=== PATIENT | female | born 1985 | race Caucasian/White ===

== ENCOUNTER 2016-07-31 12:50 | Emergency (ER) | payer OTHER ==
[2016-07-31 14:40] VITALS: BP 109/61
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
--- NOTE | 2016-07-31 16:05 | RAD ---
Indication: Right lower leg pain after a fall the previous night Comparison: None. Technique: AP and lateral views right lower leg. Report: The visualized bones are adequately corticated and well aligned. There is no acute fracture, dislocation or other focal abnormality. The soft tissues appear grossly normal. IMPRESSION: Normal right lower leg radiograph. If the patient's symptoms persist, follow-up imaging is recommended.
== END 2016-07-31 15:53 | disposition home or self-care (01) ==
LOC: UCCORT 12:50
DX: S86.911A Strain of unspecified muscle(s) and tendon(s) at lower leg level, right leg, initial encounter (principal); S80.01XA Contusion of right knee, initial encounter; Y04.8XXA Assault by other bodily force, initial encounter; Y93.9 Activity, unspecified; Y92.29 Other specified public building as the place of occurrence of the external cause; F17.210 Nicotine dependence, cigarettes, uncomplicated
CPT/HCPCS: 99212; G0463

== ENCOUNTER 2016-08-04 17:36 | Emergency (ER) | payer OTHER ==
[2016-08-04 19:10] VITALS: BP 119/63
--- NOTE | 2016-08-04 19:31 | UC ---
Respiratory Complaint HPI - HPI Summary HPI Summary: Patient states she has a 3 day history of congestion, cough, FARMER and SOB. Cough is productive of sputum. Denies chest discomfort or pain. Cough is CC. patient had PNA early last year and was a course of abx. - History of Current Complaint Chief Complaint: UCRespiratory Stated Complaint: COUGH,HEADACHE Hx Obtained From: Patient Hx Last Menstrual Period: 07/29 ?: No Onset/Duration: Sudden Onset Timing: Constant Severity Initially: Moderate Severity Currently: Moderate Pain Intensity: 2 Pain Scale Used: 0-10 Numeric Character: Cough: Productive Aggravating Factors: Deep Breaths Alleviating Factors: Bronchodilator Associated Signs And Symptoms: Positive: Dyspnea, URI, Nasal Congestion, Sinus Discomfort - Risk Factors Pulmonary Embolism Risk Factors: Negative Cardiac Risk Factors: Negative Pseudomonas Risk Factors: Negative Tuberculosis Risk Factors: Negative - Allergies/Home Medications Allergies/Adverse Reactions: Allergies Allergy/AdvReac Type Severity Reaction Status Date / Time Codeine Allergy Intermediate Rash Verified 08/04/16 19:10 Home Medications: Home Medications Phenylephrine-Chlorpheniramine [Anna-Em[place] Plus Cold &] 2 cap PO DAILY [History Confirmed 08/04/16] PMH/Surg Hx/FS Hx/Imm Hx Previously Healthy: Yes Endocrine History Of: Denies: Diabetes Cardiovascular History Of: Denies: Cardiac Disorders, Hypertension, Pacemaker/ICD, Myocardial Infarction , Congestive Heart Failure, Atrial Fibrillation, Deep Vein Thrombosis, Bleeding Disorders Respiratory History Of: Reports: Asthma Denies: COPD GI/ History Of: Denies: Gastroesophageal Reflux, Ulcer, Gastrointestinal Bleed, Gall Bladder Disease, Kidney Stones, Diverticulitis, Renal Disease, Urosepsis Neurological History Of: Denies: Seizures Psychological History Of: Denies: Anxiety, Depression, Bipolar Disorder, Schizophrenia, Post Traumatic Stress Disorder Cancer History Of: Denies: Lung Cancer, Colorectal Cancer, Breast Cancer, Prostate Cancer, Cervical Cancer - Surgical History Surgical History: Yes Surgery Procedure, Year, and Place: C Sections,2005 2006 2012. COlPOSCOPY- CERVICAL Other Surgical History: C-sections. - Family History Known Family History: Positive: Unknown, Cardiac Disease - MATERNAL GRANDFATHER Negative: Hypertension, Diabetes - Social History Occupation: Employed Full-time Lives: With Family Alcohol Use: Occasionally Substance Use Type: None Smoking Status (MU): Light Every Day Tobacco Smoker Type: Cigarettes Amount Used/How Often: 5 CIGS PER DAY Have You Smoked in the Last Year: Yes When Did the Patient Quit Smoking/Using Tobacco: 2 YRS AGO Household Exposure Type: Cigarettes - Immunization History Most Recent Influenza Vaccination: no Review of Systems Constitutional: Negative Skin: Negative Eyes: Negative ENT: Sore Throat, Nasal Discharge Respiratory: Shortness Of Breath, Cough Cardiovascular: Negative Motor: Negative Neurovascular: Negative Neurological: Negative Psychological: Negative All Other Systems Reviewed And Are Negative: Yes Physical Exam Triage Information Reviewed: Yes Appearance: Well-Appearing, No Pain Distress, Well-Nourished Vital Signs: Initial Vital Signs Temp 97.8 F 08/04/16 19:04 Pulse 74 08/04/16 19:04 Resp 18 08/04/16 19:04 BP 119/63 08/04/16 19:04 Pulse Ox 99 08/04/16 19:04 Vital Signs Reviewed: Yes Eye Exam: Normal Eyes: Positive: Conjunctiva Clear ENT Exam: Normal ENT: Positive: Normal ENT inspection, Pharynx normal, Nasal congestion, Nasal drainage Dental Exam: Normal Neck exam: Normal Neck: Positive: Supple, Nontender, No Lymphadenopathy Respiratory Exam: Normal Respiratory: Positive: Chest non-tender, Lungs clear Cardiovascular Exam: Normal Musculoskeletal Exam: Normal Musculoskeletal: Positive: Strength Intact, ROM Intact Neurological Exam: Normal Neurological: Positive: Alert Psychological Exam: Normal Psychological: Positive: Age Appropriate Behavior Skin Exam: Normal Diagnostic Evaluation - Laboratory O2 Sat by Pulse Oximetry: 99 Respiratory Course/Dx - Course Course Of Treatment: D/t patient asthma history, prescription for albuterol inhaler and short course of steroids sent. Wheezing heard on exam un upper lung base. Will also prescribe sudafed for congestion symptoms. patient to follow up with PCP or come back to if symptoms worsen or SOB becomes worse. patient advised to quit smoking - Differential Dx/Diagnosis Differential Diagnosis/HQI/PQRI: Asthma, Bronchitis, Sinusitis Provider Diagnoses: URI/asthma Discharge - Discharge Plan Condition: Stable Disposition: HOME Prescriptions: Albuterol HFA INHALER* [Ventolin HFA Inhaler*] 1 puff INH Q4H PRN #1 mdi PRN Reason: Cough Pseudoephedrine HCL ER TAB* [Sudafed 12 Hour*] 120 mg PO BID #20 tab.er MDD 2 predniSONE TAB* [Deltasone TAB*] 10 mg PO DAILY #17 tab Patient Education Materials: Upper Respiratory Infection (ED) Forms: *Work Release Referrals: Calderon Michel MD [Primary Care Provider] - Additional Instructions: Drink plenty of fluids. Stay out of work until monday. Rest. Take medications as prescribed. If symptoms worsen by next week, come back to UC. If you develop worsening SOB, come back to UC or go to the ER immediately.
== END 2016-08-04 19:47 | disposition home or self-care (01) ==
LOC: UCCORT 17:36
DX: J06.9 Acute upper respiratory infection, unspecified (principal); J45.909 Unspecified asthma, uncomplicated; Z88.6 Allergy status to analgesic agent; F17.210 Nicotine dependence, cigarettes, uncomplicated
CPT/HCPCS: 99212; G0463

== ENCOUNTER 2016-09-11 13:34 | Emergency (ER) | payer OTHER ==
[2016-09-11] MEDS ORDERED: Ibuprofen TAB* 600 MG PO ONE (16:30)
[2016-09-11] MEDS ORDERED: Albuterol 2.5 MG/3 ML NEB.SOL* (0.083%) INH ONE (16:30)
--- NOTE | 2016-09-11 16:34 | UC ---
Respiratory Complaint HPI - HPI Summary HPI Summary: pneumonia 1 month ago, cough, SOB, sore throat. hard to talk without coughing, low grade fever, hx of asthma has been using her ventolin. - History of Current Complaint Stated Complaint: COUGH, CHEST CONGESTION Time Seen by Provider: 09/11/16 16:20 Hx Obtained From: Patient Hx Last Menstrual Period: 07/29 ?: No Onset/Duration: Sudden Onset, Lasting Hours Timing: Constant Severity Initially: Severe Severity Currently: Severe Pain Intensity: 6 Pain Scale Used: 0-10 Numeric Character: Cough: Nonproductive Aggravating Factors: Exertion, Deep Breaths, Recumbent Position Alleviating Factors: Nothing Associated Signs And Symptoms: Positive: Dyspnea, Wheezing, URI, Nasal Congestion - Risk Factors Pulmonary Embolism Risk Factors: Negative Cardiac Risk Factors: Negative Pseudomonas Risk Factors: Negative Tuberculosis Risk Factors: Negative - Allergies/Home Medications Allergies/Adverse Reactions: Allergies Allergy/AdvReac Type Severity Reaction Status Date / Time Codeine Allergy Intermediate Rash Verified 09/11/16 16:55 PMH/Surg Hx/FS Hx/Imm Hx Previously Healthy: Yes Endocrine History Of: Denies: Diabetes Cardiovascular History Of: Denies: Cardiac Disorders, Hypertension, Pacemaker/ICD, Myocardial Infarction , Congestive Heart Failure, Atrial Fibrillation, Deep Vein Thrombosis, Bleeding Disorders Respiratory History Of: Reports: Asthma Denies: COPD GI/ History Of: Denies: Gastroesophageal Reflux, Ulcer, Gastrointestinal Bleed, Gall Bladder Disease, Kidney Stones, Diverticulitis, Renal Disease, Urosepsis Neurological History Of: Denies: Seizures Psychological History Of: Denies: Anxiety, Depression, Bipolar Disorder, Schizophrenia, Post Traumatic Stress Disorder Cancer History Of: Denies: Lung Cancer, Colorectal Cancer, Breast Cancer, Prostate Cancer, Cervical Cancer - Surgical History Surgical History: Yes Surgery Procedure, Year, and Place: C Sections,2005 2006 2013. COlPOSCOPY- CERVICAL Other Surgical History: C-sections. - Family History Known Family History: Positive: Unknown, Cardiac Disease - MATERNAL GRANDFATHER Negative: Hypertension, Diabetes - Social History Alcohol Use: Occasionally Substance Use Type: None Smoking Status (MU): Light Every Day Tobacco Smoker Type: Cigarettes Amount Used/How Often: 5 CIGS PER DAY Have You Smoked in the Last Year: Yes When Did the Patient Quit Smoking/Using Tobacco: 2 YRS AGO Household Exposure Type: Cigarettes - Immunization History Most Recent Influenza Vaccination: no Review of Systems Constitutional: Fever, Fatigue Skin: Negative Eyes: Negative ENT: Sore Throat, Nasal Discharge Respiratory: Shortness Of Breath, Cough Cardiovascular: Negative Genitourinary: Negative Motor: Negative Neurovascular: Negative Musculoskeletal: Negative Neurological: Negative Psychological: Negative All Other Systems Reviewed And Are Negative: Yes Physical Exam Triage Information Reviewed: Yes Appearance: Ill-Appearing, Pain Distress, Obese Vital Signs Reviewed: Yes Eye Exam: Normal Eyes: Positive: Conjunctiva Clear ENT: Positive: Hearing grossly normal, Pharyngeal erythema, Nasal congestion, TM dull - and macerated, external canal red bilaterallly, Tonsillar swelling, Tonsillar exudate Dental Exam: Normal Neck exam: Normal Neck: Positive: Supple, Nontender, No Lymphadenopathy Respiratory Exam: Normal Respiratory: Positive: Respiratory distress - mild, Decreased breath sounds, Rhonchi, Wheezing, Inspiration Cardiovascular Exam: Normal Cardiovascular: Positive: RRR, No Murmur, Pulses Normal Abdominal Exam: Normal Abdomen Description: Positive: Nontender, No Organomegaly, Soft Bowel Sounds: Positive: Present Musculoskeletal Exam: Normal Musculoskeletal: Positive: Strength Intact, ROM Intact, No Edema Neurological Exam: Normal Neurological: Positive: Alert, Muscle Tone Normal Psychological Exam: Normal Skin Exam: Normal Respiratory Course/Dx - Course Course Of Treatment: hx obtained, exam perfromed, meds reviewed, chest xray, ibuprofen, neb treatment with good results, meds dispensed and prescribed for sinusitis and asthma exacerbation - Differential Dx/Diagnosis Differential Diagnosis/HQI/PQRI: Aspiration, Asthma, Bronchitis, Influenza, Laryngitis, SARS, Sinusitis Provider Diagnoses: sinusitis. asthma exacerbation Discharge - Discharge Plan Condition: Stable Disposition: HOME Prescriptions: Amoxicillin/Clavulanate TAB* [Augmentin TAB 875*] 875 mg PO BID #19 tab predniSONE TAB* [Deltasone TAB*] 40 mg PO DAILY #10 tab Patient Education Materials: Sinusitis (ED) Referrals: Calderon Michel MD [Primary Care Provider] - Additional Instructions: take the medications as prescribed, increase your fluid intake and get plenty of rest.
--- NOTE | 2016-09-11 16:48 | RAD ---
INDICATION: Cough COMPARISON: Most recent comparison chest x-ray dated April 06, 2010 TECHNIQUE: PA and lateral views of the chest were obtained. FINDINGS: The heart and mediastinum are normal in size and contour. The lungs are grossly clear. There is no evidence of large pleural effusion. Visualized bones are normal for the patient's age. There is no radiographic evidence of free air beneath the diaphragm IMPRESSION: No radiographic evidence of acute cardiopulmonary disease.
[2016-09-11 16:56] VITALS: BP 100/51
[2016-09-11] MEDS ORDERED: Amoxicillin/Clavulanate TAB* 875 MG PO ONE ×2 (17:17→17:19)
== END 2016-09-11 17:30 | disposition home or self-care (01) ==
LOC: UCCORT 13:34
DX: J45.901 Unspecified asthma with (acute) exacerbation (principal); J32.9 Chronic sinusitis, unspecified; R09.81 Nasal congestion; R05 Cough; R50.9 Fever, unspecified; F17.210 Nicotine dependence, cigarettes, uncomplicated; Z88.5 Allergy status to narcotic agent
CPT/HCPCS: 71020; 87651; 99213; A9270-GY; G0463

== ENCOUNTER 2016-10-04 18:12 | Emergency (ER) | payer OTHER ==
[2016-10-04 19:07] VITALS: BP 115/63
--- NOTE | 2016-10-04 19:32 | UC ---
UC General HPI - HPI Summary HPI Summary: patient recently finished augmentin and flagyl. she has developed diarrhea for the past week. no odor, loose sometimes yellow in color. denies abdominal pain, fever or back pain, no dysuria. patient staes she is taking flagyl gel every other week due to BV. - History of Current Complaint Chief Complaint: UCGI Stated Complaint: DIARRHEA Time Seen by Provider: 10/04/16 19:14 Hx Obtained From: Patient Onset/Duration: Gradual Onset, Lasting Weeks Timing: Constant Onset Severity: Moderate Current Severity: Moderate Associated Signs & Symptoms: Positive: Diarrhea - Allergy/Home Medications Allergies/Adverse Reactions: Allergies Allergy/AdvReac Type Severity Reaction Status Date / Time Codeine Allergy Intermediate Rash Verified 10/04/16 19:02 Home Medications: Home Medications Loperamide CAP* [Imodium CAP*] 2 - 4 mg PO SEE INSTRUCTIONS PRN 10/04/16 [ History Confirmed 10/04/16] PMH/Surg Hx/FS Hx/Imm Hx Previously Healthy: Yes Endocrine History Of: Denies: Diabetes Cardiovascular History Of: Denies: Cardiac Disorders, Hypertension, Pacemaker/ICD, Myocardial Infarction , Congestive Heart Failure, Atrial Fibrillation, Deep Vein Thrombosis, Bleeding Disorders Respiratory History Of: Reports: Asthma Denies: COPD GI/ History Of: Denies: Gastroesophageal Reflux, Ulcer, Gastrointestinal Bleed, Gall Bladder Disease, Kidney Stones, Diverticulitis, Renal Disease, Urosepsis Neurological History Of: Denies: Seizures Psychological History Of: Denies: Anxiety, Depression, Bipolar Disorder, Schizophrenia, Post Traumatic Stress Disorder Cancer History Of: Denies: Lung Cancer, Colorectal Cancer, Breast Cancer, Prostate Cancer, Cervical Cancer - Surgical History Surgical History: Yes Surgery Procedure, Year, and Place: C Sections,2005 2007 2012. COlPOSCOPY- CERVICAL Other Surgical History: C-sections. - Family History Known Family History: Positive: Unknown, Cardiac Disease - MATERNAL GRANDFATHER Negative: Hypertension, Diabetes - Social History Alcohol Use: Occasionally Substance Use Type: None Smoking Status (MU): Light Every Day Tobacco Smoker Type: Cigarettes Amount Used/How Often: 1/3 PPD Have You Smoked in the Last Year: Yes When Did the Patient Quit Smoking/Using Tobacco: 2 YRS AGO Household Exposure Type: Cigarettes - Immunization History Most Recent Influenza Vaccination: Not the 2015/2016 Season Review of Systems Constitutional: Negative Skin: Negative Eyes: Negative ENT: Negative Respiratory: Negative Cardiovascular: Negative Gastrointestinal: Diarrhea Genitourinary: Negative Motor: Negative Neurovascular: Negative Musculoskeletal: Negative Neurological: Negative Psychological: Negative All Other Systems Reviewed And Are Negative: Yes Physical Exam Triage Information Reviewed: Yes Appearance: No Pain Distress, Well-Nourished, Ill-Appearing Vital Signs: Initial Vital Signs Temp 97.9 F 10/04/16 18:59 Pulse 78 10/04/16 18:59 Resp 16 10/04/16 18:59 BP 115/63 10/04/16 18:59 Pulse Ox 98 10/04/16 18:59 Vital Signs Reviewed: Yes Eye Exam: Normal Eyes: Positive: Conjunctiva Clear ENT Exam: Normal ENT: Positive: Hearing grossly normal, Pharynx normal, TMs normal Dental Exam: Normal Neck exam: Normal Neck: Positive: Supple, Nontender, No Lymphadenopathy Respiratory Exam: Normal Respiratory: Positive: Chest non-tender, Lungs clear, Normal breath sounds Cardiovascular Exam: Normal Cardiovascular: Positive: RRR, No Murmur Abdominal Exam: Other Abdomen Description: Positive: No Organomegaly, Soft - neg CVA tenderness, mild tenderness in LLQ, no guarding or distension Bowel Sounds: Positive: Present Musculoskeletal Exam: Normal Musculoskeletal: Positive: Strength Intact, ROM Intact, No Edema Neurological Exam: Normal Neurological: Positive: Alert, Muscle Tone Normal Psychological Exam: Normal Skin Exam: Normal Course/Dx - Course Course Of Treatment: hx obtained, exam performed, meds reviewed, educated on side effects of antibiotics and laternative treatement for BV and re- establishing good dai in the gut. stool give and order given. - Differential Dx - Multi-Symptom Provider Diagnoses: diarrhea Discharge - Discharge Plan Condition: Stable Disposition: HOME Patient Education Materials: Acute Diarrhea (ED) Additional Instructions: Return with the stool kit at your convenience. Start taking a good probiotic. Increase fluid intake. follow up with any increase in symtpoms
== END 2016-10-04 20:00 | disposition home or self-care (01) ==
LOC: UCCORT 18:12
DX: R19.7 Diarrhea, unspecified (principal); Z88.5 Allergy status to narcotic agent; F17.210 Nicotine dependence, cigarettes, uncomplicated
CPT/HCPCS: 81003; 99211; G0463

== ENCOUNTER 2016-11-29 15:46 | Emergency (ER) | payer OTHER ==
[2016-11-29 16:53] VITALS: BP 128/67
[2016-11-29] MEDS ORDERED: Ketorolac INJ* 60 MG/2 ML VIAL IM ONE (16:59)
--- NOTE | 2016-11-29 17:55 | UC ---
Back Pain HPI - HPI Summary HPI Summary: Patient got out of the shower this morning bent over and got a sharp up the center of his lower spine. - History of Current Complaint Chief Complaint: UCBackPain Stated Complaint: LOWER BACK PAIN Time Seen by Provider: 11/29/16 16:57 Hx Obtained From: Patient Hx Last Menstrual Period: 11/03/16 ?: No Onset/Duration: Sudden Onset, Lasting Hours Timing: Constant Severity Initially: Moderate Severity Currently: Severe Back Pain: Is Discrete @ - l4 - l6 Character: Sharp, Throbbing, Burning Aggravating: Movement Alleviating: Nothing - Allergies/Home Medications Allergies/Adverse Reactions: Allergies Allergy/AdvReac Type Severity Reaction Status Date / Time Codeine Allergy Intermediate Rash Verified 11/29/16 16:53 Home Medications: Home Medications Acetaminophen SUPP* [Tylenol Supp*] 2 tab VA ONCE 11/29/16 [History Confirmed ] Ibuprofen TAB* [Motrin TAB* 600 MG] 600 mg PO ONCE 11/29/16 [History Confirmed 11/29/16] metroNIDAZOLE TAB* [Flagyl 250 mg TAB*] 250 mg PO BID 11/29/16 [History Confirmed 11/29/16] PMH/Surg Hx/FS Hx/Imm Hx Previously Healthy: Yes Endocrine History Of: Denies: Diabetes Cardiovascular History Of: Denies: Cardiac Disorders, Hypertension, Pacemaker/ICD, Myocardial Infarction , Congestive Heart Failure, Atrial Fibrillation, Deep Vein Thrombosis, Bleeding Disorders Respiratory History Of: Reports: Asthma Denies: COPD GI/ History Of: Denies: Gastroesophageal Reflux, Ulcer, Gastrointestinal Bleed, Gall Bladder Disease, Kidney Stones, Diverticulitis, Renal Disease, Urosepsis Neurological History Of: Denies: Seizures Psychological History Of: Denies: Anxiety, Depression, Bipolar Disorder, Schizophrenia, Post Traumatic Stress Disorder Cancer History Of: Denies: Lung Cancer, Colorectal Cancer, Breast Cancer, Prostate Cancer, Cervical Cancer - Surgical History Surgical History: Yes Surgery Procedure, Year, and Place: C Sections,2005 2006 2012. COlPOSCOPY- CERVICAL Other Surgical History: C-sections. - Family History Known Family History: Positive: Unknown, Cardiac Disease - MATERNAL GRANDFATHER Negative: Hypertension, Diabetes - Social History Alcohol Use: Occasionally Substance Use Type: None Smoking Status (MU): Light Every Day Tobacco Smoker Type: Cigarettes Amount Used/How Often: 1/2 ppd Have You Smoked in the Last Year: Yes When Did the Patient Quit Smoking/Using Tobacco: 2 YRS AGO Household Exposure Type: Cigarettes - Immunization History Most Recent Influenza Vaccination: none Review of Systems Skin: Negative Eyes: Negative ENT: Negative Respiratory: Negative Cardiovascular: Negative Gastrointestinal: Negative Genitourinary: Negative Motor: Negative Musculoskeletal: Arthralgia, Decreased ROM, Myalgia Neurological: Negative Psychological: Negative All Other Systems Reviewed And Are Negative: Yes Physical Exam Triage Information Reviewed: Yes Appearance: Well-Nourished, Ill-Appearing, Pain Distress Vital Signs: Initial Vital Signs Temp 98.8 F 11/29/16 16:48 Pulse 88 11/29/16 16:48 Resp 15 11/29/16 16:48 BP 128/67 11/29/16 16:48 Pulse Ox 99 11/29/16 16:48 Vital Signs Reviewed: Yes Eye Exam: Normal ENT Exam: Normal Dental Exam: Normal Neck exam: Normal Respiratory Exam: Normal Respiratory: Positive: Chest non-tender, Lungs clear, Normal breath sounds Cardiovascular Exam: Normal Cardiovascular: Positive: RRR, No Murmur, Pulses Normal Abdominal Exam: Normal Abdomen Description: Positive: Nontender, No Organomegaly, Soft Bowel Sounds: Positive: Present Musculoskeletal Exam: Normal Musculoskeletal: Positive: No Edema, Strength Limited @ - hard to stand up straingt, pain more so in right leg and hip then left, ROM Limited @ Neurological Exam: Normal Neurological: Positive: Alert, Muscle Tone Normal Psychological Exam: Normal Skin Exam: Normal Back Pain Course/Dx - Course Course Of Treatment: hx obtaine ,exam performed, meds reviewed, toradol given, xray obtained. - Differential Dx/Diagnosis Differential Diagnosis/HQI/PQRI: Strain, Sprain Provider Diagnoses: Back pain. Lumbar strain Discharge - Discharge Plan Condition: Stable Disposition: HOME Patient Education Materials: Back Pain (ED), Core Strengthening Exercises (GEN) , Lower Back Exercises (ED) Forms: *Work Release Additional Instructions: 1. Do not take any Advil or Aleve until 2 am 2. Use the pain medication as needed. 3. lay flat and heat the legs and low back for relief of the muscle spasm. 4. start the stretched tomorrow heat before. 5. keep movement pain free.
--- NOTE | 2016-11-29 18:08 | RAD ---
HISTORY: Sharp pain along lumbar spine COMPARISONS: None VIEWS: 2 , frontal and lateral views of the lumbar spine FINDINGS: ALIGNMENT: There is straightening of the lumbar lordosis VERTEBRAL BODIES: The vertebral body heights are normal. The interpedicular distances are normal. JOINTS: The facet joints are normal. INTERVERTEBRAL DISCS: The intervertebral disc heights are normal. SOFT TISSUE: Unremarkable. OTHER: An IUD is noted. The lung bases are clear. IMPRESSION: STRAIGHTENING OF THE LUMBAR LORDOSIS
== END 2016-11-29 18:32 | disposition home or self-care (01) ==
LOC: UCCORT 15:46
DX: S39.012A Strain of muscle, fascia and tendon of lower back, initial encounter (principal); X50.1XXA Overexertion from prolonged static or awkward postures, initial encounter; Y93.89 Activity, other specified; Y92.002 Bathroom of unspecified non-institutional (private) residence as the place of occurrence of the external cause; J45.909 Unspecified asthma, uncomplicated; Z88.5 Allergy status to narcotic agent; F17.210 Nicotine dependence, cigarettes, uncomplicated
CPT/HCPCS: 72100; 96372; 99212; G0463; J1885

== ENCOUNTER 2017-02-15 13:00 | Emergency (ER) | payer OTHER ==
[2017-02-15 13:52] VITALS: BP 114/57
--- NOTE | 2017-02-15 13:58 | UC ---
Upper Extremity HPI - HPI Summary HPI Summary: pt presents for c/o sudden onset of left wrist pain. Pt denies injury or trauma. - History of Current Complaint Chief Complaint: UCUpperExtremity Stated Complaint: LEFT WRIST PAIN Time Seen by Provider: 02/15/17 13:19 Hx Obtained From: Patient Hx Last Menstrual Period: 01/22/17 ?: No Onset/Duration: Sudden Onset, Still Present Severity Initially: Mild Severity Currently: Moderate Location Of Pain: Is Discrete @ - left wrist, radial aspect Aggravating Factor(s): Movement Alleviating Factor(s): Nothing Associated Signs And Symptoms: Positive: Negative Related History: Dominant Hand Right - Risk Factors Non-Orthopedic Risk Factor: Negative Septic Arthritis Risk Factor: Negative - Allergies/Home Medications Allergies/Adverse Reactions: Allergies Allergy/AdvReac Type Severity Reaction Status Date / Time Codeine Allergy Intermediate Rash Verified 02/15/17 13:25 Home Medications: Home Medications Escitalopram Oxalate [Lexapro 10 mg] 10 mg PO DAILY 02/15/17 [History Confirmed 02/15/17] Varenicline (NF) [Chantix 1 MG TAB (NF)] 1 mg PO BID 02/15/17 [History Confirmed 02/15/17] PMH/Surg Hx/FS Hx/Imm Hx Previously Healthy: Yes - Surgical History Surgical History: Yes Surgery Procedure, Year, and Place: C Sections,2005 2007 2012. COlPOSCOPY- CERVICAL Other Surgical History: C-sections. - Family History Known Family History: Positive: Unknown, Cardiac Disease - MATERNAL GRANDFATHER Negative: Hypertension, Diabetes - Social History Alcohol Use: None Substance Use Type: None Smoking Status (MU): Light Every Day Tobacco Smoker Type: Cigarettes Amount Used/How Often: 5 cigs per day Have You Smoked in the Last Year: Yes When Did the Patient Quit Smoking/Using Tobacco: 2 YRS AGO Household Exposure Type: Cigarettes - Immunization History Most Recent Influenza Vaccination: none Review of Systems Constitutional: Negative Skin: Negative Eyes: Negative ENT: Negative Respiratory: Negative Cardiovascular: Negative Gastrointestinal: Negative Genitourinary: Negative Motor: Decreased ROM - secondary to pain Neurovascular: Negative Musculoskeletal: Arthralgia, Decreased ROM - secondary to pain, Myalgia Neurological: Negative Psychological: Negative All Other Systems Reviewed And Are Negative: Yes Physical Exam Triage Information Reviewed: Yes Appearance: Well-Appearing Vital Signs: Initial Vital Signs Temp 98.1 F 02/15/17 13:20 Pulse 71 02/15/17 13:20 Resp 18 02/15/17 13:20 BP 114/57 02/15/17 13:20 Pulse Ox 98 02/15/17 13:20 Vital Signs Reviewed: Yes Eye Exam: Normal Neck exam: Normal Respiratory Exam: Normal Cardiovascular Exam: Normal Musculoskeletal Exam: Other Musculoskeletal: Positive: ROM Limited @ - secondary to pain Neurological Exam: Normal Psychological Exam: Normal Skin Exam: Normal Upper Extremity Course/Dx - Differential Dx/Diagnosis Differential Diagnosis/HQI/PQRI: Bursitis, Strain Provider Diagnoses: tendonitis Discharge - Discharge Plan Condition: Stable Disposition: HOME Prescriptions: predniSONE TAB* [Deltasone TAB*] 20 mg PO DAILY #4 tab Patient Education Materials: Wrist Injury (ED), Tendinitis (ED) Referrals: Calderon Michel MD [Primary Care Provider] - If Needed Mohinder Greenwood MD [Medical Doctor] -
== END 2017-02-15 14:14 | disposition home or self-care (01) ==
LOC: UCCORT 13:00
DX: M65.831 Other synovitis and tenosynovitis, right forearm (principal); Z88.5 Allergy status to narcotic agent; F17.210 Nicotine dependence, cigarettes, uncomplicated
CPT/HCPCS: 99213; G0463

== ENCOUNTER 2017-03-11 15:32 | Emergency (ER) | payer OTHER ==
--- NOTE | 2017-03-11 17:05 | UC ---
Skin Complaint HPI - HPI Summary HPI Summary: 31 y/o female presents to the urgent care c/o redness and pain in the a tattoo she did on her RT leg 1 week ago. PT states redness is only in the purple starts , the other color stars do not have any redness. She states last time she did a heart heart tattoo in the LF arm the purple color did a similar reaction. However, this time the reaction is bigger w/ a lot itchiness. Pain is 5/10 at touch. Pt denies fever, SOB, chest pain, N/V/D. Pt has not other complains. - History of Current Complaint Chief Complaint: UCSkin Time Seen by Provider: 03/11/17 16:56 Stated Complaint: SKIN ISSUE Hx Obtained From: Patient Hx Last Menstrual Period: 02/18/17 ?: No Onset/Duration: Gradual Onset, Lasting Days, Still Present Skin Exposure Onset/Duration: Days Ago Timing: Constant Onset Severity: Moderate Current Severity: Moderate Pain Intensity: 5 Pain Scale Used: 0-10 Numeric Location: Discrete - lateral side of her RT leg Character: Pruritus, Pain, Redness Aggravating: Touch Alleviating: Cold Associated Signs & Symptoms: Positive: Negative. Negative: Nausea, Vomiting, Difficulty Breathing, Fever, Throat Tightening Related History: Other: - reaction to purple ink used for the tattoo - Allergy/Home Medications Allergies/Adverse Reactions: Allergies Allergy/AdvReac Type Severity Reaction Status Date / Time Codeine Allergy Intermediate Rash Verified 03/11/17 16:49 Home Medications: Home Medications Naproxen [Naprosyn 500 mg] 500 mg PO BID 03/11/17 [History Confirmed 03/11/17] Review of Systems Constitutional: Negative Skin: Rash - Redness and pain with itchiness s/p tattoo Eyes: Negative ENT: Negative Respiratory: Negative Cardiovascular: Negative Gastrointestinal: Negative Genitourinary: Negative Motor: Negative Neurovascular: Negative Musculoskeletal: Negative Neurological: Negative Psychological: Negative All Other Systems Reviewed And Are Negative: Yes PMH/Surg Hx/FS Hx/Imm Hx Previously Healthy: Yes Respiratory History: Asthma - Surgical History Surgical History: Yes Surgery Procedure, Year, and Place: C Sections,2006 2007 2012. COlPOSCOPY- CERVICAL Other Surgical History: C-sections. - Family History Known Family History: Positive: Cardiac Disease - MATERNAL GRANDFATHER, Hypertension, Diabetes Family History: Asthma - Social History Occupation: Employed Full-time Lives: With Family Alcohol Use: Occasionally Substance Use Type: None Smoking Status (MU): Light Every Day Tobacco Smoker Type: Cigarettes Amount Used/How Often: 2-3 cigarettes daily Have You Smoked in the Last Year: Yes When Did the Patient Quit Smoking/Using Tobacco: 2 YRS AGO Household Exposure Type: Cigarettes - Immunization History Most Recent Influenza Vaccination: none Physical Exam Triage Information Reviewed: Yes Appearance: Well-Appearing, No Pain Distress, Well-Nourished, Obese Vital Signs: Initial Vital Signs Temp 98.5 F 03/11/17 16:51 Pulse 82 03/11/17 16:51 Resp 16 03/11/17 16:51 BP 112/75 03/11/17 16:51 Pulse Ox 98 03/11/17 16:51 Vital Signs Reviewed: Yes Eye Exam: Normal Eyes: Positive: Conjunctiva Clear - PERRLA, EOMI, ENT Exam: Normal ENT: Positive: Normal ENT inspection, Hearing grossly normal, Pharynx normal, Pharyngeal erythema, TMs normal Dental Exam: Normal Neck exam: Normal Neck: Positive: Supple, Nontender, No Lymphadenopathy Respiratory Exam: Normal Respiratory: Positive: Chest non-tender, Lungs clear, Normal breath sounds Cardiovascular Exam: Normal Cardiovascular: Positive: RRR, No Murmur, Pulses Normal, Brisk Capillary Refill Abdominal Exam: Normal Abdomen Description: Positive: Nontender, No Organomegaly, Soft. Negative: CVA Tenderness (R), CVA Tenderness (L) Bowel Sounds: Positive: Present Musculoskeletal Exam: Normal Musculoskeletal: Positive: Strength Intact, ROM Intact, No Edema Neurological Exam: Normal Psychological Exam: Normal Skin: Positive: rashes - RT lateral side from hip to foot with multiple star tattoos in different colors. the purple starts with maculopapaular erythematous eruption inside the stars, mild tender to palpation, signs of scoriation observed.Some with discrete yellowihs drainage.FROM of left leg, pulses and sensation WNL, capillary refill brisk Course/Dx - Course Course Of Treatment: 31 y/o female presents to the urgent care c/o redness and pain in the a tattoo she did on her RT leg 1 week ago. PT states redness is only in the purple starts, the other color stars do not have any redness. She states last time she did a heart heart tattoo in the LF arm the purple color did a similar reaction. However, this time the reaction is bigger w/ a lot itchiness. Pain is 5/10 at touch. Pt denies fever, SOB, chest pain, N/V/D.HX obtained. Local skin restion to purple dye. Pt Rx Prednisosne PO and benadryl PO to alleviate symptoms.Topical bacitracin topical cream for the ones that are with co infection s/p scoariation. If not improvement of symptoms advised to f/ u with her PCP or return to the clinic. - Differential Diagnoses - Skin Complaint Differential Diagnoses: Allergic Reaction, Cellulitis, Contact Dermatitis, Local Allergic Reaction, Medication; Adverse Reaction, Tick Born Illness - Diagnoses Provider Diagnoses: 1- Localized skin reaction Discharge - Discharge Plan Condition: Stable Disposition: HOME Prescriptions: Bacitracin OINTMENT* 1 applic TOPICAL TID #1 tube diPHENhydraMINE PO* [Benadryl PO 25 MG TAB*] 25 mg PO TID PRN #15 tab PRN Reason: Pruritis predniSONE TAB* [Deltasone TAB*] 20 mg PO DAILY #11 tab Patient Education Materials: Acute Rash (ED) Referrals: Calderon Michel MD [Primary Care Provider] - 1 Week Additional Instructions: Please take medication as directed. apply topical antibiotic as indicated. If symptoms do not improve or redness increases in size with fever,please return to the urgent care or f/u with your PCP for further treatment
[2017-03-11 17:08] VITALS: BP 112/75
== END 2017-03-11 17:21 | disposition home or self-care (01) ==
LOC: UCCORT 15:32
DX: R21 Rash and other nonspecific skin eruption (principal); L81.8 Other specified disorders of pigmentation; J45.909 Unspecified asthma, uncomplicated; E66.9 Obesity, unspecified; Z88.5 Allergy status to narcotic agent; Z87.891 Personal history of nicotine dependence
CPT/HCPCS: 99212; G0463

== ENCOUNTER 2017-04-16 19:53 | Emergency (ER) | payer OTHER ==
[2017-04-16 20:38] VITALS: BP 116/67
--- NOTE | 2017-04-16 21:11 | UC ---
Lower Extremity/Ankle HPI - HPI Summary HPI Summary: Missed a step going down stairs and hurt right foot and knee. - History of Current Complaint Chief Complaint: UCLowerExtremity Stated Complaint: RIGHT FOOT AND KNEE PAIN Time Seen by Provider: 04/16/17 21:01 Hx Obtained From: Patient Hx Last Menstrual Period: 04/13/17 ?: No Onset/Duration: Sudden Onset - 04/04/17, Still Present Severity Initially: Moderate Severity Currently: Mild Aggravating Factor(s): Standing, Ambulation Alleviating Factor(s): Rest, Elevation - Risk Factors Gout Risk Factors: Negative - Allergies/Home Medications Allergies/Adverse Reactions: Allergies Allergy/AdvReac Type Severity Reaction Status Date / Time Codeine Allergy Intermediate Rash Verified 04/16/17 20:38 TATOO COLOR Allergy Blisters Uncoded 04/16/17 20:39 Home Medications: Home Medications Cyclobenzaprine HCl [Flexeril 5 mg (NF)] 10 mg PO DAILY 04/16/17 [History Confirmed 04/16/17] diPHENhydraMINE PO* [Benadryl PO 25 MG TAB*] 25 mg PO DAILY 04/16/17 [History Confirmed 04/16/17] PMH/Surg Hx/FS Hx/Imm Hx Respiratory History: Asthma - Surgical History Surgical History: Yes Surgery Procedure, Year, and Place: C Sections,2005 2006 2012. COlPOSCOPY- CERVICAL Other Surgical History: C-sections. - Family History Known Family History: Positive: Unknown, Cardiac Disease - MATERNAL GRANDFATHER , Hypertension, Diabetes Family History: Asthma - Social History Alcohol Use: Occasionally Substance Use Type: None Smoking Status (MU): Current Every Day Smoker Type: Cigarettes Amount Used/How Often: 4 CIGS/DAY Length of Time of Smoking/Using Tobacco: ON AND OFF FOR 10 YRS. Have You Smoked in the Last Year: Yes When Did the Patient Quit Smoking/Using Tobacco: 2 YRS AGO Household Exposure Type: Cigarettes - Immunization History Most Recent Influenza Vaccination: none Review of Systems Musculoskeletal: Arthralgia - right knee and right foot Is Patient Immunocompromised?: No All Other Systems Reviewed And Are Negative: Yes Physical Exam Triage Information Reviewed: Yes Appearance: Well-Appearing, No Pain Distress, Well-Nourished Vital Signs: Initial Vital Signs Temp 98.2 F 04/16/17 20:26 Pulse 84 04/16/17 20:26 Resp 20 04/16/17 20:26 BP 116/67 04/16/17 20:26 Pulse Ox 98 04/16/17 20:26 Vital Signs Reviewed: Yes Eyes: Positive: Conjunctiva Clear ENT: Positive: Pharynx normal, Nasal congestion, TM bulging - right TM, TM dull - bilaterally with left TM retracted and right TM bulging Neck exam: Normal Respiratory Exam: Normal Cardiovascular Exam: Normal Musculoskeletal: Positive: ROM Limited @ - right foot., Other: - tender medial foot. Knee with swelling pre-patellar bursa. Neurological Exam: Normal Psychological Exam: Normal Skin Exam: Normal Lower Extremity Course/Dx - Differential Dx/Diagnosis Differential Diagnosis/HQI/PQRI: Contusion, Fracture (Closed), Sprain, Strain Provider Diagnoses: Sprain right foot. traumatic prepatellar bursitis right knee Discharge - Discharge Plan Condition: Stable Disposition: HOME Patient Education Materials: Foot Sprain (ED), Knee Bursitis (ED) Referrals: Calderon Michel MD [Primary Care Provider] - David Prasad MD [Medical Doctor] - If Needed (If the pain is not gradually improving.)
--- NOTE | 2017-04-16 21:47 | RAD ---
Indication: Medial RIGHT foot pain post fall one week ago. Comparison: December 20, 2014 Technique: AP, lateral, and oblique views RIGHT foot. Report: Negative for fracture or radiographic stigmata of stress reaction. Normal articular alignment. No significant arthropathic change evident. Normal variant os peroneum accessory ossicle. Unremarkable soft tissue contours. IMPRESSION: Negative exam.
== END 2017-04-16 21:41 | disposition home or self-care (01) ==
LOC: UCCORT 19:53
DX: S93.601A Unspecified sprain of right foot, initial encounter (principal); X58.XXXA Exposure to other specified factors, initial encounter; Y93.9 Activity, unspecified; Y92.9 Unspecified place or not applicable; M70.41 Prepatellar bursitis, right knee; J45.909 Unspecified asthma, uncomplicated; Z88.5 Allergy status to narcotic agent; F17.210 Nicotine dependence, cigarettes, uncomplicated
CPT/HCPCS: 99212; G0463

== ENCOUNTER 2017-04-25 16:34 | Emergency (ER) | payer OTHER ==
[2017-04-25 18:22] VITALS: BP 130/80
--- NOTE | 2017-04-25 18:45 | UC ---
Complaint Female HPI - HPI Summary HPI Summary: VAGINAL DISCHARGE X 3 DAY NO DYSURIA, NO VAGINAL PAIN OR ITCH NO NEW PARTNERS , + HX OF STD INCLUDING GC AND CHL HX OF FREQUENT BV - History Of Current Complaint Chief Complaint: UCGU Stated Complaint: PERSONAL Time Seen by Provider: 04/25/17 18:34 Hx Obtained From: Patient Hx Last Menstrual Period: 04/13/17 ?: No Onset/Duration: Gradual Onset, Lasting Days - 3, Still Present Timing: Constant Severity Initially: Moderate Severity Currently: Moderate Character: Not Applicable Aggravating Factor(s): Nothing Associated Signs And Symptoms: Positive: Vaginal Discharge. Negative: Fever, Back Pain, Vaginal Bleeding/Discharge, Nausea, Vomiting(# Of Episodes =), Genital Swelling, Genital Blisters, Retained Foregin Body (Specify) - Allergies/Home Medications Allergies/Adverse Reactions: Allergies Allergy/AdvReac Type Severity Reaction Status Date / Time Codeine Allergy Intermediate Rash Verified 04/16/17 20:38 TATOO COLOR Allergy Blisters Uncoded 04/16/17 20:39 PMH/Surg Hx/FS Hx/Imm Hx Previously Healthy: Yes - Surgical History Surgical History: Yes Surgery Procedure, Year, and Place: C Sections,2005 2006 2012. COlPOSCOPY- CERVICAL Other Surgical History: C-sections. - Family History Known Family History: Positive: Unknown, Cardiac Disease - MATERNAL GRANDFATHER , Hypertension, Diabetes Family History: Asthma - Social History Alcohol Use: Occasionally Substance Use Type: None Smoking Status (MU): Light Every Day Tobacco Smoker Type: Cigarettes Amount Used/How Often: 4 CIGS/DAY Length of Time of Smoking/Using Tobacco: ON AND OFF FOR 10 YRS. Have You Smoked in the Last Year: Yes When Did the Patient Quit Smoking/Using Tobacco: 2 YRS AGO Household Exposure Type: Cigarettes - Immunization History Most Recent Influenza Vaccination: none Review of Systems Constitutional: Negative Skin: Negative Eyes: Negative ENT: Negative Respiratory: Negative Genitourinary: Vaginal/Penile Discharge Motor: Negative Neurovascular: Negative Is Patient Immunocompromised?: No All Other Systems Reviewed And Are Negative: Yes Physical Exam Triage Information Reviewed: Yes Appearance: Well-Appearing, No Pain Distress, Well-Nourished Vital Signs: Initial Vital Signs Temp 98.2 F 04/25/17 18:17 Pulse 97 04/25/17 18:17 Resp 18 04/25/17 18:17 BP 130/80 04/25/17 18:17 Vital Signs Reviewed: Yes Eye Exam: Normal Eyes: Positive: Conjunctiva Clear ENT: Positive: Normal ENT inspection, Hearing grossly normal, Pharynx normal Neck exam: Normal Neck: Positive: Supple, Nontender, No Lymphadenopathy Respiratory: Positive: Chest non-tender, Lungs clear, Normal breath sounds Cardiovascular: Positive: RRR, No Murmur, Pulses Normal Skin Exam: Normal UC Physical Exam Vital Signs On Initial Exam: Initial Vitals Temp Pulse Resp BP 98.2 F 97 18 130/80 04/25/17 18:17 04/25/17 18:17 04/25/17 18:17 04/25/17 18:17 - Genitalia Exam Female Genitourinary: Genitalia without Lesions/Masses, Cervix Discharge - WHITE Complaint Female Dx - Differential Dx/Diagnosis Provider Diagnoses: VAGINITIS Discharge - Discharge Plan Condition: Stable Disposition: HOME Prescriptions: Metronidazole [Flagyl 500 MG TAB] 500 mg PO BID #14 tab Patient Education Materials: Bacterial Vaginosis (ED) Referrals: Calderon Michel MD [Primary Care Provider] - 7 Days
== END 2017-04-25 18:50 | disposition home or self-care (01) ==
LOC: UCCORT 16:34
DX: N76.0 Acute vaginitis (principal); F17.210 Nicotine dependence, cigarettes, uncomplicated; Z88.5 Allergy status to narcotic agent
CPT/HCPCS: 87480; 87491; 87510; 87591; 87661; 99212; G0463

== ENCOUNTER 2017-08-03 14:49 | Emergency (ER) | payer OTHER ==
--- NOTE | 2017-08-03 16:13 | UC ---
Hip/Pelvis Pain - HPI Summary HPI Summary: 31 year old female presents with complains of left hip, back and rib pain after falling down 4 steps. - History Of Current Complaint Stated Complaint: LEFT HIP/BACK PAIN Time Seen by Provider: 08/03/17 16:12 Hx Obtained From: Patient Hx Last Menstrual Period: 2 WKS AGO Onset/Duration: Sudden Onset Severity Initially: Moderate Severity Currently: Moderate Pain Scale Used: 0-10 Numeric - 7 Character Of Pain: Sharp, Throbbing Aggravating Factor(s): Movement Alleviating Factor(s): Nothing Associated Signs And Symptoms: Positive: Swelling, Bruising, Weakness - Allergies/Home Medications Allergies/Adverse Reactions: Allergies Allergy/AdvReac Type Severity Reaction Status Date / Time Codeine Allergy Intermediate Rash Verified 06/02/17 10:49 TATOO COLOR Allergy Blisters Uncoded 06/02/17 10:49 Home Medications: Home Medications Metronidazole [Flagyl 500 MG TAB] 500 mg PO BID 08/03/17 [History Confirmed 11/15] Varenicline (NF) [Chantix 1 MG TAB (NF)] 1 mg PO BID 08/03/17 [History Confirmed 08/03/17] PMH/Surg Hx/FS Hx/Imm Hx Previously Healthy: Yes - Surgical History Surgical History: Yes Surgery Procedure, Year, and Place: C Sections,2005 2007 2012. COlPOSCOPY- CERVICAL Other Surgical History: C-sections. - Family History Known Family History: Positive: Unknown, Cardiac Disease - MATERNAL GRANDFATHER , Hypertension, Diabetes, Renal Disease - MOTHER KIDNEY STONES Family History: Asthma - Social History Alcohol Use: Occasionally Substance Use Type: None Smoking Status (MU): Light Every Day Tobacco Smoker Type: Cigarettes Amount Used/How Often: 4 CIGS/DAY Length of Time of Smoking/Using Tobacco: ON AND OFF FOR 10 YRS. Have You Smoked in the Last Year: Yes When Did the Patient Quit Smoking/Using Tobacco: 2 YRS AGO Household Exposure Type: Cigarettes - Immunization History Most Recent Influenza Vaccination: none Review of Systems Constitutional: Negative Skin: Negative Eyes: Negative ENT: Negative Respiratory: Negative Cardiovascular: Negative Gastrointestinal: Negative Genitourinary: Negative Motor: Negative Neurovascular: Negative Musculoskeletal: Other: - left hip pain left rib pain lower back pain Neurological: Negative Psychological: Negative All Other Systems Reviewed And Are Negative: Yes Physical Exam Triage Information Reviewed: Yes Vital Signs Reviewed: Yes Eye Exam: Normal ENT Exam: Normal Dental Exam: Normal Neck exam: Normal Neck: Positive: 1 Respiratory Exam: Normal Cardiovascular Exam: Normal Abdominal Exam: Normal Musculoskeletal: Positive: Other: - left hip pain left rib pain lower back pain Neurological Exam: Normal Psychological Exam: Normal Skin Exam: Normal Hip Injury Course/Dx - Differential Dx/Diagnosis Provider Diagnoses: left hip sprain. lower back sprain. left rib pain Discharge - Discharge Plan Condition: Stable Disposition: HOME Patient Education Materials: Back Pain (ED), Hip Pain (ED) Referrals: Calderon Michel MD [Primary Care Provider] - Gerardo Stevenson [Physical Therapist] -
[2017-08-03 16:14] VITALS: BP 124/67
--- NOTE | 2017-08-03 18:09 | RAD ---
Indication: Low back pain and buttock pain post fall 4 days ago. Comparison: November 29, 2016 Technique: AP, lateral, and oblique views lumbar sacral spine. Report: Slight LEFT convex curve new compared with the prior exam may be positional. Normal lumbar lordosis without spondylolisthesis at any level. No cortical disruption or trabecular impaction to indicate a vertebral body fracture. Oblique views without evidence for spondylolysis. Preserved disc spaces. Unremarkable soft tissue contours. IUD noted. IMPRESSION: 1. Low suspicion slight LEFT convex curve new compared with the prior exam which may be positional. 2. Negative for fracture or spondylolisthesis at any level.
--- NOTE | 2017-08-03 18:18 | RAD ---
Indication: Lateral LEFT hip pain and buttock pain post fall. Comparison: February 18, 2010 CT. Technique: Supine AP pelvis and AP and frog-leg lateral views LEFT hip. Report: The LEFT hip is normally located and demonstrates preserved joint space. Negative for LEFT proximal femur or pelvic fracture or pelvic joint diastases. Unremarkable soft tissue contours. IUD noted. IMPRESSION: No radiographic evidence for traumatic LEFT hip or pelvic injury.
--- NOTE | 2017-08-03 18:22 | RAD ---
Indication: Lateral LEFT rib pain post fall down stairs 4 days ago. Comparison: September 11, 2016 chest radiograph. Technique: Dual energy PA chest and three-view LEFT unilateral rib series. Report: Lateral skin marker at level of the LEFT seventh rib indicating the level of clinical concern. No rib fracture, pleural effusion, or pneumothorax evident. Suggestion of potential irregularly margined 1.2 cm nodule at the RIGHT mid to upper lung zone at the mid clavicular line new compared with the prior exam. This may be artifact due to superimposed normal bronchovascular structures and ribs. The lungs are otherwise clear. The heart, pulmonary vasculature, and mediastinal contours are unremarkable. IMPRESSION: 1. No evidence for LEFT rib fracture or traumatic thoracic injury. 2. Potential incidental 1.2 cm nodule at the RIGHT mid to upper lung zone. Consider oblique and apical lordotic views for further assessment.
== END 2017-08-03 18:24 | disposition home or self-care (01) ==
LOC: UCCORT 14:49
DX: S73.102A Unspecified sprain of left hip, initial encounter (principal); S33.5XXA Sprain of ligaments of lumbar spine, initial encounter; R07.81 Pleurodynia; F17.210 Nicotine dependence, cigarettes, uncomplicated; Z88.5 Allergy status to narcotic agent; Z91.048 Other nonmedicinal substance allergy status; W10.9XXA Fall (on) (from) unspecified stairs and steps, initial encounter; Y92.9 Unspecified place or not applicable
CPT/HCPCS: 72110; 99212; G0463

== ENCOUNTER 2017-11-20 12:38 | Emergency (ER) | payer OTHER ==
--- OUTSIDE RECORDS SUMMARY | 2017-11-20 13:31 | XMS REPORT ---
:1985 Demographics Address [address] [place] [address] Phone Unavailable Preferred Language Unknown Marital Status Unknown Judaism Affiliation Unknown Race Unknown Ethnic Group Unknown Author Organization [facility] Address [address] [place] [address] Care Team Providers Name Role Phone Victorina Pool Unavailable Unavailable PROBLEMS Type Condition ICD9-CM Code [id number] Onset Condition SNOMED Code Code Dates Status Problem Personal history of Z86.73 Active 982373546 transient ischemic attack (TIA), and cerebral infarction without residual deficits Problem Subacute and N76.1 Active 287254889 chronic vaginitis Problem Family history of Z80.0 Active 274703276 malignant neoplasm of digestive organs Problem 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 48399133 vulvovaginitis Problem Tobacco use Z72.0 Active 649429907 Problem Viral wart, B07.9 Active 89694032 unspecified Problem 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 (venereal) warts Problem Nicotine F17.200 Active 594890408 dependence, unspecified, uncomplicated Problem Pelvic and perineal R10.2 Active 884466203 pain Problem Deep dyspareunia N94.12 Active 705689009 ALLERGIES No Information ENCOUNTERS Encounter Location Date Diagnosis [facility] [address] November, [place] [id number] [facility] November, [place] [id number] [facility] [address] Oct, [place] [id number] [facility] Oct, [place] [id number] [facility] Sep, [place] [id number] [facility] Sep, [place] [id number] [facility] 26 Sep, 2017 [facility]venereal ) [facility] A[facility] ; Subacute and [place] [id number] chronic vaginitis N76.1 ; Tobacco use Z72.0 ; Encounter for routine checking of intrauterine contraceptive device Z30.431 ; Other ovarian cyst, left side N83.292 and Encounter for screening for infections with a predominantly sexual mode of transmission Z11.3 [facility] 16 Sep, 2017 [place]BG[place] [id number] [facility] 15 Sep, 2017 [place] [id number] [facility] 15 Sep, 2017 Viral wart, unspecified [facility] B07.9 [place] [id number] [facility] 15 Sep, 2017 Pelvic and perineal pain [facility] R10.2 ; Deep dyspareunia [place] [id number] N94.12 and Encounter for routine checking of intrauterine contraceptive device Z30.431 [facility] 14 Sep, 2017 [place] [id number] [facility] 14 Sep, 2017 Subacute and chronic [facility] vaginitis N76.1 ; Pelvic [place] [id number] and perineal pain R10.2 and Deep dyspareunia N94.12 [facility] Sep, [place] [id number] [facility] Sep, [place] [id number] [facility] Jan, [place] [id number] [facility] Jan, [place] [id number] [facility] Jan, Pelvic and perineal pain [facility] R10.2 ; Other specified [place] [id number] noninflammatory disorders of vagina N89.8 and Anogenital (venereal) warts A63.0 [facility] 07 Dec, 2016 [facility] (general[facility] [place], [place] [id number] (routine) without abnormal findings Z01.419 ; Encounter for screening for malignant neoplasm of cervix Z12.4 ; Encounter for screening for infections with a predominantly sexual mode of transmission Z11.3 ; Nicotine dependence, unspecified, uncomplicated F17.200 and Subacute and chronic vaginitis N76.1 [facility] Oct, [place] [id number] [facility] Oct, Female pelvic inflammatory [facility] disease, unspecified N73.9 [place] [id number] ; Postcoital and contact bleeding N93.0 ; Pelvic and perineal pain R10.2 and Other specified noninflammatory disorders of vagina N89.8 [facility] Oct, [place], [place] [id number] [facility] Oct, Female pelvic inflammatory [facility] disease, unspecified N73.9 [place] [id number] ; Postcoital and contact bleeding N93.0 and Pelvic and perineal pain R10.2 [facility] Oct, [place] [id number] [facility] Oct, Female pelvic inflammatory [facility] disease, unspecified N73.9 [place] [id number] ; Postcoital and contact bleeding N93.0 and Pelvic and perineal pain R10.2 [facility] Oct, Unspecified dyspareunia [facility] N94.10 [place] [id number] [facility] Oct, Unspecified dyspareunia [facility] N94.10 ; Female pelvic [place], [place] [id number] inflammatory disease, unspecified N73.9 ; 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 and Postcoital and contact bleeding N93.0 [facility] Sep, [place] [id number] [facility] Aug, Other specified [facility] noninflammatory disorders [place] [id number] of vagina N89.8 [facility] Aug, Other specified [facility] noninflammatory disorders [place] [id number] of vagina N89.8 [facility] May, Acute vaginitis N76.0 [place] [id number] [facility] Apr, Other specified [facility] noninflammatory disorders [place] [id number] of vagina N89.8 and Encounter for screening for infections with a predominantly sexual mode of transmission Z11.3 [facility] Mar, [place] [id number] [facility] Mar, Other chlamydial infection [facility] of lower genitourinary [place] [id number] tract A56.09 ; Inflammatory disease of uterus, unspecified N71.9 ; Irregular menstruation, unspecified N92.6 and Other specified noninflammatory disorders of vagina N89.8 [facility] Feb, [place] [id number] [facility] Feb, [facility] [address] [place], of lower genitourinary [place] [id number] tract A56.09 and Inflammatory disease of uterus, unspecified N71.9 [facility] Feb, [place] [id number] [facility] Feb, [place], [place] [id number] [facility] Feb, Chlamydial infection of [facility] lower genitourinary tract, [place] [id number] unspecified A56.00 [facility] Feb, Other specified [facility] noninflammatory disorders [place], [place] [id number] of vagina N89.8 and Acute vaginitis N76.0 [facility] Dec, Encounter for gynecological [facility] examination (general) [place], [place] [id number] (routine) without abnormal findings Z01.419 ; Excessive and frequent menstruation with irregular cycle N92.1 ; Personal history of transient ischemic attack (TIA), and cerebral infarction without residual deficits Z86.73 ; 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 and Family history of malignant neoplasm of digestive organs Z80.0 [facility] November, [place], [place] [id number] [facility] November, Other specified [facility] noninflammatory disorders [place] [id number] of vagina N89.8 and Encounter for screening for infections with a predominantly sexual mode of transmission Z11.3 [facility] Jul, Excessive and frequent [facility] menstruation with irregular [place], [place] [id number] cycle N92.1 ; Personal history of transient ischemic attack (TIA), and cerebral infarction without residual deficits Z86.73 and 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 [facility] Jul, [place], [place] [id number] [facility] Jul, Excessive and frequent OBGYN [facility] menstruation with irregular [place], [place] [id number] cycle N92.1 and Personal history of transient ischemic attack (TIA), and cerebral infarction without residual deficits Z86.73 [facility] Apr, [place] [id number] [facility] Apr, Excessive and frequent OBGYN [facility] menstruation with irregular [place] [id number] cycle N92.1 and Personal history of transient ischemic attack (TIA), and cerebral infarction without residual deficits Z86.73 [facility] Mar, Menometrorrhagia 626.2 OBG[place] [id number] [facility] [address] [place], [place], Medical [facility] [id number] [facility] Mar, Menometrorrhagia 626.2 [place] [id number] [facility] Jan, VULVAR LESION 624.9 [facility] 078.10 [place] [id number] [facility] Jan, [place] [id number] [facility] Dec, [place] [id number] [facility] Dec, [place] [id number] [facility] Dec, [place] [id number] [facility] Dec, VULVAR LESION 624.9 ; [facility] 078.10 and [place] [id number] CONTRACEPTIVE MANGMT NOS V25.9 [facility] Dec, Vaginitis 616.10 [place] [id number] [facility] Dec, [place] [id number] [facility] November, Menometrorrhagia 626.2 ; OBGYN [facility] Herpes simplex [place], [place] [id number] vulvovaginitis 054.11 and VULVAR LESION 624.9 [facility] November, Vaginitis 616.10 [place] [id number] [facility] November, STD Screen V74.5 and OBGYN [facility] VAGINAL DISCHARGE 623.5 [place] [id number] [facility] Oct, Menometrorrhagia 626.2 ; OBGYN [facility] Body Mass Index 40.0-44.9, [place] [id number] adult V85.41 and Ovarian cyst NOS 620.2 [facility] Oct, Ovarian cyst NOS 620.2 [place] [id number] [facility] Oct, [place] [id number] [facility] Sep, Herpes infection NOS 054.9 [place] [id number] [facility] Sep, [place] [id number] [facility] Sep, [place] [id number] [facility] Sep, [place] [id number] [facility] Sep, Menometrorrhagia 626.2 and OBGYN [facility] Body Mass Index 40.0-44.9, [place] [id number] adult V85.41 [facility] Aug, Metrorrhagia 626.6 and OBGYN [facility] VULVAR LESION 624.9 [place] [id number] [facility] Aug, [place] [id number] [facility] Aug, Metrorrhagia 626.6 and OBGYN [facility] Vaginitis 616.10 [place] [id number] [facility] Aug, Metrorrhagia 626.6 and OBGYN [facility] Ovarian cyst NOS 620.2 [place] [id number] [facility] Aug, [place] [id number] [facility] Aug, [place] [id number] [facility] Jul, [place] [id number] [facility] Jul, Metrorrhagia 626.6 [place] [id number] [facility] Jul, Metrorrhagia 626.6 [place] [id number] [facility] Jun, Acute vulvovaginitis 616.10 [place] [id number] [facility] Jun, [place] [id number] [facility] May, STD Screen V74.5 ; FAMILY OBGYN [facility] PLANNING V25.09 ; [place] [id number] Metrorrhagia 626.6 and Ovarian cyst NOS 620.2 IMMUNIZATIONS No Known Immunizations SOCIAL HISTORY Never Assessed REASON FOR REFERRAL FUNCTIONAL STATUS PLAN OF CARE VITAL SIGNS MEDICATIONS Unknown Medications PROCEDURES No Known procedures RESULTS No Results REASON FOR VISIT New Refill Request MEDICAL (GENERAL) HISTORY Type Description Date Medical History Possible stroke on BC Medical History vulvar colpo- verracoid keratosis Medical History Condyloma Medical History Female pelvic inflammatory disease, unspecified Surgical History 01/19/06 Surgical History 02/21/07 Surgical History 11/05/12 Surgical History etop 11/12/14 Surgical History hysteroscopy, D&C 04/14/15 Hospitalization History Childbirth Hospitalization History Childbirth Hospitalization History see above
--- OUTSIDE RECORDS SUMMARY | 2017-11-20 13:31 | XMS REPORT ---
:1985 Demographics Address [address] [place] [address] Phone Unavailable Preferred Language Unknown Marital Status Unknown Adventist Affiliation Unknown Race Unknown Ethnic Group Unknown Author Organization [facility] Address [address] [place] [address] Care Team Providers Name Role Phone Victorina Pool Unavailable Unavailable PROBLEMS Type Condition ICD9-CM Code [id number] Onset Condition SNOMED Code Code Dates Status Problem Personal history of Z86.73 Active 177557406 transient ischemic attack (TIA), and cerebral infarction without residual deficits Problem Subacute and N76.1 Active 671396640 chronic vaginitis Problem Family history of Z80.0 Active 932087154 malignant neoplasm of digestive organs Problem 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 Problem Tobacco use Z72.0 Active 711512537 Problem Viral wart, B07.9 Active 43345235 unspecified Problem 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 Problem Nicotine F17.200 Active 810487590 dependence, unspecified, uncomplicated Problem Pelvic and perineal R10.2 Active 218589428 pain Problem Deep dyspareunia N94.12 Active 116856470 ALLERGIES No Information ENCOUNTERS Encounter Location Date Diagnosis [facility] [address] November, O[place] [id number] [facility] November, [place]BG[place] [id number] [facility] Oct, [place] [id number] [facility] 103 Oct, [place]BG[place] [id number] [facility] 103 Sep, [place]BG[place] [id number] [facility] 103 Sep, [place] [id number] [facility] 26 Sep, 2017 [facility]venereal ) [facility] A63.[facility] ; Subacute and [place] [id number] chronic vaginitis N76.1 ; Tobacco use Z72.0 ; Encounter for routine checking of intrauterine contraceptive device Z30.431 ; Other ovarian cyst, left side N83.292 and Encounter for screening for infections with a predominantly sexual mode of transmission Z11.3 [facility] 16 Sep, 2017 OBGYN [place] [id number] [facility] 15 Sep, 2017 OBGYN [place] [id number] [facility] 15 Sep, 2017 Viral wart, unspecified [facility] B07.9 [place] [id number] [facility] 15 Sep, 2017 Pelvic and perineal pain [facility] R10.2 ; Deep dyspareunia [place] [id number] N94.12 and Encounter for routine checking of intrauterine contraceptive device Z30.431 [facility] 14 Sep, [place] [id number] [facility] 14 Sep, 2017 Subacute and chronic [facility] vaginitis N76.1 ; Pelvic [place] [id number] and perineal pain R10.2 and Deep dyspareunia N94.12 [facility] Sep, [place]BG[place] [id number] [facility] Sep, [place] [id number] [facility] Jan, [place] [id number] [facility] Jan, [place] [id number] [facility] Jan, Pelvic and perineal pain [facility] R10.2 ; Other specified [place], [place] [id number] noninflammatory disorders of vagina N89.8 and Anogenital (venereal) warts A63.0 [facility] 07 Dec, 2016 Encounter for [facility]necological [facility] examination (general) [place], [place] [id number] (routine) without abnormal findings Z01.419 ; Encounter for screening for malignant neoplasm of cervix Z12.4 ; Encounter for screening for infections with a predominantly sexual mode of transmission Z11.3 ; Nicotine dependence, unspecified, uncomplicated F17.200 and Subacute and chronic vaginitis N76.1 [facility] Oct, [place] [id number] [facility] Oct, Female pelvic inflammatory [facility] disease, unspecified N73.9 [place] [id number] ; Postcoital and contact bleeding N93.0 ; Pelvic and perineal pain R10.2 and Other specified noninflammatory disorders of vagina N89.8 [facility] Oct, [place] [id number] [facility] Oct, Female pelvic inflammatory [facility] disease, unspecified N73.9 [place] [id number] ; Postcoital and contact bleeding N93.0 and Pelvic and perineal pain R10.2 [facility] Oct, [place] [id number] [facility] Oct, Female pelvic inflammatory [facility] disease, unspecified N73.9 [place] [id number] ; Postcoital and contact bleeding N93.0 and Pelvic and perineal pain R10.2 [facility] Oct, Unspecified dyspareunia [facility] N94.10 [place], [place] [id number] [facility] 103 Oct, Unspecified dyspareunia [facility] N94.10 ; Female pelvic [place], [place] [id number] inflammatory disease, unspecified N73.9 ; 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 and Postcoital and contact bleeding N93.0 [facility] 103 Sep, [place] [id number] [facility] Aug, Other specified [facility] noninflammatory disorders [place], [place] [id number] of vagina N89.8 [facility] Aug, Other specified [facility] noninflammatory disorders [place] [id number] of vagina N89.8 [facility] May, Acute vaginitis N76.0 [place] [id number] [facility] Apr, Other specified [facility] noninflammatory disorders [place], [place] [id number] of vagina N89.8 and Encounter for screening for infections with a predominantly sexual mode of transmission Z11.3 [facility] 103 Mar, [place] [id number] [facility] Mar, Other chlamydial infection [facility] of lower genitourinary [place] [id number] tract A56.09 ; Inflammatory disease of uterus, unspecified N71.9 ; Irregular menstruation, unspecified N92.6 and Other specified noninflammatory disorders of vagina N89.8 [facility] Feb, [place] [id number] [facility] Feb, Other [facility] [address] [place], of [place] [id number] tract A56.09 and Inflammatory disease of uterus, unspecified N71.9 [facility] Feb, [place] [id number] [facility] Feb, [place] [id number] [facility] Feb, Chlamydial infection of [facility] lower genitourinary tract, [place] [id number] unspecified A56.00 [facility] 103 Feb, Other specified [facility] noninflammatory disorders [place], [place] [id number] of vagina N89.8 and Acute vaginitis N76.0 [facility] Dec, Encounter for gynecological [facility] examination (general) [place], [place] [id number] (routine) without abnormal findings Z01.419 ; Excessive and frequent menstruation with irregular cycle N92.1 ; Personal history of transient ischemic attack (TIA), and cerebral infarction without residual deficits Z86.73 ; 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 and Family history of malignant neoplasm of digestive organs Z80.0 [facility] November, [place] [id number] [facility] November, Other specified [facility] noninflammatory disorders [place], [place] [id number] of vagina N89.8 and Encounter for screening for infections with a predominantly sexual mode of transmission Z11.3 [facility] Jul, Excessive and frequent [facility] menstruation with irregular [place], [place] [id number] cycle N92.1 ; Personal history of transient ischemic attack (TIA), and cerebral infarction without residual deficits Z86.73 and 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 [facility] Jul, [place] [id number] [facility] Jul, Excessive and frequent OBGYN [facility] menstruation with irregular [place], [place] [id number] cycle N92.1 and Personal history of transient ischemic attack (TIA), and cerebral infarction without residual deficits Z86.73 [facility] Apr, [place] [id number] [facility] Apr, Excessive and frequent OBGYN [facility] menstruation with irregular [place], [place] [id number] cycle N92.1 and Personal history of transient ischemic attack (TIA), and cerebral infarction without residual deficits Z86.73 [facility] Mar, Menometrorrhagia 626.2 OBGYN [place], [place] [id number] [facility] [address] [place], [place], [facility] [id number] [facility] Mar, Menometrorrhagia 626.2 OBGYN [place], [place] [id number] [facility] Jan, VULVAR LESION 624.9 [facility] 078.10 [place] [id number] [facility] Jan, [place] [id number] [facility] Dec, OBG[place], [place] [id number] [facility] 103 Dec, [place] [id number] [facility] Dec, [place] [id number] [facility] 103 Dec, VULVAR LESION 624.9 ; [facility] Condyloma 078.10 and [place], [place] [id number] CONTRACEPTIVE MANGMT NOS V25.9 [facility] 103 Dec, Vaginitis 616.10 OBGYN [place], [place] [id number] [facility] Dec, OBG[place], [place] [id number] [facility] 103 November, Menometrorrhagia 626.2 ; OBGYN [facility] Herpes simplex [place], [place] [id number] vulvovaginitis 054.11 and VULVAR LESION 624.9 [facility] 103 November, Vaginitis 616.10 OBGYN [place] [id number] [facility] November, STD Screen V74.5 and OBGYN [facility] VAGINAL DISCHARGE 623.5 [place], [place] [id number] [facility] 103 Oct, Menometrorrhagia 626.2 ; OBGYN [facility] Body Mass Index 40.0-44.9, [place], [place] [id number] adult V85.41 and Ovarian cyst NOS 620.2 [facility] 103 Oct, Ovarian cyst NOS 620.2 OBGYN [place], [place] [id number] [facility] Oct, [place], [place] [id number] [facility] 103 Sep, Herpes infection NOS 054.9 [place], [place] [id number] [facility] Sep, [place], [place] [id number] [facility] 103 Sep, [place], [place] [id number] [facility] Sep, [place], [place] [id number] [facility] 103 Sep, Menometrorrhagia 626.2 and OBGYN [facility] Body Mass Index 40.0-44.9, [place], [place] [id number] adult V85.41 [facility] 103 Aug, Metrorrhagia 626.6 and OBGYN [facility] VULVAR LESION 624.9 [place], [place] [id number] [facility] Aug, OBG[place], [place] [id number] [facility] 103 Aug, Metrorrhagia 626.6 and OBGYN [facility] Vaginitis 616.10 [place], [place] [id number] [facility] 103 Aug, Metrorrhagia 626.6 and OBGYN [facility] Ovarian cyst NOS 620.2 [place], [place] [id number] [facility] Aug, [place] [id number] [facility] Aug, [place] [id number] [facility] Jul, [place] [id number] [facility] 103 Jul, Metrorrhagia 626.6 [place] [id number] [facility] 103 Jul, Metrorrhagia 626.6 [place] [id number] [facility] 103 Jun, Acute vulvovaginitis 616.10 [place] [id number] [facility] Jun, [place] [id number] [facility] 103 May, STD Screen V74.5 ; FAMILY OBGYN [facility] PLANNING V25.09 ; [place], [place] [id number] Metrorrhagia 626.6 and Ovarian cyst NOS 620.2 [...]
--- OUTSIDE RECORDS SUMMARY | 2017-11-20 13:32 | XMS REPORT ---
:1985 Demographics Address [address] [place] [address] Phone Unavailable Preferred Language Unknown Marital Status Unknown Confucianist Affiliation Unknown Race Unknown Ethnic Group Unknown Author Organization [facility] Address [address] [place] [address] Care Team Providers Name Role Phone Victorina Pool Unavailable Unavailable PROBLEMS Type Condition ICD9-CM Code [id number] Onset Condition SNOMED Code Code Dates Status Problem Personal history of Z86.73 Active 232245105 transient ischemic attack (TIA), and cerebral infarction without residual deficits Problem Subacute and N76.1 Active 093710999 chronic vaginitis Problem Family history of Z80.0 Active 396692385 malignant neoplasm of digestive organs Problem 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 94083049 vulvovaginitis Problem Tobacco use Z72.0 Active 005998890 Problem Viral wart, B07.9 Active 33561217 unspecified Problem 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 043785305 (venereal) warts Problem Nicotine F17.200 Active 761418372 dependence, unspecified, uncomplicated Problem Pelvic and perineal R10.2 Active 418904309 pain Problem Deep dyspareunia N94.12 Active 277854426 ALLERGIES No Information ENCOUNTERS Encounter Location Date Diagnosis [facility] 103 November, OBGYN [place], [place] [id number] [facility] November, [place] [id number] [facility] 103 Sep, OBG[place] [id number] [facility] 103 Sep, OBGYN [place], [place] [id number] [facility] 103 Sep, Anogenital (venereal ) warts OBGYN [facility] A63.0 ; Subacute and [place] [id number] chronic vaginitis N76.1 ; Tobacco use Z72.0 ; Encounter for routine checking of intrauterine contraceptive device Z30.431 ; Other ovarian cyst, left side N83.292 and Encounter for screening for infections with a predominantly sexual mode of transmission Z11.3 [facility] 103 16 Sep, 2017 OBGYN [place] [id number] [facility] 103 15 Sep, 2017 OBGYN [place] [id number] [facility] 103 15 Sep, 2017 Viral wart, [facility] B07.9 [place] [id number] [facility] 103 15 Sep, 2017 [facility]vic [facility]ineal [facility] R10.2 ; Deep dyspareunia [place], [place] [id number] N94.12 and Encounter for routine checking of intrauterine contraceptive device Z30.431 [facility] 103 14 Sep, 2017 OBGYN [place] [id number] [facility] 103 14 Sep, 2017 [facility] and chronic [facility] vaginitis N76.1 ; Pelvic [place], [place] [id number] and perineal pain R10.2 and Deep dyspareunia N94.12 [facility] 103 12 Sep, 2017 OBGYN [place] [id number] [facility] 103 Sep, OBGYN [place] [id number] [facility] 103 Jan, OBGYN [place], [place] [id number] [facility] 103 Jan, OBGYN [place], [place] [id number] [facility] 103 Jan, Pelvic and [facility]ineal pain [facility] R10.2 ; Other specified [place], [place] [id number] noninflammatory disorders of vagina N89.8 and Anogenital (venereal) warts A63.0 [facility] 103 07 Dec, 2016 Encounter for gynecological OBGYN [facility] examination (general) [place], [place] [id number] (routine) without abnormal findings Z01.419 ; Encounter for screening for malignant neoplasm of cervix Z12.4 ; Encounter for screening for infections with a predominantly sexual mode of transmission Z11.3 ; Nicotine dependence, unspecified, uncomplicated F17.200 and Subacute and chronic vaginitis N76.1 [facility] 103 28 Oct, 2016 OBGYN [place] [id number] [facility] [place]Note 2[facility] Oct, Female pelvic inflammatory O[facility] disease, unspecified N73.9 [place], [place] [id number] ; Postcoital and contact bleeding N93.0 ; Pelvic and perineal pain R10.2 and Other specified noninflammatory disorders of vagina N89.8 [facility] 103 Oct, OBGYN [place] [id number] [facility] [place]Note 2[facility] 103 Oct, Female pelvic inflammatory O[facility] disease, unspecified N73.9 [place], [place] [id number] ; Postcoital and contact bleeding N93.0 and Pelvic and perineal pain R10.2 [facility] 103 Oct, OBGYN [place] [id number] [facility] [place]Note 2[facility] Oct, Female pelvic inflammatory OBGYN [facility] disease, unspecified N73.9 [place], [place] [id number] ; Postcoital and contact bleeding N93.0 and Pelvic and perineal pain R10.2 [facility] 103 Oct, Unspecified dyspareunia [facility] N94.10 [place] [id number] [facility] Oct, Unspecified dyspareunia [facility] N94.10 ; Female pelvic [place], [place] [id number] inflammatory disease, unspecified N73.9 ; 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 and Postcoital and contact bleeding N93.0 [facility] 103 Sep, [place] [id number] [facility] Aug, Other specified [facility] noninflammatory disorders [place], [place] [id number] of vagina N89.8 [facility] 103 Aug, Other specified [facility] noninflammatory disorders [place] [id number] of vagina N89.8 [facility] 103 May, Acute vaginitis N76.0 [place] [id number] [facility] 103 Apr, Other specified O[facility] noninflammatory disorders [place], [place] [id number] of vagina N89.8 and Encounter for screening for infections with a predominantly sexual mode of transmission Z11.3 [facility] 103 Mar, OBGYN [place], [place] [id number] [facility] 103 Mar, Other chlamydial infection [facility] of lower genitourinary [place], [place] [id number] tract A56.09 ; Inflammatory disease of uterus, unspecified N71.9 ; Irregular menstruation, unspecified N92.6 and Other specified noninflammatory disorders of vagina N89.8 [facility] Feb, [place]BG[place] [id number] [address] Feb, Other chlamydial infection [address] [place], of [place] [id number] tract A56.09 and Inflammatory disease of uterus, unspecified N71.9 [facility] 103 Feb, [place]BGYN [place] [id number] [facility] 12 Aug, 2016 [place], [place] [id number] [facility] 103 Feb, Chlamydial infection of [facility] lower genitourinary tract, [place], [place] [id number] unspecified A56.00 [facility] 103 Feb, Other specified [facility] noninflammatory disorders [place], [place] [id number] of vagina N89.8 and Acute vaginitis N76.0 [facility] 103 Dec, Encounter for gynecological [facility] examination (general) [place], [place] [id number] (routine) without abnormal findings Z01.419 ; Excessive and frequent menstruation with irregular cycle N92.1 ; Personal history of transient ischemic attack (TIA), and cerebral infarction without residual deficits Z86.73 ; 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 and Family history of malignant neoplasm of digestive organs Z80.0 [facility] November, [place], [place] [id number] [facility] 103 November, Other specified [facility] nonindeammatory disorders [place], [place] [id number] of vagina N89.8 and Encounter for screening for infections with a predominantly sexual mode of transmission Z11.3 [facility] 103 Jul, Excessive and frequent [facility] menstruation with irregular [place], [place] [id number] cycle N92.1 ; Personal history of transient ischemic attack (TIA), and cerebral infarction without residual deficits Z86.73 and 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 [facility] 103 Jul, [place], [place] [id number] [facility] 103 Jul, Excessive and frequent [facility] menstruation with irregular [place], [place] [id number] cycle N92.1 and Personal history of transient ischemic attack (TIA), and cerebral infarction without residual deficits Z86.73 [facility] 103 Apr, [place] [id number] [facility] 103 Apr, Excessive and frequent [facility] menstruation with irregular [place], [place] [id number] cycle N92.1 and Personal history of transient ischemic attack (TIA), and cerebral infarction without residual deficits Z86.73 [facility] 103 Mar, Menometrorrhagia 626.2 OBGYN [place], [place] [id number] [facility] [address] [place], [place], Medical [facility] [id number] [facility] [place]Note 2[facility] 103 Mar, Menometrorrhagia 626.2 OBGYN [place], [place] [id number] [facility] 103 Jan, [facility]VAR LESION 624.9 [facility] 078.10 [place], [place] [id number] [facility] 103 Jan, [place] [id number] [facility] 103 Dec, [place] [id number] [facility] [place]Note 2[facility] 103 Dec, [place] [id number] [facility] 103 Dec, [place] [id number] [facility] 103 Dec, VULVAR LESION 624.9 ; [facility] Condyloma 078.10 and [place], [place] [id number] CONTRACEPTIVE MANGMT NOS V25.9 [facility] 103 Dec, Vaginitis 616.10 [place] [id number] [facility] 103 Dec, [place] [id number] [facility] 103 November, Menometrorrhagia 626.2 ; [facility] Herpes simplex [place], [place] [id number] vulvovaginitis 054.11 and VULVAR LESION 624.9 [facility] 103 November, Vaginitis 616.10 [place] [id number] [facility] 103 November, STD Screen V74.5 and OBGYN [facility] VAGINAL DISCHARGE 623.5 [place], [place] [id number] [facility] 103 Oct, Menometrorrhagia 626.2 ; [facility] Body Mass Index 40.0-44.9, [place], [place] [id number] adult V85.41 and Ovarian cyst NOS 620.2 [facility] 103 Oct, Ovarian cyst NOS 620.2 [place] [id number] [facility] 103 Oct, [place] [id number] [facility] 103 Sep, Herpes infection NOS 054.9 [place] [id number] [facility] 103 Sep, [place] [id number] [facility] 103 Sep, [place] [id number] [facility] 103 Sep, [place] [id number] [facility] 103 Sep, Menometrorrhagia 626.2 [facility] Body Mass Index 40.0-44.9, [place], [place] [id number] adult V85.41 [facility] 103 Aug, Metrorrhagia 626.6 [facility] VULVAR LESION 624.9 [place], [place] [id number] [facility] 103 Aug, [place] [id number] [facility] 103 Aug, Metrorrhagia 626.6 [facility] Vaginitis 616.10 [place], [place] [id number] [facility] 103 Aug, Metrorrhagia 626.6 and [facility] Ovarian cyst NOS 620.2 [place], [place] [id number] [facility] 103 Aug, [place] [id number] [facility] 103 Aug, [place] [id number] [facility] 103 Jul, [place] [id number] [facility] 103 Jul, Metrorrhagia 626.6 [place] [id number] [facility] 103 Jul, Metrorrhagia 626.6 [place] [id number] [facility] 103 Jun, Acute vulvovaginitis 616.10 [place] [id number] [facility] 103 Jun, [place] [id number] [facility] 103 May, STD Screen V74.5 ; [facility]ILY [facility] PLANNING V25.09 ; [place], [place] [id number] Metrorrhagia 626.6 and Ovarian cyst NOS 620.2 IMMUNIZATIONS No Known Immunizations SOCIAL HISTORY Never Assessed REASON FOR REFERRAL FUNCTIONAL STATUS PLAN OF CARE VITAL SIGNS MEDICATIONS Medication Instructions Dosage Frequency Start Date End Date Duration Status Flagyl 500 mg orally twice a 1 tab(s) 12h 29 Sep, 7 day(s) Active 2017 PROCEDURES No Known procedures RESULTS No Results REASON FOR VISIT gardnerella positive MEDICAL (GENERAL) HISTORY Type Description Date Medical History Possible stroke on BC Medical History vulvar colpo- verracoid keratosis Medical History Condyloma Medical History Female pelvic inflammatory disease, unspecified Surgical History 01/19/06 Surgical History 02/21/07 Surgical History 11/05/12 Surgical History etop 11/12/14 Surgical History hysteroscopy, D&C 04/14/15 Hospitalization History Childbirth Hospitalization History Childbirth Hospitalization History see above
--- OUTSIDE RECORDS SUMMARY | 2017-11-20 13:32 | XMS REPORT ---
:1985 Demographics Address [address] [place] [address] Phone Unavailable Preferred Language Unknown Marital Status Unknown Church Affiliation Unknown Race Unknown Ethnic Group Unknown [facility] Address [address] [place] [address] Care Team Providers Name Role Phone Victorina Pool Unavailable Unavailable PROBLEMS Type Condition ICD9-CM Code [id number] Onset Condition SNOMED Code Code Dates Status Problem Personal history of Z86.73 Active 995270951 transient ischemic attack (TIA), and cerebral infarction without residual deficits Problem Subacute and N76.1 Active 498912462 chronic vaginitis Problem Family history of Z80.0 Active 501292218 malignant neoplasm of digestive organs Problem 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 30773488 vulvovaginitis Problem Tobacco use Z72.0 Active 904515124 Problem Viral wart, B07.9 Active 77333674 unspecified Problem 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 576678671 (venereal) warts Problem Nicotine F17.200 Active 014826741 dependence, unspecified, uncomplicated Problem Pelvic and perineal R10.2 Active 959088001 pain Problem Deep dyspareunia N94.12 Active 001331381 ALLERGIES No Information ENCOUNTERS Encounter Location Date Diagnosis [facility] November, OBGYN [employer] [id number] [facility] 103 November, OBGYN [employer] [id number] [facility] 103 Sep, OBN [employer] [id number] [facility] 103 Sep, Anogenital (venereal ) warts OBN [facility] A63.0 ; Subacute and [place], [place] [id number] chronic vaginitis N76.1 ; Tobacco use Z72.0 ; Encounter for routine checking of intrauterine contraceptive device Z30.431 ; Other ovarian cyst, left side N83.292 and Encounter for screening for infections with a predominantly sexual mode of transmission Z11.3 [facility] 16 Sep, 2017 OBGYN [employer] [id number] [facility] 15 Sep, 2017 OBGYN [employer] [id number] [facility] 15 Sep, 2017 [facility]al wart, [facility] B[facility] [place] [id number] [facility] 15 Sep, 2017 Pelvic and perineal pain OBN [facility] R10.2 ; Deep dyspareunia [place], [place] [id number] N94.12 and Encounter for routine checking of intrauterine contraceptive device Z30.431 [facility] 14 Sep, 2017 OBGYN [employer] [id number] [facility] 14 Sep, 2017 [facility] and [facility] vaginitis N76.1 ; Pelvic [place], [place] [id number] and perineal pain R10.2 and Deep dyspareunia N94.12 [facility] 103 Sep, OBGYN [employer] [id number] [facility] 103 Sep, OBGYN [employer] [id number] [facility] Jan, OBGYN [employer] [id number] [facility] Jan, OBGYN [employer] [id number] [facility] 103 Jan, Pelvic and [facility]ineal [facility] R10.2 ; Other specified [place], [place] [id number] noninflammatory disorders of vagina N89.8 and Anogenital (venereal) warts A63.0 [facility] 07 Dec, 2016 Encounter for gynecological OBGYN [facility] examination (general) [place], [place] [id number] (routine) without abnormal findings Z01.419 ; Encounter for screening for malignant neoplasm of cervix Z12.4 ; Encounter for screening for infections with a predominantly sexual mode of transmission Z11.3 ; Nicotine dependence, unspecified, uncomplicated F17.200 and Subacute and chronic vaginitis N76.1 [facility] 28 Oct, 2016 [place] [id number] [facility] 25 Oct, 2016 Female pelvic inflammatory [facility] disease, unspecified N73.9 [place], [place] [id number] ; Postcoital and contact bleeding N93.0 ; Pelvic and perineal pain R10.2 and Other specified noninflammatory disorders of vagina N89.8 [facility] Oct, [place], [place] [id number] [facility] Oct, Female pelvic inflammatory [facility] disease, unspecified N73.9 [place] [id number] ; Postcoital and contact bleeding N93.0 and Pelvic and perineal pain R10.2 [facility] Oct, [place], [place] [id number] [facility] 103 Oct, Female pelvic inflammatory [facility] disease, unspecified N73.9 [place], [place] [id number] ; Postcoital and contact bleeding N93.0 and Pelvic and perineal pain R10.2 [facility] 04 Oct, 2016 Unspecified dyspareunia [facility] N94.10 [place], [place] [id number] [facility] 03 Oct, 2016 Unspecified dyspareunia [facility] N94.10 ; Female pelvic [place], [place] [id number] inflammatory disease, unspecified N73.9 ; 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 and Postcoital and contact bleeding N93.0 [facility] Sep, OBGYN [employer] [id number] [facility] Aug, Other specified OBGYN [facility] noninflammatory disorders [place], [place] [id number] of vagina N89.8 [facility] Aug, Other specified OBGYN [facility] noninflammatory disorders [place], [place] [id number] of vagina N89.8 [facility] 103 May, Acute vaginitis N76.0 OBGYN [employer] [id number] [facility] Apr, Other specified OBGYN [facility] noninflammatory disorders [place], [place] [id number] of vagina N89.8 and Encounter for screening for infections with a predominantly sexual mode of transmission Z11.3 [facility] Mar, OBGYN [employer] [id number] [facility] 103 Mar, Other chlamydial infection OBGYN [facility] of lower genitourinary [place], [place] [id number] tract A56.09 ; Inflammatory disease of uterus, unspecified N71.9 ; Irregular menstruation, unspecified N92.6 and Other specified noninflammatory disorders of vagina N89.8 [facility] Feb, OBGYN [employer] [id number] [facility] Feb, Other chlamydial infection OBGYN [address] [place], of lower genitourinary [place] [id number] tract A56.09 and Inflammatory disease of uterus, unspecified N71.9 [facility] Feb, OBGYN [employer] [id number] [facility] Feb, OBGYN [employer] [id number] [facility] 10 Aug, 2016 Chlamydial infection of [facility] lower genitourinary tract, [place], [place] [id number] unspecified A56.00 [facility] 103 Feb, Other specified [facility] noninflammatory disorders [place], [place] [id number] of vagina N89.8 and Acute vaginitis N76.0 [facility] Dec, Encounter for gynecological [facility] examination (general) [place], [place] [id number] (routine) without abnormal findings Z01.419 ; Excessive and frequent menstruation with irregular cycle N92.1 ; Personal history of transient ischemic attack (TIA), and cerebral infarction without residual deficits Z86.73 ; 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 and Family history of malignant neoplasm of digestive organs Z80.0 [facility] November, [place] [id number] [facility] November, Other specified [facility] noninflammatory disorders [place], [place] [id number] of vagina N89.8 and Encounter for screening for infections with a predominantly sexual mode of transmission Z11.[address] [facility] Jul, Excessive and frequent [facility] menstruation with irregular [place], [place] [id number] cycle N92.1 ; Personal history of transient ischemic attack (TIA), and cerebral infarction without residual deficits Z86.73 and 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 [facility] Jul, [place] [id number] [facility] Jul, Excessive and frequent [facility] menstruation with irregular [place], [place] [id number] cycle N92.1 and Personal history of transient ischemic attack (TIA), and cerebral infarction without residual deficits Z86.73 [facility] Apr, [place], [place] [id number] [facility] Apr, Excessive and frequent [facility] menstruation with irregular [place], [place] [id number] cycle N92.1 and Personal history of transient ischemic attack (TIA), and cerebral infarction without residual deficits Z86.73 [facility] 103 Mar, Menometrorrhagia 626.2 OBGYN [employer] [id number] [facility] [address] [place], [place], Medical [facility] [id number] [facility] Mar, Menometrorrhagia 626.2 OBGYN [employer] [id number] [facility] Jan, VULVAR LESION 624.9 and [facility] Condyloma 078.10 [place] [id number] [facility] Jan, [place] [id number] [facility] Dec, [place] [id number] [facility] Dec, [place] [id number] [facility] Dec, [place] [id number] [facility] 103 Dec, VULVAR LESION 624.9 ; [facility] 078.10 and [place], [place] [id number] CONTRACEPTIVE MANGMT NOS V25.9 [facility] Dec, Vaginitis 616.10 [place] [id number] [facility] Dec, [place] [id number] [facility] November, Menometrorrhagia 626.2 ; OBGYN [facility] Herpes simplex [place], [place] [id number] vulvovaginitis 054.11 and VULVAR LESION 624.9 [facility] November, Vaginitis 616.10 [place] [id number] [facility] November, STD Screen V74.5 and OBGYN [facility] VAGINAL DISCHARGE 623.5 [place], [place] [id number] [place] [facility] Oct, Menometrorrhagia 626.2 ; [facility] Body Mass Index 40.0-44.9, [place], [place] [id number] adult V85.41 and Ovarian cyst NOS 620.2 [facility] Oct, Ovarian cyst NOS 620.2 [place], [place] [id number] [facility] Oct, [place] [id number] [facility] Sep, Herpes infection NOS 054.9 [place] [id number] [facility] Sep, [place] [id number] [facility] Sep, [place] [id number] [facility] Sep, [place] [id number] [facility] Sep, Menometrorrhagia 626.2 and [facility] Body Mass Index 40.0-44.9, [place], [place] [id number] adult V85.41 [facility] Aug, Metrorrhagia 626.6 and [facility] VULVAR LESION 624.9 [place], [place] [id number] [facility] Aug, [place] [id number] [facility] Aug, Metrorrhagia 626.6 and OBGYN [facility] Vaginitis 616.10 [place], [place] [id number] [facility] Aug, Metrorrhagia 626.6 [facility] Ovarian cyst NOS 620.2 [place] [id number] [facility] Aug, [place] [id number] [facility] Aug, [place] [id number] [facility] Jul, [place] [id number] [facility] Jul, Metrorrhagia 626.6 [place] [id number] [facility] Jul, Metrorrhagia 626.6 OBGYN [employer] [id number] [facility] Jun, Acute vulvovaginitis 616.10 [place] [id number] [facility] Jun, [place] [id number] [facility] May, STD Screen V74.5 ; [facility] PL[facility]ING V25.09 ; [place] [id number] Metrorrhagia 626.6 and Ovarian cyst NOS 620.2 IMMUNIZATIONS No Known Immunizations SOCIAL HISTORY Never Assessed REASON FOR REFERRAL FUNCTIONAL STATUS PLAN OF CARE VITAL SIGNS MEDICATIONS Medication Instructions Dosage Frequency Start End Date Duration Status Date fluconazole 150 orally once, 1 tab(s) Sep, 2 dose(s) Active mg repeat in 3 days 2018 PROCEDURES No Known procedures RESULTS No Results REASON FOR VISIT Yeast infection MEDICAL (GENERAL) HISTORY Type Description Date Medical History Possible stroke on BC Medical History vulvar colpo- verracoid keratosis Medical History Condyloma Medical History Female pelvic inflammatory disease, unspecified Surgical History 01/19/06 Surgical History 02/21/07 Surgical History 11/05/12 Surgical History etop 11/12/14 Surgical History hysteroscopy, D&C 04/14/15 Hospitalization History Childbirth Hospitalization History Childbirth Hospitalization History see above
--- OUTSIDE RECORDS SUMMARY | 2017-11-20 13:32 | XMS REPORT ---
:1985 Demographics Address [address] [place] [address] Phone Unavailable Preferred Language Unknown Marital Status Unknown Sabianist Affiliation Unknown Race Unknown Ethnic Group Unknown Author Organization [facility] Address [address] [place] [address] Care Team Providers Name Role Phone Victorina Pool Unavailable Unavailable PROBLEMS Type Condition ICD9-CM Code [id number] Onset Condition SNOMED Code Code Dates Status Problem Personal history of Z86.73 Active 356444244 transient ischemic attack (TIA), and cerebral infarction without residual deficits Problem Subacute and N76.1 Active 979092741 chronic vaginitis Problem Family history of Z80.0 Active 727579338 malignant neoplasm of digestive organs Problem 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 66627414 vulvovaginitis Problem Tobacco use Z72.0 Active 911966829 Problem Viral wart, B07.9 Active 06799145 unspecified Problem 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 913480378 (venereal) warts Problem Nicotine F17.200 Active 946837507 dependence, unspecified, uncomplicated Problem Pelvic and perineal R10.2 Active 008801121 pain Problem Deep dyspareunia N94.12 Active 003834166 ALLERGIES Substance Reaction Event Type Date Status codeine anaphylaxis Drug Allergy Sep, Active ENCOUNTERS Encounter Location Date Diagnosis [facility] 103 November, OBG[place] [id number] [facility] 103 November, [place] [id number] [facility] 103 Sep, Anogenital (venereal ) warts O[facility] A63.0 ; Subacute and [place], [place] [id number] chronic vaginitis N76.1 ; Tobacco use Z72.0 ; Encounter for routine checking of intrauterine contraceptive device Z30.431 ; Other ovarian cyst, left side N83.292 and Encounter for screening for infections with a predominantly sexual mode of transmission Z11.3 [facility] 103 16 Sep, 2017 OBGYN [place] [id number] [facility] 103 15 Sep, 2017 [place]BGYN [place] [id number] [facility] 103 15 Sep, 2017 Viral wart, unspecified [facility] B07.9 [place], [place] [id number] [facility] 103 15 Sep, 2017 Pelvic and perineal pain [facility] R10.2 ; Deep dyspareunia [place], [place] [id number] N94.12 and Encounter for routine checking of intrauterine contraceptive device Z30.431 [facility] 103 14 Sep, 2017 OBGYN [place] [id number] [facility] 103 14 Sep, 2017 [facility] vag[facility] N76.1 ; Pelvic [place], [place] [id number] and perineal pain R10.2 and Deep dyspareunia N94.12 [facility] 103 Sep, OBGYN [place], [place] [id number] [facility] 103 Sep, [place]BG[place] [id number] [facility] 103 Jan, OBGYN [place] [id number] [facility] 103 Jan, OBGYN [place] [id number] [facility] 103 Jan, Pelvic and perineal pain [facility] R10.2 ; Other specified [place], [place] [id number] noninflammatory disorders of vagina N89.8 and Anogenital (venereal) warts A63.0 [facility] 103 07 Dec, 2016 Encounter for gynecological [facility] examination (general) [place], [place] [id number] (routine) without abnormal findings Z01.419 ; Encounter for screening for malignant neoplasm of cervix Z12.4 ; Encounter for screening for infections with a predominantly sexual mode of transmission Z11.3 ; Nicotine dependence, unspecified, uncomplicated F17.200 and Subacute and chronic vaginitis N76.1 [facility] 103 28 Oct, 2016 [place], [place] [id number] [facility] 103 Oct, Female pelvic inflammatory [facility] disease, unspecified N73.9 [place], [place] [id number] ; Postcoital and contact bleeding N93.0 ; Pelvic and perineal pain R10.2 and Other specified noninflammatory disorders of vagina N89.8 [facility] Oct, [place], [place] [id number] [facility] 103 Oct, Female pelvic inflammatory [facility] disease, unspecified N73.9 [place] [id number] ; Postcoital and contact bleeding N93.0 and Pelvic and perineal pain R10.2 [facility] Oct, [place] [id number] [facility] 103 Oct, Female pelvic inflammatory [facility] disease, unspecified N73.9 [place], [place] [id number] ; Postcoital and contact bleeding N93.0 and Pelvic and perineal pain R10.2 [facility] 103 Oct, Unspecified dyspareunia [facility] N94.10 [place], [place] [id number] [facility] 103 Oct, Unspecified dyspareunia [facility] N94.10 ; Female pelvic [place], [place] [id number] inflammatory disease, unspecified N73.9 ; 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 and Postcoital and contact bleeding N93.0 [facility] 103 Sep, [place], [place] [id number] [facility] Aug, Other specified [facility] noninflammatory disorders [place], [place] [id number] of vagina N89.8 [facility] Aug, Other specified [facility] noninflammatory disorders [place], [place] [id number] of vagina N89.8 [facility] May, Acute vaginitis N76.0 OBGYN [place] [id number] [facility] Apr, Other specified [facility] noninflammatory disorders [place], [place] [id number] of vagina N89.8 and Encounter for screening for infections with a predominantly sexual mode of transmission Z11.3 [facility] 103 Mar, OBGYN [place] [id number] [facility] Mar, Other [facility]lamydial infection [facility] of lower genitourinary [place], [place] [id number] tract A56.09 ; Inflammatory disease of uterus, unspecified N71.9 ; Irregular menstruation, unspecified N92.6 and Other specified noninflammatory disorders of vagina N89.8 [facility] Feb, [place] [id number] [facility] Feb, Other chlamydial infection [address] [place], of lower genitourinary [place] [id number] tract A56.09 and Inflammatory disease of uterus, unspecified N71.9 [facility] 103 Feb, [place] [id number] [facility] Feb, OBGYN [place] [id number] [facility] Feb, Chlamydial infection of [facility] lower genitourinary tract, [place], [place] [id number] unspecified A56.00 [facility] 103 Feb, Other specified [facility] noninflammatory disorders [place], [place] [id number] of vagina N89.8 and Acute vaginitis N76.0 [facility] 103 Dec, Encounter for [facility]ological [facility] examination (general) [place], [place] [id number] (routine) without abnormal findings Z01.419 ; Excessive and frequent menstruation with irregular cycle N92.1 ; Personal history of transient ischemic attack (TIA), and cerebral infarction without residual deficits Z86.73 ; 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 and Family history of malignant neoplasm of digestive organs Z80.0 [facility] 103 November, [place], [place] [id number] [facility] 103 November, Other specified [facility] noninflammatory disorders [place], [place] [id number] of vagina N89.8 and Encounter for screening for infections with a predominantly sexual mode of transmission Z11.3 [facility] 103 Jul, Excessive and frequent [facility] menstruation with irregular [place], [place] [id number] cycle N92.1 ; Personal history of transient ischemic attack (TIA), and cerebral infarction without residual deficits Z86.73 and 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 [facility] 103 Jul, [place] [id number] [facility] 103 Jul, Excessive and frequent [facility] menstruation with irregular [place], [place] [id number] cycle N92.1 and Personal history of transient ischemic attack (TIA), and cerebral infarction without residual deficits Z86.73 [facility] 103 Apr, [place] [id number] [facility] 103 Apr, Excessive and frequent [facility] menstruation with irregular [place], [place] [id number] cycle N92.1 and Personal history of transient ischemic attack (TIA), and cerebral infarction without residual deficits Z86.73 [facility] 103 Mar, Menometrorrhagia 626.2 OBGYN [place] [id number] [facility] [address] [place], Mar, Medical [facility] [id number] [facility] 103 Mar, Menometrorrhagia 626.2 OBGYN [place], [place] [id number] [facility] 103 Jan, VULVAR LESION 624.9 [facility] Condyloma 078.10 [place], [place] [id number] [facility] 103 Jan, [place] [id number] [facility] 103 Dec, [place] [id number] [facility] 103 Dec, [place] [id number] [facility] 103 Dec, [place] [id number] [facility] 103 Dec, VULVAR LESION 624.9 ; [facility] Condyloma 078.10 and [place], [place] [id number] CONTRACEPTIVE MANGMT NOS V25.9 [facility] 103 Dec, Vaginitis 616.10 [place] [id number] [facility] 103 Dec, O[place] [id number] [facility] 103 November, Menometrorrhagia 626.2 ; OBGYN [facility] Herpes simplex [place], [place] [id number] vulvovaginitis 054.11 and VULVAR LESION 624.9 [facility] 103 November, Vaginitis 616.10 [place] [id number] [facility] 103 November, STD Screen V74.5 and [facility] VAGINAL DISCHARGE 623.5 [place], [place] [id number] [facility] 103 Oct, Menometrorrhagia 626.2 ; [facility] Body Mass Index 40.0-44.9, [place], [place] [id number] adult V85.41 and Ovarian cyst NOS 620.2 [facility] 103 Oct, Ovarian cyst NOS 620.2 [place] [id number] [facility] 103 Oct, [place] [id number] [facility] Sep, Herpes infection NOS 054.9 [place] [id number] [facility] 103 Sep, [place] [id number] [facility] 103 Sep, [place] [id number] [facility] 103 Sep, [place] [id number] [facility] 103 Sep, Menometrorrhagia 626.2 and [facility] Body Mass Index 40.0-44.9, [place], [place] [id number] adult V85.41 [facility] 103 Aug, Metrorrhagia 626.6 and [facility] VULVAR LESION 624.9 [place], [place] [id number] [facility] 103 Aug, [place] [id number] [facility] 103 Aug, Metrorrhagia 626.6 and [facility] Vaginitis 616.10 [place], [place] [id number] [facility] 103 Aug, Metrorrhagia 626.6 and [facility] Ovarian cyst NOS 620.2 [place], [place] [id number] [facility] 103 Aug, [place] [id number] [facility] Aug, [place] [id number] [facility] 103 Jul, [place] [id number] [facility] 103 Jul, Metrorrhagia 626.6 [place] [id number] [facility] 103 Jul, Metrorrhagia 626.6 O[place] [id number] [facility] 103 Jun, Acute vulvovaginitis 616.10 [place] [id number] [facility] Jun, [place] [id number] [facility] 103 May, STD Screen V74.5 ; FAMILY [facility] PLANNING V25.09 ; [place] [id number] Metrorrhagia 626.6 and Ovarian cyst NOS 620.2 IMMUNIZATIONS No Known Immunizations SOCIAL HISTORY Never Assessed REASON FOR REFERRAL FUNCTIONAL STATUS PLAN OF CARE Activity Details Follow Up Schedule US in 6 weeks with f/u. Reason: Pending Test Leukorrhea Panel by Swab {contains Deepti Gardnerella Trich CTNG} Pending Test HEPATITIS B SURFACE ANTIGEN Pending Test Treponema Antibody [place] Pending Test ANTIBODY DETECTION-HIV1/2 SCRN Pending Test HEPATITIS C ANTIBODY VITAL SIGNS Height 61 in 2017-10-23 Weight 188 lbs 2017-10-23 BMI 35.52 kg/m2 2017-10-23 Blood pressure systolic 120 mm Hg 2017-10-23 Blood pressure diastolic 78 mm Hg 2017-10-23 MEDICATIONS Medication Instructions Dosage Frequency Start End Date Duration Status Date Paragard 68.7mg Active Copper Wellbutrin XL 300 orally every 24 1 tab(s) Active mg/24 hours hours Chantix 1 mg orally 2 times a 1 tab(s) 12h Active day metronidazole 500 orally 2 times a 1 tab(s) 12h 21 Sep, 7 day(s) Active mg day 2017 tinidazole 500 mg orally qd 4 tab(s) 24h 14 Sep, 2 days Active 2018 lorazepam 0.5 mg orally 2 times a 1 tab(s) 12h Active day escitalopram 20 orally once a 1 tab(s) 24h Active mg day PROCEDURES No Known procedures RESULTS No Results REASON FOR VISIT fu to sono and vulvar colpo , UMA for trich and BV (3-14-18 +), Where the condylomas completely removed?, Recommend pt do HIV, Hep panal and RPR MEDICAL (GENERAL) HISTORY Type Description Date Medical History Possible stroke on BC Medical History vulvar colpo- verracoid keratosis Medical History Condyloma Medical History Female pelvic inflammatory disease, unspecified Surgical History 01/19/06 Surgical History 02/21/07 Surgical History 11/05/12 Surgical History etop 11/12/14 Surgical History hysteroscopy, D&C 04/14/15 Hospitalization History Childbirth Hospitalization History Childbirth Hospitalization History see above
[2017-11-20 13:35] VITALS: BP 107/60
--- NOTE | 2017-11-20 13:42 | UC ---
Ear Complaint HPI - HPI Summary HPI Summary: Pt c/o nasal congestion, left sinus tenderness, left ear pain. - History of Current Complaint Chief Complaint: UCGeneralIllness Stated Complaint: EARS,THROAT,SINUSES Time Seen by Provider: 11/20/17 13:38 Hx Obtained From: Patient Hx Last Menstrual Period: 11/09/17 ?: No Onset/Duration: Sudden Onset, Still Present Severity Initially: Mild Severity Currently: Moderate Pain Intensity: 6 Associated Signs/Symptoms: Positive: Hearing Loss, URI Symptoms Related History: Seasonal Allergies - Allergies/Home Medications Allergies/Adverse Reactions: Allergies Allergy/AdvReac Type Severity Reaction Status Date / Time codeine Allergy Rash Verified 11/20/17 13:29 TATOO COLOR Allergy Blisters Uncoded 06/02/17 10:49 Home Medications: Home Medications Acetaminophen [Non-Aspirin Extra Strength] 1,000 mg PO Q6H 11/20/17 [History Confirmed 11/20/17] Ibuprofen 800 mg PO Q8H 11/20/17 [History Confirmed 11/20/17] PMH/Surg Hx/FS Hx/Imm Hx Previously Healthy: Yes - Surgical History Surgical History: Yes Surgery Procedure, Year, and Place: C Sections,2005 2006 2012. COLPOSCOPY- CERVICAL Other Surgical History: C-sections. - Family History Known Family History: Positive: Unknown, Cardiac Disease - MATERNAL GRANDFATHER , Hypertension, Diabetes, Renal Disease - MOTHER KIDNEY STONES Family History: Asthma - Social History Occupation: Employed Full-time Lives: With Family Alcohol Use: Occasionally Substance Use Type: None Smoking Status (MU): Light Every Day Tobacco Smoker Type: Cigarettes Amount Used/How Often: 4 CIGS/DAY Length of Time of Smoking/Using Tobacco: ON AND OFF FOR 10 YRS. Have You Smoked in the Last Year: Yes When Did the Patient Quit Smoking/Using Tobacco: 2 YRS AGO Household Exposure Type: Cigarettes - Immunization History Most Recent Influenza Vaccination: none Review of Systems Constitutional: Negative Skin: Negative Eyes: Negative ENT: Ear Ache - left, Sinus Congestion, Sinus Pain/Tenderness Respiratory: Negative Cardiovascular: Negative Gastrointestinal: Negative Genitourinary: Negative Motor: Negative Neurovascular: Negative Musculoskeletal: Negative Neurological: Negative Psychological: Negative Is Patient Immunocompromised?: No All Other Systems Reviewed And Are Negative: Yes Physical Exam Triage Information Reviewed: Yes Appearance: Ill-Appearing Vital Signs: Initial Vital Signs Temp 97.8 F 11/20/17 13:26 Pulse 73 11/20/17 13:26 Resp 18 11/20/17 13:26 BP 107/60 11/20/17 13:26 Pulse Ox 98 11/20/17 13:26 Vital Signs Reviewed: Yes Eye Exam: Normal ENT Exam: Other ENT: Positive: Nasal congestion, TM bulging, TM red, Sinus tenderness Dental Exam: Normal Neck exam: Normal Respiratory Exam: Normal Cardiovascular Exam: Normal Musculoskeletal Exam: Normal Neurological Exam: Normal Psychological Exam: Normal Skin Exam: Normal Ear Complaint Course/Dx - Differential Dx/Diagnosis Differential Diagnosis/HQI/PQRI: Otitis Externa, Otitis Media, URI Provider Diagnoses: Left ear OM Discharge - Sign-Out/Discharge Documenting (check all that apply): Discharge/Admit/Transfer - Discharge Plan Condition: Stable Disposition: HOME Prescriptions: Amoxicillin PO (*) [Amoxicillin 875 MG (*)] 875 mg PO Q12H #20 tab Ciproflox/Dexameth OTIC.SUSP* [Ciprodex OTIC.SUSP*] 3 drop LEFT EAR Q8H #1 btl Patient Education Materials: Ear Infection (ED) Referrals: Calderon Michel MD [Primary Care Provider] - If Needed - Billing Disposition and Condition Condition: STABLE Disposition: HOME
== END 2017-11-20 13:48 | disposition home or self-care (01) ==
LOC: UCCORT 12:38
DX: H66.92 Otitis media, unspecified, left ear (principal); F17.210 Nicotine dependence, cigarettes, uncomplicated; Z88.5 Allergy status to narcotic agent
CPT/HCPCS: 99212; G0463

== ENCOUNTER 2018-01-22 12:25 | Emergency (ER) | payer OTHER ==
--- OUTSIDE RECORDS SUMMARY | 2018-01-22 12:44 | XMS REPORT ---
:1985 Demographics Address [address] [place] [address] Phone Unavailable Preferred Language Unknown Marital Status Unknown Pentecostalism Affiliation Unknown Race Unknown Ethnic Group Unknown Author Organization [facility] Address [address] [place] [address] Care Team Providers Name Role Phone Ketty Corral Unavailable Unavailable PROBLEMS Type Condition ICD9-CM [id number] Onset Condition SNOMED Code Code Code Dates Status Problem 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 669614863 (venereal) warts Problem Pelvic and R10.2 Active 174051781 perineal pain Problem Deep dyspareunia N94.12 Active 451426597 Problem Unspecified N83.202 Active [id number] ovarian cyst, left side Problem Other specified N89.8 Active 51978721 noninflammatory disorders of vagina Problem Tobacco use Z72.0 Active 582872902 Problem Viral wart, B07.9 Active 01824538 unspecified Problem Unspecified N83.201 Active 14164997425213096 ovarian cyst, right side Problem Encounter for Z30.431 Active 126980333 routine checking of intrauterine contraceptive device Problem Personal history Z86.73 Active 574595011 of transient ischemic attack (TIA), and cerebral infarction without residual deficits Problem Family history of Z80.0 Active 091246805 malignant neoplasm of digestive organs Problem Subacute and N76.1 Active 997378853 chronic vaginitis Problem 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 32863786 vulvovaginitis Problem Nicotine F17.200 Active 303300935 dependence, unspecified, uncomplicated ALLERGIES No Information ENCOUNTERS Encounter Location Date Diagnosis [facility] 103 Jan, OBGYN [place], [place] [id number] [facility] 103 Jan, OBGYN [place], [place] [id number] [facility] 103 November, Noninflammatory disorder of OBGYN [facility] vagina, unspecified N89.9 [place], [place] [id number] and Candidiasis of vulva and vagina B37.3 [facility] 103 November, [facility] N83.202 ; Other [place], [place] [id number] specified noninflammatory disorders of vagina N89.8 ; Unspecified ovarian cyst, right side N83.201 and Encounter for routine checking of intrauterine contraceptive device Z30.431 [facility] 103 November, [facility] N83.202 and [place], [place] [id number] Encounter for routine checking of intrauterine contraceptive device Z30.431 [facility] 103 Oct, OBGYN [place], [place] [id number] [facility] 103 Oct, [place] [id number] [facility] 103 Sep, OBGYN [place], [place] [id number] [facility] 103 Sep, OBGYN [place], [place] [id number] [facility] 103 Sep, [facility]ogenital (venereal ) [facility] ; Subacute and [place], [place] [id number] chronic vaginitis N76.1 ; Tobacco use Z72.0 ; Encounter for routine checking of intrauterine contraceptive device Z30.431 ; Other ovarian cyst, left side N83.292 and Encounter for screening for infections with a predominantly sexual mode of transmission Z11.3 [facility] 103 16 Sep, 2017 OBGYN [place], [place] [id number] [facility] 103 Sep, [place] [id number] [facility] 103 Sep, Viral wart, unspecified [facility] B07.9 [place] [id number] [facility] 103 Sep, Pelvic and perineal pain OBGYN [facility] R10.2 ; Deep dyspareunia [place], [place] [id number] N94.12 and Encounter for routine checking of intrauterine contraceptive device Z30.431 [facility] 103 14 Sep, 2017 OBGYN [place], [place] [id number] [facility] 103 Sep, [facility]acute and [facility] vaginitis N76.1 ; Pelvic [place], [place] [id number] and perineal pain R10.2 and Deep dyspareunia N94.12 [facility] 103 Sep, OBGYN [place] [id number] [facility] 103 Sep, OBGYN [place], [place] [id number] [facility] 103 Jan, OBGYN [place], [place] [id number] [facility] 103 Jan, OBGYN [place] [id number] [facility] 103 Jan, Pelvic and perineal pain [facility] R10.2 ; Other specified [place], [place] [id number] noninflammatory disorders of vagina N89.8 and Anogenital (venereal) warts A63.0 [facility] 103 07 Dec, 2016 [facility] (general) [place], [place] [id number] (routine) without abnormal findings Z01.419 ; Encounter for screening for malignant neoplasm of cervix Z12.4 ; Encounter for screening for infections with a predominantly sexual mode of transmission Z11.3 ; Nicotine dependence, unspecified, uncomplicated F17.200 and Subacute and chronic vaginitis N76.1 [facility] 103 Oct, OBGYN [place] [id number] [facility] 103 Oct, Female pelvic inflammatory OBN [facility] disease, unspecified N73.9 [place], [place] [id number] ; Postcoital and contact bleeding N93.0 ; Pelvic and perineal pain R10.2 and Other specified noninflammatory disorders of vagina N89.8 [facility] 103 Oct, [place] [id number] [facility] 103 Oct, Female pelvic inflammatory OBGYN [facility] disease, unspecified N73.9 [place] [id number] ; Postcoital and contact bleeding N93.0 and Pelvic and perineal pain R10.2 [facility] 103 Oct, OBGYN [place], [place] [id number] [facility] 103 Oct, Female pelvic inflammatory OBN [facility] disease, unspecified N73.9 [place], [place] [id number] ; Postcoital and contact bleeding N93.0 and Pelvic and perineal pain R10.2 [facility] 103 Oct, Unspecified dyspareunia [facility] N94.10 [place] [id number] [facility] 103 Oct, Unspecified dyspareunia [facility] N94.10 ; Female pelvic [place], [place] [id number] inflammatory disease, unspecified N73.9 ; 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 and Postcoital and contact bleeding N93.0 [facility] 103 Sep, OBGYN [place] [id number] [facility] 103 Aug, Other specified [facility] noninflammatory disorders [place] [id number] of vagina N89.8 [facility] 103 Aug, Other specified [facility] noninflammatory disorders [place] [id number] of vagina N89.8 [facility] 103 May, Acute vaginitis N76.0 OBN [place], [place] [id number] [facility] 103 Apr, Other specified [facility] noninflammatory disorders [place], [place] [id number] of vagina N89.8 and Encounter for screening for infections with a predominantly sexual mode of transmission Z11.3 [facility] 103 Mar, [place] [id number] [facility] 103 Mar, Other chlamydial infection [facility] of lower genitourinary [place], [place] [id number] tract A56.09 ; Inflammatory disease of uterus, unspecified N71.9 ; Irregular menstruation, unspecified N92.6 and Other specified noninflammatory disorders of vagina N89.8 [facility] 103 Feb, [place] [id number] [place] [facility] [address] [place] [address] Feb, [facility] [address] [place], of lower genitourinary [place] [id number] tract A56.09 and Inflammatory disease of uterus, unspecified N71.9 [facility] 103 Feb, [place] [id number] [facility] Feb, [place] [id number] [facility] 103 Feb, Chlamydial infection of [facility] lower genitourinary tract, [place] [id number] unspecified A56.00 [facility] 103 Feb, Other specified [facility] noninflammatory disorders [place], [place] [id number] of vagina N89.8 and Acute vaginitis N76.0 [facility] 103 Dec, Encounter [facility] (general) [place], [place] [id number] (routine) without abnormal findings Z01.419 ; Excessive and frequent menstruation with irregular cycle N92.1 ; Personal history of transient ischemic attack (TIA), and cerebral infarction without residual deficits Z86.73 ; 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 and Family history of malignant neoplasm of digestive organs Z80.0 [facility] 07 Nov, 2015 [place], [place] [id number] [facility] 103 November, Other specified [facility] noninflammatory disorders [place], [place] [id number] of vagina N89.8 and Encounter for screening for infections with a predominantly sexual mode of transmission Z11.3 [place] [facility] 103 18 Jul, 2015 Excessive and frequent [facility] menstruation with irregular [place], [place] [id number] cycle N92.1 ; Personal history of transient ischemic attack (TIA), and cerebral infarction without residual deficits Z86.73 and 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 [facility] 103 Jul, [place] [id number] [facility] 103 04 Jul, 2015 Excessive and frequent [facility] menstruation with irregular [place], [place] [id number] cycle N92.1 and Personal history of transient ischemic attack (TIA), and cerebral infarction without residual deficits Z86.73 [facility] 103 Apr, OBGYN [place], [place] [id number] [facility] 103 Apr, Excessive and frequent [facility] menstruation with irregular [place], [place] [id number] cycle N92.1 and Personal history of transient ischemic attack (TIA), and cerebral infarction without residual deficits Z86.73 [facility] 103 28 Mar, 2015 Menometrorrhagia 626.2 [place] [id number] [facility] [address] [place] [place] [id number] [facility] 103 11 Sep, 2015 Menometrorrhagia 626.2 OBGYN [place], [place] [id number] [facility] 103 Jan, VULVAR LESION 624.9 and OBGYN [facility] Condyloma 078.10 [place], [place] [id number] [facility] 103 Jan, OBGYN [place], [place] [id number] [facility] 103 Dec, OBGYN [place], [place] [id number] [facility] 103 Dec, OBGYN [place], [place] [id number] [facility] 103 Dec, OBGYN [place] [id number] [facility] 103 Dec, VULVAR LESION 624.9 ; OBGYN [facility] Condyloma 078.10 and [place], [place] [id number] CONTRACEPTIVE MANGMT NOS V25.9 [facility] 103 Dec, Vaginitis 616.10 OBGYN [place], [place] [id number] [facility] 103 Dec, OBGYN [place], [place] [id number] [facility] 103 November, Menometrorrhagia 626.2 ; OBGYN [facility] Herpes simplex [place], [place] [id number] vulvovaginitis 054.11 and VULVAR LESION 624.9 [facility] 103 November, Vaginitis 616.10 OBGYN [place], [place] [id number] [facility] 103 November, STD Screen V74.5 and OBGYN [facility] VAGINAL DISCHARGE 623.5 [place], [place] [id number] [facility] 103 Oct, Menometrorrhagia 626.2 ; OBGYN [facility] Body Mass Index 40.0-44.9, [place], [place] [id number] adult V85.41 and Ovarian cyst NOS 620.2 [place] [facility] 103 Oct, Ovarian cyst NOS 620.2 [place] [id number] [facility] 103 Oct, OBGYN [place], [place] [id number] [place] [facility] 103 Sep, Herpes infection NOS 054.9 [place] [id number] [facility] 103 Sep, [place] [id number] [place] [facility] 103 Sep, [place] [id number] [facility] 103 Sep, [place] [id number] [facility] 103 Sep, Menometrorrhagia 626.2 and OBGYN [facility] Body Mass Index 40.0-44.9, [place], [place] [id number] adult V85.41 [place] [facility] 103 Aug, Metrorrhagia 626.6 and OBGYN [facility] VULVAR LESION 624.9 [place], [place] [id number] [facility] 103 Aug, OBGYN [place], [place] [id number] [facility] 103 Aug, Metrorrhagia 626.6 and OBGYN [facility] Vaginitis 616.10 [place], [place] [id number] [facility] 103 Aug, [facility]rorrhagia 626.6 [facility] Ovarian cyst NOS 620.2 [place], [place] [id number] [facility] 103 Aug, [place], [place] [id number] [facility] 103 Aug, [place], [place] [id number] [facility] 103 Jul, [place] [id number] [facility] 103 Jul, Metrorrhagia 626.6 [place], [place] [id number] [facility] 103 Jul, Metrorrhagia 626.6 [place] [id number] [place] [facility] 103 Jun, Acute vulvovaginitis 616.10 [place], [place] [id number] [facility] 103 Jun, [place], [place] [id number] [facility] 103 May, STD Screen V74.5 ; FAMILY [facility] PLANNING V25.09 ; [place], [place] [id number] Metrorrhagia 626.6 and Ovarian cyst NOS 620.2 IMMUNIZATIONS No Known Immunizations SOCIAL HISTORY Never Assessed REASON FOR REFERRAL FUNCTIONAL STATUS PLAN OF CARE VITAL SIGNS MEDICATIONS Medication Instructions Dosage Frequency Start End Duration Status Date Date metronidazole 500 orally 2 times a 1 tab(s) 12h 26 December, 7 day(s) Active mg 2017 Diflucan 150 mg orally once 1 tab(s) 26 December, 1 dose(s) Active 2018 PROCEDURES No Known procedures RESULTS No Results REASON FOR VISIT call pt MEDICAL (GENERAL) HISTORY Type Description Date Medical History Possible stroke on BC Medical History vulvar colpo- verracoid keratosis Medical History Condyloma Medical History Female pelvic inflammatory disease, unspecified Surgical History 01/19/06 Surgical History 02/21/07 Surgical History 11/05/12 Surgical History etop 11/12/14 Surgical History hysteroscopy, D&C 04/14/15 Hospitalization History Childbirth Hospitalization History Childbirth Hospitalization History see above
[2018-01-22 12:48] VITALS: BP 129/69
--- NOTE | 2018-01-22 12:58 | UC ---
Throat Pain/Nasal Prasad HPI - HPI Summary HPI Summary: Pt c/o nasal congestion, sinus pressure and pain X 1 month. Pt has seasonal allergies, and has been taking OTC antihistamines and decongestent with no improvement. - History of Current Complaint Chief Complaint: UCGeneralIllness Stated Complaint: SINUS COMP Time Seen by Provider: 01/22/18 12:43 Hx Obtained From: Patient Hx Last Menstrual Period: 12/29/17 ?: No Onset/Duration: Gradual Onset, Lasting Weeks, Still Present Severity: Moderate Pain Intensity: 0 Associated Signs & Symptoms: Positive: Sinus Discomfort Related History: Seasonal Allergies, Smoking - Epiglottits Risk Factors Epiglottis Risk Factors: Negative - Allergies/Home Medications Allergies/Adverse Reactions: Allergies Allergy/AdvReac Type Severity Reaction Status Date / Time codeine Allergy Rash Verified 11/20/17 13:29 TATOO COLOR Allergy Blisters Uncoded 06/02/17 10:49 Home Medications: Home Medications busPIRone TAB* [Buspar TAB*] 5 mg PO DAILY 01/22/18 [History Confirmed 01/22/18] PMH/Surg Hx/FS Hx/Imm Hx Previously Healthy: Yes Psychological History: Anxiety - Surgical History Surgical History: Yes Surgery Procedure, Year, and Place: C Sections,2005 2006 2012. COLPOSCOPY- CERVICAL Other Surgical History: C-sections. - Family History Known Family History: Positive: Unknown, Cardiac Disease - MATERNAL GRANDFATHER , Hypertension, Diabetes, Renal Disease - MOTHER KIDNEY STONES Family History: Asthma - Social History Occupation: Employed Full-time Lives: With Family Alcohol Use: Occasionally Substance Use Type: None Smoking Status (MU): Light Every Day Tobacco Smoker Type: Cigarettes Amount Used/How Often: 4 CIGS/DAY Length of Time of Smoking/Using Tobacco: ON AND OFF FOR 10 YRS. Have You Smoked in the Last Year: Yes When Did the Patient Quit Smoking/Using Tobacco: 2 YRS AGO Household Exposure Type: Cigarettes - Immunization History Most Recent Influenza Vaccination: none Review of Systems Constitutional: Fatigue Skin: Negative Eyes: Negative ENT: Sinus Congestion, Sinus Pain/Tenderness Respiratory: Negative Cardiovascular: Negative Gastrointestinal: Negative Genitourinary: Negative Motor: Negative Neurovascular: Negative Musculoskeletal: Negative Neurological: Headache Psychological: Negative Is Patient Immunocompromised?: No All Other Systems Reviewed And Are Negative: Yes Physical Exam Triage Information Reviewed: Yes Appearance: Ill-Appearing Vital Signs: Initial Vital Signs Temp 97.7 F 01/22/18 12:42 Pulse 84 01/22/18 12:42 Resp 17 01/22/18 12:42 BP 129/69 01/22/18 12:42 Pulse Ox 98 01/22/18 12:42 Vital Signs Reviewed: Yes Eye Exam: Normal ENT: Positive: Nasal congestion, TM bulging, TM dull, Sinus tenderness, Other - wears hearing aid left ear Dental Exam: Normal Neck exam: Normal Respiratory Exam: Normal Cardiovascular Exam: Normal Musculoskeletal Exam: Normal Neurological Exam: Normal Psychological Exam: Normal Skin Exam: Normal Throat Pain/Nasal Course/Dx - Differential Dx/Diagnosis Differential Diagnosis/HQI/PQRI: Otitis Media, Sinusitis, URI Provider Diagnoses: sinusitis. allergic rhinitis Discharge - Sign-Out/Discharge Documenting (check all that apply): Discharge/Admit/Transfer - Discharge Plan Condition: Stable Disposition: HOME Prescriptions: Amoxicillin PO (*) [Amoxicillin 875 MG (*)] 875 mg PO Q12H #20 tab Cetirizine* [ZyrTEC 10 MG TAB*] 10 mg PO DAILY #20 tab predniSONE TAB* [Deltasone 20 MG TAB*] 20 mg PO DAILY #4 tab Pseudoephedrine TAB* [Sudafed TAB*] 60 mg PO Q12H #14 tab Patient Education Materials: Sinusitis (ED), Rhinosinusitis (ED) Referrals: Delmy Kelly MD [Medical Doctor] - If Needed Calderon Michel MD [Primary Care Provider] - If Needed - Billing Disposition and Condition Condition: STABLE Disposition: Home
== END 2018-01-22 13:07 | disposition home or self-care (01) ==
LOC: UCCORT 12:25
DX: J32.9 Chronic sinusitis, unspecified (principal); J30.9 Allergic rhinitis, unspecified; Z88.5 Allergy status to narcotic agent; Z87.891 Personal history of nicotine dependence
CPT/HCPCS: 99212; G0463

== ENCOUNTER 2018-02-06 14:35 | Emergency (ER) | payer OTHER ==
[2018-02-06 15:22] VITALS: BP 107/50
--- NOTE | 2018-02-06 15:25 | UC ---
UC General HPI - HPI Summary HPI Summary: Patient presents complaining of left ear pain and sore throat since yesterday that is getting progressively worse. She states she has a long history of recurrent ear infections and requires the use of hearing aides although she is not wearing them right now. She denies any fever or chills runny nose offers no other complaints. - History of Current Complaint Stated Complaint: ST/LT EAR COMP Time Seen by Provider: 02/06/18 15:18 Hx Obtained From: Patient Hx Last Menstrual Period: 12/29/17 Onset/Duration: Gradual Onset Timing: Constant Aggravating: NOTHING Alleviating: NOTHING Associated Signs & Symptoms: Negative: Fever, Headache - Allergy/Home Medications Allergies/Adverse Reactions: Allergies Allergy/AdvReac Type Severity Reaction Status Date / Time codeine Allergy Rash Verified 02/06/18 15:23 TATOO COLOR Allergy Blisters Uncoded 02/06/18 15:23 PMH/Surg Hx/FS Hx/Imm Hx - Additional Past Medical History Additional PMH: OM, ALLERGIES, BURNS PAIUTE Psychological History: Anxiety, Depression - Surgical History Surgical History: Yes Surgery Procedure, Year, and Place: C Sections,2005 2007 2012. COLPOSCOPY- CERVICAL Other Surgical History: C-sections. - Family History Known Family History: Positive: Unknown, Cardiac Disease - MATERNAL GRANDFATHER , Hypertension, Diabetes, Renal Disease - MOTHER KIDNEY STONES Family History: Asthma - Social History Occupation: Employed Full-time Alcohol Use: Occasionally Substance Use Type: None Smoking Status (MU): Light Every Day Tobacco Smoker Type: Cigarettes Amount Used/How Often: 4 CIGS/DAY Length of Time of Smoking/Using Tobacco: ON AND OFF FOR 10 YRS. Have You Smoked in the Last Year: Yes When Did the Patient Quit Smoking/Using Tobacco: 2 YRS AGO Household Exposure Type: Cigarettes - Immunization History Most Recent Influenza Vaccination: none Vaccination Up to Date: Yes Review of Systems Constitutional: Negative Skin: Negative Eyes: Negative ENT: Sore Throat, Ear Ache - L Respiratory: Negative Cardiovascular: Negative Gastrointestinal: Negative Genitourinary: Negative Motor: Negative Neurovascular: Negative Musculoskeletal: Negative Neurological: Negative Psychological: Negative Is Patient Immunocompromised?: No All Other Systems Reviewed And Are Negative: Yes Physical Exam Triage Information Reviewed: Yes Appearance: Well-Appearing Vital Signs Reviewed: Yes Eyes: Positive: Conjunctiva Clear ENT: Positive: Pharyngeal erythema, TMs normal - R, TM red - L, Uvula midline. Negative: Nasal congestion, Nasal drainage, Trismus, Muffled voice, Hoarse voice Neck: Positive: Supple, Nontender, No Lymphadenopathy Respiratory: Positive: Lungs clear, Normal breath sounds Cardiovascular: Positive: RRR, No Murmur Abdomen Description: Positive: Nontender, No Organomegaly, Soft Bowel Sounds: Positive: Present Musculoskeletal: Positive: ROM Intact Neurological: Positive: Alert Psychological: Positive: Age Appropriate Behavior Skin Exam: Normal Course/Dx - Course Course Of Treatment: L OM and pharyngitis. recently tx with amoxicillin for sinusitis thus will tx with augmentin. - Differential Dx - Multi-Symptom Provider Diagnoses: L OM, pharyngitis Discharge - Sign-Out/Discharge Documenting (check all that apply): Patient Departure - Discharge Plan Condition: Stable Disposition: HOME Prescriptions: Amoxicillin/Clavulanate TAB* [Augmentin TAB 875*] 875 mg PO BID #20 tab Patient Education Materials: Pharyngitis (ED), Ear Infection (ED) Forms: *Work Release Referrals: Calderon Michel MD [Primary Care Provider] - 7 Days Additional Instructions: CONSIDER A PROBIOTIC SUCH CULTURELLE DAILY WHILE ON THE ANTIBIOTIC - Billing Disposition and Condition Condition: STABLE Disposition: Home
== END 2018-02-06 15:37 | disposition home or self-care (01) ==
LOC: UCCORT 14:35
DX: H66.92 Otitis media, unspecified, left ear (principal); J02.9 Acute pharyngitis, unspecified; F41.9 Anxiety disorder, unspecified; F32.9 Major depressive disorder, single episode, unspecified; Z88.5 Allergy status to narcotic agent; Z82.49 Family history of ischemic heart disease and other diseases of the circulatory system; Z83.3 Family history of diabetes mellitus; Z84.1 Family history of disorders of kidney and ureter; Z82.5 Family history of asthma and other chronic lower respiratory diseases; Z72.0 Tobacco use
CPT/HCPCS: 99212; G0463

== ENCOUNTER 2018-03-20 07:47 | Emergency (ER) | payer OTHER ==
--- OUTSIDE RECORDS SUMMARY | 2018-03-20 07:54 | XMS REPORT ---
:1985 Author Organization [facility] Address [address] [place] [address] Care Team Providers Name Role Phone Ketty Corral Unavailable Unavailable PROBLEMS Type Condition ICD9-CM [id number] Onset Condition SNOMED Code Code Code Dates Status Problem Pelvic and R10.2 Active 610641801 perineal pain Problem Tobacco use Z72.0 Active 312931364 Problem Viral wart, B07.9 Active 39867111 unspecified Problem Acute vaginitis N76.0 Active 27118385 Problem Tobacco abuse Z71.6 Active 454735005 counseling Problem Unspecified N83.201 Active [id number] ovarian cyst, right side Problem Encounter for Z30.431 Active 074743069 routine checking of intrauterine contraceptive device Problem Unspecified N83.202 Active 77075635131554614 ovarian cyst, left side Problem Other specified N89.8 Active 99818203 noninflammatory disorders of vagina Problem 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 90550170 vulvovaginitis Problem Subacute and N76.1 Active 443789830 chronic vaginitis Problem Nicotine F17.200 Active 670518473 dependence, unspecified, uncomplicated Problem Personal history Z86.73 Active 933704900 of transient ischemic attack (TIA), and cerebral infarction without residual deficits Problem 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 283734284 (venereal) warts Problem Family history of Z80.0 Active 328758839 malignant neoplasm of digestive organs Problem Deep dyspareunia N94.12 Active 548243501 ALLERGIES No Information ENCOUNTERS Encounter Location Date Diagnosis [facility] 103 Feb, OBGYN [place], [place] [id number] [facility] Feb, [place] [id number] [facility] Feb, Noninflammatory disorder of [facility] [place] vagina, unspecified N89.9 [place], [place] [id number] and Candidiasis of vulva and vagina B37.3 [facility] Feb, [place] [id number] [facility] Feb, [facility] [place], [place] [id number] (routine) with abnormal findings Z01.411 ; Encounter for routine checking of intrauterine contraceptive device Z30.431 ; Encounter for screening for infections with a predominantly sexual mode of transmission Z11.3 ; Noninflammatory disorder of vagina, unspecified N89.9 and Tobacco abuse counseling Z71.6 [facility] Jan, [place] [id number] [address] Jan, Acute vaginitis N76.0 [facility] [address] [place], [place] [id number] [place] [facility] Jan, Unspecified ovarian cyst, [facility] [place] right side N83.201 [place], [place] [id number] [facility] Jan, Unspecified ovarian cyst, OBG[facility] [place] right side N83.201 and [place], [place] [id number] Encounter for routine checking of intrauterine contraceptive device Z30.431 [facility] Jan, Unspecified ovarian cyst, [facility] [place] right side N83.201 [place] [id number] [facility] Jan, [place] [id number] [facility] 103 November, [facility], unspecified N89.9 [place] [id number] and Candidiasis of vulva and vagina B37.3 [facility] November, Unspecified ovarian cyst, [facility] left side N83.202 ; Other [place] [id number] specified noninflammatory disorders of vagina N89.8 ; Unspecified ovarian cyst, right side N83.201 and Encounter for routine checking of intrauterine contraceptive device Z30.431 [facility] November, Unspecified ovarian cyst, [facility] left side N83.202 and [place], [place] [id number] Encounter for routine checking of intrauterine contraceptive device Z30.431 [facility] Oct, [place] [id number] [place] [facility] 103 Oct, [place] [id number] [facility] 103 Sep, [place] [id number] [place] [facility] Sep, [place] [id number] [facility] 103 Sep, Anogenital (venereal ) warts [facility] A63.0 ; Subacute and [place], [place] [id number] chronic vaginitis N76.1 ; Tobacco use Z72.0 ; Encounter for routine checking of intrauterine contraceptive device Z30.431 ; Other ovarian cyst, left side N83.292 and Encounter for screening for infections with a predominantly sexual mode of transmission Z11.3 [facility] 103 16 Sep, 2017 [place] [id number] [facility] 103 Sep, [place] [id number] [facility] 103 Sep, Viral wart, unspecified [facility] B07.9 [place] [id number] [facility] 15 Sep, 2017 Pelvic and [facility]ineal pain [facility] R10.2 ; Deep dyspareunia [place], [place] [id number] N94.12 and Encounter for routine checking of intrauterine contraceptive device Z30.431 [facility] 103 14 Sep, 2017 [place]BG[place] [id number] [facility] 14 Sep, 2017 Subacute and chronic [facility] vaginitis N76.1 ; Pelvic [place], [place] [id number] and perineal pain R10.2 and Deep dyspareunia N94.12 [facility] 103 Sep, [place] [id number] [facility] Sep, [place] [id number] [facility] Jan, [place] [id number] [facility] Jan, [place] [id number] [facility] 103 Jan, Pelvic and [facility]ineal pain [facility] R10.2 ; Other specified [place] [id number] noninflammatory disorders of vagina N89.8 and Anogenital (venereal) warts A63.0 [facility] 07 Dec, 2016 [facility] examination (general) [place], [place] [id number] (routine) without abnormal findings Z01.419 ; Encounter for screening for malignant neoplasm of cervix Z12.4 ; Encounter for screening for infections with a predominantly sexual mode of transmission Z11.3 ; Nicotine dependence, unspecified, uncomplicated F17.200 and Subacute and chronic vaginitis N76.1 [facility] Oct, [place] [id number] [facility] Oct, Female pelvic inflammatory [facility] [place] disease, unspecified N73.9 [place], [place] [id number] ; Postcoital and contact bleeding N93.0 ; Pelvic and perineal pain R10.2 and Other specified noninflammatory disorders of vagina N89.8 [facility] 103 Oct, [place] [id number] [facility] Oct, Female pelvic inflammatory [facility] [place] disease, unspecified N73.9 [place], [place] [id number] ; Postcoital and contact bleeding N93.0 and Pelvic and perineal pain R10.2 [facility] 103 Oct, [place] [id number] [facility] Oct, Female pelvic inflammatory [facility] [place] disease, unspecified N73.9 [place], [place] [id number] ; Postcoital and contact bleeding N93.0 and Pelvic and perineal pain R10.2 [facility] 103 Oct, Unspecified dyspareunia [facility] N94.10 [place] [id number] [facility] Oct, Unspecified dyspareunia [facility] N94.10 ; Female pelvic [place], [place] [id number] inflammatory disease, unspecified N73.9 ; 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 and Postcoital and contact bleeding N93.0 [place] [facility] Sep, [place], [place] [id number] [facility] 103 Aug, Other specified [facility] noninflammatory disorders [place], [place] [id number] of vagina N89.8 [facility] 103 Aug, Other specified [facility] noninflammatory disorders [place], [place] [id number] of vagina N89.8 [facility] May, Acute vaginitis N76.0 [place] [id number] [facility] Apr, Other specified [facility] noninflammatory disorders [place], [place] [id number] of vagina N89.8 and Encounter for screening for infections with a predominantly sexual mode of transmission Z11.3 [facility] Mar, [place] [id number] [facility] Mar, Other chlamydial infection [facility] of lower genitourinary [place], [place] [id number] tract A56.09 ; Inflammatory disease of uterus, unspecified N71.9 ; Irregular menstruation, unspecified N92.6 and Other specified noninflammatory disorders of vagina N89.8 [facility] Feb, [place] [id number] [facility] Feb, Other chlamydial infection [facility] [address] [place] [address], of lower genitourinary [place] [id number] tract A56.09 and Inflammatory disease of uterus, unspecified N71.9 [facility] Feb, [place] [id number] [facility] Feb, [place] [id number] [place] [facility] Feb, Chlamydial infection of [facility] lower genitourinary tract, [place], [place] [id number] unspecified A56.00 [place] [facility] Feb, Other specified [facility] noninflammatory disorders [place], [place] [id number] of vagina N89.8 and Acute vaginitis N76.0 [place] [facility] 103 Dec, Encounter for [facility]ological [facility] examination (general) [place], [place] [id number] (routine) without abnormal findings Z01.419 ; Excessive and frequent menstruation with irregular cycle N92.1 ; Personal history of transient ischemic attack (TIA), and cerebral infarction without residual deficits Z86.73 ; 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 and Family history of malignant neoplasm of digestive organs Z80.0 [place] [facility] November, [place] [id number] [facility] November, Other specified [facility] noninflammatory disorders [place], [place] [id number] of vagina N89.8 and Encounter for screening for infections with a predominantly sexual mode of transmission Z11.3 [facility] 103 Jul, Excessive and frequent [facility] menstruation with irregular [place], [place] [id number] cycle N92.1 ; Personal history of transient ischemic attack (TIA), and cerebral infarction without residual deficits Z86.73 and 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 [facility] Jul, [place] [id number] [facility] 103 Jul, Excessive and frequent [facility] menstruation with irregular [place], [place] [id number] cycle N92.1 and Personal history of transient ischemic attack (TIA), and cerebral infarction without residual deficits Z86.73 [facility] 103 Apr, [place] [id number] [facility] 103 Apr, Excessive and frequent [facility] menstruation with irregular [place], [place] [id number] cycle N92.1 and Personal history of transient ischemic attack (TIA), and cerebral infarction without residual deficits Z86.73 [facility] 103 Mar, Menometrorrhagia 626.2 [place] [id number] [facility] [address] [place], 15 Mar, 2015 [facility] [id number] [facility] Mar, Menometrorrhagia 626.2 [place] [id number] [facility] 103 Jan, VULVAR LESION 624.9 [facility] Condyloma 078.10 [place], [place] [id number] [place] [facility] Jan, [place], [place] [id number] [place] [facility] Dec, [place] [id number] [facility] 103 Dec, [place] [id number] [place] [facility] Dec, [place] [id number] [facility] 103 Dec, VULVAR LESION 624.9 ; [facility] Condyloma 078.10 and [place], [place] [id number] CONTRACEPTIVE MANGMT NOS V25.9 [facility] Dec, Vaginitis 616.10 [place] [id number] [place] [facility] Dec, [place] [id number] [facility] 103 November, Menometrorrhagia 626.2 ; [facility] Herpes simplex [place], [place] [id number] vulvovaginitis 054.11 and VULVAR LESION 624.9 [place] [facility] 103 November, Vaginitis 616.10 [place] [id number] [facility] November, STD Screen V74.5 and [facility]BG[facility] [place] VAGINAL DISCHARGE 623.5 [place], [place] [id number] [place] [facility] 103 Oct, Menometrorrhagia 626.2 ; [facility] Body Mass Index 40.0-44.9, [place], [place] [id number] adult V85.41 and Ovarian cyst NOS 620.2 [place] [facility] 103 Oct, Ovarian cyst NOS 620.2 [place] [id number] [facility] Oct, [place] [id number] [facility] 103 Sep, Herpes infection NOS 054.9 [place] [id number] [facility] Sep, [place] [id number] [facility] Sep, [place] [id number] [facility] Sep, [place] [id number] [facility] 103 Sep, Menometrorrhagia 626.2 and [facility] [place] Body Mass Index 40.0-44.9, [place], [place] [id number] adult V85.41 [place] [facility] 103 Aug, Metrorrhagia 626.6 and [facility]BG[facility] [place] VULVAR LESION 624.9 [place], [place] [id number] [facility] Aug, [place] [id number] [facility] 103 Aug, Metrorrhagia 626.6 and OBGYN [place] Vaginitis 616.10 [place], [place] [id number] [facility] 103 Aug, Metrorrhagia 626.6 and [facility] Ovarian cyst NOS 620.2 [place], [place] [id number] [place] [facility] Aug, [place] [id number] [facility] 103 Aug, OBG[place], [place] [id number] [facility] Jul, [place] [id number] [facility] 103 Jul, Metrorrhagia 626.6 [place] [id number] [place] [facility] Jul, Metrorrhagia 626.6 [place] [id number] [place] [facility] 103 Jun, Acute vulvovaginitis 616.10 [place]BG[place] [id number] [facility] Jun, [place] [id number] [facility] 103 May, STD Screen V74.5 ; [facility] V25.09 ; [place], [place] [id number] Metrorrhagia 626.6 and Ovarian cyst NOS 620.2 IMMUNIZATIONS No Known Immunizations SOCIAL HISTORY Never Assessed REASON FOR REFERRAL FUNCTIONAL STATUS PLAN OF CARE VITAL SIGNS MEDICATIONS Medication Instructions Dosage Frequency Start End Date Duration Status Date Flagyl 500 mg orally twice a 1 tab(s) 12h 10 Feb, day(s) Active 2017 Diflucan 150 mg orally once 1 tab(s) Feb, dose(s) 2017 PROCEDURES No Known procedures RESULTS No Results REASON FOR VISIT [facility] Insurance Providers [facility] Patient Patient Patient Patient Patient Subscriber Subscriber Subscriber Group Insurance Plan Plan Plan Plan ID Relationship Address Phone Name Date of ID Name Date of No Type Insurance Insurance Insurance Coverage to Subscriber Address Phone Name Dates Drake EDITA CHEATHAM [phone] Drake Calderony [id number] [address] [address] MEDICAL (GENERAL) HISTORY Type Description Date Medical History Possible stroke on BC Medical History vulvar colpo- verracoid keratosis Medical History Condyloma Medical History Female pelvic inflammatory disease, unspecified Surgical History 01/19/06 Surgical History 02/21/07 Surgical History 11/05/12 Surgical History etop 11/12/14 Surgical History hysteroscopy, D&C 04/14/15 Hospitalization History Childbirth Hospitalization History Childbirth Hospitalization History see above
--- OUTSIDE RECORDS SUMMARY | 2018-03-20 07:54 | XMS REPORT ---
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 Resolved Resolved: 01/16/2014 Onset: 09/01/2011 Acute bronchitis Roddy Dubois M.D. Resolved Resolved: 01/16/2014 Onset: 03/29/2012 Disorder of shoulder Roddy Dubois M.D. Resolved Resolved: 01/16/2014 Onset: 03/29/2012 Backache Roddy Dubois M.D. Resolved Resolved: 01/16/2014 Family History Date Family Member(s) Problem(s) Comments Father due to Etoh () Father due to Liver Disease () Father due to Heart Disease () - age 42 chf Mother due to metastatic cancer () age 56 Mother Deep Vein Thrombosis Mother Coronary Artery Disease (CAD) Mother HTN, Ht disease Number of Children 3 Number of Siblings Siblings: 2 Paternal Aunts Cerebrovascular Accident (CVA) paternal aunt Social History Type Date Description Comments Education Highest level of education completed is 12th grade Marital Status Patient is Occupation [employer] Cigarette Use Current Cigarette Smoker 1/2 Pack Daily ETOH Use Occasional Smoking Patient is a current smoker, smokes every day 1/2 ppd Daily Caffeine Consumes on average 3 sodas per day Allergies, Adverse Reactions, Alerts Date Description Reaction Status Severity Comments 08/11/2010 Codeine rash/throat closed active 05/31/2010 NKDA inactive Medications Medication Date Status Form Strength Qnty SIG Indications Ordering Provider Buspirone HCL 11/28 Active Tablets 5mg 60tab Take 1 s Tablet By Kandi, Mouth SERVICE CLERK Twice A Day as Needed For Anxiety Bupropion HCL ER 08/02 Active Tablets ER 300mg 90tab 1 by F43.21 Alison (XL) /2017 24HR s mouth Kandi, every day SERVICE CLERK Butalbital/Acetam 06/28 Active Capsules 50-300-40 240ca 1-2 by [email or web address] Alison inophen/Caffeine /2016 mg ps mouth Kandi, every 6 SERVICE CLERK hours Flovent HFA 05/05 Active Aerosol 110mcg/Ac 12gm 2 puff R05 Calderon A t twice a hal Michel M.D. samples Escitalopram 02/22 Active Tablets 20mg 90tab 1.5 by Alison s mouth Kandi, every day SERVICE CLERK Lorazepam 01/02 Active Tablets 0.5mg 60tab take 1 G47.00 Calderon s tablet by evita Michel M.D. twice a day as needed for anxiety Metronidazole 11/28 Hx Tablets 500mg 14tab Take 1 N76.0 Jerica s Tablet By VANI Sampson - Mouth 12/20 Twice A Day For 7 Days Metronidazole 08/02 Hx Gel 0.75% 30gm insert 1 N76.0 applicato Kandi - r full SERVICE CLERK 08/02 nightly /2017 for one week Metronidazole 08/02 Hx Tablets 500mg 14tab Take 1 N76.0 s Tablet By Kandi, - Mouth SERVICE CLERK 11/27 Twice A Day For 7 Days Chantix 06/28 Hx Tablets 1mg 90tab take 1 Alison Continuing s tablet by Mor Chau - mouth SERVICE CLERK 11/27 twice a day Chantix Starting 06/28 Hx Tablets 0.5mg X 53tab Use as 11 & 1 mg s Directed Kandi, - X 42 On SERVICE CLERK 11/27 Butalbital/Acetam 06/16 Hx Capsules 50-300-40 90cap 1 by F43.21 [place] inophen/Caffeine -30mg s mouth Kandi, Codeine - three SERVICE CLERK 06/28 times a day as needed headache Metronidazole 06/08 Hx Tablets 500mg 14tab take 1 N76.0 s tablet Les, - twice a SERVICE CLERK 06/15 day for days Bupropion HCL 05/05 Hx Tablets 100mg 360ta 2 by F43.21 bs mouth Kandi, - daily SERVICE CLERK 08/02 Flexeril 04/28 Hx Tablet 5mg 30tab Take 1 To s 2 Tablets Kandi, - Every SERVICE CLERK 05/05 Night AT Bedtime as Needed Augmentin 04/07 Hx Tablets 875-125mg 10tab take one H66.012 Ketty C. s by mouth Luis M, - twice SALES AGENT 06/08 daily until gone Ciprodex 04/07 Hx Suspension 0.3-0.1% 7.500 Put 4 H66.012 Ketty C. /2016 ml drops in Luis M, - Left ear SALES AGENT 04/07 twice daily for 10 days Cortisporin-TC 04/07 Hx Suspension 3.3-3-10- H66.012 Ketty C. /2016 0.5mg/ml Luis M, - SALES AGENT 04/07 Neomycin/Polymyxi 04/07 Hx Suspension 3.5-77982 10ml 4 drops H66.012 Ketty C. n/Hydrocortisone /2016 -1 left ear Luis M, (Otic) - 4 times SALES AGENT 06/08 per day Sudafed 03/28 Hx Tablets 30mg 30tab 1-2 J06.9 Eugenia s tablet by Perla, - mouth Afnp-C 04/07 q4- hours as needed for head congestio n Robitussin DM 03/28 Hx Syrup 100-10mg/ 118ml 5-10 ml J06.9 5ML four Perla, - times a Afnp-C 04/04 day needed cough Cyclobenzaprine 02/22 Hx Tablets 5mg 30tab one to M54.42 Alison HCL s two Kandi, - tablet SERVICE CLERK 06/08 night at bedtime as needed Naproxen 02/22 Hx Tablets 500mg 60tab 1 by M54.42 Alison s mouth Kandi, - twice a SERVICE CLERK 11/27 day food; if you are not going to eat, don't take the medicatio n Escitalopram 02/14 Hx Tablets 10mg 30tab / tab s po qd , Perla, - increase Afnp-C 02/22 to 1 tab po qd Chantix Starting 01/02 Hx Tablets 0.5mg X 53tab take as F17.210 Eugenia 11 & 1 mg s directed Perla, - X 42 Afnp-C 02/01 Chantix 01/02 Hx Tablets 1mg 60tab 1 by F17.210 Alison Continuing s mouth Kandi, Mor - twice a SERVICE CLERK Escitalopram 09/14 Hx Tablets 10mg 30tab 1 by Eugenia s mouth Perla, - every day Afnp-C 01/02 Lorazepam 09/14 Hx Tablets 0.5mg 10tab 1 po 30 Eugenia s minutes Perla, - before Afnp-C 01/02 dental appt Butalbital/Acetam 01/16 Hx Tablets 50-325-40 30tab take one 784.0 Alison inophen/Caffeine /2014 mg s tablet by Kandi, - mouth SERVICE CLERK 09/14 every hours as needed max/day-4 Esomeprazole 01/16 Hx Capsules 40mg 90cap take one 787.1 Alison Magnesium /2014 DR s daily Kandi, - upon SERVICE CLERK 09/14 waking on an empty stomach Lorazepam 01/16 Hx Tablets 0.5mg 2tabs 1 po 30 Calderon A. minutes [place], - before M.D. 01/16 appt No Active 09/19 Hx Unknown Medications - 01/16 Amoxicillin/Potas 02/21 Hx Tablets 875-125mg 14tab 1 po bid 382.01 Giuliana sium Clavulanate s x 7 days Michael - Afnp-C 02/28 Azithromycin 07/20 Hx Tablets 250mg 6tabs 2 tabs 465.8 Giuliana today; Michael, - then one Afnp-C 07/25 tab qd 4 more days Out Of Work 07/20 Hx out of 465.8 work Michael, - today due Afnp-C 07/25 to illness Medrol Dosepak 03/29 Hx Tablets 4mg 1tabs as Roddy T. directed Sarahi Dubois M.DLen 07/20 Flexeril 03/29 Hx Tablets 10mg 30tab 1 hs prn Roddy T. s Silvino, - M.D. 07/20 Hydrocodone/Aceta 03/29 Hx Tablets 5-325mg 60tab 1-2 po Roddy T. min s qid prn Silvino, - pain M.DLen 07/20 Physical Therapy 03/29 Hx treatment Roddy T. and Silvino, - evaluatio M.DLen 05/08 n right shoulder pain Levofloxacin 09/01 Hx Tablets 500mg 10tab 1 po qd Roddy T. s Silvino, - M.DLen 09/26 Azithromycin 08/11 Hx Tablets 250mg 6tabs 2 po 465.9 Calderon A. today [place]ilu, - then 1 po M.DLen 08/16 qd x days Amoxicillin 05/31 Hx Tablets 500mg 30tab 1 po tid 382.9 Tavares A. s Reilly Hanson - 08/11 Ciprodex 05/31 Hx Suspension 0.3-0.1% 7.5ml 4 gtts 382.9 Tavares A. into Reilly Hanson - affected 08/11 ear bid 7 days Note For Work 05/31 Hx please Chaitanya Hyde excuse Reilly Hanson - from work 08/11 today and tomorrow due to illness Celebrex 02/18 Hx Capsules 100mg 60cap take 1 Calderon s capsule Marilu, - by mouth M.DLen 03/16 bid prn pain Biaxin XL 09/14 Hx Tablets ER 500mg 20tab 2 po qd Calderon 24HR s Sarahi Michel.Juno 09/24 Amoxicillin 09/09 Hx Suspension as [facility] Metylprednisolone 09/09 Hx 4mg Tapering Dose as [facility] 03[facility]16 [facility] Note 08/05 Hx pt was Calderon Len seen in [place], - dana Grover 08/12 today, advised off work today, will return 08/13/10 Prednisone 04/15 Hx Tablets 10mg 19tab 4 po x 2 Calderon s Marilu murcia, - then 3 po M.D. 04/25 x 2 days, then 2 po x 2 days,then 1 po x 1 day Physical Therapy 02/20 Hx treatment 724.5 Giuliana and Michael, - evaluatio Afnp-C 02/27 n lower back pain Naproxen Sodium 02/20 Hx Tablets 550mg 30tab 1 tab bid 724.5 Giuliana s prn Sarahi Rodriugez Afnp-C 03/04 Nortrel 0.5/35 00/00 Hx Tablets 0.5/35 Unknown (28) /0000 - 04/27 Oxycodone-Apap Hx Tablets 5/325 Unknown /0000 - 05/31 Albuterol Hx Aerosol 90mcg/Act 1unit 2 puffs Unknown /0000 s q4hrs prn - 07/20 Yue Hx Tablets 0.35mg 1 po qd Unknown / - 03/29 Flexeril Hx Tablets Unknown / - 03/29 Ibuprofen Hx Tablets Unknown /0000 - 07/20 Vitamins Hx Tablets 90tab 1 po qd Unknown 0000 s - 09/19 Valtrex Hx Tablets - 01/02 Medications Administered in Office Medication Date Status Form Strength Qnty SIG Indications Ordering Provider TB Intradermal Administered Injection Alison Hayward 018 LUANA Chau TB Intradermal Administered Injection Calderon Michel M.D. Immunizations CPT Code Status Date Vaccine Lot # [id number] Given 06/16/2017 Pneumococcal Immunization [id number] 85635 Given 06/16/2017 Influenza vac quadrivalent preservative free 3yrs [id number] and [place] [id number] Given 05/07/2009 MMR Virus Immunization [id number] Given 04/27/2009 Meningococcal Conjugate Vaccine,Serogroups For [id number] Intramuscular Use 55612 Given 04/27/2009 Tdap Tetanus, W Pertussis [id number] Vital Signs Date Vital Result Comment 03/19/2018 BP Systolic 122 mmHg BP Diastolic 80 mmHg Heart Rate 68 /min Body Temperature 98.1 F Respiratory Rate 18 /min Height 61.5 inches 5'1.50" Weight 194.00 lb BMI (Body Mass Index) 36.1 kg/m2 12/20/2017 BP Systolic 110 mmHg BP Diastolic 64 mmHg Heart Rate 64 /min Body Temperature 98.8 F Respiratory Rate 16 /min Height 61.5 inches 5'1.50" Weight 196.00 lb BMI (Body Mass Index) 36.4 kg/m2 11/28/2017 BP Systolic 94 mmHg BP Diastolic 64 mmHg Heart Rate 78 /min Body Temperature 97.9 F Height 61.5 inches 5'1.50" Weight 189.00 lb BMI (Body Mass Index) 35.1 kg/m2 08/07/2017 BP Systolic 112 mmHg BP Diastolic 62 mmHg Heart Rate 68 /min Body Temperature 98.1 F Height 61.5 inches 5'1.50" Weight 190.00 lb BMI (Body Mass Index) 35.3 kg/m2 08/02/2017 BP Systolic 110 mmHg BP Diastolic 70 mmHg Heart Rate 80 /min Body Temperature 97.8 F Respiratory Rate 16 /min Height 61.5 inches 5'1.50" Weight 189.00 lb BMI (Body Mass Index) 35.1 kg/m2 06/16/2017 BP Systolic 102 mmHg BP Diastolic 68 mmHg Heart Rate 76 /min Body Temperature 97.9 F Height 61.5 inches 5'1.50" Weight 185.38 lb BMI (Body Mass Index) 34.5 kg/m2 06/08/2017 BP Systolic 122 mmHg BP Diastolic 78 mmHg Heart Rate 76 /min Body Temperature 97.5 F Height 61.5 inches 5'1.50" Weight 185.00 lb BMI (Body Mass Index) 34.4 kg/m2 05/05/2017 BP Systolic 140 mmHg BP Diastolic 70 mmHg Heart Rate 68 /min Respiratory Rate 16 /min Height 61.5 inches 5'1.50" Weight 184.00 lb BMI (Body Mass Index) 34.2 kg/m2 04/07/2017 BP Systolic 118 mmHg BP Diastolic 78 mmHg Heart Rate 76 /min Body Temperature 97.9 F Respiratory Rate 16 /min Height 61.5 inches 5'1.50" 03/28/2017 BP Systolic 110 mmHg BP Diastolic 80 mmHg Heart Rate 72 /min Body Temperature 98.7 F Respiratory Rate 18 /min Height 61.5 inches 5'1.50" Weight 178.00 lb BMI (Body Mass Index) 33.1 kg/m2 03/15/2017 BP Systolic 98 mmHg BP Diastolic 64 mmHg Heart Rate 80 /min Body Temperature 98.6 F Height 61.5 inches 5'1.50" Weight 178.56 lb BMI (Body Mass Index) 33.2 kg/m2 02/22/2017 BP Systolic 110 mmHg BP Diastolic 68 mmHg Heart Rate 72 /min Body Temperature 98.1 F Respiratory Rate 18 /min Height 61.5 inches 5'1.50" Weight 180.00 lb BMI (Body Mass Index) 33.5 kg/m2 01/02/2017 BP Systolic 118 mmHg BP Diastolic 72 mmHg Heart Rate 68 /min Body Temperature 97.7 F Height 61.5 inches 5'1.50" Weight 178.12 lb BMI (Body Mass Index) 33.1 kg/m2 09/14/2015 BP Systolic 112 mmHg BP Diastolic 72 mmHg Heart Rate 68 /min Body Temperature 97.9 F Height 61.5 inches 5'1.50" Weight 184.00 lb BMI (Body Mass Index) 34.2 kg/m2 02/17/2015 BP Systolic 110 mmHg BP Diastolic 60 mmHg Heart Rate 68 /min Body Temperature 98.3 F Respiratory Rate 16 /min Height 61.5 inches 5'1.50" Weight 202.25 lb BMI (Body Mass Index) 37.6 kg/m2 01/16/2015 BP Systolic 122 mmHg BP Diastolic 78 mmHg Heart Rate 72 /min Body Temperature 98.5 F Respiratory Rate 16 /min Height 61.5 inches 5'1.50" Weight 202.00 lb BMI (Body Mass Index) 37.5 kg/m2 01/16/2014 BP Systolic 110 mmHg BP Diastolic 60 mmHg Heart Rate 76 /min Body Temperature 98.5 F Respiratory Rate 14 /min Height 61.5 inches 5'1.50" Weight 197.00 lb BMI (Body Mass Index) 36.6 kg/m2 Right Visual Acuity Distance 20/20 Left Visual Acuity Distance 20/20 09/19/2013 BP Systolic 120 mmHg BP Diastolic 80 mmHg Heart Rate 68 /min Body Temperature 99.1 F Respiratory Rate 16 /min Height 61.5 inches 5'1.50" Weight 190.00 lb BMI (Body Mass Index) 35.3 kg/m2 02/21/2013 BP Systolic 107 mmHg BP Diastolic 70 mmHg Heart Rate 74 /min Body Temperature 98.2 F Respiratory Rate 18 /min Height 61.5 inches 5'1.50" Weight 173.00 lb BMI (Body Mass Index) 32.2 kg/m2 07/20/2012 BP Systolic 112 mmHg BP Diastolic 60 mmHg Heart Rate 84 /min Body Temperature 98.6 F Height 61.5 inches 5'1.50" Weight 165.00 lb BMI (Body Mass Index) 30.7 kg/m2 03/29/2012 BP Systolic 100 mmHg BP Diastolic 64 mmHg Heart Rate 84 /min Body Temperature 98.6 F Height 61.5 inches 5'1.50" Weight 155.00 lb BMI (Body Mass Index) 28.8 kg/m2 09/26/2011 BP Systolic 90 mmHg BP Diastolic 60 mmHg Heart Rate 76 /min Height 61.5 inches 5'1.50" Weight 161.00 lb BMI (Body Mass Index) 29.9 kg/m2 09/01/2011 BP Systolic 110 mmHg BP Diastolic 64 mmHg Heart Rate 84 /min Body Temperature 98.3 F Respiratory Rate 20 /min Height 61.5 inches 5'1.50" Weight 166.00 lb BMI (Body Mass Index) 30.9 kg/m2 08/17/2011 BP Systolic 110 mmHg BP Diastolic 70 mmHg Heart Rate 64 /min Body Temperature 98.5 F Height 61.5 inches 5'1.50" Weight 165.00 lb BMI (Body Mass Index) 30.7 kg/m2 01/25/2011 BP Systolic 96 mmHg BP Diastolic 60 mmHg Heart Rate 84 /min Body Temperature 98.7 F Height 61.5 inches 5'1.50" Weight 164.00 lb BMI (Body Mass Index) 30.5 kg/m2 08/11/2010 BP Systolic 100 mmHg BP Diastolic 60 mmHg Heart Rate 80 /min Body Temperature 98.7 F Respiratory Rate 20 /min O2 % BldC Oximetry 97 % Height 61.5 inches 5'1.50" Weight 150.00 lb BMI (Body Mass Index) 27.9 kg/m2 05/31/2010 BP Systolic 82 mmHg BP Diastolic 54 mmHg Heart Rate 84 /min Body Temperature 97.8 F Height 61.5 inches 5'1.50" Weight 152.00 lb BMI (Body Mass Index) 28.3 kg/m2 03/16/2010 BP Systolic 104 mmHg BP Diastolic 62 mmHg Heart Rate 74 /min Height 61.5 inches 5'1.50" Weight 150.00 lb BMI (Body Mass Index) 27.9 kg/m2 09/09/2009 BP Systolic 104 mmHg BP Diastolic 60 mmHg Heart Rate 72 /min Body Temperature 98.9 F Respiratory Rate 16 /min Weight 166.00 lb 08/05/2009 BP Systolic 100 mmHg BP Diastolic 60 mmHg Heart Rate 72 /min Body Temperature 98.5 F Weight 160.00 lb 04/27/2009 BP Systolic 98 mmHg BP Diastolic 62 mmHg Heart Rate 88 /min Weight 161.00 lb 04/15/2009 BP Systolic 100 mmHg BP Diastolic 60 mmHg Heart Rate 84 /min Body Temperature 98.0 F Respiratory Rate 16 /min Height 61.5 inches 5'1.50" Weight 160.00 lb BMI (Body Mass Index) 29.7 kg/m2 03/04/2009 BP Systolic 98 mmHg BP Diastolic 62 mmHg Heart Rate 76 /min Body Temperature 98.7 F Weight 158.00 lb 02/20/2009 BP Systolic 110 mmHg BP Diastolic 60 mmHg Heart Rate 76 /min Height 61.5 inches 5'1.50" Weight 157.00 lb BMI (Body Mass Index) 29.2 kg/m2 Results Test Date Test Result H/L Range Note Complete Blood Count 06/16/2017 WBC 9.8 x10^3/UL High 3.6-9.6 RBC 4.96 x10^6/UL 3.90-5.70 HGB 15.1 g/dL 12.1-17.2 HCT 45 % 36-50 MCV 90.0 fL 82.2-97.4 MCH 30.3 pg 27.6-33.3 MCHC 33.8 g/dL 33.0-35.5 RDW 14.2 % High 11.6-13.7 PLT 388 x10^3/UL 150-400 MPV 7.0 fL Low 7.4-10.4 Gran # 6.8 x10^3/UL 1.5-7.2 Lymph# 2.7 x10^3/UL 0.7-4.9 [place]# 0.3 x10^3/UL 0.1-0.9 Gran % 68.0 % 42.2-75.2 Lymph % 28.3 % 20.5-51.1 [place]% 3.7 % 1.7-9.3 Comprehensive Metabolic Prof 06/16/2017 Sodium 146 mEq/L 134-149 Potassium 4.5 mEq/L 3.6-5.5 Chloride 109 mEq/L 94-112 Carbon Dioxide 24 mEq/L 21-32 Glucose 97 mg/dL 70-105 BUN 10 mg/dL 6-26 Creatinine 0.6 mg/dL 0.6-1.4 BUN/Creat Ratio 16.7 CALC 8.0-36.0 Calcium 9.3 mg/dL 8.6-10.2 Total Protein 7.1 g/dL 6.4-8.3 Albumin 4.5 g/dL 3.8-5.5 Globulin 2.6 g/dL 2.0-4.8 A/G Ratio 1.7 CALC 0.6-2.3 Alk. Phosphatase 64 U/L 30-110 Alt (SGPT) 23 U/L 7-35 Ast (Sgot) 18 U/L 5-34 Total Bilirubin 0.2 mg/dL 0.2-1.3 GFR Non- >60 ml/min/1.73m^ >=60 GFR >60 ml/min/1.73m^ >=60 Laboratory test finding 06/16/2017 Free T4 0.78 ng/dL 0.75-1.54 TSH 1.74 mIU/L 0.50-6.00 Vaginitis Plus Nuswab 06/08/2017 Atopobium vaginae High - 2 Score 1 Bvab 2 High - 2 Score 1 Megasphaera 1 High - 2 Score 1, 2 Lisseth albicans, Jeri Negative Negative 1 Lisseth glabrata, Jeri Negative Negative 1, 3 Trich vag by Jeri Negative Negative 1 Chlamydia trachomatis, Jeri Negative Negative 1 Neisseria gonorrhoeae, Jeri Negative Negative 1 Ua - Micro (Fma) 06/08/2017 Appearance clear Color yellow Glucose, Urine (Fma/CMC/CTX) neg Bilirubin neg Ketones neg SP Grav 1.020 Blood mod PH 7.0 Protein neg Urobil 1.0 Nitrite neg Leukocytes (Fma/CMC/Centrex) neg WBC (Fma,Centrex) 0-1 RBC 2-3 Epith occ /Lpf Bacteria trace /Hpf Laboratory test 04/25/2017 Gardnerella/Yeast: SEE RESULT 4, 5 finding Vaginal Dna BELOW GC/Chlamydia 04/25/2017 Chlamydia trachomatis Rna Negative Negative 4 Amplified Rna Neisseria gonorrhoeae (GC) Rna Negative Negative 4 Laboratory test 04/25/2017 Trichomonas vaginalis Negative Negative 4, 6 finding Rna Laboratory test 03/28/2017 Quickstrep negative Negative finding Laboratory test 01/12/2016 Gardnerella/Yeast: SEE RESULT BELOW 7, 8 finding Vaginal Dna Laboratory test 01/12/2016 Urine Culture And SEE RESULT BELOW 7, 9 finding Sensitivities Laboratory test 11/22/2015 Rapid Strep Molecular POSITIVE Negative 10 finding Rapid Influenza A & 11/22/2015 Influenza A Molecular NEGATIVE Negative 11 B Molecular Influenza B Molecular NEGATIVE Negative Laboratory test 07/15/2015 Gardnerella/Yeast: Vaginal SEE RESULT BELOW 12 finding Dna Laboratory test 05/07/2015 Gardnerella/Yeast: Vaginal SEE RESULT BELOW 13 finding Dna GC/Chlamydia 05/07/2015 Chlamydia trachomatis Rna Negative Negative Amplified Rna Neisseria gonorrhoeae (GC) Rna Negative Negative 14 Laboratory test 05/07/2015 Trichomonas vaginalis Negative Negative 15 finding Rna Laboratory test 04/14/2015 Misc Lab Test see scanned finding Laboratory test 02/28/2015 Gardnerella/Yeast: SEE RESULT BELOW 16 finding Vaginal Dna GC/Chlamydia 02/28/2015 Chlamydia trachomatis Negative Negative Amplified Rna Rna Neisseria gonorrhoeae (GC) Rna Negative Negative 17 Laboratory test finding 02/28/2015 Trichomonas vaginalis Negative Negative 18 Rna Throat-Beta Strept 05/17/2014 Throat Beta Strep (SEE NOTE) 19 Culture Laboratory test finding 09/26/2013 TSH 2.01 mIU/L 0.50-6.00 Comprehensive Metabolic 09/26/2013 Sodium 138 mEq/L 134-149 Prof Potassium 4.7 mEq/L 3.6-5.5 Chloride 99 mEq/L 94-112 Carbon Dioxide 23 mEq/L 21-32 Glucose 102 mg/dL 70-105 BUN 16 mg/dL 6-26 Creatinine 0.7 mg/dL 0.6-1.4 BUN/Creat Ratio 22.9 CALC 8.0-36.0 Calcium 9.3 mg/dL 8.6-10.2 Total Protein 6.9 g/dL 6.3-8.1 Albumin 4.4 g/dL 3.8-5.5 Globulin 2.5 g/dL 2.0-4.8 A/G Ratio 1.8 CALC 0.6-2.3 Alk. Phosphatase 86 U/L 30-110 Alt (SGPT) 9 U/L 7-35 Ast (Sgot) 12 U/L 5-34 Total Bilirubin 0.5 mg/dL 0.2-1.3 Lipid Profile 09/26/2013 Cholesterol 194 mg/dL 120-200 Triglycerides 125 mg/dL 30-200 HDL Cholesterol 49 mg/dL 30-85 LDL (Calculated) 120 CALC 0-129 VLDL Cholesterol 25 mg/dL 0-50 HDL Risk Factor 4.0 CALC 0.0-4.4 Laboratory test finding 09/26/2013 Magnesium, Serum 1.7 mEq/L 1.2-2.1 Complete Blood Count 09/26/2013 WBC 6.6 x10^3/UL 3.6-9.6 RBC 4.34 x10^6/UL 3.90-5.70 HGB 12.7 g/dL 12.1-17.2 HCT 38 % 36-50 MCV 87.0 fL 82.2-97.4 MCH 29.2 pg 27.6-33.3 MCHC 33.6 g/dL 33.0-35.5 RDW 12.0 % 11.6-13.7 PLT 281 x10^3/UL 150-400 MPV 7.1 fL Low 7.4-10.4 Gran # 4.4 x10^3/UL 1.5-7.2 Lymph# 2.0 x10^3/UL 0.7-4.9 [place]# 0.2 x10^3/UL 0.1-0.9 Gran % 65.3 % 42.2-75.2 Lymph % 31.5 % 20.5-51.1 [place]% 3.2 % 1.7-9.3 Laboratory test finding 08/09/2013 Monospot Negative Negative 20 Vicky Aguilar Comprehensive 08/09/2013 Ebv Capsid Ag IgG Ab Positive Negative Ebv Capsid Ag IgM Ab Negative Negative Vicky-Aguilar Nuclear Antigen Positive Negative Vicky-Aguilar Virus Interp See Comment 21 Throat-Beta Strept 08/09/2013 Throat Beta Strep Culture (SEE NOTE) 22 CBC Auto Diff 06/30/2013 White Blood Count 7.2 10^3/uL 4.8-10.8 Red Blood Count 4.69 10^6/uL 4.0-5.4 Hemoglobin 13.3 g/dL 12.0-16.0 Hematocrit 40 % 35-47 Mean Corpuscular Volume 86 fL 80-97 Mean Corpuscular Hemoglobin 28 pg 27-31 Mean Corpuscular HGB Conc 33 g/dL 31-36 Red Cell Distribution Width 13 % 10.5-15 Platelet Count 317 10^3/uL 150-450 Mean Platelet Volume 9 um3 7.4-10.4 Abs Neutrophils 4.9 10^3/uL 1.5-7.7 Abs Lymphocytes 1.8 10^3/uL 1.0-4.8 Abs Monocytes 0.5 10^3/uL 0-0.8 Abs Eosinophils 0 10^3/uL 0-0.6 Abs Basophils 0 10^3/uL 0-0.2 Abs Nucleated RBC 0 10^3/uL Comp Metabolic Panel 06/30/2013 Sodium 136 mmol/L 133-145 Potassium 4.1 mmol/L 3.5-5.0 Chloride 105 mmol/L 101-111 Co2 Carbon Dioxide 23.0 mmol/L 22-32 Anion Gap 8.0 mmol/L 2-11 Glucose 76 mg/dL 70-100 Blood Urea Nitrogen 10 mg/dL 6-24 Creatinine 0.70 mg/dL 0.50-1.40 BUN/Creatinine Ratio 14.3 8-20 Calcium 9.1 mg/dL 8.1-9.9 Total Protein 7.4 g/dL 6.2-8.1 Albumin 4.4 g/dL 3.6-5.4 Globulin 3.0 g/dL 2-4 Albumin/Globulin Ratio 1.5 1-3 Total Bilirubin 0.7 mg/dL 0.4-1.5 Alkaline Phosphatase 78 U/L 30-110 Alt 16 U/L 14-54 Ast 18 U/L 12-42 Egfr Non- 101.1 >60 Egfr 130.1 >60 23 Laboratory test finding 06/30/2013 Genital Culture (SEE NOTE) 24 HSV/VZV Derm PCR 06/30/2013 hs/VZ Source labia HSV 1 PCR Negative Negative HSV 2 PCR Positive Negative 25 Varicella Zoster Source labia Varicella Zoster Result Negative Negative 26 Manual Differential 06/30/2013 Neutrophil % 72 % 38-83 Band % 5 % 0-8 Lymphocytes % 18 % Low 25-47 Monocytes % 5 % 0-13 RBC Morphology Normal Normal Laboratory test finding 06/30/2013 Hepatitis B Surface Nonreactive Nonreactive Antigen Hepatitis B Cesario AB 06/30/2013 Hepatitis B Surface AB Nonreactive Nonreactive Titer Hep B Surf AB Index 0.34 27 Laboratory test finding 06/30/2013 Hepatitis C Antibody Nonreactive Nonreactive Urine Culture And 06/30/2013 Urine Culture (SEE NOTE) 28 Sensitivities Affirm Vaginal Dna Probe 06/30/2013 Affirm Vaginal Dna (SEE NOTE) 29 Probe Syphilis Screen 06/30/2013 Syphilis IgG Nonreactive Nonreactive 30 RPR TNP Nonreactive RPR Titer TNP Pediatric/Maternal NO Laboratory test finding 06/28/2013 Herpes Simplex Type 1 2 Negative Negative 31 IgM Herpes Simplex Type 1&2 Igg 06/28/2013 Herpes Simplex Virus I Negative Negative IgG AB Herpes Simplex Virus II IgG AB Negative Negative 32 Urine Culture And 06/26/2013 Urine Culture (SEE NOTE) 33 Sensitivities GC/Chlamydia Amplified Rna 06/26/2013 GC/Chlamydia Rna (SEE NOTE) 34 Laboratory test finding 06/26/2013 Affirm Vaginal Dna Probe (SEE NOTE) 35 Wound Culture/Sensi 01/14/2013 Wound/Misc Culture-Gram (SEE NOTE) 36 Stain Influenza A&B 07/20/2012 Influenza A NEG Influenza B NEG Laboratory test finding 07/11/2012 Misc Lab Test cbc,esr,uam,crp MMR Imm 06/11/2012 Rubella Antibodies, IgG 36 IU/mL 37 Rubeola Ab, IgG, Eia 1.71 index High 0.00-0.90 38 Mumps Abs, IgG 1.23 index High 0.00-0.90 39 Laboratory test finding 06/11/2012 Hep B Surface Antibody 3 mIU/ml 40 CBC Auto Diff 10/26/2011 White Blood Count 18.1 CUMM High 4.8-10.8 Red Cell Count 4.88 CUMM 4.2-5.4 Hemoglobin 15.2 g/dL 12.0-16.0 Hematocrit 44 % 35-47 Mean Corpuscular Volume 89 um3 79-97 Mean Corpuscular Hemoglob 31 pg 27-31 Mean Corpuscular HGB Cone 35 g/dL 32-36 Redcell Distribution WDTH 14 % 10.5-15 Platelet Count 341 CUMM 150-450 Mean Platelet Volume 8.2 um3 7.4-10.4 41 Manual Differential 10/26/2011 Polysegmented Neutrophil 80 % 38-83 Band Neutrophil 6 % 0-8 Lymphocyte 13 % Low 25-47 Monocyte 1 % 0-13 Absolute Neutrophil Count 15.5 RBC Morphology NORMAL Laboratory test finding 09/26/2011 Thin Prep W/HPV(Lsil/CHRIS/Asc) SEE NOTE 42 GC/Chlamydia Probe Or 09/26/2011 Chlamydia Amplified Probe NEGATIVE 43 Urine(Centrex) GC Amplified Probe NEGATIVE 43 Anti Viral AB Screen 09/26/2011 HIV 1/O/2 Abs-Index Value <1.00 <1.00 43 , 44 HIV 1/O/2 Abs, Qual Non Reactive 43, 45 Hepatitis Acute Panel 09/26/2011 Hep B Surface NON-REACTIVE Non-Reactive 43 Antigen Hep C Antibody NON-REACTIVE Non-Reactive 43 Hep C S/Co Ratio 0.0 0.0-0.7 43 Hep B Core Antibody Igm NON-REACTIVE Non-Reactive 43 Hep A Antibody Igm NON-REACTIVE Non-Reactive 43 Urine (Fma) 09/26/2011 SP Grav 1.015 Urine, (Fma/CMC/CTX) NEG GC/Chlamydia Probe Or 08/17/2011 Chlamydia Amplified Probe NEGATIVE Urine([facility]rex) GC Amplified Probe NEGATIVE Urine (Fma) 08/17/2011 SP Grav 1.025 Urine, (Fma/CMC/CTX) NEG GC/Chlamydia Aptima 03/20/2011 Chlamydia Trachomatis Rna N 46 GC (N. Gonorrhoeae) Rna 03/20/2011 GC (N. Gonorrhoeae) Rna N 47 CBC Auto Diff 11/13/2010 White Blood Count 7.4 CUMM 4.8-10.8 Red Cell Count 4.84 CUMM 4.2-5.4 Hemoglobin 14.5 g/dL 12.0-16.0 Hematocrit 43 % 35-47 Mean Corpuscular Volume 88 um3 79-97 Mean Corpuscular Hemoglob 30 pg 27-31 Mean Corpuscular HGB Cone 34 g/dL 32-36 Redcell Distribution WDTH 13 % 10.5-15 Platelet Count 253 CUMM 150-450 Mean Platelet Volume 8.3 um3 7.4-10.4 Gran % 63.1 % 38-83 Lymph % 26.3 % 25-47 Mononuclear % 8.9 % 1-9 Eosinophil % 1.3 % 0-6 Basophil % 0.4 % 0-2 Abs Lymphs 2.0 1.0-4.8 Abs Mononuclear 0.7 0-0.8 Absolute Neutrophil Count 4.7 1.5-7.7 Abs Eosinophils 0.1 0-0.6 Abs Basophils 0 0-0.2 Urinalysis W/Microscopic 11/13/2010 Ua Color YELLOW Yellow Appearance-Urine CLEAR Clear Specific [place]-Ur 1.030 1.010-1.030 Esterase-Urine NEGATIVE Negative Nitrite NEGATIVE Negative Pmsydrcgyjso-Su-RCE NEGATIVE Negative Protein-Urine NEGATIVE Negative PH-Urine 6.0 5-9 Blood-Urine 1+ Negative Ketones-Urine NEGATIVE Negative Bilirubin-Ur SEE ICTOTEST Negative Glucose-Urine NEGATIVE Negative WBC-Urine 3-6 0-5 RBC-Urine 0-2 0-2 Mucus Urine LARGE None Epith Cells-Ur MODERATE None Laboratory test finding 11/13/2010 Ictotest NEGATIVE 48 Comp Metabolic Panel 11/13/2010 Sodium 137 mmol/L 135-145 Potassium 3.9 mmol/L 3.5-5.0 Chloride 109 mmol/L 101-111 Co2 (Carbon Dioxide) 22.0 mmol/L 22-32 Anion Gap 6.0 mmol/L 2-11 49 Glucose 91 mg/dL 70-100 BUN 6 mg/dL 6-24 Creatinine 0.60 mg/dL 0.50-1.40 One Over Creatinine 1.60 BUN/Creatinine Ratio 10.0 8-20 Calcium 8.9 mg/dL 8.1-9.9 Total Protein 6.8 GM/DL 6.2-8.1 Albumin 3.8 GM/DL 3.6-5.4 Globulin 3.0 GM/DL 2-4 Albumin/Globulin Ratio 1.3 1-3 Bilirubin Total 0.6 mg/dL 0.4-1.5 50 Alkaline Phosphatase 73 U/L 30-110 Alt (SGPT) 15 U/L 14-54 Ast (Sgot) 15 U/L 12-42 eGFR Non- 122.8 > 60 eGFR 158.0 > 60 51 Laboratory test finding 11/13/2010 Lipase 29 U/L 22-51 BHCG Quantitative < 2.1 MIU/ML 0-5 52 Wet Prep 11/13/2010 Wet Prep SMEAR REVIEWED B <SEE NOTE> 53 Wet Prep FEW (LESS THAN 1 <SEE NOTE> 54 GC/Chlamydia Aptima 11/13/2010 Chlamydia Trachomatis Rna POSITIVE FOR [CH < SEE 55 NOTE> Chlamydia Trachomatis Rna CHLAMYDIA TRACHO <SEE NOTE> 56 Laboratory test finding 11/13/2010 GC (N. Gonorrhoeae) Rna N 57 Influenza A&B 08/11/2010 Influenza A NEG Influenza B NEG Comp Metabolic Panel 04/06/2010 Sodium 138 mmol/L 135-145 Potassium 3.4 mmol/L Low 3.5-5.0 Chloride 106 mmol/L 101-111 Co2 (Carbon Dioxide) 26.0 mmol/L 22-32 Anion Gap 6.0 mmol/L 2-11 58 Glucose 82 mg/dL 70-100 59 BUN 9 mg/dL 6-24 Creatinine 0.70 mg/dL 0.50-1.40 One Over Creatinine 1.40 BUN/Creatinine Ratio 12.9 8-20 Calcium 9.4 mg/dL 8.1-9.9 Total Protein 6.7 GM/DL 6.2-8.1 Albumin 4.0 GM/DL 3.6-5.4 Globulin 2.7 GM/DL 2-4 Albumin/Globulin Ratio 1.5 1-3 Bilirubin Total 0.3 mg/dL Low 0.4-1.5 60 Alkaline Phosphatase 87 U/L 30-110 Alt (SGPT) 11 U/L Low 14-54 Ast (Sgot) 14 U/L 12-42 eGFR Non- 110.2 > 60 eGFR 133.4 > 60 61 Urinalysis W/Microscopic 04/06/2010 Ua Color YELLOW Yellow Appearance-Urine CLEAR Clear Specific [place]-Ur 1.025 1.010-1.030 Esterase-Urine NEGATIVE Negative Nitrite NEGATIVE Negative Dqmpvkshfscd-Aw-MET NEGATIVE Negative Protein-Urine NEGATIVE Negative PH-Urine 6.0 5-9 Blood-Urine TRACE Negative Ketones-Urine NEGATIVE Negative Bilirubin-Ur NEGATIVE Negative Glucose-Urine NEGATIVE Negative WBC-Urine 5-10 0-5 RBC-Urine 0-2 0-2 Mucus Urine SMALL None Epith Cells-Ur FEW None Bacteria-Urine 2+ None CBC With Electronic Diff 04/06/2010 White Blood Count 13.0 CUMM High 4.8- 10.8 Red Cell Count 4.59 CUMM 4.2-5.4 Hemoglobin 14.5 g/dL 12.0-16.0 Hematocrit 41 % 35-47 Mean Corpuscular Volume 90 um3 79-97 Mean Corpuscular Hemoglob 32 pg High 27-31 Mean Corpuscular HGB Cone 35 g/dL 32-36 Redcell Distribution WDTH 12 % 10.5-15 Platelet Count 315 CUMM 150-450 Mean Platelet Volume 7.3 um3 Low 7.4-10.4 Manual Differential 04/06/2010 Polysegmented Neutrophil 52 % 38-83 Lymphocyte 39 % 25-47 Monocyte 6 % 0-13 Eosinophil 3 % 0-6 Absolute Neutrophil Count 6.7 RBC Morphology NORMAL CBC With Electronic Diff 02/18/2010 White Blood Count 14.4 CUMM High 4.8- 10.8 Red Cell Count 4.63 CUMM 4.2-5.4 Hemoglobin 14.7 g/dL 12.0-16.0 Hematocrit 41 % 35-47 Mean Corpuscular Volume 89 um3 79-97 Mean Corpuscular Hemoglob 32 pg High 27-31 Mean Corpuscular HGB Cone 36 g/dL 32-36 Redcell Distribution WDTH 13 % 10.5-15 Platelet Count 322 CUMM 150-450 Mean Platelet Volume 7.5 um3 7.4-10.4 Gran % 60.9 % 38-83 Lymph % 32.5 % 25-47 Mononuclear % 4.2 % 1-9 Eosinophil % 1.4 % 0-6 Basophil % 1.0 % 0-2 Abs Lymphs 4.7 1.0-4.8 Abs Mononuclear 0.6 0-0.8 Absolute Neutrophil Count 8.8 High 1.5-7.7 Abs Eosinophils 0.2 0-0.6 Abs Basophils 0.1 0-0.2 Comp Metabolic Panel 02/18/2010 Sodium 138 mmol/L 135-145 Potassium 4.0 mmol/L 3.5-5.0 Chloride 104 mmol/L 101-111 Co2 (Carbon Dioxide) 25.0 mmol/L 22-32 Anion Gap 9.0 mmol/L 2-11 62 Glucose 98 mg/dL 70-100 63 BUN 7 mg/dL 6-24 Creatinine 0.70 mg/dL 0.50-1.40 One Over Creatinine 1.40 BUN/Creatinine Ratio 10.0 8-20 Calcium 9.2 mg/dL 8.1-9.9 64 Total Protein 6.3 GM/DL 6.2-8.1 Albumin 3.9 GM/DL 3.6-5.4 Globulin 2.4 GM/DL 2-4 Albumin/Globulin Ratio 1.6 1-3 Bilirubin Total 0.4 mg/dL 0.4-1.5 65 Alkaline Phosphatase 86 U/L 30-110 Alt (SGPT) 11 U/L Low 14-54 Ast (Sgot) 16 U/L 12-42 eGFR Non- 110.2 > 60 eGFR 133.4 > 60 66 Urinalysis 02/17/2010 Ua Color YELLOW Yellow Appearance-Urine CLEAR Clear Specific [place]-Ur 1.003 Low 1.010-1.030 Esterase-Urine NEGATIVE Negative Nitrite NEGATIVE Negative Hbhuilutipkq-Jr-JLC NEGATIVE Negative Protein-Urine NEGATIVE Negative PH-Urine 6.0 5-9 Blood-Urine NEGATIVE Negative Ketones-Urine NEGATIVE Negative Bilirubin-Ur NEGATIVE Negative Glucose-Urine NEGATIVE Negative (HCG) Urine 02/17/2010 Specific [place] 1.003 Low 1.010-1.030 Urine NEGATIVE Negative 67 Factor V Leiden Mut 09/09/2009 Factor V Leiden SEE BELOW 68, 69 Comment: SEE BELOW 68, 70 Lupus Anticoag Reflex 09/09/2009 Hexagonal Phase Phoslip 3.2 sec 0.0-8.0 68 PTT 38.8 seconds High 23.7-35.5 68 Dilute Ko's Viper 09/09/2009 dRVVT 39.5 sec 0.0-44.5 68 Venom Anticardiolipin Iga, M, 09/09/2009 Anticardiolipin <6 GPLU/mL 0-10 68, 71 G Ab,IgG,Qn Anticardiolipin Ab,IgM,Qn <6 MPLU/mL 0-9 68, 72 Anticardiolipin Ab, IgA, Qn 6 APLU/mL 0-12 68 Protein C&S Ag Panel 09/09/2009 Protein C Antigen 100 % 70-140 68 Protein S, Total 87 % 58-150 68 Protein S, Free 85 % 56-124 68 Comment 09/09/2009 Comment SEE BELOW 68, 73 Lipid Profile 09/09/2009 Cholesterol 178 mg/dL 120-200 HDL 45 mg/dL 30-85 Triglycerides 149 mg/dL 30-200 HDL Risk Factor 4.0 CALC Low 4.2-7.0 LDL (Calculated) 104 CALC 0-129 VLDL (Calculated) 30 mg/dL 0-[address] Michel 09/09/2009 Antithrombin Antigen 133 % High 75- 130 68 Protein S Functional 77 % 55-123 68 CBC With Electronic Diff Stat 09/05/2009 White Blood Count 11.7 CUMM High 4.8-10.8 Red Cell Count 4.68 CUMM 4.2-5.4 Hemoglobin 14.0 g/dL 12.0-16.0 Hematocrit 41 % 35-47 Mean Corpuscular Volume 88 um3 79-97 Mean Corpuscular Hemoglob 30 pg 27-31 Mean Corpuscular HGB Cone 34 g/dL 32-36 Redcell Distribution WDTH 13 % 10.5-15 Platelet Count 342 CUMM 150-450 Mean Platelet Volume 7.4 um3 7.4-10.4 Gran % 62.9 % 38-83 Lymph % 31.9 % 25-47 Mononuclear % 3.6 % 1-9 Eosinophil % 1.3 % 0-6 Basophil % 0.3 % 0-2 Abs Lymphs 3.7 1.0-4.8 Abs Mononuclear 0.4 0-0.8 Absolute Neutrophil Count 7.4 1.5-7.7 Abs Eosinophils 0.2 0-0.6 Abs Basophils 0 0-0.2 Comp Stat 09/05/2009 Sodium 138 mmol/L 135-145 Potassium 3.4 mmol/L Low 3.5-5.0 Chloride 108 mmol/L 101-111 Co2 (Carbon Dioxide) 24.0 mmol/L 22-32 Anion Gap 6.0 mmol/L 2-11 74 Glucose 104 mg/dL High 70-100 75 BUN 9 mg/dL 6-24 Creatinine 0.60 mg/dL 0.50-1.40 One Over Creatinine 1.60 BUN/Creatinine Ratio 15.0 8-20 Calcium 8.8 mg/dL 8.1-9.9 76 Total Protein 6.2 GM/DL 6.2-8.1 Albumin 3.6 GM/DL 3.6-5.4 Globulin 2.6 GM/DL 2-4 Albumin/Globulin Ratio 1.4 1-3 Bilirubin Total 0.6 mg/dL 0.4-1.5 77 Alkaline Phosphatase 90 U/L 30-110 Alt (SGPT) 13 U/L Low 14-54 Ast (Sgot) 16 U/L 12-42 eGFR Non- 132.9 > 60 eGFR 160.8 > 60 78 Laboratory test 09/05/2009 Monospot NEGATIVE Negative finding Drug Screen Urine 09/05/2009 Amphetamines Urine NONE DETECTED None Detect Screen Barbituates Urine Screen NONE DETECTED None Detect Benzodiazepine Ur Screen NONE DETECTED None Detect Cannabinoid Urine Screen NONE DETECTED None Detect Cocaine Metabolites Urine NONE DETECTED None Detect Opiates Urine Screen NONE DETECTED None Detect PCP Urine Screen NONE DETECTED None Detect 79 Urinalysis W/Microscopic 09/05/2009 Ua Color YELLOW Yellow Appearance-Urine CLEAR Clear Specific [place]-Ur 1.038 High 1.010-1.030 Esterase-Urine NEGATIVE Negative Nitrite NEGATIVE Negative Ucnehplpdtto-Ix-INK NEGATIVE Negative Protein-Urine NEGATIVE Negative PH-Urine 5.5 5-9 Blood-Urine 2+ Negative Ketones-Urine NEGATIVE Negative Bilirubin-Ur SEE ICTOTEST Negative Glucose-Urine NEGATIVE Negative WBC-Urine 0-2 0-5 RBC-Urine 3-5 0-2 Mucus Urine SMALL None Epith Cells-Ur FEW None Laboratory test finding 09/05/2009 Ictotest-Urine NEGATIVE 80 Comprehensive Metabolic Prof 08/05/2009 Albumin 4.8 g/dL 3.8-5.5 Alk. Phos. 111 U/L High 30-110 81 Alt (SGPT) 8 U/L 7-35 Ast (Sgot) 13 U/L 5-34 BUN 9 mg/dL 6-26 Calcium 9.9 mg/dL 8.6-10.2 Chloride 102 mEq/L 94-112 Creatinine 0.7 mg/dL 0.6-1.4 Carbon Dioxide 24 mEq/L 21-32 Glucose 96 mg/dL 70-105 Sodium 139 mEq/L 134-149 Total Bilirubin 0.4 mg/dL 0.2-1.3 Total Protein 7.5 g/dL 6.3-8.1 Potassium 3.9 mEq/L 3.6-5.5 Globulin 2.7 g/dL 2.0-4.8 A/G Ratio 1.8 Calc 0.6-2.2 BUN/Creat Ratio 14.0 Calc 8.0-36.0 Complete Blood Count 08/05/2009 WBC 9.9 x10^3/uL High 3.6-9.6 Gran# 5.3 x10^3/uL 1.5-7.2 Gran% 53.2 % 42.2-75.2 HCT 46 % 36-50 HGB 16.0 g/dL 12.1-17.2 Lymph# 3.5 x10^3/uL 0.7-4.9 Lymph% 35.0 % 20.5-51.1 MCH 30.4 pg 27.6-33.3 MCV 86.2 fL 82.2-97.4 MCHC 35.2 g/dL 33.0-35.5 Mo# 1.2 x10^3/uL High 0.1-0.9 Mo% 11.8 % High 1.7-9.3 82 MPV 7.8 fL 7.4-10.4 PLT 370 x10^3/uL 150-400 RBC 5.28 x10^6/uL 3.90-5.70 RDW 13.6 % 11.6-13.7 Laboratory test finding 08/05/2009 TSH 1.05 mIU/L 0.50-6.00 Urine (Fma) 05/07/2009 SP Grav >1.030 Urine, (Fma/CMC/CTX) negative Mumps/Measles/Rubella 04/27/2009 Mumps Titer Igg AB 0.64 Index 83, 84 Rubella Titer Igg AB 12.6 IU/mL 83, 85 Rubeola Titer Igg AB 1.54 Index 83, 86 GC/Chlamydia Dna Probe 04/20/2009 GC By Aptima NEGATIVE Negative 87 CHL By Aptima NEGATIVE Negative 88 Laboratory test finding 03/04/2009 Thin Prep W/HPV(Lsil/CHRIS/Asc) SEE NOTE 89 Ua - Micro (Fma) 03/04/2009 Appearance clear Color yellow Glucose - Bilirubin - Ketones - SP Grav 1.020 Blood moderate PH 5.0 Protein - Urobil 0.2 Nitrite - Leukocytes (Fma/CMC/Centrex) - Hyaline - /Lpf Granular - /Lpf WBC (Fma,Centrex) 0-1 RBC 0-1 Mucus - /Lpf Epith - /Lpf Bacteria - /Hpf Amorphous - /Lpf Crystals, Fluid (Fma/CMC/CTX) - Z#Comments - Urine (Fma) 03/04/2009 SP Grav 1.020 Urine, (Fma/CMC/CTX) negative 1 1 orange aptima tube 2 Calculate total score by adding the 3 individual bacterial vaginosis (BV) marker scores together. Total score is interpreted as follows: Total score 0-1: Indicates the absence of BV. Total score 2: Indeterminate for BV. Additional clinical data should be evaluated to establish a diagnosis. Total score 3-6: Indicates the presence of BV. This test was developed and its performance characteristics determined by [facility]. It has not been cleared or approved by the Food and Drug Administration. The FDA has determined that such clearance or approval is not necessary. 3 This test was developed and its performance characteristics determined by [facility]. It has not been cleared or approved by the Food and Drug Administration. The FDA has determined that such clearance or approval is not necessary. 4 Would you like to order Trichomonas Vaginalis RNA testing? Y 5 SEE RESULT BELOW Name: RICHSARINAROBERTAMINERVA C : [address]: Jason Jones MD Acct: [id number] Unit: [id number] AGE: 31 Location: [facility] Re04/25/17 SEX: F Status: DEP ER SPEC: [id number] JOEL: 04/25/17-[address] [facility] [address]: Jason Jones MD REQ: [id number] RECD: 04/25/17 STATUS: LORENZO YEE DR: Calderon Michel MD _ SOURCE: VAGINAL SPDESC: ORDERED: Jose Carlos,Yeast DNA COMMENTS: Would you like to order Trichomonas Vaginalis RNA testing? Y Procedure Result Reported Site Gardnerella/Yeast: Vaginal DNA Final 04/26/17- 0858 ML Organism 1 POSITIVE GARDNERELLA Organism 2 Negative Lisseth The presence of G. vaginalis, although suggestive, is not diagnostic for bacterial vaginosis. Results should be interpreted in conjuction with other clinical and laboratory data available. Women with vaginal discharge should be evaluated for risk factors of cervicitis and pelvic inflammatory disease, toxic shock syndrome (S.aureus), and if present, evaluated for organisms not included in this assay such as N. gonorrhoeae, C. trachomatis, Mobiluncus, Mycoplasma and/or Prevotella. Mixed infections may occur. The performance of this test on patient specimens collected during or immediately after antimicrobial therapy is unknown. The presence or absence of Lisseth species, or G. vaginalis cannot be used as a test for therapeutic success or failure. * ML - MAIN LAB ([facility]) . END OF REPORT * ML=Testing performed at Main Lab DEPARTMENT OF PATHOLOGY, [address] [place] [address] Mendoza Machado M.D. Director [facility] # [id number] 6 GC/Chlamydia Source?: Endocervical Trichomonas Source: Endocervical 7 [id number] SEE RESULT BELOW Name: MINERVA MUJICA : [address]: Sepideh Perez MD Acct: [id number] Unit: [id number] AGE: 30 Location: [facility] Re01/12/16 SEX: F Status: DEP ER SPEC: [id number] JOEL: 01/12/[address] [facility] [address]: Ketty Asencio NP REQ: [id number] RECD: 01/13/16 STATUS: LORENZO YEE DR: Calderon Perez MD _ SOURCE: VAGINAL [facility]: ORDERED: Jose Carlos,Yeast DNA, Trich DNA COMMENTS: [id number] Procedure Result Reported Site Gardnerella/Yeast: Vaginal DNA Final 01/13/16- 1342 ML Organism 1 POSITIVE GARDNERELLA Organism 2 Negative Lisseth The presence of G. vaginalis, although suggestive, is not diagnostic for bacterial vaginosis. Results should be interpreted in conjuction with other clinical and laboratory data available. Women with vaginal discharge should be evaluated for risk factors of cervicitis and pelvic inflammatory disease, toxic shock syndrome (S.aureus), and if present, evaluated for organisms not included in this assay such as N. gonorrhoeae, C. trachomatis, Mobiluncus, Mycoplasma and/or Prevotella. Mixed infections may occur. The performance of this test on patient specimens collected during or immediately after antimicrobial therapy is unknown. The presence or absence of Lisseth species, or G. vaginalis cannot be used as a test for therapeutic success or failure. Trichomonas: Vaginal DNA Probe Final 01/13/16- 1342 ML Organism 1 Negative Trichomonas CONTINUED ON NEXT PAGE * ML=Testing performed at Main Lab DEPARTMENT OF PATHOLOGY, [address] [place] [address] Mendoza Machado M.D. Director [facility] # [id number] Patient: MINERVA MUJICA [id number] (Continued) Specimen: [id number] Collected: 01/12/16 Received: 01/13/16 (Continued) Procedure Result Reported Site Trichomonas: Vaginal DNA Probe Final (continued) 01/13/16 134 The presence or absence of T. vaginalis cannot be used as a test for therapeutic success or failure. * ML - MAIN LAB ([facility]) . END OF REPORT * ML=Testing performed at Main Lab DEPARTMENT OF PATHOLOGY, [address] [place] [address] Mendoza Machdao M.D. Director [facility] # [id number] 9 SEE RESULT BELOW Name: MINERVA MUJICA : [address]: Sepideh Perez MD Acct: [id number] Unit: [id number] AGE: 30 Location: [facility] Re01/12/16 SEX: F Status: DEP ER SPEC: [id number] JOEL: 01/12/16-[address] [facility] [address]: Ketty Asencio NP REQ: [id number] RECD: 01/13/16 STATUS: LORENZO YEE DR: Calderon Perez MD _ SOURCE: URINE SPDESC: ORDERED: Urine Culture COMMENTS: [id number] Procedure Result Reported Site Urine Culture Final 01/14/16- 1230 ML No Growth (<1,000 CFU/mL) * ML - MAIN LAB ([facility]) . END OF REPORT * ML=Testing performed at Main Lab DEPARTMENT OF PATHOLOGY, [address] [place] [address] Mendoza Machado M.D. Director [facility] # [id number] 10 Telecommunications Facility Examiner: [id number] TITO SETHI Due to the increased sensitivity of molecular testing, reflex cultures are no longer performed. 11 Telecommunications Facility Examiner: [id number] TITO SETHI 12 SEE RESULT BELOW Name: MINERVA MUJICA : [address]: Jacobo Asencio MD Acct: [id number] Unit: [id number] AGE: 29 Location: [facility] Re07/15/15 SEX: F Status: DEP ER SPEC: [id number] JOEL: 07/15/15-[address] [facility] [address]: Racheal Arriola DO REQ: [id number] RECD: 07/16/15 STATUS: LORENZO YEE DR: Jacobo Michel MD _ SOURCE: VAGINAL SPDESC: ORDERED: Jose Carlos,Yeast DNA, Trich DNA Procedure Result Reported Site Gardnerella/Yeast: Vaginal DNA Final 07/17/15- 1125 ML Organism 1 POSITIVE GARDNERELLA Organism 2 Negative Lisseth The presence of G. vaginalis, although suggestive, is not diagnostic for bacterial vaginosis. Results should be interpreted in conjuction with other clinical and laboratory data available. Women with vaginal discharge should be evaluated for risk factors of cervicitis and pelvic inflammatory disease, toxic shock syndrome (S.aureus), and if present, evaluated for organisms not included in this assay such as N. gonorrhoeae, C. trachomatis, Mobiluncus, Mycoplasma and/or Prevotella. Mixed infections may occur. The performance of this test on patient specimens collected during or immediately after antimicrobial therapy is unknown. The presence or absence of Lisseth species, or G. vaginalis cannot be used as a test for therapeutic success or failure. Trichomonas: Vaginal DNA Probe Final 07/17/15- 1127 ML Organism 1 Negative Trichomonas CONTINUED ON NEXT PAGE * ML=Testing performed at [facility] DEPARTMENT OF PATHOLOGY, [address] [place] [address] Mendoza Machado M.D. Director [facility] # [id number] Patient: MINERVA MUJICA [id number] (Continued) Specimen: [id number] Collected: 07/15/15 Received: 07/16/15-1152 (Continued) Procedure Result Reported Site Trichomonas: Vaginal DNA Probe Final (continued) 07/17/15- 1126 The presence or absence of T. vaginalis cannot be used as a test for therapeutic success or failure. * ML - MAIN LAB ([facility]) . END OF REPORT * ML=Testing performed at Main Lab DEPARTMENT OF PATHOLOGY, [address] [place] [address] Mendoza Machado M.D. Director [facility] # [id number] 13 SEE RESULT BELOW Name: MINERVA MUJICA : [address]: Rio Mack MD Acct: [id number] Unit: [id number] AGE: 29 Location: [facility] Re05/07/15 SEX: F Status: DEP ER SPEC: [id number] JOEL: 05/07/15-[address] [facility] [address]: Giuliana Padilla NP REQ: [id number] RECD: 05/08/15 STATUS: LORENZO YEE DR: Rio Michel MD _ SOURCE: VAGINAL SPDESC: ORDERED: Jose Carlos,Yeast DNA Procedure Result Verified Site Gardnerella/Yeast: Vaginal DNA Final 05/09/15- 1439 ML Organism 1 POSITIVE LISSETH Organism 2 Negative Gardnerella The presence of G. vaginalis, although suggestive, is not diagnostic for bacterial vaginosis. Results should be interpreted in conjuction with other clinical and laboratory data available. Women with vaginal discharge should be evaluated for risk factors of cervicitis and pelvic inflammatory disease, toxic shock syndrome (S.aureus), and if present, evaluated for organisms not included in this assay such as N. gonorrhoeae, C. trachomatis, Mobiluncus, Mycoplasma and/or Prevotella. Mixed infections may occur. The performance of this test on patient specimens collected during or immediately after antimicrobial therapy is unknown. The presence or absence of Lisseth species, or G. vaginalis cannot be used as a test for therapeutic success or failure. * ML - MAIN LAB ([facility]) . END OF REPORT * ML=Testing performed at Main Lab DEPARTMENT OF PATHOLOGY, [address] [place] [address] Mendoza Machado M.D. Director [facility] # [id number] 14 Female urine specimens have been self-validated by [facility] and have been granted conditional assay approval by [facility]. 15 [facility] Specimen Source: vagina GC/Chlamydia Source?: Endocervical Trichomonas Source: Endocervical 16 SEE RESULT BELOW Name: MINERVA MUJICA : [address]: Jason Jones MD Acct: [id number] Unit: [id number] AGE: 29 Location: [facility] Re02/28/15 SEX: F Status: DEP ER SPEC: [id number] JOEL: 02/28/15-[address]: Monica Morales NP REQ: [id number] RECD: 03/01/15 STATUS: COMP OTHR DR: Jason Michel MD _ SOURCE: VAGINAL SPDESC: ORDERED: Jose Carlos,Yeast DNA Procedure Result Verified Site Gardnerella/Yeast: Vaginal DNA Final 03/02/15915 ML Organism 1 POSITIVE GARDNERELLA Organism 2 Negative Lisseth The presence of G. vaginalis, although suggestive, is not diagnostic for bacterial vaginosis. Results should be interpreted in conjuction with other clinical and laboratory data available. Women with vaginal discharge should be evaluated for risk factors of cervicitis and pelvic inflammatory disease, toxic shock syndrome (S.aureus), and if present, evaluated for organisms not included in this assay such as N. gonorrhoeae, C. trachomatis, Mobiluncus, Mycoplasma and/or Prevotella. Mixed infections may occur. The performance of this test on patient specimens collected during or immediately after antimicrobial therapy is unknown. The presence or absence of Lisseth species, or G. vaginalis cannot be used as a test for therapeutic success or failure. * ML - MAIN LAB ([facility]) . END OF REPORT * ML=Testing performed at Main Lab DEPARTMENT OF PATHOLOGY, [address] [place] [address] Mendoza Machado M.D. Director [facility] # [id number] 17 Female urine specimens have been self-validated by [facility] and have been granted conditional assay approval by [facility]. 18 [facility] Specimen Source: VAG GC/Chlamydia Source?: Endocervical Trichomonas Source: Endocervical 19 RUN DATE: 05/20/14 [facility] LIVE PAGE 1 RUN TIME: [address] [place] [address] Specimen Inquiry Name: RICHSARINAROBERTAMINERVA C : [address]: Kodi Schmitz MD Acct: [id number] Unit: [id number] AGE: 28 Location: [facility] Re05/17/14 SEX: F Status: DEP ER SPEC: [id number] JOEL: 05/17/14-[address]: Frances Escobar NP REQ: [id number] RECD: 05/18/145804 STATUS: COMP OTHR DR: Calderon Schmitz MD _ SOURCE: THROAT SPDESC: ORDERED: Throat Beta Str Procedure Result Verified Site Throat Beta Strep Culture Final 05/20/14- 0910 ML Negative For Group A Beta Streptococcus END OF REPORT * ML=Testing performed at Main Lab DEPARTMENT OF PATHOLOGY, [address] [place] [address] Mendoza Machado M.D. Director [facility] # [id number] 20 Y 21 RESULT: Results suggest past infection. In most populations, at least 90% of the adult population will have been infected with EBV sometime in the past and therefore, will be positive for anti-VCA/IgG and anti- EBNA. Antibodies to EBNA develop 6-8 weeks after primary infection and remain present for life. Presence of VCA/ IgM antibodies indicates recent primary infection with EBV. Test Performed by: [address] [address] Center Receptionist: Davy Vargas III, M.D. 22 RUN DATE: 08/11/13 [facility] LAB LIVE PAGE 1 RUN TIME: [address] [place] [address] Specimen Inquiry Name: MINERVA MUJICA : [address]: Martha Arreguin MD Acct: [id number] Unit: [id number] AGE: 27 Location: [facility] Re08/09/13 SEX: F Status: DEP ER SPEC: [id number] JOEL: 08/09/[address] [facility] [address]: Martha Arreguin MD REQ: [id number] RECD: 08/09/136 STATUS: LORENZO YEE DR: Calderon Michel MD _ SOURCE: THROAT SPDESC: ORDERED: Throat Beta Str Procedure Result Verified Site Throat Beta Strep Culture Final 08/11/13- 0751 ML Negative For Group A Beta Streptococcus END OF REPORT * ML=Testing performed at Main Lab DEPARTMENT OF PATHOLOGY, [facility] [employer] [place], [place] [address] Mendoza Machado M.D. Director [facility] Permit #[id number] 23 Because ethnic data is not always readily available, this report includes an eGFR for both -Americans and non- Americans. The National Kidney Disease Education Program (NKDEP) does not endorse the use of the MDRD equation for patients that are not between the ages of 18 and 70, are , have extremes of body size, muscle mass, or nutritional status, or are non- or non-. According to the National Kidney Foundation, irrespective of diagnosis, the stage of the disease is based on the level of kidney function: Stage Description GFR(mL/min/1.73 m(2)) 1 Kidney damage with normal or decreased GFR 90 2 Kidney damage with mild decrease in GFR 60-89 3 Moderate decrease in GFR 30-59 4 Severe decrease in GFR 15-29 5 Kidney failure <15 (or dialysis) 24 RUN DATE: 07/03/13 [facility] LAB LIVE PAGE 1 RUN TIME: 1034 [facility] [employer] [place], [place] [address] Specimen Inquiry Name: MINERVA MUJICA : [address]: Jasvir Freedman MD Acct: [id number] Unit: [id number] AGE: 27 Location: [facility] Re06/30/13 SEX: F Status: DEP ER SPEC: [id number] JOEL: 06/30/13-[address] [facility] [address]: Migdalia BOLTON REQ: [id number] RECD: 07/01/13 STATUS: LORENZO YEE DR: Jasvir Michel MD _ SOURCE: VAGINAL SPDESC: ORDERED: Genital Culture, Affirm Procedure Result Verified Site Genital Culture Final 07/03/13- 1034 ML Organism 1 NORMAL KAMALA Quantity 1+ Affirm Vaginal DNA Probe Final 07/01/13- 1548 ML Organism 1 Negative Trichomonas Organism 2 Negative Gardnerella Organism 3 Negative Lisseth The presence of G. vaginalis, although suggestive, is not diagnostic for bacterial vaginosis. Results should be interpreted in conjunction with other clinical and laboratory data available. Women with vaginal discharge should be evaluated for risk factors of cervicitis and pelvic inflammatory disease, toxic shock syndrome (S.aureus), and if present, evaluated for organisms not included in this assay such as N. gonorrhoeae, C. trachomatis, Mobiluncus, Mycoplasma and/or Prevotella. Mixed infections may occur. The performance of this test on patient specimens collected during or immediately after antimicrobial therapy is unknown. The presence or absence of Lisseth species, G. vaginalis or T. vaginalis cannot be used as a test for therapeutic success or failure. END OF REPORT * ML=Testing performed at Main Lab DEPARTMENT OF PATHOLOGY, [address] [place] [address] Mendoza Machado M.D. Director [facility] Permit #[id number] 25 Analyte Specific Reagent: This test was developed and its performance characteristics determined by [facility]. It has not been cleared or approved by the U.S. Food and Drug Administration. 26 Laboratory developed test. Test Performed by: [address] [address] Center Receptionist: Davy Vargas III, M.D. 27 The World Health Organization (WHO) Hepatitis B Immunoglobulin 1st International Reference Preparation (1976): The accepted criteria for immunity to HBV is anti-HBs activity greater than or equal to 10 mIU/mL. An Index Value of 1.00 is equivalent to 10 mIU/mL. Samples with an Index Value of 1.00 or greater are considered reactive (protective) in accordance with the CDC guidelines. 28 RUN DATE: 07/03/13 [facility] LAB LIVE PAGE 1 RUN TIME: [address] [place] [address] Specimen Inquiry Name: SILMINERVA C : [address]: Jasvir Freedman MD Acct: [id number] Unit: [id number] AGE: 27 Location: [facility] Re06/30/13 SEX: F Status: DEP ER SPEC: [id number] JOEL: 06/30/13-[address] [facility] [address]: Migdalia BOLTON REQ: [id number] RECD: 07/01/13 STATUS: LORENZO YEE DR: Jasvir Michel MD _ SOURCE: URINE SPDESC: ORDERED: Urine Culture Procedure Result Verified Site Urine Culture Final 07/03/13- 1141 ML No Growth Day 2 (<1,000 CFU/mL) END OF REPORT * ML=Testing performed at Main Lab DEPARTMENT OF PATHOLOGY, [facility] [employer] [place], [place] [address] Mendoza Machado M.D. Director [facility] Permit #[id number] 29 RUN DATE: 07/01/13 [facility] LAB LIVE PAGE 1 RUN TIME: 9468 [facility] [employer] [place], [place] [address] Specimen Inquiry Name: MINERVA MUJICA : [address]: Jasvir Freedman MD Acct: [id number] Unit: [id number] AGE: 27 Location: [facility] Re06/30/13 SEX: F Status: DEP ER SPEC: [id number] JOEL: 06/30/13-[address] [facility] [address]: Migdalia BOLTON REQ: [id number] RECD: 07/01/13 STATUS: RES OTHR DR: Jasvir Michel MD _ SOURCE: VAGINAL SPDESC: ORDERED: Genital Culture, Affirm Procedure Result Verified Site Genital Culture PENDING Affirm Vaginal DNA Probe Final 07/01/13- 1547 ML Organism 1 Negative Trichomonas Organism 2 Negative Gardnerella Organism 3 Negative Lisseth The presence of G. vaginalis, although suggestive, is not diagnostic for bacterial vaginosis. Results should be interpreted in conjunction with other clinical and laboratory data available. Women with vaginal discharge should be evaluated for risk factors of cervicitis and pelvic inflammatory disease, toxic shock syndrome (S.aureus), and if present, evaluated for organisms not included in this assay such as N. gonorrhoeae, C. trachomatis, Mobiluncus, Mycoplasma and/or Prevotella. Mixed infections may occur. The performance of this test on patient specimens collected during or immediately after antimicrobial therapy is unknown. The presence or absence of Lisseth species, G. vaginalis or T. vaginalis cannot be used as a test for therapeutic success or failure. CONTINUED ON NEXT PAGE * ML=Testing performed at Main Lab DEPARTMENT OF PATHOLOGY, [address] [place] [address] Mendoza Machado M.D. Director [facility] Permit #[id number] RUN DATE: 07/01/13 [facility] LAB LIVE PAGE 2 RUN TIME: 2006 [address] [place], [place] [address] Specimen Inquiry Patient: MINERVA MUJICA [id number] (Continued) Specimen: [id number] Collected: 06/30/13-1599 Received: 07/01/13 (Continued) Procedure Result Verified Site Affirm Vaginal DNA Probe Final (continued) 07/01/13- 394 END OF REPORT * ML=Testing performed at Main Lab DEPARTMENT OF PATHOLOGY, [address] [place] [address] Mendoza Machado M.D. Director [facility] Permit #[id number] 30 Warning: A positive result is not useful for establishing a diagnosis of syphilis. In most situations, such a result may reflect a prior treated infection; a negative result can exclude a diagnosis of syphilis except for incubating or early primary disease. 31 The performance of this assay has not been established for use in neonates, infants or on cord blood. Test Performed by: [place] [address] Center Receptionist: Davy Vargas III, M.D. 32 Test Performed by: [place] [address] Center Receptionist: Davy Vargas III, M.D. 33 RUN DATE: 06/29/13 [facility] LAB LIVE PAGE 1 RUN TIME: [address] [place] [address] Specimen Inquiry Name: MINERVA MUJICA : [address]: Maliha Childs MD Acct: [id number] Unit: [id number] AGE: 27 Location: [facility] Re06/26/13 SEX: F Status: DEP ER SPEC: [id number] JOEL: 06/26/[address]: Maliha Childs MD REQ: [id number] RECD: 06/27/13 STATUS: LORENZO YEE DR: Calderon Michel MD _ SOURCE: URINE SPDESC: ORDERED: Urine Culture Procedure Result Verified Site Urine Culture Final 06/29/13 7594 ML No Growth Day 2 (<1,000 CFU/mL) END OF REPORT * ML=Testing performed at Main Lab DEPARTMENT OF PATHOLOGY, [address] [place] [address] Mendoza Machado M.D. Director [facility] Permit #[id number] 34 RUN DATE: 06/28/13 [facility] LAB LIVE PAGE 1 RUN TIME: [address] [place] [address] Specimen Inquiry Name: SILMINERVA C : [address]: Maliha Childs MD Acct: [id number] Unit: [id number] AGE: 27 Location: [facility] Re06/26/13 SEX: F Status: DEP ER SPEC: [id number] JOEL: 06/26/13-[address] [facility] [address]: Maliha Childs MD REQ: [id number] RECD: 06/27/13120 STATUS: LORENZO YEE DR: Calderon Michel MD _ SOURCE: ENDOCERVIX SPDESC: ORDERED: MARCEL/Chlam RNA Procedure Result Verified Site Chlamydia Trachomatis RNA Final 06/28/13- 1428 ML NEGATIVE for Chlamydia trachomatis rRNA GC (N. gonorrhoeae) RNA Final 06/28/13- 1428 ML POSITIVE for NEISSERIA GONORRHOEAE rRNA The [facility] Department of Health recommends that all patients treated for gonorrhea infection (including those treated with cephalosporins) must have a follow-up physical examination (anogenital and oral) and a test of cure (UMA) from the infected sites identified at the time of the initial diagnosis. A UMA is essential in all cases, even those asymptomatic after treatment. Isolates from treatment failures should be tested for antibiotic resistance. Health Advisory, [facility] [place] of Sexually Transmitted Disease Control, November 30, 2006 Limitations of the Procedure: The Aptima Combo 2 Assay is not intended for the evaluation of suspected sexual abuse or for other medico-legal indications. For those patients for whom a false positive result may have adverse psychosocial impact, the [facility] recommends retesting by a method using an alternate technology. Therapeutic failure or success cannot be determined with the Aptima Combo 2 Assay since nucleic acid may persist following appropriate antimicrobial therapy. Results from the Aptima Combo 2 Assay should be interpreted CONTINUED ON NEXT PAGE * ML=Testing performed at Main Lab DEPARTMENT OF PATHOLOGY, [facility] [employer] [place], [place] [address] Mendoza Machado M.D. Director [facility] Permit #[id number] RUN DATE: 06/28/13 [facility] LAB LIVE PAGE 2 RUN TIME: 1427 [address] [place], [place] [address] Specimen Inquiry Patient: MINERVA MUJICA [id number] (Continued) Specimen: [id number] Collected: 06/26/13 Received: 06/27/13 (Continued) Procedure Result Verified Site GC (N. gonorrhoeae) RNA Final (continued) 06/28/131427 in conjunction with other laboratory and clinical data available to the clinican. Performance characteristics for detecting C. trachomatis and N. gonorrhoeae are derived from high prevalence populations. Positive results in low prevalence populations should be interpreted carefully with the understanding that the likelihood of a false positive may be higher than a true positive. END OF REPORT * ML=Testing performed at Main Lab DEPARTMENT OF PATHOLOGY, [employer] [place], [place] [address] Mendoza Machado M.D. Director [facility] Permit #[id number] 35 RUN DATE: 06/28/13 [facility] LAB LIVE PAGE 1 RUN TIME: [address] [employer] [place], [place] [address] Specimen Inquiry Name: MINERVA MUJICA : [address]: Maliha Childs MD Acct: [id number] Unit: [id number] AGE: 27 Location: [facility] Re06/26/13 SEX: F Status: DEP ER SPEC: [id number] JOEL: 06/26/13-[address]: Maliha Childs MD REQ: [id number] RECD: 06/27/13120 STATUS: LORENZO YEE DR: Calderon Michel MD _ SOURCE: VAGINAL SPDESC: ORDERED: Affirm Procedure Result Verified Site Affirm Vaginal DNA Probe Final 06/28/13- 1503 ML Organism 1 Negative Trichomonas Organism 2 Negative Gardnerella Organism 3 Negative Lisseth The presence of G. vaginalis, although suggestive, is not diagnostic for bacterial vaginosis. Results should be interpreted in conjunction with other clinical and laboratory data available. Women with vaginal discharge should be evaluated for risk factors of cervicitis and pelvic inflammatory disease, toxic shock syndrome (S.aureus), and if present, evaluated for organisms not included in this assay such as N. gonorrhoeae, C. trachomatis, Mobiluncus, Mycoplasma and/or Prevotella. Mixed infections may occur. The performance of this test on patient specimens collected during or immediately after antimicrobial therapy is unknown. The presence or absence of Lisseth species, G. vaginalis or T. vaginalis cannot be used as a test for therapeutic success or failure. END OF REPORT * ML=Testing performed at Main Lab DEPARTMENT OF PATHOLOGY, [address] [place] [address] Mendoza Machado M.D. Director [facility] Permit #[id number] 36 RUN DATE: 01/16/13 [facility] LAB LIVE PAGE 1 RUN TIME: [address] [place] [address] Specimen Inquiry Name: MINERVA MUJICA : [address]: Kodi Schmitz MD Acct: [id number] Unit: [id number] AGE: 27 Location: [facility] Re01/14/13 SEX: F Status: DEP ER SPEC: [id number] JOEL: 01/14/13-[address] [facility] [address]: Migdalia BOLTON REQ: [id number] RECD: 01/14/13-4025 STATUS: LORENZO YEE DR: Calderon Schmitz MD _ S[facility] ORDERED: Culture Stain Procedure Result Verified Site Wound/Misc Gram Stain Final 01/14/13- 1519 ML No Polys Observed No Organisms Seen Wound/Misc Culture Final 01/16/13- 0914 ML Organism 1 NORMAL KAMALA Quantity 1+ END OF REPORT * ML=Testing performed at Main Lab DEPARTMENT OF PATHOLOGY, [address] [place] [address] Mendoza Machado M.D. Director [facility] Permit #[id number] 37 Non-immune <5 Equivocal 5 - 9 Immune >9 38 Negative <0.91 Equivocal 0.91 - 1.09 Positive >1.09 . Presence of antibodies to Rubeola is presumptive evidence of immunity except when active infection is suspected. 39 Negative <0.91 Equivocal 0.91 - 1.09 Positive >1.09 Presence of antibodies to Mumps is presumptive evidence of immunity except when active infection is suspected. 40 The CDC defines an adequate response to vaccinations as a result >=10 mIU/ml. Results 8-12 mIU/ml are considered equivocal and should be interpreted in the context of other factors (clinical status, follow-up testing, associated risk factors etc.). Repeat testing is suggested if clinically indicated. 41 Neutrophilia % Lymphopenia % 42 [employer] DEPARTMENT OF PATHOLOGY or Extension [address] [employer] CYTOLOG[facility] REPORT PATIENT: MINERVA MUJICA : 1985 AGE: 25 Y SEX: F ACCT: [id number] PROCEDURE DATE: 09/26/2011 DATE RECEIVED: 09/27/2011 REQUESTING PHYSICIAN: EUGENIA DUNCAN NP LOCATION: [facility] [place] Case No. [id number] PATIENT DATA: [id number] SPECIMEN SUBMITTED: * * (HPVII) THIN PREP W/HPV (LSIL/ASC/CHRIS) * * ENDOCERVICAL RELEVANT HISTORY: Para: 3 Contraceptive: OBC Comment: LMP: 1 OR TWO WEEKS AGO PREVIOUS THERAPY: PREMARIN SPECIMEN ADEQUACY SATISFACTORY FOR EVALUATION, ENDOCERVICAL TRANSFORMATION ZONE COMPONENT PRESENT GENERAL CATEGORIZATION NEGATIVE FOR INTRAEPITHELIAL LESIONS OR MALIGNANCY RECOMMENDATIONS Thin Prep Pap tests are examined with an FDA approved location-guidance system. ADDITIONAL COPIES SENT TO: Screened/Rescreened Electronically Signed Sign Out Date/Time: by: by: JORDANA HUNG, 09/27/2011 16:47 CT(ASCP) The Pap smear is a screening test designed to aid in the detection of premalignant and malignant conditions of the uterine cervix. It is not a diagnostic procedure and should not be used as the sole means of detecting cervical cancer. Both false-positive and false-negative reports do occur. Performed @ [employer] [address] [place] [address] 43 2SST,1VIRAL PROBE 44 Index Value: Specimen reactivity relative to the negative cutoff. 45 Negative: Non-reactive by ICMA Positive: Repeatedly reactive by ICMA. Refer to Western Blot confirmatory test for final interpretation. . Physician should pet counselor the patient about result significance. Patient information should be kept strictly confidential. 46 NEGATIVE FOR CHLAMYDIA TRACHOMATIS rRNA A negative result does not preclude the presence of a C.trachomatis or N.gonorrhoeae infection because results are dependent on adequate specimen collection, absence of inhibitors, and sufficient rRNA to be detected. Test results may be affected by improper specimen collection, improper specimen storage, technical error, or specimen mixup. 47 NEGATIVE FOR NEISSERIA GONORRHOEAE rRNA A negative result does not preclude the presence of a C.trachomatis or N.gonorrhoeae infection because results are dependent on adequate specimen collection, absence of inhibitors, and sufficient rRNA to be detected. Test results may be affected by improper specimen collection, improper specimen storage, technical error, or specimen mixup. 48 ICTOTEST IS A QUALITATIVE CONFIRMATORY TEST FOR BILIRUBIN. 49 Anion gap measurement may be of limited value in the presence of any alkalosis, especially in a combined acid base disorder. . 50 A metabolite of Naproxen, O-desmethylnaproxen, has been shown to interfere with the Jendrassik-Nellieburg method for measuring total bilirubin. Samples from patients who have taken Naproxen have shown spurious elevation in total bilirubin levels. 51 Because ethnic data is not always readily available, this report includes an eGFR for both -Americans and non- Americans. The National Kidney Disease Education Program (NKDEP) does not endorse the use of the MDRD equation for patients that are not between the ages of 18 and 70, are , have extremes of body size, muscle mass, or nutritional status, or are non- or non-. According to the National Kidney Foundation, irrespective of diagnosis, the stage of the disease is based on the level of kidney function: Stage Description GFR(mL/min/1.73 m(2)) 1 Kidney damage with normal or decreased GFR 90 2 Kidney damage with mild decrease in GFR 60-89 3 Moderate decrease in GFR 30-59 4 Severe decrease in GFR 15-29 5 Kidney failure <15 (or dialysis) 52 * MALES: < 5.0 MIU/ML NON FEMALES < 5.0 MIU/ML APPROX GESTATIONAL AGE APPROX HCG RANGE 0-1 WEEK < 5.0-50 1-2 WEEKS 50-500 2-3 WEEKS 100-5000 3-4 WEEKS 500-10,000 1-2 MONTHS 10,000-200,000 2-3 MONTHS 15,000-100,000 PLEASE NOTE: The intended use of this assay is the quantitative determination of HCG in human serum or plasma for the early detection of . These assays should not be used to diagnose any condition unrelated to . If an HCG level is inconsistent with, or unsupported by, clinical evidence, results should be confirmed by an alternate HCG method. . 53 SMEAR REVIEWED BY RKP at 0815 on 11/14/10. 54 FEW (LESS THAN 1/HPF) ABSENT FEW (LESS THAN 1/HPF) ABSENT 55 POSITIVE FOR [CHLAMYDIA TRACHOMATIS] rRNA 56 CHLAMYDIA TRACHOMATIS 57 NEGATIVE FOR NEISSERIA GONORRHOEAE rRNA A negative result does not preclude the presence of a C.trachomatis or N.gonorrhoeae infection because results are dependent on adequate specimen collection, absence of inhibitors, and sufficient rRNA to be detected. Test results may be affected by improper specimen collection, improper specimen storage, technical error, or specimen mixup. 58 Anion gap measurement may be of limited value in the presence of any alkalosis, especially in a combined acid base disorder. . 59 Note change in reference range as of 03/20/08. The change was based on recommendations from the [place] [employer]. 60 A metabolite of Naproxen, O-desmethylnaproxen, has been shown to interfere with the Jendrassik-Nellieburg method for measuring total bilirubin. Samples from patients who have taken Naproxen have shown spurious elevation in total bilirubin levels. 61 Because ethnic data is not always readily available, this report includes an eGFR for both -Americans and non- Americans. The National Kidney Disease Education Program (NKDEP) does not endorse the use of the MDRD equation for patients that are not between the ages of 18 and 70, are , have extremes of body size, muscle mass, or nutritional status, or are non- or non-. According to the National Kidney Foundation, irrespective of diagnosis, the stage of the disease is based on the level of kidney function: Stage Description GFR(mL/min/1.73 m(2)) 1 Kidney damage with normal or decreased GFR 90 2 Kidney damage with mild decrease in GFR 60-89 3 Moderate decrease in GFR 30-59 4 Severe decrease in GFR 15-29 5 Kidney failure <15 (or dialysis) 62 Anion gap measurement may be of limited value in the presence of any alkalosis, especially in a combined acid base disorder. . 63 Note change in reference range as of 03/20/08. The change was based on recommendations from the [employer]. 64 Please note change in reference range effective 08 . 65 A metabolite of Naproxen, O-desmethylnaproxen, has been shown to interfere with the Jendrassik-Nellieburg method for measuring total bilirubin. Samples from patients who have taken Naproxen have shown spurious elevation in total bilirubin levels. 66 Because ethnic data is not always readily available, this report includes an eGFR for both -Americans and non- Americans. The National Kidney Disease Education Program (NKDEP) does not endorse the use of the MDRD equation for patients that are not between the ages of 18 and 70, are , have extremes of body size, muscle mass, or nutritional status, or are non- or non-. According to the National Kidney Foundation, irrespective of diagnosis, the stage of the disease is based on the level of kidney function: Stage Description GFR(mL/min/1.73 m(2)) 1 Kidney damage with normal or decreased GFR 90 2 Kidney damage with mild decrease in GFR 60-89 3 Moderate decrease in GFR 30-59 4 Severe decrease in GFR 15-29 5 Kidney failure <15 (or dialysis) 67 If is still suspected, please repeat test after 48 to 72 hours. . 68 5 LIGHT BLUE TOP TUBE SPUN POURED OFF SERUM AND FROZEN 1 TIGER TOP TUBE; 1 LAVENDER TOP TUBE; SPLIT SPECIMEN 69 Result: Negative (no mutation found) . Factor V Leiden is a specific mutation (R506Q) in the factor V gene that is associated with an increased risk of venous thrombosis. Factor V Leiden is more resistant to inactivation by activated protein C. As a result, factor V persists in the circulation leading to a mild hyper- coagulable state. The Leiden mutation accounts for 90% - 95% of APC resistance. Factor V Leiden has been reported in patients with deep vein thrombosis, pulmonary embolus, central retinal vein occlusion, cerebral sinus thrombosis and hepatic vein thrombosis. Other risk factors to be considered in the workup for venous thrombosis include the [id number] mutation in the factor II (prothrombin) gene, protein S and C deficiency, and antithrombin deficiencies. Anticardiolipin antibody and lupus anticoagulant analysis may be appropriate for certain patients, as well as homocysteine levels. . Contact your local [facility] for information on how to order additional testing if desired. . 70 Genetic counselors are available for health care providers to discuss results at [phone]. . Methodology: DNA analysis of the Factor V gene was performed by allele- specific PCR followed by gel electrophoresis. The diagnostic sensitivity and specificity is >99% for both. Molecular- based testing is highly accurate, but as in any laboratory test, diagnostic errors may occur. All test results must be combined with clinical information for the most accurate interpretation. . References: Billy Powers (1995). Clin Lab Med 16:169-186. . Sanya Loza, Ph.D. Meri Dewitt, Ph.D. Merlyn Polo, Ph.D. Meggan Abraham, Ph.D. Nanda Patton, Ph.D. Jannie Metzger M.D. Jackie Bolivar, Ph.D. . 71 Negative: <11 Indeterminate: 11 - 19 Low-Med Positive: 20 - 80 Positive: >80 72 Negative: <10 Indeterminate: 10 - 19 Low-Med Positive: 20 - 80 Positive: >80 73 Results do not indicate the presence of a Lupus Anticoagulant: abnormal high screening results (PTT-LA, dRVVT, mixing studies), may be due to medication (heparin, warfarin, aspirin), Factor inhibitors, anticardiolipin antibodies, or poor specimen integrity. 74 Anion gap measurement may be of limited value in the presence of any alkalosis, especially in a combined acid base disorder. . 75 Note change in reference range as of 03/20/08. The change was based on recommendations from the [employer]. 76 Please note change in reference range effective 08 . 77 A metabolite of Naproxen, O-desmethylnaproxen, has been shown to interfere with the Jendrassik-Nellieburg method for measuring total bilirubin. Samples from patients who have taken Naproxen have shown spurious elevation in total bilirubin levels. 78 Because ethnic data is not always readily available, this report includes an eGFR for both -Americans and non- Americans. The National Kidney Disease Education Program (NKDEP) does not endorse the use of the MDRD equation for patients that are not between the ages of 18 and 70, are , have extremes of body size, muscle mass, or nutritional status, or are non- or non-. According to the National Kidney Foundation, irrespective of diagnosis, the stage of the disease is based on the level of kidney function: Stage Description GFR(mL/min/1.73 m(2)) 1 Kidney damage with normal or decreased GFR 90 2 Kidney damage with mild decrease in GFR 60-89 3 Moderate decrease in GFR 30-59 4 Severe decrease in GFR 15-29 5 Kidney failure <15 (or dialysis) 79 THE URINE SPECIMEN WAS TESTED AT THE LISTED CUTOFFS: DRUG CLASS TEST LEVEL (NG/ML) AMPHETAMINES 300 BARBITUATES 200 BENZODIAZEPINE METABOLITES 200 COCAINE METABOLITES 300 CANNABINOIDS 25 OPIATES 200 PCP 25 THIS IS A SCREENING PROCEDURE. POSITIVE RESULTS ARE NOT CONFIRMED. SPECIMEN WAS RECEIVED WITHOUT CHAIN OF CUSTODY. RESULTS SHOULD BE USED FOR MEDICAL PURPOSES ONLY. . 80 ICTOTEST IS A QUALITATIVE CONFIRMATORY TEST FOR BILIRUBIN. 81 result perlita'd 82 interpret with caution specimen 24hrs old 83 1 sst 84 < 0.90 Negative 0.91- 1.09 Equivocal >=1.10 Positive 85 <5.0 Negative (No Immunity) 5.0-10.0 Equivocal (Susceptible) >10.0 Positive (Immune) 86 < 0.90 Negative 0.91- 1.09 Equivocal >=1.10 Positive 87 . A negative result does not preclude the presence of a C.trachomatis or N.gonorrhoeae infection because results are dependent on adequate specimen collection, absence of inhibitors, and sufficient rRNA to be detected. Test results may be affected by improper specimen collection, improper specimen storage, technical error, or specimen mixup. . 88 . A negative result does not preclude the presence of a C.trachomatis or N.gonorrhoeae infection because results are dependent on adequate specimen collection, absence of inhibitors, and sufficient rRNA to be detected. Test results may be affected by improper specimen collection, improper specimen storage, technical error, or specimen mixup. . 89 [facility] [employer] DEPARTMENT OF PATHOLOGY or Extension [address] [employer] CYTOLOGY REPORT PATIENT: MINERVA MUJICA : 1985 AGE: 23 Y SEX: F ACCT: [id number] PROCEDURE DATE: 03/04/2009 DATE RECEIVED: 03/05/2009 REQUESTING PHYSICIAN: CHEYENNE STRAUSS MD [place] [facility] [place] No. [id number] PATIENT DATA: [id number] SPECIMEN SUBMITTED: * * (HPVII) THIN PREP W/HPV (LSIL/ASC/CHRIS) * * CERVICAL RELEVANT HISTORY: : 2 Para: 2 Contraceptive: NONE Cryo RX: CRYO CERVICAL Prev.abnormal: 2 YRS AGO Comment: LMP 2 YRS AGO SPECIMEN ADEQUACY SATISFACTORY FOR EVALUATION, ENDOCERVICAL TRANSFORMATION ZONE COMPONENT PRESENT GENERAL CATEGORIZATION NEGATIVE FOR INTRAEPITHELIAL LESIONS OR MALIGNANCY INTERPRETATION/ RESULT PREDOMINANCE OF BACTERIA CONSISTENT WITH A SHIFT IN VAGINAL KAMALA. ADDITIONAL COPIES SENT TO: Screened/Rescreened by: Electronically Signed by: TUTU ROYAL(ASCP) Signed Date and Time: 03/06/2009 17:20 Thin Prep Pap tests are examined with an FDA-approved location-guidance system (76266). Performed @ [facility] [address] [place] [address] "" Procedures Date CPT Code Description Status 01/16/2014 07955 Vision Test- screening test of visual acuity, Completed quantitative, bila 07/20/2012 17289 Pulse Oximetry Completed 08/11/2010 81361 Pulse Oximetry Completed Encounters Type Date Location Provider CPT E/M Dx Office Visit 12/22/2017 10:30a [facility] Calderon Michel M.D. 43591 Z11.1 Office Visit 12/20/2017 10:45a [facility] Office L[place]NA [place] 24722 N76.1 F43.21 R05 R91.8 Z00.00 Z11.1 Office Visit 11/28/2017 2:45p [place] [address] N76.0 F43.21 F41.9 G47.00 Office Visit 08/07/2017 2:30p [place] [address] R91.8 Office Visit 08/02/2017 3:45p [facility] Office [place] 63062 Z71.6 F43.21 F41.9 G47.00 R10.30 N76.0 Office Visit 06/16/2017 2:00p [facility] Office [place] 30567 F43.21 F41.9 G47.00 R53.83 R10.30 Z23 J45.998 Office Visit 06/08/2017 2:30p [facility] Katie Saldana, [facility] [address]375 N76.0 Office Visit 05/05/2017 9:00a [facility] Office Alison Chau, [facility] [address] F43.21 F41.9 G47.00 R05 J45.998 Z71.6 Office Visit 04/07/2017 3:30p [facility] Ketty Asencio, [employer] [address]487 H66.012 H66.41 Office Visit 03/28/2017 4:30p [facility] Office Eugenia Duncan, [place] [address] J06.9 Office Visit 03/15/2017 1:00p [facility] Office Alison Chau, [facility] [address]256 F43.21 F41.9 F17.210 M54.42 R21 Office Visit 02/22/2017 3:30p [facility] Office Alison Chau, [facility] [address]75[address] F43.21 F41.9 F17.210 M54.42 Office Visit 02/06/2017 10:00a [facility] Office Calderon Michel M.D. 35918 Z11.1 Office Visit 01/02/2017 9:30a [facility] Office Eugenia Duncan, [address]367 F17.210 Afnp-C F41.9 Office Visit 09/14/2015 2:00p [facility] Eugenia Duncan [place] [address] F43.21 Office Visit 02/17/2015 10:45a [facility] Office Alison Chau, [facility] [address] 784.0 787.1 278.02 Office Visit 01/16/2015 3:15p [facility] Office Alison Chau, [facility] [address]30 784.0 787.1 Office Visit 01/16/2014 4:00p [facility] Calderon Michel M.D. 34764 V70.0 719.43 709.2 Office Visit 09/19/2013 5:30p [facility] Calderon Michel M.D. 50330 723.4 Office Visit 02/21/2013 10:45a [facility] Giuliana Rodriguez, [facility]C 31038 382.01 Office Visit 07/20/2012 2:00p [facility] Giuliana Rodriguez Afnp-C 80389 465.8 Office Visit 03/29/2012 8:40a [facility] Roddy Dubois M.D. 96668 726.19 724.5 Office Visit 09/26/2011 11:15a [facility] Ludy Jenkins-C 45589 V76.2 V74.5 V73.89 626.4 Office Visit 09/01/2011 10:10a [facility] Roddy Dubosi M.D. 35546 461.8 466.0 Office Visit 08/17/2011 2:30p [facility] Katie Saldana [facility] [address]0920 V75.9 626.0 Office Visit 05/03/2011 2:15p [facility] Eugenia Duncan [place] 46430 465.9 Office Visit 01/25/2011 3:30p [facility] Eugenia Duncan, [place] 95283 611.71 Office Visit 08/11/2010 11:10a [facility] Calderon Michel M.D. 21499 465.9 Office Visit 05/31/2010 1:50p [facility] Chaitanya Hanson M.D. 72643 382.9 Office Visit 03/16/2010 10:30a [facility] Office Eugenia Duncan [place] [address]261 724.2 Office Visit 09/09/2009 2:00p [facility] Calderon Michel M.D. 66575 780.97 Office Visit 04/27/2009 9:00a [facility] Estela Perez M.D. 15369 784.0 V25.09 305.1 V65.49 V06.5 V05.8 Office Visit 04/15/2009 11:30a [facility] Calderon Michel M.D. 21287 784.0 Office Visit 03/04/2009 3:00p [facility] Cheyenne Strauss M.D. 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 Yes No Are there Barriers to Adherence? Yes No Has the patient been asked about herbal supplements and therapies, and OTC meds? Yes No ~B_~U_Care Plan~b_~u_1. Patient has been queried about patient's goals/preferences and functional/lifestyle goals at relevant visits. If relevant, describe: na2. Treatment goals as explained to the patient: aboveweight loss to treat fatty liver 3. Are there barriers to meeting treatment goals? Yes No If Yes , please describe:4. Self-Management goals as described to the patient: Yes No the lung nodule in uestion has resolved fatty liver persists -- weight loss through and exerciise is the treatment for this f/u routine
--- OUTSIDE RECORDS SUMMARY | 2018-03-20 07:55 | XMS REPORT ---
:1985 Demographics Address [address] [place] [address] Phone Unavailable Preferred Language Unknown Marital Status Unknown Worship Affiliation Unknown Race Unknown Ethnic Group Unknown [facility] Address [address] [place] [address] Care Team Providers Name Role Phone Flory Cartwright Unavailable Unavailable PROBLEMS Type Condition ICD9-CM [id number] Onset Condition SNOMED Code Code Code Dates Status Problem Deep dyspareunia N94.12 Active 185724693 Problem Viral wart, B07.9 Active 24598303 unspecified Problem Pelvic and R10.2 Active 726372791 perineal pain Problem Acute vaginitis N76.0 Active 75291903 Problem Unspecified N83.202 Active 27696466217087090 ovarian cyst, left side Problem Encounter for Z30.431 Active 471291450 routine checking of intrauterine contraceptive device Problem Tobacco use Z72.0 Active 879858670 Problem Other specified N89.8 Active 36458030 noninflammatory disorders of vagina Problem Unspecified N83.201 Active 41635934323030564 ovarian cyst, right side Problem Family history of Z80.0 Active 075237946 malignant neoplasm of digestive organs Problem Subacute and N76.1 Active 987878573 chronic vaginitis Problem 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 98357911 vulvovaginitis Problem Nicotine F17.200 Active 610621498 dependence, unspecified, uncomplicated Problem Personal history Z86.73 Active 529925043 of transient ischemic attack (TIA), and cerebral infarction without residual deficits Problem 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 765625660 (venereal) warts ALLERGIES Substance Reaction Event Type Date Status codeine anaphylaxis Drug Allergy Jan, Active ENCOUNTERS Encounter Location Date Diagnosis [facility] 103 Feb, OBG[place] [id number] [address] Jan, Acute vaginitis N76.[address] [place], [place] [id number] [facility] 103 Jan, Unspecified ovarian cyst, OBGYN [facility] right side N83.201 [place] [id number] [facility] 103 Jan, Unspecified ovarian cyst, OBGYN [facility] right side N83.201 and [place], [place] [id number] Encounter for routine checking of intrauterine contraceptive device Z30.431 [facility] 103 Jan, Unspecified ovarian cyst, OBGYN [facility] right side N83.201 [place] [id number] [facility] 103 Jan, [place] [id number] [facility] 103 November, Noninflammatory disorder of OBGYN [facility] vagina, unspecified N89.9 [place] [id number] and Candidiasis of vulva and vagina B37.3 [facility] 103 November, Unspecified ovarian cyst, OBGYN [facility] left side N83.202 ; Other [place] [id number] specified noninflammatory disorders of vagina N89.8 ; Unspecified ovarian cyst, right side N83.201 and Encounter for routine checking of intrauterine contraceptive device Z30.431 [facility] 103 November, Unspecified ovarian cyst, OBGYN [facility] left side N83.202 and [place] [id number] Encounter for routine checking of intrauterine contraceptive device Z30.431 [facility] 103 Oct, OBGYN [place] [id number] [facility] 103 Oct, OBGYN [place] [id number] [facility] 103 Sep, [place] [id number] [facility] 103 Sep, [place] [id number] [facility] 103 Sep, [facility]real ) [facility] ; Subacute and [place] [id number] chronic vaginitis N76.1 ; Tobacco use Z72.0 ; Encounter for routine checking of intrauterine contraceptive device Z30.431 ; Other ovarian cyst, left side N83.292 and Encounter for screening for infections with a predominantly sexual mode of transmission Z11.3 [facility] 103 16 Sep, 2017 OBGYN [place] [id number] [facility] 103 15 Sep, 2017 OBG[place] [id number] [facility] 103 15 Sep, 2017 Viral wart, [facility] B07.9 [place] [id number] [facility] 103 15 Sep, 2017 Pelvic and [facility]ineal pain [facility] R10.2 ; Deep dyspareunia [place], [place] [id number] N94.12 and Encounter for routine checking of intrauterine contraceptive device Z30.431 [facility] 103 14 Sep, 2017 OBGYN [place] [id number] [facility] 103 14 Sep, 2017 [facility] vaginitis N76.1 ; Pelvic [place], [place] [id number] and perineal pain R10.2 and Deep dyspareunia N94.12 [facility] 103 Sep, [place]BG[place] [id number] [facility] 103 Sep, [place] [id number] [facility] 103 Jan, [place] [id number] [facility] 103 Jan, [place]BG[place] [id number] [facility] 103 Jan, Pelvic and [facility]ineal pain [facility] R10.2 ; Other specified [place] [id number] noninflammatory disorders of vagina N89.8 and Anogenital (venereal) warts A63.0 [facility] 07 Dec, 2016 Encounter for gynecological OBGYN [facility] examination (general) [place], [place] [id number] (routine) without abnormal findings Z01.419 ; Encounter for screening for malignant neoplasm of cervix Z12.4 ; Encounter for screening for infections with a predominantly sexual mode of transmission Z11.3 ; Nicotine dependence, unspecified, uncomplicated F17.200 and Subacute and chronic vaginitis N76.1 [facility] Oct, [place]BG[place] [id number] [facility] Oct, Female pelvic inflammatory OBN [facility] disease, unspecified N73.9 [place] [id number] ; Postcoital and contact bleeding N93.0 ; Pelvic and perineal pain R10.2 and Other specified noninflammatory disorders of vagina N89.8 [facility] 103 Oct, OBG[place] [id number] [facility] Oct, Female pelvic inflammatory OBGYN [facility] disease, unspecified N73.9 [place] [id number] ; Postcoital and contact bleeding N93.0 and Pelvic and perineal pain R10.2 [facility] 103 Oct, [place]BG[place] [id number] [facility] Oct, Female pelvic inflammatory OBGYN [facility] disease, unspecified N73.9 [place] [id number] ; Postcoital and contact bleeding N93.0 and Pelvic and perineal pain R10.2 [facility] 103 Oct, Unspecified dyspareunia OBGYN [facility] N94.10 [place] [id number] [facility] 103 Oct, [facility]specified [facility]ia [facility] N94.10 ; Female pelvic [place], [place] [id number] inflammatory disease, unspecified N73.9 ; 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 and Postcoital and contact bleeding N93.0 [facility] Sep, OBN [place], [place] [id number] [facility] Aug, Other specified [facility] noninflammatory disorders [place] [id number] of vagina N89.8 [facility] Aug, Other specified [facility] noninflammatory disorders [place] [id number] of vagina N89.8 [facility] 103 May, Acute vaginitis N76.0 [place] [id number] [facility] Apr, Other specified [facility] noninflammatory disorders [place] [id number] of vagina N89.8 and Encounter for screening for infections with a predominantly sexual mode of transmission Z11.3 [facility] Mar, [place] [id number] [facility] Mar, Other [facility]lamydial infection [facility] of lower genitourinary [place] [id number] tract A56.09 ; Inflammatory disease of uterus, unspecified N71.9 ; Irregular menstruation, unspecified N92.6 and Other specified noninflammatory disorders of vagina N89.8 [facility] Feb, [place] [id number] [facility] [address] [place] [address] Feb, Other chlamydial infection [address] [place], of lower genitourinary [place] [id number] tract A56.09 and Inflammatory disease of uterus, unspecified N71.9 [facility] Feb, [place] [id number] [facility] 103 Feb, [place] [id number] [facility] 103 Feb, Chlamydial infection of [facility] lower genitourinary tract, [place] [id number] unspecified A56.00 [facility] Feb, Other specified [facility] noninflammatory disorders [place] [id number] of vagina N89.8 and Acute vaginitis N76.0 [facility] Dec, Encounter for gynecological [facility] examination (general) [place], [place] [id number] (routine) without abnormal findings Z01.419 ; Excessive and frequent menstruation with irregular cycle N92.1 ; Personal history of transient ischemic attack (TIA), and cerebral infarction without residual deficits Z86.73 ; 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 and Family history of malignant neoplasm of digestive organs Z80.0 [facility] November, [place] [id number] [facility] November, Other specified [facility] noninflammatory disorders [place], [place] [id number] of vagina N89.8 and Encounter for screening for infections with a predominantly sexual mode of transmission Z11.3 [facility] Jul, Excessive and frequent [facility] menstruation with irregular [place], [place] [id number] cycle N92.1 ; Personal history of transient ischemic attack (TIA), and cerebral infarction without residual deficits Z86.73 and 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 [facility] Jul, [place], [place] [id number] [facility] 103 Jul, Excessive and frequent [facility] menstruation with irregular [place] [id number] cycle N92.1 and Personal history of transient ischemic attack (TIA), and cerebral infarction without residual deficits Z86.73 [facility] Apr, [place] [id number] [facility] 103 Apr, Excessive and frequent [facility] menstruation with irregular [place], [place] [id number] cycle N92.1 and Personal history of transient ischemic attack (TIA), and cerebral infarction without residual deficits Z86.73 [facility] 103 Mar, Menometrorrhagia 626.2 [place] [id number] [facility] [address] [place], Mar, [facility] [id number] [facility] 103 Mar, Menometrorrhagia 626.2 [place] [id number] [facility] Jan, VULVAR LESION 624.9 and [facility] Condyloma 078.10 [place] [id number] [facility] Jan, [place] [id number] [facility] Dec, [place] [id number] [facility] Dec, [place] [id number] [facility] 103 Dec, [place] [id number] [facility] 103 Dec, VULVAR LESION 624.9 ; [facility] Condyloma 078.10 and [place], [place] [id number] CONTRACEPTIVE MANGMT NOS V25.9 [facility] 103 Dec, Vaginitis 616.10 [place] [id number] [facility] 103 Dec, OBG[place] [id number] [facility] November, Menometrorrhagia 626.2 ; OBN [facility] Herpes simplex [place], [place] [id number] vulvovaginitis 054.11 and VULVAR LESION 624.9 [facility] 103 November, Vaginitis 616.10 OBGYN [place] [id number] [facility] November, STD Screen V74.5 and OBGYN [facility] VAGINAL DISCHARGE 623.5 [place] [id number] [facility] 103 Oct, Menometrorrhagia 626.2 ; [facility] 40.0-44.9, [place], [place] [id number] adult V85.41 and Ovarian cyst NOS 620.2 [facility] Oct, Ovarian cyst NOS 620.2 [place] [id number] [facility] Oct, [place] [id number] [facility] 103 Sep, Herpes infection NOS 054.9 [place] [id number] [facility] Sep, OBG[place] [id number] [facility] 103 Sep, OBG[place] [id number] [facility] 103 Sep, O[place] [id number] [facility] 103 Sep, Menometrorrhagia 626.2 and OBGYN [facility] Body Mass Index 40.0-44.9, [place] [id number] adult V85.41 [facility] 103 Aug, Metrorrhagia 626.6 and OBGYN [facility] VULVAR LESION 624.9 [place] [id number] [facility] 103 Aug, [place] [id number] [facility] 103 Aug, Metrorrhagia 626.6 and OBGYN [facility] Vaginitis 616.10 [place], [place] [id number] [facility] 103 Aug, Metrorrhagia 626.6 [facility] Ovarian cyst NOS 620.2 [place] [id number] [facility] 103 Aug, [place] [id number] [facility] 103 Aug, [place] [id number] [facility] 103 Jul, [place] [id number] [facility] 103 Jul, Metrorrhagia 626.6 O[place]YN [place] [id number] [facility] 103 Jul, Metrorrhagia 626.6 [place]BG[place] [id number] [facility] 103 Jun, Acute vulvovaginitis 616.10 [place] [id number] [facility] 103 Jun, [place] [id number] [facility] 103 May, STD Screen V74.5 ; [facility] V25.09 ; [place] [id number] Metrorrhagia 626.6 and Ovarian cyst NOS 620.2 IMMUNIZATIONS No Known Immunizations SOCIAL HISTORY Never Assessed REASON FOR REFERRAL FUNCTIONAL STATUS PLAN OF CARE Activity Details Follow Up As scheduled Reason: Pending Test Leukorrhea Panel by Swab {contains Deepti Gardnerella Trich CTNG} VITAL SIGNS Height 61 in 2018-02-23 Weight 190 lbs 2018-02-23 BMI 35.90 kg/m2 2018-02-23 Blood pressure systolic 116 mm Hg 2018-02-23 Blood pressure diastolic 70 mm Hg 2018-02-23 MEDICATIONS Medication Instructions Dosage Frequency Start End Date Duration Status Date Diflucan 150 mg orally once, 1 tab(s) Jan, 2 dose(s) Active repeat in 3 2018 days Flagyl 500 mg po bid 1 tab 12h Jan, 7 days Active 2018 lorazepam 0.5 mg orally 2 times a 1 tab(s) 12h Active day Paragard 68.7mg Active Copper Wellbutrin XL orally every 24 1 tab(s) Active 300 mg/24 hours hours Chantix 1 mg orally 2 times a 1 tab(s) 12h Active day escitalopram 20 orally once a 1 tab(s) 24h Active mg day PROCEDURES No Known procedures RESULTS No Results REASON FOR VISIT yeast infection MEDICAL (GENERAL) HISTORY Type Description Date [...]
--- OUTSIDE RECORDS SUMMARY | 2018-03-20 07:55 | XMS REPORT ---
:1985 Author Organization [facility] Address [address] [place] [address] Care Team Providers Name Role Phone Ketty Corral Unavailable Unavailable PROBLEMS Type Condition ICD9-CM KLM60-DW Onset Condition SNOMED Code Code Code Dates Status Problem Pelvic and R10.2 Active 396415891 perineal pain Problem Tobacco use Z72.0 Active 065376620 Problem Viral wart, B07.9 Active 20553610 unspecified Problem Acute vaginitis N76.0 Active 54498792 Problem Tobacco abuse Z71.6 Active 420841327 counseling Problem Unspecified N83.201 Active 18052363202015355 ovarian cyst, right side Problem Encounter for Z30.431 Active 020898390 routine checking of intrauterine contraceptive device Problem Unspecified N83.202 Active 41705193742252572 ovarian cyst, left side Problem Other specified N89.8 Active 27710208 noninflammatory disorders of vagina Problem 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 92792083 vulvovaginitis Problem Subacute and N76.1 Active 118747168 chronic vaginitis Problem Nicotine F17.200 Active 881414199 dependence, unspecified, uncomplicated Problem Personal history Z86.73 Active 157930605 of transient ischemic attack (TIA), and cerebral infarction without residual deficits Problem 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 869173330 (venereal) warts Problem Family history of Z80.0 Active 033459218 malignant neoplasm of digestive organs Problem Deep dyspareunia N94.12 Active 675104003 ALLERGIES No Information ENCOUNTERS Encounter Location Date Diagnosis [facility] 103 Feb, [facility], unspecified N89.9 [place], [place] [id number] [facility] 103 Feb, OBGYN [place] [id number] [facility] 103 Feb, [facility] [place], [place] [id number] (routine) with abnormal findings Z01.411 ; Encounter for routine checking of intrauterine contraceptive device Z30.431 ; Encounter for screening for infections with a predominantly sexual mode of transmission Z11.3 ; Noninflammatory disorder of vagina, unspecified N89.9 and Tobacco abuse counseling Z71.6 [facility] Jan, [place] [id number] [address] Jan, Acute vaginitis N76.0 [facility] [address] [place], [place] [id number] [facility] 103 Jan, Unspecified ovarian cyst, OBGYN [facility] right side N83.201 [place] [id number] [facility] Jan, Unspecified ovarian cyst, OBGYN [facility] right side N83.201 and [place], [place] [id number] Encounter for routine checking of intrauterine contraceptive device Z30.431 [facility] 103 Jan, Unspecified ovarian cyst, OBGYN [facility] right side N83.201 [place] [id number] [facility] 103 Jan, [place] [id number] [facility] 103 November, [facility]inflammatory [facility], unspecified N89.9 [place] [id number] and Candidiasis of vulva and vagina B37.3 [facility] 103 November, Unspecified ovarian cyst, OBGYN [facility] left side N83.202 ; Other [place] [id number] specified noninflammatory disorders of vagina N89.8 ; Unspecified ovarian cyst, right side N83.201 and Encounter for routine checking of intrauterine contraceptive device Z30.431 [facility] 103 November, Unspecified ovarian cyst, [facility] left side N83.202 and [place], [place] [id number] Encounter for routine checking of intrauterine contraceptive device Z30.431 [facility] 103 Oct, [place] [id number] [facility] 103 Oct, [place] [id number] [facility] 103 Sep, [place] [id number] [facility] 103 Sep, [place] [id number] [facility] 103 Sep, Anogenital (venereal ) warts [facility] A63.0 ; Subacute and [place] [id number] chronic vaginitis N76.1 ; Tobacco use Z72.0 ; Encounter for routine checking of intrauterine contraceptive device Z30.431 ; Other ovarian cyst, left side N83.292 and Encounter for screening for infections with a predominantly sexual mode of transmission Z11.3 [facility] 103 16 Sep, 2017 [place] [id number] [facility] 103 15 Sep, 2017 [place] [id number] [facility] 103 Sep, Viral wart, unspecified [facility] B07.9 [place] [id number] [facility] 103 Sep, Pelvic and perineal pain [facility] R10.2 ; Deep dyspareunia [place] [id number] N94.12 and Encounter for routine checking of intrauterine contraceptive device Z30.431 [facility] 103 14 Sep, 2017 [place] [id number] [facility] 103 Sep, Subacute and chronic [facility] vaginitis N76.1 ; Pelvic [place] [id number] and perineal pain R10.2 and Deep dyspareunia N94.12 [facility] 103 Sep, OBG[place] [id number] [facility] Sep, [place] [id number] [facility] Jan, [place] [id number] [facility] Jan, [place] [id number] [facility] 103 Jan, Pelvic and perineal pain OBN [facility] R10.2 ; Other specified [place], [place] [id number] noninflammatory disorders of vagina N89.8 and Anogenital (venereal) warts A63.0 [facility] 103 Dec, Encounter for gynecological OBN [facility] examination (general) [place], [place] [id number] (routine) without abnormal findings Z01.419 ; Encounter for screening for malignant neoplasm of cervix Z12.4 ; Encounter for screening for infections with a predominantly sexual mode of transmission Z11.3 ; Nicotine dependence, unspecified, uncomplicated F17.200 and Subacute and chronic vaginitis N76.1 [facility] 103 Oct, OBG[place] [id number] [facility] Oct, Female pelvic inflammatory [facility] disease, unspecified N73.9 [place] [id number] ; Postcoital and contact bleeding N93.0 ; Pelvic and perineal pain R10.2 and Other specified noninflammatory disorders of vagina N89.8 [facility] 103 Oct, [place] [id number] [facility] 103 Oct, Female pelvic inflammatory OBGYN [facility] disease, unspecified N73.9 [place], [place] [id number] ; Postcoital and contact bleeding N93.0 and Pelvic and perineal pain R10.2 [facility] 103 Oct, OBGYN [place] [id number] [facility] 103 Oct, Female pelvic inflammatory OBGYN [facility] disease, unspecified N73.9 [place], [place] [id number] ; Postcoital and contact bleeding N93.0 and Pelvic and perineal pain R10.2 [facility] 103 Oct, Unspecified dyspareunia [facility] N94.10 [place] [id number] [facility] 103 Oct, Unspecified dyspareunia [facility] N94.10 ; Female pelvic [place], [place] [id number] inflammatory disease, unspecified N73.9 ; 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 and Postcoital and contact bleeding N93.0 [facility] 103 Sep, [place] [id number] [facility] 103 Aug, Other specified [facility] noninflammatory disorders [place], [place] [id number] of vagina N89.8 [facility] 103 Aug, Other specified [facility] noninflammatory disorders [place], [place] [id number] of vagina N89.8 [facility] 103 May, Acute vaginitis N76.0 [place] [id number] [facility] 103 Apr, Other specified [facility] noninflammatory disorders [place], [place] [id number] of vagina N89.8 and Encounter for screening for infections with a predominantly sexual mode of transmission Z11.3 [facility] 103 Mar, [place] [id number] [facility] Mar, Other chlamydial infection [facility] of lower genitourinary [place], [place] [id number] tract A56.09 ; Inflammatory disease of uterus, unspecified N71.9 ; Irregular menstruation, unspecified N92.6 and Other specified noninflammatory disorders of vagina N89.8 [facility] Feb, [place] [id number] [facility] Feb, Other [facility] [address] [place], of lower genitourinary [place] [id number] tract A56.09 and Inflammatory disease of uterus, unspecified N71.9 [facility] 103 Feb, [place] [id number] [facility] Feb, [place] [id number] [facility] Feb, Chlamydial infection of [facility] lower genitourinary tract, [place] [id number] unspecified A56.00 [facility] Feb, Other specified [facility] noninflammatory disorders [place], [place] [id number] of vagina N89.8 and Acute vaginitis N76.0 [facility] 103 Dec, [facility]general) [place], [place] [id number] (routine) without abnormal findings Z01.419 ; Excessive and frequent menstruation with irregular cycle N92.1 ; Personal history of transient ischemic attack (TIA), and cerebral infarction without residual deficits Z86.73 ; 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 and Family history of malignant neoplasm of digestive organs Z80.0 [facility] 103 November, [place] [id number] [facility] November, Other specified [facility] noninflammatory disorders [place], [place] [id number] of vagina N89.8 and Encounter for screening for infections with a predominantly sexual mode of transmission Z11.3 [facility] 18 Jul, 2015 Excessive and frequent [facility] menstruation with irregular [place], [place] [id number] cycle N92.1 ; Personal history of transient ischemic attack (TIA), and cerebral infarction without residual deficits Z86.73 and 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 [facility] 103 Jul, [place], [place] [id number] [facility] 103 Jul, Excessive and frequent [facility] menstruation with irregular [place], [place] [id number] cycle N92.1 and Personal history of transient ischemic attack (TIA), and cerebral infarction without residual deficits Z86.73 [facility] 103 Apr, [place] [id number] [facility] 103 Apr, Excessive and frequent [facility] menstruation with irregular [place], [place] [id number] cycle N92.1 and Personal history of transient ischemic attack (TIA), and cerebral infarction without residual deficits Z86.73 [facility] 103 Mar, Menometrorrhagia 626.2 O[place] [id number] [facility] [address] [place], 15 Mar, 2015 Medical [facility] [id number] [facility] 103 Mar, Menometrorrhagia 626.2 [place] [id number] [facility] 103 Jan, VULVAR LESION 624.9 and OBGYN [facility] Condyloma 078.10 [place], [place] [id number] [facility] 103 Jan, [place] [id number] [facility] 103 Dec, [place] [id number] [facility] 103 Dec, [place] [id number] [facility] 103 Dec, [place] [id number] [facility] 103 Dec, VULVAR LESION 624.9 ; [facility] Cond[facility]oma 078.10 and [place] [id number] CONTRACEPTIVE MANGMT NOS V25.9 [facility] 103 Dec, Vaginitis 616.10 [place] [id number] [facility] 103 Dec, [place] [id number] [facility] 103 November, Menometrorrhagia 626.2 ; [facility] Herpes simplex [place], [place] [id number] vulvovaginitis 054.11 and VULVAR LESION 624.9 [facility] 103 November, Vaginitis 616.10 [place] [id number] [facility] 103 November, STD Screen V74.5 and [facility] VAGINAL DISCHARGE 623.5 [place] [id number] [facility] 103 Oct, Menometrorrhagia 626.2 ; [facility] Body Mass Index 40.0-44.9, [place] [id number] adult V85.41 and Ovarian cyst NOS 620.2 [facility] 103 Oct, Ovarian cyst NOS 620.2 [place] [id number] [facility] 103 Oct, [place] [id number] [facility] 103 Sep, Herpes infection NOS 054.9 [place] [id number] [facility] 103 Sep, [place] [id number] [facility] 103 Sep, [place] [id number] [facility] 103 Sep, [place] [id number] [facility] 103 Sep, Menometrorrhagia 626.2 and OBGYN [facility] Body Mass Index 40.0-44.9, [place], [place] [id number] adult V85.41 [facility] 103 Aug, Metrorrhagia 626.6 and OBGYN [facility] VULVAR LESION 624.9 [place], [place] [id number] [facility] 103 Aug, OBG[place], [place] [id number] [facility] 103 Aug, Metrorrhagia 626.6 and OBGYN [facility] Vaginitis 616.10 [place] [id number] [facility] 103 Aug, Metrorrhagia 626.6 and [facility] Ovarian cyst NOS 620.2 [place] [id number] [facility] 103 Aug, [place]BG[place], [place] [id number] [facility] 103 Aug, [place] [id number] [facility] 103 Jul, [place] [id number] [facility] 103 Jul, Metrorrhagia 626.6 [place] [id number] [facility] 103 Jul, Metrorrhagia 626.6 [place] [id number] [place] [facility] 103 Jun, Acute vulvovaginitis 616.10 [place] [id number] [facility] Jun, [place] [id number] [place] [facility] 103 May, STD Screen V74.5 ; FAMILY [facility] PLANNING V25.09 ; [place], [place] [id number] Metrorrhagia 626.6 and Ovarian cyst NOS 620.2 IMMUNIZATIONS No Known Immunizations SOCIAL HISTORY Never Assessed REASON FOR REFERRAL FUNCTIONAL STATUS PLAN OF CARE VITAL SIGNS MEDICATIONS Unknown Medications PROCEDURES No Known procedures RESULTS No Results REASON FOR VISIT call in RX Insurance Providers [facility] Member Patient Patient Patient Patient Patient Subscriber Subscriber Subscriber Group Insurance Plan Plan Plan Plan ID Relationship Address Phone Name Date of ID Name Date of No Type Insurance Insurance Insurance Coverage to Subscriber Address Phone Name Dates [place] [phone] Drake self [place] [id number] [address] [address] MEDICAL (GENERAL) HISTORY Type Description Date Medical History Possible stroke on BC Medical History vulvar colpo- verracoid keratosis Medical History Condyloma Medical History Female pelvic inflammatory disease, unspecified Surgical History 01/19/06 Surgical History 02/21/07 Surgical History 11/05/12 Surgical History etop 11/12/14 Surgical History hysteroscopy, D&C 04/14/15 Hospitalization History Childbirth Hospitalization History Childbirth Hospitalization History see above
--- OUTSIDE RECORDS SUMMARY | 2018-03-20 07:55 | XMS REPORT ---
:1985 Author Organization [facility] Address [address] [place] [address] Care Team Providers Name Role Phone Ketty Corral Unavailable Unavailable PROBLEMS Type Condition ICD9-CM NTA32-XS Onset Condition SNOMED Code Code Code Dates Status Problem Pelvic and R10.2 Active 468125316 perineal pain Problem Tobacco use Z72.0 Active 704063483 Problem Viral wart, B07.9 Active 44792705 unspecified Problem Acute vaginitis N76.0 Active 27958173 Problem Tobacco abuse Z71.6 Active 413252047 counseling Problem Unspecified N83.201 Active [id number] ovarian cyst, right side Problem Encounter for Z30.431 Active 691814405 routine checking of intrauterine contraceptive device Problem Unspecified N83.202 Active 26523290627548971 ovarian cyst, left side Problem Other specified N89.8 Active 42084701 noninflammatory disorders of vagina Problem 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 34210901 vulvovaginitis Problem Subacute and N76.1 Active 097728691 chronic vaginitis Problem Nicotine F17.200 Active 989698374 dependence, unspecified, uncomplicated Problem Personal history Z86.73 Active 961894139 of transient ischemic attack (TIA), and cerebral infarction without residual deficits Problem 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 110596400 (venereal) warts Problem Family history of Z80.0 Active 715387977 malignant neoplasm of digestive organs Problem Deep dyspareunia N94.12 Active 580529805 ALLERGIES Substance Reaction Event Type Date Status codeine anaphylaxis Drug Allergy Feb, Active ENCOUNTERS Encounter Location Date Diagnosis [facility] Feb, [facility] unspecified N89.9 [place], [place] [id number] [facility] 103 Feb, OBGYN [place] [id number] [facility] 103 Feb, Encounter for gynecological OBGYN [facility] examination (general) [place], [place] [id number] (routine) with abnormal findings Z01.411 ; Encounter for routine checking of intrauterine contraceptive device Z30.431 ; Encounter for screening for infections with a predominantly sexual mode of transmission Z11.3 ; Noninflammatory disorder of vagina, unspecified N89.9 and Tobacco abuse counseling Z71.6 [facility] 103 Jan, OBGYN [place] [id number] [address] Jan, Acute vaginitis N76.[address] [facility] [address] [address] [place], [place] [id number] [facility] 103 Jan, Unspecified ovarian cyst, OBGYN [facility] right side N83.201 [place] [id number] [facility] 103 Jan, Unspecified ovarian cyst, OBGYN [facility] right side N83.201 and [place], [place] [id number] Encounter for routine checking of intrauterine contraceptive device Z30.431 [facility] 103 Jan, Unspecified ovarian cyst, OBGYN [facility] right side N83.201 [place], [place] [id number] [facility] Jan, OBGYN [place] [id number] [facility] 103 November, Noninflammatory disorder of OBGYN [facility] vagina, unspecified N89.9 [place], [place] [id number] and Candidiasis of vulva and vagina B37.3 [facility] 103 November, Unspecified ovarian cyst, OBGYN [facility] left side N83.202 ; Other [place] [id number] specified noninflammatory disorders of vagina N89.8 ; Unspecified ovarian cyst, right side N83.201 and Encounter for routine checking of intrauterine contraceptive device Z30.431 [facility] 103 November, [facility] N83.202 and [place], [place] [id number] Encounter for routine checking of intrauterine contraceptive device Z30.431 [facility] 103 Oct, OBG[place] [id number] [facility] 103 Oct, [place]BG[place] [id number] [facility] 103 Sep, [place] [id number] [facility] 103 Sep, OBG[place] [id number] [facility] 103 Sep, Anogenital (venereal ) warts [facility] A63.0 ; Subacute and [place], [place] [id number] chronic vaginitis N76.1 ; Tobacco use Z72.0 ; Encounter for routine checking of intrauterine contraceptive device Z30.431 ; Other ovarian cyst, left side N83.292 and Encounter for screening for infections with a predominantly sexual mode of transmission Z11.3 [facility] 103 16 Sep, 2017 OBG[place] [id number] [facility] 103 Sep, [place] [id number] [facility] 103 Sep, Viral wart, unspecified [facility] B07.9 [place], [place] [id number] [facility] 103 Sep, Pelvic and [facility]ineal pain [facility] R10.2 ; Deep dyspareunia [place] [id number] N94.12 and Encounter for routine checking of intrauterine contraceptive device Z30.431 [facility] 103 14 Sep, 2017 [place] [id number] [facility] 103 14 Sep, 2017 Subacute and chronic [facility] vaginitis N76.1 ; Pelvic [place], [place] [id number] and perineal pain R10.2 and Deep dyspareunia N94.12 [facility] 103 Sep, [place] [id number] [facility] 103 Sep, [place] [id number] [facility] 103 Jan, [place] [id number] [facility] 103 Jan, [place] [id number] [facility] 103 Jan, Pelvic and perineal pain [facility] R10.2 ; Other specified [place], [place] [id number] noninflammatory disorders of vagina N89.8 and Anogenital (venereal) warts A63.0 [facility] 07 Dec, 2016 [facility] [place] [id number] (routine) without abnormal findings Z01.419 ; Encounter for screening for malignant neoplasm of cervix Z12.4 ; Encounter for screening for infections with a predominantly sexual mode of transmission Z11.3 ; Nicotine dependence, unspecified, uncomplicated F17.200 and Subacute and chronic vaginitis N76.1 [facility] 103 Oct, [place]BG[place] [id number] [facility] 103 Oct, Female pelvic inflammatory [facility] disease, unspecified N73.9 [place] [id number] ; Postcoital and contact bleeding N93.0 ; Pelvic and perineal pain R10.2 and Other specified noninflammatory disorders of vagina N89.8 [facility] 103 Oct, [place] [id number] [facility] 103 Oct, Female pelvic inflammatory [facility] disease, unspecified N73.9 [place], [place] [id number] ; Postcoital and contact bleeding N93.0 and Pelvic and perineal pain R10.2 [facility] 103 Oct, [place] [id number] [facility] Oct, Female pelvic inflammatory [facility] disease, unspecified N73.9 [place] [id number] ; Postcoital and contact bleeding N93.0 and Pelvic and perineal pain R10.2 [facility] 103 Oct, Unspecified dyspareunia [facility] N94.10 [place] [id number] [facility] 103 Oct, Unspecified dyspareunia [facility] N94.10 ; Female pelvic [place], [place] [id number] inflammatory disease, unspecified N73.9 ; 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 and Postcoital and contact bleeding N93.0 [facility] Sep, [place] [id number] [facility] [facility] 103 Aug, Other specified [facility] noninflammatory disorders [place], [place] [id number] of vagina N89.8 [facility] 103 Aug, Other specified [facility] noninflammatory disorders [place], [place] [id number] of vagina N89.8 [facility] 103 May, Acute vaginitis N76.0 [place] [id number] [facility] 103 Apr, Other specified [facility] noninflammatory disorders [place], [place] [id number] of vagina N89.8 and Encounter for screening for infections with a predominantly sexual mode of transmission Z11.3 [facility] 103 Mar, [place] [id number] [facility] 103 Mar, Other chlamydial infection [facility] of lower genitourinary [place], [place] [id number] tract A56.09 ; Inflammatory disease of uterus, unspecified N71.9 ; Irregular menstruation, unspecified N92.6 and Other specified noninflammatory disorders of vagina N89.8 [facility] 103 Feb, [place] [id number] [facility] [address] Feb, Other [facility] [address] [place], of lower genitourinary [place] [id number] tract A56.09 and Inflammatory disease of uterus, unspecified N71.9 [facility] 103 Feb, [place] [id number] [facility] 103 Feb, [place] [id number] [facility] 103 Feb, Chlamydial infection of [facility] lower genitourinary tract, [place], [place] [id number] unspecified A56.00 [facility] 103 Feb, Other specified [facility] noninflammatory disorders [place], [place] [id number] of vagina N89.8 and Acute vaginitis N76.0 [facility] 103 Dec, Encounter for gynecological [facility] examination (general) [place], [place] [id number] (routine) without abnormal findings Z01.419 ; Excessive and frequent menstruation with irregular cycle N92.1 ; Personal history of transient ischemic attack (TIA), and cerebral infarction without residual deficits Z86.73 ; 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 and Family history of malignant neoplasm of digestive organs Z80.0 [facility] 103 November, [place] [id number] [facility] November, Other specified [facility] noninflammatory disorders [place], [place] [id number] of vagina N89.8 and Encounter for screening for infections with a predominantly sexual mode of transmission Z11.3 [facility] 18 Jul, 2015 Excessive and frequent [facility] menstruation with irregular [place], [place] [id number] cycle N92.1 ; Personal history of transient ischemic attack (TIA), and cerebral infarction without residual deficits Z86.73 and 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 [facility] Jul, [place] [id number] [facility] 103 04 Jul, 2015 Excessive and frequent [facility] menstruation with irregular [place], [place] [id number] cycle N92.1 and Personal history of transient ischemic attack (TIA), and cerebral infarction without residual deficits Z86.73 [facility] Apr, [place] [id number] [facility] 103 Apr, Excessive and frequent [facility] menstruation with irregular [place], [place] [id number] cycle N92.1 and Personal history of transient ischemic attack (TIA), and cerebral infarction without residual deficits Z86.73 [facility] 103 Mar, Menometrorrhagia 626.2 [place] [id number] [facility] [address] [place], 15 Mar, 2015 [facility] [id number] [facility] 103 Mar, Menometrorrhagia 626.2 [place] [id number] [facility] 103 Jan, VULVAR LESION 624.9 [facility] Condyloma 078.10 [place], [place] [id number] [facility] 103 Jan, [place] [id number] [facility] 103 Dec, [place] [id number] [facility] 103 Dec, [place] [id number] [facility] 103 Dec, [place] [id number] [facility] 103 Dec, VULVAR LESION 624.9 ; [facility] Cond[facility] 078.10 and [place], [place] [id number] CONTRACEPTIVE MANGMT NOS V25.9 [facility] 103 Dec, Vaginitis 616.10 [place] [id number] [facility] 103 Dec, [place] [id number] [facility] 103 November, Menometrorrhagia 626.2 ; [facility] Herpes simplex [place], [place] [id number] vulvovaginitis 054.11 and VULVAR LESION 624.9 [facility] 103 November, Vaginitis 616.10 [place] [id number] [facility] 103 November, STD Screen V74.5 and OBGYN [facility] VAGINAL DISCHARGE 623.5 [place], [place] [id number] [facility] 103 Oct, Menometrorrhagia 626.2 ; OBGYN [facility] Body Mass Index 40.0-44.9, [place], [place] [address] adult V85.41 and Ovarian cyst NOS 620.2 [facility] 103 Oct, Ovarian cyst NOS 620.2 [place] [id number] [facility] 103 Oct, [place] [id number] [facility] 103 Sep, Herpes infection NOS 054.9 [place] [id number] [facility] 103 Sep, [place] [id number] [facility] 103 Sep, [place] [id number] [facility] 103 Sep, [place] [id number] [facility] 103 Sep, Menometrorrhagia 626.2 and OBGYN [facility] Body Mass Index 40.0-44.9, [place], [place] [id number] adult V85.41 [facility] 103 Aug, Metrorrhagia 626.6 and OBGYN [facility] VULVAR LESION 624.9 [place], [place] [id number] [facility] 103 Aug, [place] [id number] [facility] 103 Aug, Metrorrhagia 626.6 and OBGYN [facility] Vaginitis 616.10 [place], [place] [id number] [facility] 103 Aug, Metrorrhagia 626.6 [facility] Ovarian cyst NOS 620.2 [place] [id number] [facility] 103 Aug, [place] [id number] [facility] 103 Aug, [place] [id number] [facility] Jul, [place] [id number] [facility] [facility] 103 Jul, Metrorrhagia 626.6 [place] [id number] [facility] 103 Jul, Metrorrhagia 626.6 [place] [id number] [place] [facility] 103 Jun, Acute vulvovaginitis 616.10 O[place]YN [place], [place] [id number] [facility] 103 Jun, OBG[place], [place] [id number] [facility] 103 May, STD Screen V74.5 ; [facility] V25.09 ; [place] [id number] Metrorrhagia 626.6 and Ovarian cyst NOS 620.2 IMMUNIZATIONS No Known Immunizations SOCIAL HISTORY Never Assessed REASON FOR REFERRAL FUNCTIONAL STATUS PLAN OF CARE Activity Details Follow Up 1 year annual Reason: Pending Test Leukorrhea Panel by [facility] {contains Deepti Gardnerella Trich CTNG} VITAL SIGNS Height 61 in 2018-03-09 Weight 191 lbs 2018-03-09 BMI 36.09 kg/m2 2018-03-09 Blood pressure systolic 122 mm Hg 2018-03-09 Blood pressure diastolic 70 mm Hg 2018-03-09 MEDICATIONS Medication Instructions Dosage Frequency Start End Date Duration Status Date lorazepam 0.5 mg orally 2 times a 1 tab(s) 12h Active day Paragard 68.7mg Active Copper Wellbutrin XL 300 orally every 24 1 tab(s) Active mg/24 hours hours Chantix 1 mg orally 2 times a 1 tab(s) 12h Active day escitalopram 20 orally once a 1 tab(s) 24h Active mg day PROCEDURES No Known procedures RESULTS No Results REASON FOR VISIT annual Insurance Providers [facility] Member Patient Patient Patient Patient Patient Subscriber Subscriber Subscriber Group Insurance Plan Plan Plan Plan ID Relationship Address Phone Name Date of ID Name Date of No Type Insurance Insurance Insurance Coverage to Subscriber Address Phone Name Dates Drake [phone] Drake [place] [id number] [address] [address] MEDICAL (GENERAL) HISTORY Type Description Date Medical History Possible stroke on BC Medical History vulvar colpo- verracoid keratosis Medical History Condyloma Medical History Female pelvic inflammatory disease, unspecified Surgical History 01/19/06 Surgical History 02/21/07 Surgical History 11/05/12 Surgical History etop 11/12/14 Surgical History hysteroscopy, D&C 04/14/15 Hospitalization History Childbirth Hospitalization History Childbirth Hospitalization History see above
--- OUTSIDE RECORDS SUMMARY | 2018-03-20 07:55 | XMS REPORT ---
:1985 Demographics Address [address] [place] [address] Phone Unavailable Preferred Language Unknown Marital Status Unknown Caodaism Affiliation Unknown Race Unknown Ethnic Group Unknown [facility] Address [address] [place] [address] Care Team Providers Name Role Phone Victorina Pool Unavailable Unavailable PROBLEMS Type Condition ICD9-CM [id number] Onset Condition SNOMED Code Code Code Dates Status Problem Deep dyspareunia N94.12 Active 725627548 Problem Viral wart, B07.9 Active 00241570 unspecified Problem Pelvic and R10.2 Active 446155461 perineal pain Problem Acute vaginitis N76.0 Active 94486402 Problem Unspecified N83.202 Active 68647901442828371 ovarian cyst, left side Problem Encounter for Z30.431 Active 130184753 routine checking of intrauterine contraceptive device Problem Tobacco use Z72.0 Active 339072343 Problem Other specified N89.8 Active 23095258 noninflammatory disorders of vagina Problem Unspecified N83.201 Active 03374290803803843 ovarian cyst, right side Problem Family history of Z80.0 Active 571049389 malignant neoplasm of digestive organs Problem Subacute and N76.1 Active 960091908 chronic vaginitis Problem 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 34684795 vulvovaginitis Problem Nicotine F17.200 Active 619049342 dependence, unspecified, uncomplicated Problem Personal history Z86.73 Active 893543032 of transient ischemic attack (TIA), and cerebral infarction without residual deficits Problem 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 (venereal) warts ALLERGIES No Information ENCOUNTERS Encounter Location Date Diagnosis [facility] [address] Feb, [place] [id number] [facility] 103 Jan, [place] [id number] [address] Jan, Acute vaginitis N76.0 [facility] [address] [place], [place] [id number] [facility] Jan, Unspecified ovarian cyst, O[facility] right side N83.201 [place], [place] [id number] [facility] 103 Jan, Unspecified ovarian cyst, O[facility]YN [facility] right side N83.201 and [place] [id number] Encounter for routine checking of intrauterine contraceptive device Z30.431 [facility] 103 Jan, Unspecified ovarian cyst, O[facility]YN [facility] right side N83.201 [place], [place] [id number] [facility] Jan, OBGYN [place] [id number] [facility] 103 November, Noninflammatory disorder of O[facility] vagina, unspecified N89.9 [place] [id number] and Candidiasis of vulva and vagina B37.3 [facility] 103 November, Unspecified ovarian cyst, O[facility] left side N83.202 ; Other [place], [place] [id number] specified noninflammatory disorders of vagina N89.8 ; Unspecified ovarian cyst, right side N83.201 and Encounter for routine checking of intrauterine contraceptive device Z30.431 [facility] 103 November, Unspecified ovarian cyst, O[facility] left side N83.202 and [place], [place] [id number] Encounter for routine checking of intrauterine contraceptive device Z30.431 [facility] 103 Oct, OBGYN [place] [id number] [facility] 103 Oct, [place] [id number] [facility] 103 Sep, OBG[place] [id number] [facility] 103 Sep, [place]BG[place] [id number] [facility] 103 26 Sep, 2017 [facility]ogen[facility]venereal ) [facility] A[facility]0 ; Subacute and [place] [id number] chronic vaginitis N76.1 ; Tobacco use Z72.0 ; Encounter for routine checking of intrauterine contraceptive device Z30.431 ; Other ovarian cyst, left side N83.292 and Encounter for screening for infections with a predominantly sexual mode of transmission Z11.3 [facility] 103 16 Sep, 2017 OBGYN [place] [id number] [facility] 103 15 Sep, 2017 [place] [id number] [facility] 103 15 Sep, 2017 Viral wart, unspecified [facility] B07.9 [place] [id number] [facility] 103 15 Sep, 2017 Pelvic and perineal pain [facility] R10.2 ; Deep dyspareunia [place] [id number] N94.12 and Encounter for routine checking of intrauterine contraceptive device Z30.431 [facility] 103 14 Sep, 2017 OBGYN [place] [id number] [facility] 103 14 Sep, 2017 [facility]acute and chronic [facility] vaginitis N76.1 ; Pelvic [place], [place] [id number] and perineal pain R10.2 and Deep dyspareunia N94.12 [facility] 103 Sep, OBG[place] [id number] [facility] 103 Sep, [place] [id number] [facility] 103 Jan, [place]BG[place] [id number] [facility] Jan, [place]BG[place] [id number] [facility] 103 Jan, Pelvic and perineal pain [facility] R10.2 ; Other specified [place] [id number] noninflammatory disorders of vagina N89.8 and Anogenital (venereal) warts A63.0 [facility] 07 Dec, 2016 [facility] (general) [place], [place] [id number] (routine) without abnormal findings Z01.419 ; Encounter for screening for malignant neoplasm of cervix Z12.4 ; Encounter for screening for infections with a predominantly sexual mode of transmission Z11.3 ; Nicotine dependence, unspecified, uncomplicated F17.200 and Subacute and chronic vaginitis N76.1 [facility] Oct, [place], [place] [id number] [facility] Oct, Female pelvic inflammatory [facility] disease, unspecified N73.9 [place], [place] [id number] ; Postcoital and contact bleeding N93.0 ; Pelvic and perineal pain R10.2 and Other specified noninflammatory disorders of vagina N89.8 [facility] Oct, [place] [id number] [facility] 103 Oct, Female pelvic inflammatory [facility] disease, unspecified N73.9 [place], [place] [id number] ; Postcoital and contact bleeding N93.0 and Pelvic and perineal pain R10.2 [facility] Oct, [place] [id number] [facility] Oct, Female pelvic inflammatory O[facility] disease, unspecified N73.9 [place], [place] [id number] ; Postcoital and contact bleeding N93.0 and Pelvic and perineal pain R10.2 [facility] 103 Oct, Unspecified dyspareunia [facility] N94.10 [place], [place] [id number] [facility] Oct, Unspecified [facility]pareunia [facility] N94.10 ; Female pelvic [place], [place] [id number] inflammatory disease, unspecified N73.9 ; 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 and Postcoital and contact bleeding N93.0 [facility] Sep, [place]BGYN [place], [place] [id number] [facility] 103 Aug, Other specified [facility] noninflammatory disorders [place], [place] [id number] of vagina N89.8 [facility] 103 Aug, Other specified [facility] noninflammatory disorders [place], [place] [id number] of vagina N89.[address] [facility] 103 May, Acute vaginitis N76.0 [place] [id number] [facility] Apr, Other specified [facility] noninflammatory disorders [place], [place] [id number] of vagina N89.8 and Encounter for screening for infections with a predominantly sexual mode of transmission Z11.3 [facility] 103 Mar, OBG[place] [id number] [facility] 103 Mar, Other [facility]lamydial [facility] of lower genitourinary [place] [id number] tract A56.09 ; Inflammatory disease of uterus, unspecified N71.9 ; Irregular menstruation, unspecified N92.6 and Other specified noninflammatory disorders of vagina N89.8 [facility] Feb, [place]BG[place] [id number] [address] Feb, Other chlamydial infection [address] [place], of lower genitourinary [place] [id number] tract A56.09 and Inflammatory disease of uterus, unspecified N71.9 [facility] Feb, [place], [place] [id number] [facility] Feb, [place], [place] [id number] [facility] 103 Feb, Chlamydial infection of [facility] lower genitourinary tract, [place], [place] [id number] unspecified A56.00 [facility] 103 Feb, Other specified [facility] noninflammatory disorders [place], [place] [id number] of vagina N89.8 and Acute vaginitis N76.0 [facility] 103 Dec, Encounter for gynecological [facility] examination (general) [place], [place] [id number] (routine) without abnormal findings Z01.419 ; Excessive and frequent menstruation with irregular cycle N92.1 ; Personal history of transient ischemic attack (TIA), and cerebral infarction without residual deficits Z86.73 ; 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 and Family history of malignant neoplasm of digestive organs Z80.0 [facility] November, [place] [id number] [facility] 103 November, Other specified [facility] noninflammatory disorders [place], [place] [id number] of vagina N89.8 and Encounter for screening for infections with a predominantly sexual mode of transmission Z11.3 [facility] 103 Jul, Excessive and frequent [facility] menstruation with irregular [place], [place] [id number] cycle N92.1 ; Personal history of transient ischemic attack (TIA), and cerebral infarction without residual deficits Z86.73 and 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 [facility] Jul, [place], [place] [id number] [facility] Jul, Excessive and frequent [facility] menstruation with irregular [place], [place] [id number] cycle N92.1 and Personal history of transient ischemic attack (TIA), and cerebral infarction without residual deficits Z86.[address] [facility] Apr, O[place] [id number] [facility] 103 Apr, Excessive and frequent OBG[facility] menstruation with irregular [place], [place] [id number] cycle N92.1 and Personal history of transient ischemic attack (TIA), and cerebral infarction without residual deficits Z86.73 [facility] 103 Mar, Menometrorrhagia 626.2 OBGYN [place] [id number] [facility] [address] [place], Mar, Medical [facility] [id number] [facility] Mar, Menometrorrhagia 626.2 OBGYN [place] [id number] [facility] 103 Jan, [facility]VAR LESION 624.9 [facility]78.10 [place] [id number] [facility] Jan, [place] [id number] [facility] 103 Dec, [place] [id number] [facility] 103 Dec, [place] [id number] [facility] 103 Dec, [place] [id number] [facility] 103 Dec, VULVAR LESION 624.9 ; [facility] Cond[facility] 078.10 and [place], [place] [id number] CONTRACEPTIVE MANGMT NOS V25.9 [facility] 103 Dec, Vaginitis 616.10 [place]YN [place] [id number] [facility] 103 Dec, [place] [id number] [facility] 103 November, Menometrorrhagia 626.2 ; [facility] Herpes simplex [place], [place] [id number] vulvovaginitis 054.11 and VULVAR LESION 624.9 [facility] 103 November, Vaginitis 616.10 OBGYN [place], [place] [id number] [facility] 103 November, STD Screen V74.5 and OBGYN [facility] VAGINAL DISCHARGE 623.5 [place] [id number] [facility] 103 Oct, Menometrorrhagia 626.2 ; [facility] Body Mass Index 40.0-44.9, [place], [place] [id number] adult V85.41 and Ovarian cyst NOS 620.2 [facility] 103 Oct, Ovarian cyst NOS 620.2 [place] [id number] [facility] 103 Oct, [place] [id number] [facility] 103 Sep, Herpes infection NOS 054.9 [place]BG[place] [id number] [facility] 103 Sep, [place] [id number] [facility] 103 Sep, [place] [id number] [facility] 103 Sep, [place] [id number] [facility] 103 Sep, Menometrorrhagia 626.2 and OBGYN [facility] Body Mass Index 40.0-44.9, [place], [place] [id number] adult V85.41 [facility] 103 Aug, Metrorrhagia 626.6 and OBGYN [facility] VULVAR LESION 624.9 [place], [place] [id number] [facility] 103 Aug, [place]BG[place], [place] [id number] [facility] 103 Aug, Metrorrhagia 626.6 and OBGYN [facility] Vaginitis 616.10 [place], [place] [id number] [facility] 103 Aug, Met[facility]rhagia 626.6 [facility] O[facility] NOS 620.2 [place], [place] [id number] [facility] 103 Aug, [place] [id number] [facility] 103 Aug, [place] [id number] [facility] 103 Jul, [place] [id number] [facility] 103 Jul, Metrorrhagia 626.6 [place] [id number] [facility] 103 Jul, Metrorrhagia 626.6 [place]YN [place] [id number] [facility] 103 Jun, Acute vulvovaginitis 616.10 [place] [id number] [facility] 103 Jun, [place] [id number] [facility] 103 May, STD Screen V74.5 ; FAMILY OBGYN [facility] PLANNING V25.09 ; [place] [id number] Metrorrhagia 626.6 and Ovarian cyst NOS 620.2 IMMUNIZATIONS No Known Immunizations SOCIAL HISTORY Never Assessed REASON FOR REFERRAL FUNCTIONAL STATUS PLAN OF CARE VITAL SIGNS MEDICATIONS Unknown Medications PROCEDURES No Known procedures RESULTS No Results REASON FOR VISIT BV and Yeast-lmtcb 02/28/18 MEDICAL (GENERAL) HISTORY Type Description Date Medical History Possible stroke on BC Medical History vulvar colpo- verracoid keratosis Medical History Condyloma Medical History Female pelvic inflammatory disease, unspecified Surgical History 01/19/06 Surgical History 02/21/07 Surgical History 11/05/12 Surgical History etop 11/12/14 Surgical History hysteroscopy, D&C 04/14/15 Hospitalization History Childbirth Hospitalization History Childbirth Hospitalization History see above
[2018-03-20 07:58] VITALS: BP 117/66
--- NOTE | 2018-03-20 08:12 | UC ---
Throat Pain/Nasal Prasad HPI - HPI Summary HPI Summary: bilateral ear pain x 2 days sore throat , nasal congestion , pnd, fever, chills, body aches, no n/v/d/c - History of Current Complaint Chief Complaint: UCRespiratory Stated Complaint: SORE THROAT, EAR PAIN Time Seen by Provider: 03/20/18 08:01 Hx Obtained From: Patient Hx Last Menstrual Period: 02/18/18; IUD ?: No Onset/Duration: Gradual Onset, Lasting Days - 2, Still Present Severity: Severe Pain Intensity: 9 Cough: Nonproductive Associated Signs & Symptoms: Positive: Wheezing, Nasal Discharge, Fever. Negative: Dysphagia, Drooling, Hoarseness, Sinus Discomfort, Rash - Allergies/Home Medications Allergies/Adverse Reactions: Allergies Allergy/AdvReac Type Severity Reaction Status Date / Time codeine Allergy Rash Verified 03/20/18 07:58 Tattoo color Allergy Blisters Uncoded 03/20/18 07:58 Home Medications: Home Medications metroNIDAZOLE TAB* [Flagyl 250 mg TAB*] 500 mg BID 03/20/18 [History Confirmed 03/20/18] PMH/Surg Hx/FS Hx/Imm Hx Respiratory History: Asthma Psychological History: Anxiety, Depression - Surgical History Surgical History: Yes Surgery Procedure, Year, and Place: C Sections,2005 2007 2012. COLPOSCOPY- CERVICAL Other Surgical History: C-sections. - Family History Known Family History: Positive: Unknown, Cardiac Disease - MATERNAL GRANDFATHER , Hypertension, Diabetes, Renal Disease - MOTHER KIDNEY STONES Family History: Asthma - Social History Alcohol Use: Occasionally Substance Use Type: None Smoking Status (MU): Light Every Day Tobacco Smoker Type: Cigarettes Amount Used/How Often: 4 CIGS/DAY Length of Time of Smoking/Using Tobacco: since 18 y/o Have You Smoked in the Last Year: Yes When Did the Patient Quit Smoking/Using Tobacco: 2 YRS AGO Household Exposure Type: Cigarettes - Immunization History Most Recent Influenza Vaccination: none Most Recent Tetanus Shot: UTD Vaccination Up to Date: Yes Review of Systems Constitutional: Fever, Chills, Fatigue Skin: Negative Eyes: Negative ENT: Sore Throat, Ear Ache, Nasal Discharge Respiratory: Cough Cardiovascular: Negative Is Patient Immunocompromised?: No All Other Systems Reviewed And Are Negative: Yes Physical Exam Triage Information Reviewed: Yes Appearance: Well-Appearing, No Pain Distress, Well-Nourished Vital Signs: Initial Vital Signs Temp 97.9 F 03/20/18 07:54 Pulse 86 03/20/18 07:54 Resp 18 03/20/18 07:54 BP 117/66 03/20/18 07:54 Pulse Ox 99 03/20/18 07:54 Vital Signs Reviewed: Yes Eyes: Positive: Conjunctiva Clear ENT: Positive: Normal ENT inspection, Hearing grossly normal, Pharyngeal erythema, Nasal congestion, Nasal drainage, TM bulging, TM dull, TM red, Tonsillar swelling. Negative: Tonsillar exudate, Trismus, Muffled voice Neck exam: Normal Neck: Positive: Supple, Nontender, No Lymphadenopathy Respiratory: Positive: Chest non-tender, Lungs clear, Normal breath sounds, No respiratory distress Cardiovascular: Positive: RRR, No Murmur, Pulses Normal Abdominal Exam: Normal Abdomen Description: Positive: Nontender, Soft Skin Exam: Normal Throat Pain/Nasal Course/Dx - Differential Dx/Diagnosis Provider Diagnoses: otitis media bilateral. pharyngitis Discharge - Sign-Out/Discharge Documenting (check all that apply): Patient Departure All imaging exams completed and their final reports reviewed: No Studies - Discharge Plan Condition: Stable Disposition: HOME Prescriptions: Amoxicillin/Clavulanate TAB* [Augmentin TAB 875*] 875 mg PO BID #20 tab Patient Education Materials: Ear Infection (ED) Forms: *Work Release Referrals: Calderon Michel MD [Primary Care Provider] - 7 Days - Billing Disposition and Condition Condition: STABLE Disposition: Home
== END 2018-03-20 08:13 | disposition home or self-care (01) ==
LOC: UCCORT 07:47
DX: H66.93 Otitis media, unspecified, bilateral (principal); J02.9 Acute pharyngitis, unspecified; F17.210 Nicotine dependence, cigarettes, uncomplicated; Z88.5 Allergy status to narcotic agent
CPT/HCPCS: 99212; G0463

== ENCOUNTER 2018-05-14 15:02 | Emergency (ER) | payer OTHER ==
--- OUTSIDE RECORDS SUMMARY | 2018-05-14 16:02 | XMS REPORT ---
:1985 Author Organization [facility] OBN Address [address] [place] [address] Care Team Providers Name Role Phone Flory Cartwright Unavailable Unavailable PROBLEMS Type Condition ICD9-CM AII27-TW Onset Condition SNOMED Code Code Code Dates Status Problem Pelvic and R10.2 Active 095391955 perineal pain Problem Tobacco use Z72.0 Active 586389645 Problem Viral wart, B07.9 Active 34582192 unspecified Problem Acute vaginitis N76.0 Active 90018557 Problem Tobacco abuse Z71.6 Active 511476951 counseling Problem Unspecified N83.201 Active 43668763520725182 ovarian cyst, right side Problem Encounter for Z30.431 Active 782606696 routine checking of intrauterine contraceptive device Problem Unspecified N83.202 Active 41303299522862017 ovarian cyst, left side Problem Other specified N89.8 Active 49707266 noninflammatory disorders of vagina Problem 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 [address] Mar, [place] [id number] [facility] [address] Mar, [place] [id number] [facility] 103 Feb, [place] [id number] [facility] 103 Feb, [place] [id number] [facility] 103 Feb, [facility] and [facility] vaginitis N76.1 ; Pelvic [place] [id number] and perineal pain R10.2 ; Acute nasopharyngitis [common cold] J00 and Encounter for other general counseling and advice on contraception Z30.[address] [facility] 103 Feb, Encounter for routine [facility] checking of intrauterine [place], [place] [id number] contraceptive device Z30.431 and Pelvic and perineal pain R10.[address] [facility] O[facility] 103 Feb, Noninflammatory disorder of [facility] vagina, unspecified N89.9 [place], [place] [id number] and Candidiasis of vulva and vagina B37.[address] [facility] O[facility]YN 103 Feb, [place]BG[place], [place] [id number] [facility] 103 Feb, Encounter for [facility]ological [facility] examination (general) [place], [place] [id number] (routine) with abnormal findings Z01.411 ; Encounter for routine checking of intrauterine contraceptive device Z30.431 ; Encounter for screening for infections with a predominantly sexual mode of transmission Z11.3 ; Noninflammatory disorder of vagina, unspecified N89.9 and Tobacco abuse counseling Z71.[address] [facility] O[facility]YN 103 Jan, [place]BG[place] [id number] [address] Jan, Acute vaginitis N76.[address] [facility] [address] [place], [place] [id number] [facility] 103 Jan, Unspecified ovarian cyst, O[facility] right side N83.201 [place] [id number] [facility] 103 Jan, Unspecified ovarian cyst, O[facility] right side N83.201 and [place], [place] [id number] Encounter for routine checking of intrauterine contraceptive device Z30.431 [facility] 103 Jan, Unspecified ovarian cyst, O[facility] right side N83.201 [place] [id number] [facility] 103 Jan, [place]BG[place] [id number] [facility] 103 November, [facility], unspecified N89.9 [place], [place] [id number] and Candidiasis of vulva and vagina B37.3 [facility] 103 November, Unspecified ovarian cyst, O[facility] left side N83.202 ; Other [place] [id number] specified noninflammatory disorders of vagina N89.8 ; Unspecified ovarian cyst, right side N83.201 and Encounter for routine checking of intrauterine contraceptive device Z30.431 [facility] 103 November, Unspecified ovarian cyst, O[facility] left side N83.202 and [place], [place] [id number] Encounter for routine checking of intrauterine contraceptive device Z30.431 [facility] 103 Oct, [place] [id number] [facility] 103 Oct, [place] [id number] [facility] 103 Sep, [place] [id number] [facility] 103 Sep, [place] [id number] [facility] 103 26 Sep, 2017 Anogenital (venereal ) warts [facility] A63.0 ; Subacute and [place] [id number] chronic vaginitis N76.1 ; Tobacco use Z72.0 ; Encounter for routine checking of intrauterine contraceptive device Z30.431 ; Other ovarian cyst, left side N83.292 and Encounter for screening for infections with a predominantly sexual mode of transmission Z11.3 [facility] 103 16 Sep, 2017 [place]BG[place] [id number] [facility] 103 15 Sep, 2017 [place]BG[place] [id number] [facility] 103 15 Sep, 2017 Viral wart, unspecified [facility] B07.9 [place] [id number] [facility] 103 15 Sep, 2017 Pelvic and perineal pain [facility] R10.2 ; Deep dyspareunia [place] [id number] N94.12 and Encounter for routine checking of intrauterine contraceptive device Z30.431 [facility] 103 14 Sep, 2017 [place] [id number] [facility] 103 14 Sep, 2017 Subacute and chronic [facility] vaginitis N76.1 ; Pelvic [place] [id number] and perineal pain R10.2 and Deep dyspareunia N94.12 [facility] 103 Sep, [place] [id number] [facility] 103 Sep, [place] [id number] [facility] 103 Jan, [place] [id number] [facility] 103 Jan, [place] [id number] [facility] 103 Jan, Pelvic and perineal pain [facility] R10.2 ; Other specified [place] [id number] noninflammatory disorders of vagina N89.8 and Anogenital (venereal) warts A63.0 [facility] 07 Dec, 2016 Encounter for [facility]ological [facility] examination (general) [place], [place] [id number] (routine) without abnormal findings Z01.419 ; Encounter for screening for malignant neoplasm of cervix Z12.4 ; Encounter for screening for infections with a predominantly sexual mode of transmission Z11.3 ; Nicotine dependence, unspecified, uncomplicated F17.200 and Subacute and chronic vaginitis N76.1 [facility] Oct, [place] [id number] [facility] 103 Oct, Female pelvic inflammatory [facility] disease, unspecified N73.9 [place] [id number] ; Postcoital and contact bleeding N93.0 ; Pelvic and perineal pain R10.2 and Other specified noninflammatory disorders of vagina N89.8 [facility] 103 Oct, [place] [id number] [facility] 103 Oct, Female pelvic inflammatory [facility] disease, unspecified N73.9 [place] [id number] ; Postcoital and contact bleeding N93.0 and Pelvic and perineal pain R10.2 [facility] 103 Oct, [place] [id number] [facility] 103 Oct, Female pelvic inflammatory [facility] disease, unspecified N73.9 [place], [place] [id number] ; Postcoital and contact bleeding N93.0 and Pelvic and perineal pain R10.2 [facility] 103 Oct, Unspecified dyspareunia [facility] N94.10 [place], [place] [id number] [facility] 103 Oct, Unspecified dyspareunia [facility] N94.10 ; Female pelvic [place], [place] [id number] inflammatory disease, unspecified N73.9 ; 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 and Postcoital and contact bleeding N93.0 [facility] 103 Sep, [place] [id number] [facility] 103 Aug, Other specified [facility] noninflammatory disorders [place], [place] [id number] of vagina N89.8 [facility] 103 Aug, Other specified [facility] noninflammatory disorders [place], [place] [id number] of vagina N89.8 [facility] 103 May, Acute vaginitis N76.0 [place] [id number] [facility] 103 Apr, Other specified [facility] noninflammatory disorders [place], [place] [id number] of vagina N89.8 and Encounter for screening for infections with a predominantly sexual mode of transmission Z11.3 [facility] 103 Mar, [place] [id number] [facility] Mar, Other chlamydial infection [facility] of lower genitourinary [place], [place] [id number] tract A56.09 ; Inflammatory disease of uterus, unspecified N71.9 ; Irregular menstruation, unspecified N92.6 and Other specified noninflammatory disorders of vagina N89.8 [facility] 103 Feb, [place] [id number] [facility] Feb, Other chlamydial infection [facility] [address] [place], of lower genitourinary [place] [id number] tract A56.09 and Inflammatory disease of uterus, unspecified N71.9 [facility] 103 Feb, [place], [place] [id number] [facility] 103 Feb, [place], [place] [id number] [facility] 103 Feb, Chlamydial infection of [facility] lower genitourinary tract, [place], [place] [id number] unspecified A56.00 [facility] 103 Feb, Other specified [facility] noninflammatory disorders [place], [place] [id number] of vagina N89.8 and Acute vaginitis N76.0 [facility] 103 Dec, Encounter for gynecological [facility] examination (general) [place], [place] [id number] (routine) without abnormal findings Z01.419 ; Excessive and frequent menstruation with irregular cycle N92.1 ; Personal history of transient ischemic attack (TIA), and cerebral infarction without residual deficits Z86.73 ; 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 and Family history of malignant neoplasm of digestive organs Z80.0 [facility] 103 November, [place], [place] [id number] [facility] 103 November, Other specified [facility] noninflammatory disorders [place], [place] [id number] of vagina N89.8 and Encounter for screening for infections with a predominantly sexual mode of transmission Z11.3 [facility] Jul, Excessive and frequent [facility] menstruation with irregular [place], [place] [id number] cycle N92.1 ; Personal history of transient ischemic attack (TIA), and cerebral infarction without residual deficits Z86.73 and 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 [facility] 103 Jul, [place], [place] [id number] [facility] 103 Jul, Excessive and frequent [facility] menstruation with irregular [place], [place] [id number] cycle N92.1 and Personal history of transient ischemic attack (TIA), and cerebral infarction without residual deficits Z86.73 [facility] 103 Apr, [place] [id number] [facility] 103 Apr, Excessive and frequent [facility] menstruation with irregular [place], [place] [id number] cycle N92.1 and Personal history of transient ischemic attack (TIA), and cerebral infarction without residual deficits Z86.73 [facility] 103 Mar, Menometrorrhagia 626.2 OBGYN [place] [id number] [facility] [address] [place], [place], [facility] [id number] [facility] 103 Mar, Menometrorrhagia 626.2 [place], [place] [id number] [facility] 103 Jan, VULVAR LESION 624.9 [facility] 078.10 [place] [id number] [facility] 103 Jan, [place] [id number] [facility] 103 Dec, [place] [id number] [facility] 103 Dec, [place] [id number] [facility] 103 Dec, [place] [id number] [facility] 103 Dec, VULVAR LESION 624.9 ; [facility] Condyloma 078.10 and [place], [place] [id number] CONTRACEPTIVE MANGMT NOS V25.9 [facility] 103 Dec, Vaginitis 616.10 [place] [id number] [facility] 103 Dec, [place] [id number] [facility] 103 November, Menometrorrhagia 626.2 ; [facility] Herpes simplex [place], [place] [id number] vulvovaginitis 054.11 and VULVAR LESION 624.9 [facility] 103 November, Vaginitis 616.10 [place]BG[place] [id number] [facility] 103 November, STD Screen V74.5 and [facility] VAGINAL DISCHARGE 623.5 [place] [id number] [facility] 103 Oct, Menometrorrhagia 626.2 ; O[facility] Body Mass Index 40.0-44.9, [place], [place] [id number] adult V85.41 and Ovarian cyst NOS 620.2 [facility] 103 Oct, Ovarian cyst NOS 620.2 [place] [id number] [facility] 103 Oct, [place] [id number] [facility] 103 Sep, Herpes infection NOS 054.9 [place], [place] [id number] [facility] 103 Sep, [place] [id number] [facility] 103 Sep, [place] [id number] [facility] 103 Sep, [place], [place] [id number] [facility] 103 Sep, Menometrorrhagia 626.2 and [facility] Body Mass Index 40.0-44.9, [place] [id number] adult V85.41 [facility] 103 Aug, Metrorrhagia 626.6 and [facility]BGYN [facility] VULVAR LESION 624.9 [place], [place] [id number] [facility] 103 Aug, [place] [id number] [facility] 103 Aug, Metrorrhagia 626.6 and [facility] Vaginitis 616.10 [place], [place] [id number] [facility] 103 Aug, Metrorrhagia 626.6 and [facility] Ovarian cyst NOS 620.2 [place], [place] [id number] [facility] 103 Aug, [place] [id number] [facility] 103 Aug, [place] [id number] [facility] 103 Jul, [place] [id number] [facility] 103 Jul, Metrorrhagia 626.6 [place] [id number] [facility] 103 Jul, Metrorrhagia 626.6 [place] [id number] [facility] 103 Jun, Acute vulvovaginitis 616.10 [place] [id number] [facility] 103 Jun, [place] [id number] [facility] 103 May, STD Screen V74.5 ; [facility] V25.09 ; [place] [id number] Metrorrhagia 626.6 and Ovarian cyst NOS 620.2 IMMUNIZATIONS No Known Immunizations SOCIAL HISTORY Never Assessed REASON FOR REFERRAL FUNCTIONAL STATUS PLAN OF CARE VITAL SIGNS MEDICATIONS Unknown Medications PROCEDURES No Known procedures RESULTS No Results REASON FOR VISIT New Refill Request Insurance Providers [facility] Patient Patient Patient Patient Patient Subscriber Subscriber Subscriber Group Insurance Plan Plan Plan Plan ID Relationship Address Phone Name Date of ID Name Date of No Type Insurance Insurance Insurance Coverage to Subscriber Address Phone Name Dates Drake [phone] Drake self [place] [id number] [address] [address] MEDICAL (GENERAL) HISTORY Type Description Date Medical History Possible stroke on BC Medical History vulvar colpo- verracoid keratosis Medical History Condyloma Medical History Female pelvic inflammatory disease, unspecified Surgical History 01/19/06 Surgical History 02/21/07 Surgical History 11/05/12 Surgical History etop 11/12/14 Surgical History hysteroscopy, D&C 04/14/15 Hospitalization History Childbirth Hospitalization History Childbirth Hospitalization History see above
[2018-05-14 16:11] VITALS: BP 113/58
--- NOTE | 2018-05-14 16:32 | ED ---
Throat Pain/Nasal Congestion - HPI Summary HPI Summary: 32 yr old female with the complaint of bilateral maxillary sinus pain, post nasal drip, coughing, and bilateral crusty eye drainage/ irritation. No fever. She has been exposed to someone with pink eye. - History of Current Complaint Chief Complaint: UCRespiratory Time Seen by Provider: 05/14/18 16:18 - Allergies/Home Medications Allergies/Adverse Reactions: Allergies Allergy/AdvReac Type Severity Reaction Status Date / Time codeine Allergy Rash Verified 05/14/18 16:06 Tattoo color Allergy Blisters Uncoded 05/14/18 16:06 PMH/Surg Hx/FS Hx/Imm Hx Endocrine/Hematology History: Denies: Hx Diabetes Cardiovascular History: Denies: Hx Congestive Heart Failure, Hx Deep Vein Thrombosis, Hx Hypertension , Hx Myocardial Infarction, Hx Pacemaker/ICD Respiratory History: Reports: Hx Asthma Denies: Hx Chronic Obstructive Pulmonary Disease (COPD), Hx Lung Cancer GI History: Denies: Hx Gall Bladder Disease, Hx Gastrointestinal Bleed, Hx Ulcer, Hx Urosepsis History: Denies: Hx Dialysis, Hx Kidney Stones, Hx Renal Disease Sensory History: Reports: Hx Hearing Aid Neurological History: Denies: Hx Seizures Psychiatric History: Denies: Hx Anxiety, Hx Depression, Hx Panic Disorder, Hx Schizophrenia, Hx Bipolar Disorder - Surgical History Surgery Procedure, Year, and Place: C Sections,2006 2007 2012. COLPOSCOPY- CERVICAL Infectious Disease History: No Infectious Disease History: Denies: Hx Clostridium Difficile, Hx Hepatitis, Hx Human Immunodeficiency Virus (HIV), Hx of Known/Suspected MRSA, Hx Shingles, Hx Tuberculosis, Hx Known/ Suspected VRE, Hx Known/Suspected VRSA, History Other Infectious Disease, Traveled Outside the [place] in Last 30 Days - Family History Known Family History: Positive: Unknown, Cardiac Disease - MATERNAL GRANDFATHER , Hypertension, Diabetes, Renal Disease - MOTHER KIDNEY STONES Family History: Asthma - Social History Alcohol Use: Occasionally Substance Use Type: Reports: None Hx Tobacco Use: Yes Smoking Status (MU): Light Every Day Tobacco Smoker Type: Cigarettes Amount Used/How Often: 4 CIGS/DAY Length of Time of Smoking/Using Tobacco: since 18 y/o Have You Smoked in the Last Year: Yes Review of Systems Constitutional: Negative Positive: Drainage Positive: Nasal Discharge Positive: Cough All Other Systems Reviewed And Are Negative: Yes Physical Exam Triage Information Reviewed: Yes Vital Signs On Initial Exam: Initial Vitals Temp Pulse Resp BP Pulse Ox 97.1 F 70 16 113/58 98 05/14/18 16:07 05/14/18 16:07 05/14/18 16:07 05/14/18 16:07 05/14/18 16:07 Vital Signs Reviewed: Yes Appearance: Positive: Well-Appearing, No Pain Distress Skin: Positive: Warm, Skin Color Reflects Adequate Perfusion Head/Face: Positive: Normal Head/Face Inspection Eyes: Positive: EOMI, RAHEEM, Conjunctiva Inflammed ENT: Positive: Pharyngeal erythema, Nasal congestion, Nasal drainage, TMs normal , Sinus tenderness Neck: Positive: Nontender Respiratory/Lung Sounds: Positive: Clear to Auscultation, Breath Sounds Present Cardiovascular: Positive: RRR. Negative: Murmur Abdomen Description: Positive: Nontender Musculoskeletal: Positive: Strength/ROM Intact Neurological: Positive: Sensory/Motor Intact, Alert, Oriented to Person Place, Time, CN Intact II-III Psychiatric: Positive: Normal - [place] Coma Scale Best Eye Response: 4 - Spontaneous Best Motor Response: 6 - Obeys Commands Best Verbal Response: 5 - Oriented Coma Scale Total: 15 Diagnostics - Vital Signs Vital Signs Temp Pulse Resp BP Pulse Ox 05/14/18 16:07 97.1 F 70 16 113/58 98 - Laboratory Lab Statement: Any lab studies that have been ordered have been reviewed, and results considered in the medical decision making process. EENT Course/Dx - Course Course Of Treatment: 32 yr old with sinusitis. Conjunctivitis. Rx cefdinir, and sulfa eye drops. - Diagnoses Provider Diagnoses: Conjunctivitis, Sinusitis Discharge - Sign-Out/Discharge Documenting (check all that apply): Patient Departure All imaging exams completed and their final reports reviewed: No Studies - Discharge Plan Condition: Good Disposition: HOME Prescriptions: Cefdinir cap (NF) [Cefdinir 300 MG cap (NF)] 300 mg PO BID #20 cap Sulfacetamide 10 % OPTH.PETRA* [Sulamyd 10% Opth*] 1 drop BOTH EYES Q4H #1 btl Patient Education Materials: Sinusitis (ED), Conjunctivitis (ED) Referrals: Calderon Michel MD [Primary Care Provider] - 2 Days - Billing Disposition and Condition Condition: GOOD Disposition: Home
== END 2018-05-14 16:36 | disposition home or self-care (01) ==
LOC: UCCORT 15:02
DX: H10.89 Other conjunctivitis (principal); J32.9 Chronic sinusitis, unspecified; Z88.6 Allergy status to analgesic agent; F17.210 Nicotine dependence, cigarettes, uncomplicated
CPT/HCPCS: 99212; G0463

== ENCOUNTER 2018-06-20 16:08 | Emergency (ER) | payer OTHER ==
--- OUTSIDE RECORDS SUMMARY | 2018-06-20 16:51 | XMS REPORT ---
:1985 Author Organization [facility] Address [address] [place] [address] Care Team Providers Name Role Phone Ketty Corral Unavailable Unavailable PROBLEMS Type Condition ICD9-CM [id number] Onset Condition SNOMED Code Code Code Dates Status Problem Pelvic and R10.2 Active 034429798 perineal pain Problem Tobacco use Z72.0 Active 434187632 Problem Viral wart, B07.9 Active 01359431 unspecified Problem Acute vaginitis N76.0 Active 91125663 Problem Tobacco abuse Z71.6 Active 977528850 counseling Problem Unspecified N83.201 Active 83001238976778499 ovarian cyst, right side Problem Encounter for Z30.431 Active 544596201 routine checking of intrauterine contraceptive device Problem Unspecified N83.202 Active 16502745757510777 ovarian cyst, left side Problem Other specified N89.8 Active 40860083 noninflammatory disorders of vagina Problem 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 68852901 vulvovaginitis Problem Subacute and N76.1 Active 237640610 chronic vaginitis Problem Nicotine F17.200 Active 379567016 dependence, unspecified, uncomplicated Problem Personal history Z86.73 Active 264511162 of transient ischemic attack (TIA), and cerebral infarction without residual deficits Problem 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 418559329 (venereal) warts Problem Family history of Z80.0 Active 264571010 malignant neoplasm of digestive organs Problem Deep dyspareunia N94.12 Active 492493195 ALLERGIES Substance Reaction Event Type Date Status codeine anaphylaxis Drug Allergy May, Active ENCOUNTERS Encounter Location Date Diagnosis [facility] Aug, [place] [id number] [facility] May, Encounter for removal of OBG[facility] intrauterine contraceptive [place] [id number] device Z30.432 [facility] May, [place] [id number] [facility] May, [facility] and [facility] vaginitis N76.1 and [place], [place] [id number] Nicotine dependence, unspecified, uncomplicated F17.200 [facility] Mar, [place] [id number] [facility] Mar, [place] [id number] [facility] Feb, [place] [id number] [facility] Feb, [place] [id number] [facility] Feb, Subacute and chronic [facility] vaginitis N76.1 ; Pelvic [place] [id number] and perineal pain R10.2 ; Acute nasopharyngitis [common cold] J00 and Encounter for other general counseling and advice on contraception Z30.09 [facility] Feb, Encounter for routine [facility]BG[facility] checking of intrauterine [place], [place] [id number] contraceptive device Z30.431 and Pelvic and perineal pain R10.2 [facility] Feb, Noninflammatory disorder of [facility] vagina, unspecified N89.9 [place] [id number] and Candidiasis of vulva and vagina B37.3 [facility] Feb, [place] [id number] [facility] Feb, [facility] [place], [place] [id number] (routine) with abnormal findings Z01.411 ; Encounter for routine checking of intrauterine contraceptive device Z30.431 ; Encounter for screening for infections with a predominantly sexual mode of transmission Z11.3 ; Noninflammatory disorder of vagina, unspecified N89.9 and Tobacco abuse counseling Z71.6 [facility] Jan, [place]BG[place] [id number] [address] Jan, Acute vaginitis N76.0 [facility] [address] [place], [place] [id number] [facility] Jan, Unspecified ovarian cyst, O[facility] right side N83.201 [place] [id number] [facility] Jan, [facility]specified ovarian cyst, [facility] N83.201 and [place], [place] [id number] Encounter for routine checking of intrauterine contraceptive device Z30.431 [facility] Jan, Unspecified ovarian cyst, O[facility] right side N83.201 [place] [id number] [facility] Jan, [place] [id number] [facility] November, Noninflammatory disorder of O[facility] vagina, unspecified N89.9 [place] [id number] and Candidiasis of vulva and vagina B37.3 [facility] November, Unspecified ovarian cyst, OBG[facility] left side N83.202 ; Other [place] [id number] specified noninflammatory disorders of vagina N89.8 ; Unspecified ovarian cyst, right side N83.201 and Encounter for routine checking of intrauterine contraceptive device Z30.431 [facility] November, Unspecified ovarian cyst, O[facility] left side N83.202 and [place], [place] [id number] Encounter for routine checking of intrauterine contraceptive device Z30.431 [facility] Oct, [place], [place] [id number] [facility] Oct, [place], [place] [id number] [facility] Sep, [place] [id number] [facility] Sep, [place] [id number] [facility] Sep, Anogenital (venereal ) warts [facility] A63.0 ; Subacute and [place] [id number] chronic vaginitis N76.1 ; Tobacco use Z72.0 ; Encounter for routine checking of intrauterine contraceptive device Z30.431 ; Other ovarian cyst, left side N83.292 and Encounter for screening for infections with a predominantly sexual mode of transmission Z11.3 [facility] 16 Sep, 2017 [place] [id number] [facility] 15 Sep, 2017 [place]BG[place], [place] [id number] [facility] 15 Sep, 2017 Viral wart, unspecified [facility] B07.9 [place] [id number] [facility] 15 Sep, 2017 Pelvic and perineal pain [facility] R10.2 ; Deep dyspareunia [place], [place] [id number] N94.12 and Encounter for routine checking of intrauterine contraceptive device Z30.431 [facility] 14 Sep, 2017 [place]BG[place] [id number] [facility] 14 Sep, 2017 Subacute and chronic OBG[facility] vaginitis N76.1 ; Pelvic [place], [place] [id number] and perineal pain R10.2 and Deep dyspareunia N94.12 [facility] Sep, [place] [id number] [facility] Sep, [place] [id number] [facility] Jan, [place] [id number] [facility] Jan, [place] [id number] [facility] Jan, Pelvic and perineal pain [facility] R10.2 ; Other specified [place], [place] [id number] noninflammatory disorders of vagina N89.8 and Anogenital (venereal) warts A63.0 [facility] Dec, Encounter [facility]ological [facility] examination (general) [place], [place] [id number] (routine) without abnormal findings Z01.419 ; Encounter for screening for malignant neoplasm of cervix Z12.4 ; Encounter for screening for infections with a predominantly sexual mode of transmission Z11.3 ; Nicotine dependence, unspecified, uncomplicated F17.200 and Subacute and chronic vaginitis N76.1 [facility] Oct, [place] [id number] [facility] Oct, Female pelvic inflammatory [facility] disease, unspecified N73.9 [place], [place] [id number] ; Postcoital and contact bleeding N93.0 ; Pelvic and perineal pain R10.2 and Other specified noninflammatory disorders of vagina N89.8 [facility] Oct, [place], [place] [id number] [facility] 11 Oct, 2016 Female pelvic inflammatory O[facility] disease, unspecified N73.9 [place] [id number] ; Postcoital and contact bleeding N93.0 and Pelvic and perineal pain R10.[address] [facility] Oct, [place] [id number] [facility] Oct, Female pelvic inflammatory [facility] disease, unspecified N73.9 [place], [place] [id number] ; Postcoital and contact bleeding N93.0 and Pelvic and perineal pain R10.[address] [facility] Oct, Unspecified dyspareunia OBG[facility] N94.10 [place] [id number] [facility] Oct, Unspecified dyspareunia [facility] N94.10 ; Female pelvic [place], [place] [id number] inflammatory disease, unspecified N73.9 ; 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 and Postcoital and contact bleeding N93.0 [facility] Sep, [place] [id number] [facility] Aug, Other specified [facility] noninflammatory disorders [place], [place] [id number] of vagina N89.8 [facility] Aug, Other specified [facility] noninflammatory disorders [place], [place] [id number] of vagina N89.8 [facility] May, Acute vaginitis N76.0 [place] [id number] [facility] Apr, Other specified [facility] noninflammatory disorders [place], [place] [id number] of vagina N89.8 and Encounter for screening for infections with a predominantly sexual mode of transmission Z11.3 [facility] Mar, [place] [id number] [facility] Mar, Other chlamydial infection [facility] of lower genitourinary [place], [place] [id number] tract A56.09 ; Inflammatory disease of uterus, unspecified N71.9 ; Irregular menstruation, unspecified N92.6 and Other specified noninflammatory disorders of vagina N89.8 [facility] Feb, [place] [id number] [facility] [place] [facility] [address] [place] [address] Feb, Other [address]lamydial infection [facility] [address] [place], of lower genitourinary [place] [id number] tract A56.09 and Inflammatory disease of uterus, unspecified N71.[address] [facility] Feb, [place] [id number] [facility] Feb, [place] [id number] [facility] Feb, Chlamydial infection of [facility] lower genitourinary tract, [place], [place] [id number] unspecified A56.[address] [facility] Feb, Other specified [facility] noninflammatory disorders [place], [place] [id number] of vagina N89.8 and Acute vaginitis N76.0 [facility] Dec, Encounter for gynecological [facility] examination (general) [place], [place] [id number] (routine) without abnormal findings Z01.419 ; Excessive and frequent menstruation with irregular cycle N92.1 ; Personal history of transient ischemic attack (TIA), and cerebral infarction without residual deficits Z86.73 ; 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 and Family history of malignant neoplasm of digestive organs Z80.0 [facility] November, [place] [id number] [facility] November, Other specified [facility] noninflammatory disorders [place], [place] [id number] of vagina N89.8 and Encounter for screening for infections with a predominantly sexual mode of transmission Z11.3 [facility] Jul, Excessive and frequent [facility] menstruation with irregular [place], [place] [id number] cycle N92.1 ; Personal history of transient ischemic attack (TIA), and cerebral infarction without residual deficits Z86.73 and 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 [facility] Jul, [place] [id number] [facility] Jul, Excessive and frequent [facility] menstruation with irregular [place], [place] [id number] cycle N92.1 and Personal history of transient ischemic attack (TIA), and cerebral infarction without residual deficits Z86.73 [facility] Apr, [place] [id number] [facility] Apr, Excessive and frequent [facility] menstruation with irregular [place], [place] [id number] cycle N92.1 and Personal history of transient ischemic attack (TIA), and cerebral infarction without residual deficits Z86.73 [facility] Mar, Menometrorrhagia 626.2 [place] [id number] [facility] [address] [facility] [place] [id number] [facility] Mar, Menometrorrhagia 626.2 [place] [id number] [facility] Jan, VULVAR LESION 624.9 and [facility] Condyloma 078.10 [place] [id number] [facility] Jan, [place] [id number] [facility] Dec, [place] [id number] [facility] Dec, [place] [id number] [facility] Dec, [place] [id number] [facility] Dec, VULVAR LESION 624.9 ; [facility] Condyloma 078.10 and [place], [place] [id number] CONTRACEPTIVE MANGMT NOS V25.9 [facility] Dec, Vaginitis 616.10 [place], [place] [id number] [facility] Dec, [place] [id number] [facility] November, Menometrorrhagia 626.2 ; O[facility]YN [facility] Herpes simplex [place], [place] [id number] vulvovaginitis 054.11 and VULVAR LESION 624.9 [facility] November, Vaginitis 616.10 [place], [place] [id number] [facility] November, STD Screen V74.5 and OBGYN [facility] VAGINAL DISCHARGE 623.5 [place] [id number] [facility] Oct, Menometrorrhagia 626.2 ; O[facility]YN [facility] Body Mass Index 40.0-44.9, [place], [place] [address] adult V85.41 and Ovarian cyst NOS 620.2 [facility] Oct, Ovarian cyst NOS 620.2 [place], [place] [id number] [facility] Oct, [place] [id number] [facility] Sep, Herpes infection NOS 054.9 [place] [id number] [facility] Sep, [place] [id number] [facility] Sep, [place] [id number] [facility] Sep, [place] [id number] [facility] Sep, Menometrorrhagia 626.2 and OBGYN [facility] Body Mass Index 40.0-44.9, [place], [place] [address] adult V85.41 [facility] Aug, Metrorrhagia 626.6 and OBGYN [facility] VULVAR LESION 624.9 [place], [place] [id number] [facility] Aug, [place] [id number] [facility] Aug, Metrorrhagia 626.6 and OBGYN [facility] Vaginitis 616.10 [place], [place] [id number] [facility] Aug, Metrorrhagia 626.6 and OBGYN [facility] Ovarian cyst NOS 620.2 [place], [place] [id number] [facility] Aug, [place] [id number] [facility] Aug, [place] [id number] [facility] Jul, [place] [id number] [facility] Jul, Metrorrhagia 626.6 [place] [id number] [facility] Jul, Metrorrhagia 626.6 [place] [id number] [facility] Jun, Acute vulvovaginitis 616.10 [place], [place] [id number] [facility] Jun, [place] [id number] [facility] May, STD Screen V74.5 ; FAMILY OBGYN [facility] PLANNING V25.09 ; [place], [place] [id number] Metrorrhagia 626.6 and Ovarian cyst NOS 620.2 IMMUNIZATIONS No Known Immunizations SOCIAL HISTORY Never Assessed REASON FOR REFERRAL FUNCTIONAL STATUS PLAN OF CARE Activity Details Follow Up Cancel surgery and post-op apt. Reason: VITAL SIGNS Height 61 in 2018-06-19 Weight 193 lbs 2018-06-19 BMI 36.46 kg/m2 2018-06-19 Blood pressure systolic 112 mm Hg 2018-06-19 Blood pressure diastolic 62 mm Hg 2018-06-19 MEDICATIONS Medication Instructions Dosage Frequency Start End Duration Status Date Date Paragard 68.7mg Active Copper lorazepam 0.5 mg orally 2 times a 1 tab(s) 12h Active day Wellbutrin XL orally every 24 1 tab(s) Active 300 mg/24 hours hours Chantix 1 mg orally 2 times a 1 tab(s) 12h Active day MetroGel-Vaginal intravaginally 1 appful 30 days Active 0.75% twice per week escitalopram 20 orally once a day 1 tab(s) 24h Active mg PROCEDURES Procedure Date Ordered Result Body Site IUD REMOVAL Jun 19, 2018 RESULTS No Results REASON FOR VISIT IUD Removal Insurance Providers [facility] Health Member Patient Patient Patient Patient Patient Subscriber Subscriber Subscriber Group Insurance Plan Plan Plan Plan ID Relationship Address Phone Name Date of ID Name Date of No Type Insurance Insurance Insurance Coverage to Subscriber Address Phone Name Dates Drake EDITA CHEATHAM [phone] Drake self [place] [id number] [place] [id number] [place] [id number] MEDICAL (GENERAL) HISTORY Type Description Date Medical History Possible stroke on BC- not verified Medical History vulvar colpo- verracoid keratosis Medical History Condyloma Medical History Female pelvic inflammatory disease, unspecified Surgical History 01/19/06 Surgical History 02/21/07 Surgical History 11/05/12 Surgical History etop 11/12/14 Surgical History hysteroscopy, D&C 04/14/15 Hospitalization History Childbirth Hospitalization History Childbirth Hospitalization History see above
--- OUTSIDE RECORDS SUMMARY | 2018-06-20 16:51 | XMS REPORT ---
:1985 Author Organization [facility] Address [address] [place] [address] Care Team Providers Name Role Phone Victorina Pool Unavailable Unavailable PROBLEMS Type Condition ICD9-CM UZL17-ON Onset Condition SNOMED Code Code Code Dates Status Problem Pelvic and R10.2 Active 664495547 perineal pain Problem Tobacco use Z72.0 Active 649139275 Problem Viral wart, B07.9 Active 17503122 unspecified Problem Acute vaginitis N76.0 Active 70351483 Problem Tobacco abuse Z71.6 Active 443067864 counseling Problem Unspecified N83.201 Active [id number] ovarian cyst, right side Problem Encounter for Z30.431 Active 264977772 routine checking of intrauterine contraceptive device Problem Unspecified N83.202 Active 45780576334509807 ovarian cyst, left side Problem Other specified N89.8 Active 17968901 noninflammatory disorders of vagina Problem 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 59854193 vulvovaginitis Problem Subacute and N76.1 Active 306667870 chronic vaginitis Problem Nicotine F17.200 Active 178830961 dependence, unspecified, uncomplicated Problem Personal history Z86.73 Active 529613178 of transient ischemic attack (TIA), and cerebral infarction without residual deficits Problem 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 764132453 (venereal) warts Problem Family history of Z80.0 Active 459356870 malignant neoplasm of digestive organs Problem Deep dyspareunia N94.12 Active 416178936 ALLERGIES No Information ENCOUNTERS Encounter Location Date Diagnosis [facility] Aug, [place] [id number] [place] [facility] May, [facility] [place] [id number] device Z30.432 [facility] May, [place]BG[place] [id number] [facility] May, [facility] vaginitis N76.1 and [place], [place] [id number] Nicotine dependence, unspecified, uncomplicated F17.200 [place] [facility] Mar, OBGYN [place], [place] [id number] [facility] Mar, [place] [id number] [place] [facility] Feb, [place] [id number] [facility] Feb, [place] [id number] [facility] Feb, [facility] vaginitis N76.1 ; Pelvic [place], [place] [id number] and perineal pain R10.2 ; Acute nasopharyngitis [common cold] J00 and Encounter for other general counseling and advice on contraception Z30.09 [place] [facility] Feb, [facility] checking of intrauterine [place], [place] [id number] contraceptive device Z30.431 and Pelvic and perineal pain R10.2 [place] [facility] Feb, [facility] vagina, unspecified N89.9 [place], [place] [id number] and Candidiasis of vulva and vagina B37.3 [place] [facility] Feb, [place] [id number] [facility] Feb, Encounter for gynecological OBGYN [facility] examination (general) [place], [place] [id number] (routine) with abnormal findings Z01.411 ; Encounter for routine checking of intrauterine contraceptive device Z30.431 ; Encounter for screening for infections with a predominantly sexual mode of transmission Z11.3 ; Noninflammatory disorder of vagina, unspecified N89.9 and Tobacco abuse counseling Z71.6 [facility] Jan, [place] [id number] [facility] Jan, Acute vaginitis N76.0 [facility] [address] [place] [id number] [facility] Jan, Unspecified ovarian cyst, OBGYN [facility] right side N83.201 [place], [place] [id number] [facility] Jan, Unspecified ovarian cyst, OBGYN [facility] right side N83.201 and [place], [place] [id number] Encounter for routine checking of intrauterine contraceptive device Z30.431 [facility] Jan, Unspecified ovarian cyst, OBGYN [facility] right side N83.201 [place], [place] [id number] [facility] Jan, OBG[place] [id number] [facility] November, Noninflammatory disorder of OBGYN [facility] vagina, unspecified N89.9 [place], [place] [id number] and Candidiasis of vulva and vagina B37.3 [place] [facility] November, Unspecified ovarian cyst, OBGYN [facility] left side N83.202 ; Other [place], [place] [id number] specified noninflammatory disorders of vagina N89.8 ; Unspecified ovarian cyst, right side N83.201 and Encounter for routine checking of intrauterine contraceptive device Z30.431 [facility] November, Unspecified ovarian cyst, OBGYN [facility] left side N83.202 and [place], [place] [id number] Encounter for routine checking of intrauterine contraceptive device Z30.431 [place] [facility] 103 Oct, [place] [id number] [facility] 103 Oct, [place]BG[place] [id number] [facility] 103 Sep, [place]BG[place] [id number] [facility] Sep, [place] [id number] [facility] 103 Sep, Anogenital (venereal ) warts [facility] A63.0 ; Subacute and [place], [place] [id number] chronic vaginitis N76.1 ; Tobacco use Z72.0 ; Encounter for routine checking of intrauterine contraceptive device Z30.431 ; Other ovarian cyst, left side N83.292 and Encounter for screening for infections with a predominantly sexual mode of transmission Z11.3 [facility] 16 Sep, 2017 [place]BGYN [place] [id number] [place] 103 15 Sep, 2017 OBGYN [place], [place] [id number] [facility] 15 Sep, 2017 Viral wart, unspecified OBN [facility] B07.9 [place] [id number] [place] [facility] 15 Sep, 2017 Pelvic and [facility]ineal pain [facility] R10.2 ; Deep dyspareunia [place], [place] [id number] N94.12 and Encounter for routine checking of intrauterine contraceptive device Z30.431 [place] [facility] 14 Sep, 2017 OBGYN [place] [id number] [facility] [facility] 14 Sep, 2017 Subacute and chronic OBGYN [facility] vaginitis N76.1 ; Pelvic [place], [place] [id number] and perineal pain R10.2 and Deep dyspareunia N94.12 [place] [facility] Sep, [place] [id number] [facility] Sep, [place] [id number] [facility] Jan, [place] [id number] [facility] Jan, [place] [id number] [facility] Jan, Pelvic and perineal pain [facility] R10.2 ; Other specified [place], [place] [id number] noninflammatory disorders of vagina N89.8 and Anogenital (venereal) warts A63.0 [facility] Dec, Encounter [facility] examination (general) [place], [place] [id number] (routine) without abnormal findings Z01.419 ; Encounter for screening for malignant neoplasm of cervix Z12.4 ; Encounter for screening for infections with a predominantly sexual mode of transmission Z11.3 ; Nicotine dependence, unspecified, uncomplicated F17.200 and Subacute and chronic vaginitis N76.1 [facility] Oct, [place] [id number] [facility] Oct, Female pelvic inflammatory OBN [facility] disease, unspecified N73.9 [place], [place] [id number] ; Postcoital and contact bleeding N93.0 ; Pelvic and perineal pain R10.2 and Other specified noninflammatory disorders of vagina N89.8 [facility] Oct, [place] [id number] [facility] Oct, Female pelvic inflammatory OBGYN [facility] disease, unspecified N73.9 [place], [place] [id number] ; Postcoital and contact bleeding N93.0 and Pelvic and perineal pain R10.2 [place] [facility] Oct, [place] [id number] [facility] [facility] Oct, Female pelvic inflammatory OBGYN [facility] disease, unspecified N73.9 [place], [place] [id number] ; Postcoital and contact bleeding N93.0 and Pelvic and perineal pain R10.2 [place] [facility] 103 Oct, Unspecified dyspareunia OBGYN [facility] N94.10 [place], [place] [id number] [place] [facility] Oct, Unspecified dyspareunia OBGYN [facility] N94.10 ; Female pelvic [place], [place] [id number] inflammatory disease, unspecified N73.9 ; 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 and Postcoital and contact bleeding N93.0 [facility] [facility] Sep, [place] [id number] [facility] [facility] Aug, Other [facility] noninflammatory disorders [place], [place] [id number] of vagina N89.8 [place] [facility] Aug, Other specified [facility] noninflammatory disorders [place], [place] [id number] of vagina N89.8 [place] [facility] May, Acute vaginitis N76.0 [place] [id number] [facility] [facility] Apr, Other specified [facility] noninflammatory disorders [place], [place] [id number] of vagina N89.8 and Encounter for screening for infections with a predominantly sexual mode of transmission Z11.3 [place] [facility] Mar, [place] [id number] [facility] Mar, Other chlamydial infection [facility] of lower genitourinary [place], [place] [id number] tract A56.09 ; Inflammatory disease of uterus, unspecified N71.9 ; Irregular menstruation, unspecified N92.6 and Other specified noninflammatory disorders of vagina N89.[address] [facility] Feb, [place] [id number] [facility] [address] [place] [address] Feb, Other chlamydial infection [facility] [address] [place], of lower genitourinary [place] [id number] tract A56.09 and Inflammatory disease of uterus, unspecified N71.[address] [facility] Feb, [place] [id number] [facility] Feb, [place], [place] [id number] [facility] Feb, Chlamydial infection of [facility] lower genitourinary tract, [place], [place] [id number] unspecified A56.00 [facility] Feb, Other specified [facility] noninflammatory disorders [place], [place] [id number] of vagina N89.8 and Acute vaginitis N76.0 [facility] Dec, Encounter for gynecological [facility] examination (general) [place], [place] [id number] (routine) without abnormal findings Z01.419 ; Excessive and frequent menstruation with irregular cycle N92.1 ; Personal history of transient ischemic attack (TIA), and cerebral infarction without residual deficits Z86.73 ; 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 and Family history of malignant neoplasm of digestive organs Z80.[address] [facility] November, [place] [id number] [facility] November, Other specified [facility] noninflammatory disorders [place], [place] [id number] of vagina N89.8 and Encounter for screening for infections with a predominantly sexual mode of transmission Z11.3 [place] [facility] Jul, Excessive and frequent [facility] menstruation with irregular [place], [place] [id number] cycle N92.1 ; Personal history of transient ischemic attack (TIA), and cerebral infarction without residual deficits Z86.73 and 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 [place] [facility] Jul, [place] [id number] [facility] Jul, Excessive and frequent [facility] menstruation with irregular [place], [place] [id number] cycle N92.1 and Personal history of transient ischemic attack (TIA), and cerebral infarction without residual deficits Z86.73 [facility] Apr, [place] [id number] [facility] Apr, Excessive and frequent [facility] menstruation with irregular [place], [place] [id number] cycle N92.1 and Personal history of transient ischemic attack (TIA), and cerebral infarction without residual deficits Z86.[address] [facility] Mar, Menometrorrhagia 626.2 [place] [id number] [facility] [address] [place] [place] [id number] [facility] Mar, Menometrorrhagia 626.2 [place] [id number] [facility] [facility] Jan, VULVAR LESION 624.9 and [facility] Condyloma 078.10 [place] [id number] [facility] Jan, [place], [place] [id number] [place] [facility] Dec, [place] [id number] [facility] [facility] Dec, [place] [id number] [facility] Dec, [place] [id number] [facility] 103 Dec, VULVAR LESION 624.9 ; OBGYN [facility] Condyloma 078.10 and [place], [place] [id number] CONTRACEPTIVE MANGMT NOS V25.9 [facility] Dec, Vaginitis 616.10 [place] [id number] [facility] Dec, [place] [id number] [facility] 103 November, Menometrorrhagia 626.2 ; [facility] Herpes simplex [place], [place] [id number] vulvovaginitis 054.11 and VULVAR LESION 624.9 [facility] November, Vaginitis 616.10 [place] [id number] [facility] November, STD Screen V74.5 and OBGYN [facility] VAGINAL DISCHARGE 623.5 [place], [place] [id number] [facility] Oct, Menometrorrhagia 626.2 ; OBGYN [facility] Body Mass Index 40.0-44.9, [place], [place] [address] adult V85.41 and Ovarian cyst NOS 620.2 [place] [facility] Oct, Ovarian cyst NOS 620.2 [place] [id number] [facility] Oct, [place] [id number] [facility] Sep, Herpes infection NOS 054.9 [place] [id number] [facility] Sep, [place] [id number] [facility] Sep, [place] [id number] [facility] Sep, [place] [id number] [facility] 103 Sep, Menometrorrhagia 626.2 and OBGYN [facility] Body Mass Index 40.0-44.9, [place], [place] [id number] adult V85.41 [facility] Aug, Metrorrhagia 626.6 and [facility] VULVAR LESION 624.9 [place], [place] [id number] [facility] Aug, [place] [id number] [facility] Aug, Metrorrhagia 626.6 and OBGYN [facility] Vaginitis 616.10 [place], [place] [id number] [facility] Aug, Metrorrhagia 626.6 and [facility] Ovarian cyst NOS 620.2 [place], [place] [id number] [facility] Aug, [place] [id number] [facility] Aug, [place] [id number] [facility] Jul, [place] [id number] [facility] Jul, Metrorrhagia 626.6 [place] [id number] [facility] Jul, Metrorrhagia 626.6 [place] [id number] [facility] Jun, Acute vulvovaginitis 616.10 [place] [id number] [facility] Jun, [place] [id number] [facility] 103 May, STD Screen V74.5 ; FAMILY OBGYN [facility] PLANNING V25.09 ; [place], [place] [id number] Metrorrhagia 626.6 and Ovarian cyst NOS 620.2 IMMUNIZATIONS No Known Immunizations SOCIAL HISTORY Never Assessed REASON FOR REFERRAL FUNCTIONAL STATUS PLAN OF CARE VITAL SIGNS MEDICATIONS Unknown Medications PROCEDURES No Known procedures RESULTS No Results REASON FOR VISIT sharla DAWN canceled Insurance Providers [facility] Member Patient Patient Patient Patient Patient Subscriber Subscriber Subscriber Group Insurance Plan Plan Plan Plan ID Relationship Address Phone Name Date of ID Name Date of No Type Insurance Insurance Insurance Coverage to Subscriber Address Phone Name Dates [place] [phone] [place] [id number] [address] [address] MEDICAL (GENERAL) HISTORY Type Description Date Medical [...]
[2018-06-20 16:52] VITALS: BP 141/79
--- OUTSIDE RECORDS SUMMARY | 2018-06-20 16:52 | XMS REPORT ---
:1985 Author Organization [facility] Address [address] [place] [address] Care Team Providers Name Role Phone Victorina Pool Unavailable Unavailable PROBLEMS Type Condition ICD9-CM UIL59-AF Onset Condition SNOMED Code Code Code Dates Status Problem Pelvic and R10.2 Active 120147816 perineal pain Problem Tobacco use Z72.0 Active 519066217 Problem Viral wart, B07.9 Active 00240850 unspecified Problem Acute vaginitis N76.0 Active 66801307 Problem Tobacco abuse Z71.6 Active 943178691 counseling Problem Unspecified N83.201 Active 97840099390876509 ovarian cyst, right side Problem Encounter for Z30.431 Active 825831145 routine checking of intrauterine contraceptive device Problem Unspecified N83.202 Active [id number] ovarian cyst, left side Problem Other specified N89.8 Active 25470348 noninflammatory disorders of vagina Problem 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 77107279 vulvovaginitis Problem Subacute and N76.1 Active 259137990 chronic vaginitis Problem Nicotine F17.200 Active 360728392 dependence, unspecified, uncomplicated Problem Personal history Z86.73 Active 905705638 of transient ischemic attack (TIA), and cerebral infarction without residual deficits Problem 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 332322241 (venereal) warts Problem Family history of Z80.0 Active 130287437 malignant neoplasm of digestive organs Problem Deep dyspareunia N94.12 Active 057638531 ALLERGIES No Information ENCOUNTERS Encounter Location Date Diagnosis [address] Jun, [facility] [address] [place], [place] [id number] [facility] [address] [place], Jun, [facility] [id number] [facility] May, [place] [id number] [facility] [facility] Mar, [place] [id number] [facility] Mar, [place] [id number] [facility] [facility] 103 Feb, [place] [id number] [facility] Feb, [place] [id number] [facility] Feb, Subacute and chronic [facility] vaginitis N76.1 ; Pelvic [place], [place] [id number] and perineal pain R10.2 ; Acute nasopharyngitis [common cold] J00 and Encounter for other general counseling and advice on contraception Z30.09 [facility] Feb, Encounter for routine [facility] checking of intrauterine [place], [place] [id number] contraceptive device Z30.431 and Pelvic and perineal pain R10.2 [place] [facility] Feb, Noninflammatory disorder of [facility] vagina, unspecified N89.9 [place] [id number] and Candidiasis of vulva and vagina B37.3 [facility] Feb, [place] [id number] [place] [facility] Feb, Encounter for gynecological [facility] examination (general) [place], [place] [id number] (routine) with abnormal findings Z01.411 ; Encounter for routine checking of intrauterine contraceptive device Z30.431 ; Encounter for screening for infections with a predominantly sexual mode of transmission Z11.3 ; Noninflammatory disorder of vagina, unspecified N89.9 and Tobacco abuse counseling Z71.6 [place] [facility] Jan, [place] [id number] [facility] Jan, Acute vaginitis N76.0 [facility] [address] [place] [id number] [facility] [facility] Jan, Unspecified ovarian cyst, OBGYN [facility] right side N83.201 [place], [place] [id number] [facility] Jan, Unspecified ovarian cyst, OBGYN [facility] right side N83.201 and [place], [place] [id number] Encounter for routine checking of intrauterine contraceptive device Z30.431 [facility] Jan, Unspecified ovarian cyst, OBGYN [facility] right side N83.201 [place], [place] [id number] [facility] Jan, [place] [id number] [facility] November, Noninflammatory disorder of OBGYN [facility] vagina, unspecified N89.9 [place] [id number] and Candidiasis of vulva and vagina B37.3 [facility] November, Unspecified ovarian cyst, OBGYN [facility] left side N83.202 ; Other [place], [place] [id number] specified noninflammatory disorders of vagina N89.8 ; Unspecified ovarian cyst, right side N83.201 and Encounter for routine checking of intrauterine contraceptive device Z30.431 [facility] November, Unspecified ovarian cyst, OBGYN [facility] left side N83.202 and [place], [place] [id number] Encounter for routine checking of intrauterine contraceptive device Z30.431 [facility] Oct, [place] [id number] [facility] 19 Oct, 2017 [place] [id number] [facility] [facility] Sep, [place] [id number] [place] [facility] Sep, [place] [id number] [place] [facility] 103 Sep, Anogenital (venereal ) warts OBGYN [facility] A63.0 ; Subacute and [place], [place] [id number] chronic vaginitis N76.1 ; Tobacco use Z72.0 ; Encounter for routine checking of intrauterine contraceptive device Z30.431 ; Other ovarian cyst, left side N83.292 and Encounter for screening for infections with a predominantly sexual mode of transmission Z11.3 [place] [facility] 16 Sep, 2017 [place] [id number] [facility] [facility] 103 15 Sep, 2017 [place] [id number] [place] [facility] 15 Sep, 2017 Viral wart, unspecified OBN [facility] B07.9 [place] [id number] [place] [facility] 15 Sep, 2017 [facility] R10.2 ; Deep dyspareunia [place], [place] [id number] N94.12 and Encounter for routine checking of intrauterine contraceptive device Z30.431 [place] [facility] 103 14 Sep, 2017 [place] [id number] [place] [facility] 14 Sep, 2017 Subacute and chronic OBN [facility] vaginitis N76.1 ; Pelvic [place], [place] [id number] and perineal pain R10.2 and Deep dyspareunia N94.12 [place] [facility] 103 12 Sep, 2017 [place] [id number] [place] [facility] Sep, [place] [id number] [place] [facility] Jan, [place] [id number] [facility] Jan, [place] [id number] [facility] Jan, Pelvic and perineal pain OBGYN [facility] R10.2 ; Other specified [place], [place] [id number] noninflammatory disorders of vagina N89.8 and Anogenital (venereal) warts A63.0 [facility] Dec, Encounter for gynecological OBN [facility] examination (general) [place], [place] [id number] (routine) without abnormal findings Z01.419 ; Encounter for screening for malignant neoplasm of cervix Z12.4 ; Encounter for screening for infections with a predominantly sexual mode of transmission Z11.3 ; Nicotine dependence, unspecified, uncomplicated F17.200 and Subacute and chronic vaginitis N76.1 [facility] Oct, [place] [id number] [facility] Oct, Female pelvic inflammatory OBN [facility] disease, unspecified N73.9 [place], [place] [id number] ; Postcoital and contact bleeding N93.0 ; Pelvic and perineal pain R10.2 and Other specified noninflammatory disorders of vagina N89.8 [facility] Oct, [place] [id number] [place] [facility] Oct, Female pelvic inflammatory OBGYN [facility] disease, unspecified N73.9 [place] [id number] ; Postcoital and contact bleeding N93.0 and Pelvic and perineal pain R10.2 [facility] Oct, [place] [id number] [facility] Oct, Female pelvic [facility] disease, unspecified N73.9 [place], [place] [id number] ; Postcoital and contact bleeding N93.0 and Pelvic and perineal pain R10.2 [facility] Oct, Unspecified dyspareunia [facility] N94.10 [place], [place] [id number] [facility] Oct, Unspecified dyspareunia [facility] N94.10 ; Female pelvic [place], [place] [id number] inflammatory disease, unspecified N73.9 ; 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 and Postcoital and contact bleeding N93.0 [facility] 103 Sep, [place] [id number] [facility] 103 Aug, Other specified [facility] noninflammatory disorders [place], [place] [id number] of vagina N89.8 [facility] Aug, Other specified [facility] noninflammatory disorders [place], [place] [id number] of vagina N89.8 [facility] May, Acute vaginitis N76.0 [place] [id number] [facility] Apr, Other specified [facility] noninflammatory disorders [place], [place] [id number] of vagina N89.8 and Encounter for screening for infections with a predominantly sexual mode of transmission Z11.3 [facility] Mar, [place] [id number] [facility] Mar, Other chlamydial infection [facility] of lower genitourinary [place], [place] [id number] tract A56.09 ; Inflammatory disease of uterus, unspecified N71.9 ; Irregular menstruation, unspecified N92.6 and Other specified noninflammatory disorders of vagina N89.8 [facility] Feb, [place] [id number] [place] [facility] [address] [place] [address] Feb, Other chlamydial infection [address] [place], of lower genitourinary [place] [id number] tract A56.09 and Inflammatory disease of uterus, unspecified N71.9 [facility] Feb, [place] [id number] [facility] Feb, [place] [id number] [facility] Feb, Chlamydial infection of [facility] lower genitourinary tract, [place], [place] [id number] unspecified A56.00 [facility] Feb, Other specified [facility] noninflammatory disorders [place], [place] [id number] of vagina N89.8 and Acute vaginitis N76.0 [facility] Dec, Encounter for gynecological [facility] examination (general) [place], [place] [id number] (routine) without abnormal findings Z01.419 ; Excessive and frequent menstruation with irregular cycle N92.1 ; Personal history of transient ischemic attack (TIA), and cerebral infarction without residual deficits Z86.73 ; 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 and Family history of malignant neoplasm of digestive organs Z80.0 [facility] November, [place] [id number] [facility] November, Other specified [facility] noninflammatory disorders [place], [place] [id number] of vagina N89.8 and Encounter for screening for infections with a predominantly sexual mode of transmission Z11.3 [facility] Jul, [facility] with irregular [place], [place] [id number] cycle N92.1 ; Personal history of transient ischemic attack (TIA), and cerebral infarction without residual deficits Z86.73 and 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 [place] [facility] Jul, [place] [id number] [place] [facility] Jul, Excessive and frequent [facility] menstruation with irregular [place], [place] [id number] cycle N92.1 and Personal history of transient ischemic attack (TIA), and cerebral infarction without residual deficits Z86.73 [place] [facility] Apr, [place] [id number] [place] [facility] 103 Apr, Excessive and frequent [facility] menstruation with irregular [place], [place] [id number] cycle N92.1 and Personal history of transient ischemic attack (TIA), and cerebral infarction without residual deficits Z86.73 [place] [facility] 103 Mar, Menometrorrhagia 626.2 [place] [id number] [facility] [address] [place], Mar, [facility] [id number] [place] [facility] 103 Mar, Menometrorrhagia 626.2 [place] [id number] [place] [facility] Jan, VULVAR LESION 624.9 and [facility] Condyloma 078.10 [place], [place] [id number] [place] [facility] Jan, [place] [id number] [place] [facility] Dec, [place] [id number] [facility] [facility] Dec, [place] [id number] [place] [facility] Dec, [place] [id number] [place] [facility] 103 Dec, VULVAR LESION 624.9 ; [facility] Condyloma 078.10 and [place], [place] [id number] CONTRACEPTIVE MANGMT NOS V25.9 [place] [facility] 103 Dec, Vaginitis 616.10 [place] [id number] [place] [facility] Dec, [place] [id number] [place] [facility] November, Menometrorrhagia 626.2 ; [facility] Herpes simplex [place] [id number] vulvovaginitis 054.11 and VULVAR LESION 624.9 [place] [facility] 103 November, Vaginitis 616.10 [place] [id number] [place] [facility] November, STD Screen V74.5 and [facility] VAGINAL DISCHARGE 623.5 [place], [place] [id number] [place] [facility] Oct, Menometrorrhagia 626.2 ; [facility] Body Mass Index 40.0-44.9, [place], [place] [id number] adult V85.41 and Ovarian cyst NOS 620.2 [place] [facility] 103 Oct, Ovarian cyst NOS 620.2 [place] [id number] [facility] [facility] 103 Oct, [place] [id number] [place] [facility] 103 Sep, Herpes infection NOS 054.9 [place] [id number] [place] [facility] Sep, [place] [id number] [place] [facility] 103 Sep, [place] [id number] [place] [facility] 103 Sep, [place] [id number] [place] [facility] 103 Sep, Menometrorrhagia 626.2 and OBGYN [facility] Body Mass Index 40.0-44.9, [place], [place] [id number] adult V85.41 [place] [facility] 103 Aug, Metrorrhagia 626.6 and OBGYN [facility] VULVAR LESION 624.9 [place], [place] [id number] [place] [facility] Aug, [place] [id number] [place] [facility] 103 Aug, Metrorrhagia 626.6 and OBGYN [facility] Vaginitis 616.10 [place], [place] [id number] [place] [facility] 103 Aug, Metrorrhagia 626.6 and OBGYN [facility] Ovarian cyst NOS 620.2 [place], [place] [id number] [place] [facility] Aug, [place] [id number] [place] [facility] 103 Aug, [place] [id number] [place] [facility] Jul, [place] [id number] [place] [facility] 103 Jul, Metrorrhagia 626.6 [place] [id number] [place] [facility] Jul, Metrorrhagia 626.6 [place] [id number] [place] [facility] 103 Jun, Acute vulvovaginitis 616.10 [place] [id number] [facility] 103 Jun, [place] [id number] [facility] 103 May, STD Screen V74.5 ; FAMILY OBGYN [facility] PLANNING V25.09 ; [place], [place] [id number] Metrorrhagia 626.6 and Ovarian cyst NOS 620.2 IMMUNIZATIONS No Known Immunizations SOCIAL HISTORY Never Assessed REASON FOR REFERRAL FUNCTIONAL STATUS PLAN OF CARE VITAL SIGNS MEDICATIONS Unknown Medications PROCEDURES No Known procedures RESULTS No Results REASON FOR VISIT tubal sterilization Insurance Providers [facility] Member Patient Patient Patient Patient Patient Subscriber Subscriber Subscriber Group Insurance Plan Plan Plan Plan ID Relationship Address Phone Name Date of ID Name Date of No Type Insurance Insurance Insurance Coverage to Subscriber Address Phone Name Dates Juan [phone] Juanarmando Palma [id number] [address] [address] MEDICAL (GENERAL) HISTORY Type Description Date Medical History Possible stroke on BC Medical History vulvar colpo- verracoid keratosis Medical History Condyloma Medical History Female pelvic inflammatory disease, unspecified Surgical History 01/19/06 Surgical History 02/21/07 Surgical History 11/05/12 Surgical History etop 11/12/14 Surgical History hysteroscopy, D&C 04/14/15 Hospitalization History Childbirth Hospitalization History Childbirth Hospitalization History see above
--- OUTSIDE RECORDS SUMMARY | 2018-06-20 16:52 | XMS REPORT ---
:1985 Author Organization [facility] Address [address] [place] [address] Care Team Providers Name Role Phone Ketty Corral Unavailable Unavailable PROBLEMS Type Condition ICD9-CM SEM82-NA Onset Condition SNOMED Code Code Code Dates Status Problem Pelvic and R10.2 Active 512672924 perineal pain Problem Tobacco use Z72.0 Active 212423040 Problem Viral wart, B07.9 Active 07794052 unspecified Problem Acute vaginitis N76.0 Active 61048762 Problem Tobacco abuse Z71.6 Active 155164945 counseling Problem Unspecified N83.201 Active 74411050936811938 ovarian cyst, right side Problem Encounter for Z30.431 Active 007760207 routine checking of intrauterine contraceptive device Problem Unspecified N83.202 Active 77971984103040463 ovarian cyst, left side Problem Other specified N89.8 Active 78241710 noninflammatory disorders of vagina Problem 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 00996539 vulvovaginitis Problem Subacute and N76.1 Active 906440891 chronic vaginitis Problem Nicotine F17.200 Active 040031725 dependence, unspecified, uncomplicated Problem Personal history Z86.73 Active 978473935 of transient ischemic attack (TIA), and cerebral infarction without residual deficits Problem 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 001617829 (venereal) warts Problem Family history of Z80.0 Active 501826982 malignant neoplasm of digestive organs Problem Deep dyspareunia N94.12 Active 351413809 ALLERGIES Substance Reaction Event Type Date Status codeine anaphylaxis Drug Allergy May, Active ENCOUNTERS Encounter Location Date Diagnosis [facility] Aug, [place] [id number] [facility] [facility], [facility] [address] [place] [id number] [facility] [address] [place] Jun, [facility] [id number] [facility] May, [place] [id number] [facility] May, [place] [id number] [facility] May, [facility] and [facility] vaginitis N76.1 and [place], [place] [id number] Nicotine dependence, unspecified, uncomplicated F17.200 [place] [facility] Mar, [place] [id number] [facility] Mar, [place] [id number] [facility] Feb, [place] [id number] [facility] Feb, [place] [id number] [facility] Feb, Subacute and chronic OBGYN [facility] vaginitis N76.1 ; Pelvic [place], [place] [id number] and perineal pain R10.2 ; Acute nasopharyngitis [common cold] J00 and Encounter for other general counseling and advice on contraception Z30.09 [place] [facility] Feb, Encounter for routine OBGYN [facility] checking of intrauterine [place], [place] [id number] contraceptive device Z30.431 and Pelvic and perineal pain R10.2 [place] [facility] Feb, Noninflammatory disorder of OBGYN [facility] vagina, unspecified N89.9 [place], [place] [id number] and Candidiasis of vulva and vagina B37.3 [place] [facility] Feb, [place] [id number] [place] [facility] Feb, Encounter for gynecological OBGYN [facility] examination (general) [place], [place] [id number] (routine) with abnormal findings Z01.411 ; Encounter for routine checking of intrauterine contraceptive device Z30.431 ; Encounter for screening for infections with a predominantly sexual mode of transmission Z11.3 ; Noninflammatory disorder of vagina, unspecified N89.9 and Tobacco abuse counseling Z71.6 [place] [facility] Jan, [place] [id number] [address] Jan, Acute vaginitis N76.[address] [facility] [address] [place], [place] [id number] [facility] Jan, Unspecified ovarian cyst, OBGYN [facility] right side N83.201 [place] [id number] [place] [facility] Jan, Unspecified ovarian cyst, OBGYN [facility] right side N83.201 and [place], [place] [id number] Encounter for routine checking of intrauterine contraceptive device Z30.431 [place] [facility] Jan, Unspecified ovarian cyst, OBGYN [facility] right side N83.201 [place] [id number] [place] [facility] Jan, [place] [id number] [place] [facility] November, Noninflammatory disorder of OBGYN [facility] vagina, unspecified N89.9 [place] [id number] and Candidiasis of vulva and vagina B37.3 [place] [facility] November, Unspecified ovarian cyst, OBGYN [facility] left side N83.202 ; Other [place] [id number] specified noninflammatory disorders of vagina N89.8 ; Unspecified ovarian cyst, right side N83.201 and Encounter for routine checking of intrauterine contraceptive device Z30.431 [place] [facility] November, Unspecified ovarian cyst, [facility] left side N83.202 and [place] [id number] Encounter for routine checking of intrauterine contraceptive device Z30.431 [place] [facility] Oct, [place] [id number] [place] [facility] Oct, [place] [id number] [place] [facility] Sep, [place] [id number] [place] [facility] Sep, [place] [id number] [place] [facility] Sep, Anogenital (venereal ) warts [facility] A63.0 ; Subacute and [place], [place] [id number] chronic vaginitis N76.1 ; Tobacco use Z72.0 ; Encounter for routine checking of intrauterine contraceptive device Z30.431 ; Other ovarian cyst, left side N83.292 and Encounter for screening for infections with a predominantly sexual mode of transmission Z11.3 [place] [facility] 16 Sep, 2017 [place] [id number] [place] [facility] Sep, [place] [id number] [place] [facility] Sep, Viral wart, unspecified [facility] B07.9 [place] [id number] [place] [facility] Sep, Pelvic and perineal pain [facility] R10.2 ; Deep dyspareunia [place], [place] [id number] N94.12 and Encounter for routine checking of intrauterine contraceptive device Z30.431 [place] [facility] 14 Sep, 2017 [place] [id number] [place] [facility] Sep, Subacute and chronic OBGYN [facility] vaginitis N76.1 ; Pelvic [place], [place] [id number] and perineal pain R10.2 and Deep dyspareunia N94.12 [place] [facility] Sep, [place] [id number] [place] [facility] Sep, [place] [id number] [place] [facility] Jan, [place] [id number] [place] [facility] Jan, [place] [id number] [place] [facility] Jan, Pelvic and perineal pain OBGYN [facility] R10.2 ; Other specified [place] [id number] noninflammatory disorders of vagina N89.8 and Anogenital (venereal) warts A63.0 [place] [facility] 07 Dec, 2016 Encounter for gynecological OBGYN [facility] examination (general) [place], [place] [id number] (routine) without abnormal findings Z01.419 ; Encounter for screening for malignant neoplasm of cervix Z12.4 ; Encounter for screening for infections with a predominantly sexual mode of transmission Z11.3 ; Nicotine dependence, unspecified, uncomplicated F17.200 and Subacute and chronic vaginitis N76.1 [place] [facility] Oct, [place] [id number] [place] [facility] Oct, Female pelvic inflammatory [facility] disease, unspecified N73.9 [place] [id number] ; Postcoital and contact bleeding N93.0 ; Pelvic and perineal pain R10.2 and Other specified noninflammatory disorders of vagina N89.8 [place] [facility] Oct, [place] [id number] [place] [facility] Oct, Female pelvic inflammatory OBGYN [facility] disease, unspecified N73.9 [place], [place] [id number] ; Postcoital and contact bleeding N93.0 and Pelvic and perineal pain R10.2 [place] [facility] Oct, [place] [id number] [place] [facility] Oct, Female pelvic inflammatory OBGYN [facility] disease, unspecified N73.9 [place], [place] [id number] ; Postcoital and contact bleeding N93.0 and Pelvic and perineal pain R10.2 [place] [facility] Oct, [facility] N94.10 [place] [id number] [place] [facility] Oct, Unspecified dyspareunia [facility] N94.10 ; Female pelvic [place], [place] [id number] inflammatory disease, unspecified N73.9 ; 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 and Postcoital and contact bleeding N93.0 [place] [facility] Sep, [place] [id number] [place] [facility] Aug, Other specified [facility] noninflammatory disorders [place], [place] [id number] of vagina N89.8 [place] [facility] Aug, Other specified [facility] noninflammatory disorders [place], [place] [id number] of vagina N89.8 [place] [facility] May, Acute vaginitis N76.0 [place] [id number] [place] [facility] Apr, Other specified [facility] noninflammatory disorders [place], [place] [id number] of vagina N89.8 and Encounter for screening for infections with a predominantly sexual mode of transmission Z11.3 [facility] Mar, [place], [place] [id number] [facility] Mar, Other chlamydial infection [facility] of lower genitourinary [place], [place] [id number] tract A56.09 ; Inflammatory disease of uterus, unspecified N71.9 ; Irregular menstruation, unspecified N92.6 and Other specified noninflammatory disorders of vagina N89.8 [facility] Feb, [place] [id number] [facility] [address] [place] [address] Feb, Other chlamydial infection [facility] [address] [place], of lower genitourinary [place] [id number] tract A56.09 and Inflammatory disease of uterus, unspecified N71.9 [facility] Feb, [place] [id number] [facility] Feb, [place], [place] [id number] [facility] Feb, Chlamydial infection of [facility] lower genitourinary tract, [place], [place] [id number] unspecified A56.00 [facility] Feb, Other specified [facility] noninflammatory disorders [place], [place] [id number] of vagina N89.8 and Acute vaginitis N76.0 [facility] Dec, Encounter for gynecological [facility] examination (general) [place], [place] [id number] (routine) without abnormal findings Z01.419 ; Excessive and frequent menstruation with irregular cycle N92.1 ; Personal history of transient ischemic attack (TIA), and cerebral infarction without residual deficits Z86.73 ; 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 and Family history of malignant neoplasm of digestive organs Z80.0 [facility] November, [place] [id number] [facility] November, Other specified [facility] noninflammatory disorders [place], [place] [id number] of vagina N89.8 and Encounter for screening for infections with a predominantly sexual mode of transmission Z11.3 [place] [facility] Jul, Excessive and frequent [facility] menstruation with irregular [place], [place] [id number] cycle N92.1 ; Personal history of transient ischemic attack (TIA), and cerebral infarction without residual deficits Z86.73 and 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 [place] [facility] Jul, [place] [id number] [facility] Jul, Excessive and frequent [facility] menstruation with irregular [place], [place] [id number] cycle N92.1 and Personal history of transient ischemic attack (TIA), and cerebral infarction without residual deficits Z86.73 [place] [facility] Apr, [place] [id number] [facility] Apr, Excessive and frequent [facility] menstruation with irregular [place], [place] [id number] cycle N92.1 and Personal history of transient ischemic attack (TIA), and cerebral infarction without residual deficits Z86.73 [place] [facility] Mar, Menometrorrhagia 626.2 OBN [place] [id number] [facility] [address] [place], Mar, Medical [facility] [id number] [place] [facility] 103 Mar, Menometrorrhagia 626.2 [place] [id number] [facility] Jan, VULVAR LESION 624.9 and [facility] Condyloma 078.10 [place] [id number] [place] [facility] Jan, [place] [id number] [place] [facility] Dec, [place] [id number] [place] [facility] Dec, [place] [id number] [place] [facility] Dec, [place] [id number] [place] [facility] 103 Dec, VULVAR LESION 624.9 ; [facility] Condyloma 078.10 and [place], [place] [id number] CONTRACEPTIVE MANGMT NOS V25.9 [place] [facility] Dec, Vaginitis 616.10 [place] [id number] [place] [facility] Dec, [place] [id number] [place] [facility] November, Menometrorrhagia 626.2 ; [facility] Herpes simplex [place], [place] [address] vulvovaginitis 054.11 and VULVAR LESION 624.9 [place] [facility] November, Vaginitis 616.10 [place] [id number] [place] [facility] November, STD Screen V74.5 and [facility] VAGINAL DISCHARGE 623.5 [place] [id number] [place] [facility] Oct, Menometrorrhagia 626.2 ; [facility] Body Mass Index 40.0-44.9, [place], [place] [id number] adult V85.41 and Ovarian cyst NOS 620.2 [place] [facility] Oct, Ovarian cyst NOS 620.2 [place] [id number] [place] [facility] Oct, [place] [id number] [place] [facility] Sep, Herpes infection NOS 054.9 [place] [id number] [place] [facility] Sep, [place] [id number] [place] [facility] Sep, [place] [id number] [place] [facility] Sep, [place] [id number] [place] [facility] Sep, Menometrorrhagia 626.2 and OBGYN [facility] Body Mass Index 40.0-44.9, [place] [id number] adult V85.41 [place] [facility] Aug, Metrorrhagia 626.6 and OBGYN [facility] VULVAR LESION 624.9 [place] [id number] [place] [facility] Aug, [place] [id number] [place] [facility] Aug, Metrorrhagia 626.6 and OBGYN [facility] Vaginitis 616.10 [place], [place] [id number] [place] [facility] Aug, Metrorrhagia 626.6 and [facility] Ovarian cyst NOS 620.2 [place] [id number] [place] [facility] 103 Aug[place] [id number] [place] [facility] Aug, [place] [id number] [place] [facility] Jul, [place] [id number] [facility] Jul, Metrorrhagia 626.6 [place] [id number] [facility] Jul, Metrorrhagia 626.6 [place] [id number] [place] [facility] Jun, Acute vulvovaginitis 616.10 [place] [id number] [facility] Jun, [place] [id number] [facility] May, STD Screen V74.5 ; FAMILY [facility] PLANNING V25.09 ; [place], [place] [id number] Metrorrhagia 626.6 and Ovarian cyst NOS 620.2 IMMUNIZATIONS No Known Immunizations SOCIAL HISTORY Never Assessed REASON FOR REFERRAL FUNCTIONAL STATUS PLAN OF CARE Activity Details Follow Up Schedule IUD removal, 3 month f/u to supression tx for BV Reason: Pending Test Leukorrhea Panel by [facility] {contains Deepti Gardnerella Trich CTNG} VITAL SIGNS Height 61 in 2018-06-18 Weight 193 lbs 2018-06-18 BMI 36.46 kg/m2 2018-06-18 Blood pressure systolic 116 mm Hg 2018-06-18 Blood pressure diastolic 66 mm Hg 2018-06-18 MEDICATIONS Medication Instructions Dosage Frequency Start End Duration Status Date Date lorazepam 0.5 mg orally 2 times a 1 tab(s) 12h Active day Paragard 68.7mg Active Copper Chantix 1 mg orally 2 times a 1 tab(s) 12h Active day Wellbutrin XL orally every 24 1 tab(s) Active 300 mg/24 hours hours escitalopram 20 orally once a day 1 tab(s) 24h Active mg MetroGel-Vaginal intravaginally 1 appful 30 days Active 0.75% twice per week PROCEDURES No Known procedures RESULTS No Results REASON FOR VISIT discharge Insurance Providers [facility] Member Patient Patient Patient Patient Patient Subscriber Subscriber Subscriber Group Insurance Plan Plan Plan Plan ID Relationship Address Phone Name Date of ID Name Date of No Type Insurance Insurance Insurance Coverage to Subscriber Address Phone Name Dates Drake CHEATHAM [phone] Drake Pal[place] [id number] [address] [address] MEDICAL (GENERAL) HISTORY Type Description Date Medical [...]
[2018-06-20] MEDS ORDERED: Ibuprofen TAB* 600 MG PO ONE (17:10)
--- NOTE | 2018-06-20 17:16 | UC ---
Back Pain HPI - HPI Summary HPI Summary: 32-year-old woman comes in with a chief complaint of splinting posterior lower chest pain. Pain is mostly in the mid thoracic region. It does spread across to bilaterally lower lung areas. No fevers or chills no cough. Started 2 days ago. It's worse with taking a deep breath is worse with twisting turning bending and when she pushes on it pain is also worse. No known trauma. No rash. No calf pain or swelling. Patient has no personal history of DVT. Patient's mother had a DVT. She is a smoker. She is not on any control pills. She's not short of breath. - History of Current Complaint Chief Complaint: UCBackPain Stated Complaint: LEFT SIDE OF BACK PAIN Time Seen by Provider: 06/20/18 16:59 Hx Last Menstrual Period: 06/04/18 Pain Intensity: 7 - Allergies/Home Medications Allergies/Adverse Reactions: Allergies Allergy/AdvReac Type Severity Reaction Status Date / Time codeine Allergy Rash Verified 06/20/18 16:52 Tattoo color Allergy Blisters Uncoded 06/20/18 16:52 Home Medications: Home Medications Acetaminophen [Tylenol Extra Strength] 1,000 mg PO DAILY 06/20/18 [History Confirmed 06/20/18] Ibuprofen TAB* [Motrin TAB* 600 MG] 600 mg PO Q8H PRN 06/20/18 [History Confirmed 06/20/18] hydrOXYzine HCL TAB* [Atarax 10 MG TAB*] 10 mg PO BID 06/20/18 [History Confirmed 06/20/18] PMH/Surg Hx/FS Hx/Imm Hx Previously Healthy: Yes - Surgical History Surgical History: Yes Surgery Procedure, Year, and Place: C Sections,2005 2007 2012. COLPOSCOPY- CERVICAL Other Surgical History: C-sections. - Family History Known Family History: Positive: Unknown, Cardiac Disease - MATERNAL GRANDFATHER , Hypertension, Diabetes, Renal Disease - MOTHER KIDNEY STONES, Blood Disorder - MOTHER DVT Family History: Asthma - Social History Alcohol Use: Occasionally Substance Use Type: None Smoking Status (MU): Light Every Day Tobacco Smoker Type: Cigarettes Amount Used/How Often: 4 CIGS/DAY Length of Time of Smoking/Using Tobacco: since 18 y/o Have You Smoked in the Last Year: Yes When Did the Patient Quit Smoking/Using Tobacco: 2 YRS AGO Household Exposure Type: Cigarettes - Immunization History Most Recent Influenza Vaccination: none Most Recent Tetanus Shot: UTD Vaccination Up to Date: Yes Review of Systems All Other Systems Reviewed And Are Negative: Yes Constitutional: Positive: Negative Skin: Positive: Negative Eyes: Positive: Negative ENT: Positive: Negative Respiratory: Positive: Negative Cardiovascular: Positive: Chest Pain - SEE HPI Gastrointestinal: Positive: Negative Genitourinary: Positive: Negative Motor: Positive: Negative Neurovascular: Positive: Negative Musculoskeletal: Positive: Negative Neurological: Positive: Negative Psychological: Positive: Negative Is Patient Immunocompromised?: No Physical Exam Triage Information Reviewed: Yes Appearance: Well-Appearing, Well-Nourished, Pain Distress - MILD Vital Signs: Initial Vital Signs Temp 97.6 F 06/20/18 16:49 Pulse 93 06/20/18 16:49 Resp 16 06/20/18 16:49 BP 141/79 06/20/18 16:49 Pulse Ox 98 06/20/18 16:49 Vital Signs Reviewed: Yes Eye Exam: Normal Eyes: Positive: Conjunctiva Clear Neck exam: Normal Neck: Positive: Supple Respiratory: Positive: Lungs clear, Normal breath sounds, No respiratory distress, Other: - Patient is tender to palpation lower thoracic midline and across the lower thoracic back in the lower ribs. Cardiovascular: Positive: RRR Abdomen Description: Negative: CVA Tenderness (R), CVA Tenderness (L) Musculoskeletal Exam: Normal Musculoskeletal: Positive: Strength Intact, ROM Intact Neurological Exam: Normal Neurological: Positive: Alert, Muscle Tone Normal Psychological Exam: Normal Psychological: Positive: Age Appropriate Behavior Skin Exam: Normal - NO RASH Back Pain Course/Dx - Course Course Of Treatment: Order Information: CHEST [facility] [place] [facility]. Accession Number: [id number]. CPT: 73148. HISTORY: SPLINTING POSTERIOR LOWER CHEST/THORACIC PAIN. COMPARISONS: September 11, 2016. VIEWS: 4: Frontal dual-energy and lateral views of the chest. FINDINGS: CARDIOMEDIASTINAL SILHOUETTE: The cardiomediastinal silhouette is normal. RADHA: The radha are normal. PLEURA: The costophrenic angles are sharp. No pleural abnormalities are noted. LUNG PARENCHYMA: The lungs are clear. ABDOMEN: The upper abdomen is clear. There is no subphrenic gas. BONES AND SOFT TISSUES: No bone or soft tissue abnormalities are noted. OTHER: None. IMPRESSION: NO ACTIVE CARDIOPULMONARY DISEASE. . < Electronically signed by Teddy Colorado MD in OV> 06/20/18 2572. Discussed the x-ray report with the patient. We also discussed the signs and symptoms of pulmonary embolus. Patient does not have any calf tenderness or calf swelling or calf pain. She is a smoker she is not on a control pill. She does have a family history of DVT and thrombosis. We discussed going to the emergency department for evaluation of her pain do include checking for blood clots and the patient declined at this time. The plan is to treat with ibuprofen and muscle relaxer and [place] as needed. And we discussed if she is not improving or if she gets worse or she feels short of breath she needs to the emergency department for further evaluation to include evaluation for the possibility of pulmonary embolus. - Differential Dx/Diagnosis Provider Diagnoses: THORACIC BACK PAIN. SPLINTING CHEST PAIN Discharge - Sign-Out/Discharge Documenting (check all that apply): Patient Departure All imaging exams completed and their final reports reviewed: Yes - Discharge Plan Condition: Stable Disposition: HOME Prescriptions: Cyclobenzaprine TAB* [Flexeril 10 MG TAB*] 10 mg PO TID PRN #15 tab MDD 3 PRN Reason: Pain HYDROcodone/ACETAMIN 5-325 MG* [[place] 5-325 TAB*] 1 tab PO Q4H PRN #20 tab MDD 6 PRN Reason: Pain Patient Education Materials: Chest Pain (ED), Thoracic Pain (ED), Back Pain (ED ) Referrals: [facility] [Outside] Additional Instructions: FOLLOW UP WITH YOUR DOCTOR IF NOT COMPLETELY IMPROVED. WE WERE UNABLE TO EVALUATE FOR A POSSIBLE BLOOD CLOT IN YOUR LUNGS (PULMONARY EMBOLIS). THE EMERGENCY DEPARTMENT CAN EVALUATE FOR PULMONARY EMBOLI. GO TO THE EMERGENCY DEPARTMENT FOR ANY WORSENING OF YOUR CONDITION; SHORTNESS OF BREATH, PAIN, YOU FEEL ILL OR QUESTIONS OR CONCERNS. - Billing Disposition and Condition Condition: STABLE Disposition: Home
== END 2018-06-20 18:08 | disposition home or self-care (01) ==
LOC: UCCORT 16:08
DX: R07.89 Other chest pain (principal); M54.6 Pain in thoracic spine; Z88.5 Allergy status to narcotic agent; Z91.09 Other allergy status, other than to drugs and biological substances; F17.210 Nicotine dependence, cigarettes, uncomplicated
CPT/HCPCS: 71046; 99212; A9270-GY; G0463

== ENCOUNTER 2018-07-16 16:48 | Emergency (ER) | payer OTHER ==
--- OUTSIDE RECORDS SUMMARY | 2018-07-16 17:16 | XMS REPORT ---
:1985 Author Organization [facility] Address [address] [place] [address] Care Team Providers Name Role Phone Victorina Pool Unavailable Unavailable PROBLEMS Type Condition ICD9-CM HUD04-IA Onset Condition SNOMED Code Code Code Dates Status Problem Pelvic and R10.2 Active 585743384 perineal pain Problem Tobacco use Z72.0 Active 827838088 Problem Viral wart, B07.9 Active 48632929 unspecified Problem Acute vaginitis N76.0 Active 38646406 Problem Tobacco abuse Z71.6 Active 733451481 counseling Problem Unspecified N83.201 Active 60324249560481255 ovarian cyst, right side Problem Encounter for Z30.431 Active 841254906 routine checking of intrauterine contraceptive device Problem Unspecified N83.202 Active 51864178003124065 ovarian cyst, left side Problem Other specified N89.8 Active 14276926 noninflammatory disorders of vagina Problem 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 36665273 vulvovaginitis Problem Subacute and N76.1 Active 169078123 chronic vaginitis Problem Nicotine F17.200 Active 337451371 dependence, unspecified, uncomplicated Problem Personal history Z86.73 Active 489856478 of transient ischemic attack (TIA), and cerebral infarction without residual deficits Problem 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 887358447 (venereal) warts Problem Family history of Z80.0 Active 122932009 malignant neoplasm of digestive organs Problem Deep dyspareunia N94.12 Active 819123227 ALLERGIES No Information ENCOUNTERS Encounter Location Date Diagnosis [facility] Aug, [place] [id number] [place] [facility] May, [place], [place] [id number] [place] [facility] May, Encounter for removal of OBGYN [facility] intrauterine contraceptive [place], [place] [id number] device Z30.432 [place] [facility] May, OBGYN [place] [id number] [place] [facility] May, [facility] vaginitis N76.1 and [place], [place] [id number] Nicotine dependence, unspecified, uncomplicated F17.200 [place] [facility] Mar, OBGYN [place], [place] [id number] [place] [facility] Mar, OBG[place], [place] [id number] [place] [facility] Feb, [place]BG[place], [place] [id number] [place] [facility] Feb, [place]BGYN [place], [place] [id number] [place] [facility] Feb, Subacute and chronic OBGYN [facility] vaginitis N76.1 ; Pelvic [place], [place] [id number] and perineal pain R10.2 ; Acute nasopharyngitis [common cold] J00 and Encounter for other general counseling and advice on contraception Z30.09 [place] [facility] Feb, Encounter for routine OBGYN [facility] checking of intrauterine [place], [place] [id number] contraceptive device Z30.431 and Pelvic and perineal pain R10.2 [place] [facility] Feb, Noninflammatory disorder of OBGYN [facility] vagina, unspecified N89.9 [place], [place] [id number] and Candidiasis of vulva and vagina B37.3 [facility] Feb, OBGYN [place] [id number] [place] [facility] Feb, Encounter for gynecological OBGYN [facility] examination (general) [place], [place] [id number] (routine) with abnormal findings Z01.411 ; Encounter for routine checking of intrauterine contraceptive device Z30.431 ; Encounter for screening for infections with a predominantly sexual mode of transmission Z11.3 ; Noninflammatory disorder of vagina, unspecified N89.9 and Tobacco abuse counseling Z71.6 [facility] Jan, OBGYN [place] [id number] [address] Jan, Acute vaginitis N76.0 [facility] [address] [place], [place] [id number] [facility] Jan, Unspecified ovarian cyst, OBGYN [facility] right side N83.201 [place] [id number] [facility] Jan, [facility]specified [facility], [facility] N83.201 and [place], [place] [id number] Encounter for routine checking of intrauterine contraceptive device Z30.431 [facility] Jan, Unspecified ovarian cyst, OBGYN [facility] right side N83.201 [place] [id number] [facility] Jan, O[place] [id number] [place] [facility] November, [facility], unspecified N89.9 [place], [place] [id number] and Candidiasis of vulva and vagina B37.3 [place] [facility] November, Unspecified ovarian cyst, OBGYN [facility] left side N83.202 ; Other [place], [place] [id number] specified noninflammatory disorders of vagina N89.8 ; Unspecified ovarian cyst, right side N83.201 and Encounter for routine checking of intrauterine contraceptive device Z30.431 [place] [facility] November, Unspecified ovarian cyst, [facility] left side N83.202 and [place] [id number] Encounter for routine checking of intrauterine contraceptive device Z30.431 [place] [facility] Oct, [place]BG[place] [id number] [place] [facility] Oct, [place], [place] [id number] [place] [facility] Sep, [place] [id number] [place] [facility] Sep, [place] [id number] [place] [facility] Sep, Anogenital (venereal ) warts [facility] A63.0 ; Subacute and [place], [place] [id number] chronic vaginitis N76.1 ; Tobacco use Z72.0 ; Encounter for routine checking of intrauterine contraceptive device Z30.431 ; Other ovarian cyst, left side N83.292 and Encounter for screening for infections with a predominantly sexual mode of transmission Z11.3 [place] [facility] 16 Sep, 2017 [place] [id number] [place] [facility] 15 Sep, 2017 [place]BG[place], [place] [id number] [place] [facility] 15 Sep, 2017 Viral wart, unspecified [facility] B07.9 [place], [place] [id number] [place] [facility] 15 Sep, 2017 Pelvic and perineal pain [facility] R10.2 ; Deep dyspareunia [place], [place] [id number] N94.12 and Encounter for routine checking of intrauterine contraceptive device Z30.431 [place] [facility] 14 Sep, 2017 OBG[place], [place] [id number] [place] [facility] 14 Sep, 2017 Subacute and chronic [facility] vaginitis N76.1 ; Pelvic [place], [place] [id number] and perineal pain R10.2 and Deep dyspareunia N94.12 [place] [facility] Sep, [place]BG[place] [id number] [place] [facility] Sep, [place], [place] [id number] [place] [facility] Jan, [place] [id number] [place] [facility] Jan, [place], [place] [id number] [place] [facility] Jan, Pelvic and perineal pain [facility] R10.2 ; Other specified [place], [place] [id number] noninflammatory disorders of vagina N89.8 and Anogenital (venereal) warts A63.0 [facility] 07 Dec, 2016 Encounter [facility]ological [facility] examination (general) [place], [place] [id number] (routine) without abnormal findings Z01.419 ; Encounter for screening for malignant neoplasm of cervix Z12.4 ; Encounter for screening for infections with a predominantly sexual mode of transmission Z11.3 ; Nicotine dependence, unspecified, uncomplicated F17.200 and Subacute and chronic vaginitis N76.1 [place] [facility] 28 Oct, 2016 OBGYN [place], [place] [id number] [place] [facility] Oct, Female pelvic inflammatory [facility] disease, unspecified N73.9 [place], [place] [id number] ; Postcoital and contact bleeding N93.0 ; Pelvic and perineal pain R10.2 and Other specified noninflammatory disorders of vagina N89.8 [facility] 11 Oct, 2016 OBG[place] [id number] [place] [facility] Oct, Female pelvic inflammatory OBGYN [facility] disease, unspecified N73.9 [place], [place] [id number] ; Postcoital and contact bleeding N93.0 and Pelvic and perineal pain R10.2 [place] [facility] Oct, OBG[place], [place] [id number] [place] [facility] Oct, Female pelvic inflammatory OBGYN [facility] disease, unspecified N73.9 [place], [place] [id number] ; Postcoital and contact bleeding N93.0 and Pelvic and perineal pain R10.2 [place] [facility] Oct, Unspecified dyspareunia [facility] N94.10 [place], [place] [id number] [place] [facility] Oct, Unspecified dyspareunia OBGYN [facility] N94.10 ; Female pelvic [place], [place] [id number] inflammatory disease, unspecified N73.9 ; 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 and Postcoital and contact bleeding N93.0 [place] [facility] Sep, OBG[place], [place] [id number] [place] [facility] Aug, Other specified [facility] noninflammatory disorders [place], [place] [id number] of vagina N89.8 [place] [facility] Aug, Other specified [facility] noninflammatory disorders [place], [place] [id number] of vagina N89.8 [place] [facility] May, Acute vaginitis N76.0 [place]BG[place] [id number] [place] [facility] Apr, Other specified [facility] noninflammatory disorders [place], [place] [id number] of vagina N89.8 and Encounter for screening for infections with a predominantly sexual mode of transmission Z11.3 [facility] Mar, [place] [id number] [facility] Mar, Other chlamydial infection [facility] of lower genitourinary [place], [place] [id number] tract A56.09 ; Inflammatory disease of uterus, unspecified N71.9 ; Irregular menstruation, unspecified N92.6 and Other specified noninflammatory disorders of vagina N89.8 [facility] Feb, [place] [place] [id number] [facility] Feb, Other chlamydial infection [facility] [address] [place], of lower [place]ourinary [place] [id number] tract A56.09 and Inflammatory disease of uterus, unspecified N71.9 [facility] Feb, [place] [id number] [facility] Feb, [place], [place] [id number] [facility] Feb, Chlamydial infection of [facility] lower genitourinary tract, [place], [place] [id number] unspecified A56.00 [facility] Feb, Other specified [facility] noninflammatory disorders [place], [place] [id number] of vagina N89.8 and Acute vaginitis N76.0 [facility] Dec, Encounter for gynecological [facility] examination (general) [place], [place] [id number] (routine) without abnormal findings Z01.419 ; Excessive and frequent menstruation with irregular cycle N92.1 ; Personal history of transient ischemic attack (TIA), and cerebral infarction without residual deficits Z86.73 ; 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 and Family history of malignant neoplasm of digestive organs Z80.0 [facility] November, [place] [id number] [facility] November, Other specified [facility] noninflammatory disorders [place], [place] [id number] of vagina N89.8 and Encounter for screening for infections with a predominantly sexual mode of transmission Z11.3 [facility] Jul, Excessive and frequent [facility] menstruation with irregular [place], [place] [id number] cycle N92.1 ; Personal history of transient ischemic attack (TIA), and cerebral infarction without residual deficits Z86.73 and 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 [place] [facility] Jul, [place], [place] [id number] [facility] Jul, Excessive and frequent [facility] menstruation with irregular [place], [place] [id number] cycle N92.1 and Personal history of transient ischemic attack (TIA), and cerebral infarction without residual deficits Z86.73 [facility] Apr, [place], [place] [id number] [facility] Apr, Excessive and frequent [facility] menstruation with irregular [place], [place] [id number] cycle N92.1 and Personal history of transient ischemic attack (TIA), and cerebral infarction without residual deficits Z86.73 [facility] Mar, Menometrorrhagia 626.2 [place], [place] [id number] [place] [facility] [address] [place] [place] [id number] [place] [facility] Mar, Menometrorrhagia 626.2 [place], [place] [id number] [place] [facility] Jan, VULVAR LESION 624.9 and [facility] Condyloma 078.10 [place], [place] [id number] [place] [facility] Jan, [place] [id number] [place] [facility] Dec, [place], [place] [id number] [place] [facility] Dec, [place], [place] [id number] [place] [facility] Dec, [place] [id number] [place] [facility] Dec, VULVAR LESION 624.9 ; [facility] Condyloma 078.10 and [place], [place] [id number] CONTRACEPTIVE MANGMT NOS V25.9 [place] [facility] Dec, Vaginitis 616.10 [place] [id number] [place] [facility] Dec, [place], [place] [id number] [place] [facility] November, Menometrorrhagia 626.2 ; OBGYN [facility] Herpes simplex [place], [place] [id number] vulvovaginitis 054.11 and VULVAR LESION 624.9 [place] [facility] November, Vaginitis 616.10 [place], [place] [id number] [place] [facility] November, STD Screen V74.5 and OBGYN [facility] VAGINAL DISCHARGE 623.5 [place], [place] [id number] [place] [facility] Oct, Menometrorrhagia 626.2 ; OBGYN [facility] Body Mass Index 40.0-44.9, [place], [place] [id number] adult V85.41 and Ovarian cyst NOS 620.2 [place] [facility] Oct, Ovarian cyst NOS 620.2 [place] [id number] [place] [facility] Oct, [place], [place] [id number] [place] [facility] Sep, Herpes infection NOS 054.9 [place] [id number] [place] [facility] Sep, [place] [id number] [place] [facility] Sep, [place] [id number] [place] [facility] Sep, [place] [id number] [place] [facility] Sep, Menometrorrhagia 626.2 and [facility] Body Mass Index 40.0-44.9, [place], [place] [id number] adult V85.41 [place] [facility] Aug, Metrorrhagia 626.6 and [facility] VULVAR LESION 624.9 [place], [place] [id number] [place] [facility] Aug, [place] [id number] [place] [facility] Aug, Metrorrhagia 626.6 and OBGYN [facility] Vaginitis 616.10 [place], [place] [id number] [place] [facility] Aug, Metrorrhagia 626.6 and [facility] Ovarian cyst NOS 620.2 [place], [place] [id number] [place] [facility] Aug, [place] [id number] [place] [facility] Aug, [place] [id number] [place] [facility] Jul, [place] [id number] [place] [facility] Jul, Metrorrhagia 626.6 [place] [id number] [place] [facility] Jul, Metrorrhagia 626.6 [place] [id number] [place] [facility] Jun, Acute vulvovaginitis 616.10 [place] [id number] [facility] Jun, O[place], [place] [id number] [facility] May, STD Screen V74.5 ; [facility]ILY [facility] V25.09 ; [place], [place] [id number] Metrorrhagia 626.6 and Ovarian cyst NOS 620.2 IMMUNIZATIONS No Known Immunizations SOCIAL HISTORY Never Assessed REASON FOR REFERRAL FUNCTIONAL STATUS PLAN OF CARE VITAL SIGNS MEDICATIONS Unknown Medications PROCEDURES No Known procedures RESULTS No Results REASON FOR VISIT Lab work Insurance Providers [facility] Member Patient Patient Patient Patient Patient Subscriber Subscriber Subscriber Group Insurance Plan Plan Plan Plan ID Relationship Address Phone Name Date of ID Name Date of No Type Insurance Insurance Insurance Coverage to Subscriber Address Phone Name Dates Drake [phone] Juan self [facility] [id number] [address] [address] MEDICAL (GENERAL) HISTORY Type Description Date Medical [...]
[2018-07-16 17:20] VITALS: BP 139/74
--- NOTE | 2018-07-16 17:23 | UC ---
Respiratory Complaint HPI - HPI Summary HPI Summary: 32 year old female with history of asthma presents with 4 day history of non- productive cough. Associated with nasal congestion, nasal discharge, sore throat , loss of voice, shortness of breath, and wheezing. She has been having to use her albuterol inhaler every 4-6 hours. Denies fever, chills, ear pain, chest pain, abdominal pain, nausea, or vomiting. - History of Current Complaint Chief Complaint: UCRespiratory Stated Complaint: ST,COUGH,WHEEZY Time Seen by Provider: 07/16/18 17:20 Hx Obtained From: Patient Hx Last Menstrual Period: 06/29/18 Pain Intensity: 4 - Allergies/Home Medications Allergies/Adverse Reactions: Allergies Allergy/AdvReac Type Severity Reaction Status Date / Time codeine Allergy Rash Verified 07/16/18 17:16 Tattoo color Allergy Blisters Uncoded 07/16/18 17:16 Home Medications: Home Medications Albuterol HFA INHALER* [Ventolin HFA Inhaler*] 1 puff Q4HR PRN 07/16/18 [ History Confirmed 07/16/18] PMH/Surg Hx/FS Hx/Imm Hx Previously Healthy: Yes Respiratory History: Asthma Psychological History: Anxiety, Depression - Surgical History Surgical History: Yes Surgery Procedure, Year, and Place: C Sections,2005 2006 2012. COLPOSCOPY- CERVICAL Other Surgical History: C-sections. - Family History Known Family History: Positive: Cardiac Disease - MATERNAL GRANDFATHER, Hypertension, Diabetes, Renal Disease - MOTHER KIDNEY STONES, Blood Disorder - MOTHER DVT Family History: Asthma - Social History Occupation: Employed Part-time Lives: Alone Alcohol Use: Occasionally Substance Use Type: None Smoking Status (MU): Light Every Day Tobacco Smoker Type: Cigarettes Amount Used/How Often: 4 CIGS/DAY Length of Time of Smoking/Using Tobacco: since 18 y/o Have You Smoked in the Last Year: Yes When Did the Patient Quit Smoking/Using Tobacco: 2 YRS AGO Household Exposure Type: Cigarettes - Immunization History Most Recent Influenza Vaccination: none Most Recent Tetanus Shot: UTD Vaccination Up to Date: Yes Review of Systems All Other Systems Reviewed And Are Negative: Yes Constitutional: Negative: Fever, Chills Eyes: Negative: Drainage, Eye Redness ENT: Positive: Sore Throat, Nasal Discharge, Sinus Congestion. Negative: Ear Ache, Sinus Pain/Tenderness Respiratory: Positive: Shortness Of Breath, Cough, Other - Wheezing Cardiovascular: Negative: Palpitations, Chest Pain Gastrointestinal: Negative: Abdominal Pain, Vomiting, Nausea Is Patient Immunocompromised?: No Physical Exam - Summary Physical Exam Summary: GENERAL APPEARANCE: Well developed, well nourished, alert and cooperative, and appears to be in no acute distress. EYES: Conjunctiva clear. No discharge. EARS: External auditory canals clear. Hearing grossly intact with bilateral hearing aids. Right TM opaque with good cone of light. Left TM with erythema. NOSE: Mild nasal congestion. THROAT: Mild pharyngeal erythema with cobblestoning. Tonsils 2+ without exudate. Uvula midline. NECK: Neck supple, non-tender without lymphadenopathy. CARDIAC: Normal S1 and S2. No S3, S4 or murmurs. Rhythm is regular. There is no peripheral edema, cyanosis or pallor. Extremities are warm and well perfused. Capillary refill is less than 2 seconds. LUNGS: Decreased bilateral breath sounds with diffuse bilateral wheezes. Bronchospastic cough. ABDOMEN: Positive bowel sounds. Soft, nondistended, nontender. No guarding or rebound. No masses or hepatosplenomegally. MUSKULOSKELETAL: ROM intact to all extremities. No joint erythema or tenderness. Normal muscular development. Normal gait. SKIN: Skin normal color, texture and turgor with no lesions or eruptions. Vital Signs: Initial Vital Signs Temp 97.6 F 07/16/18 17:18 Pulse 85 07/16/18 17:18 Resp 24 07/16/18 17:18 BP 139/74 07/16/18 17:18 Pulse Ox 99 07/16/18 17:18 Diagnostic Evaluation - Laboratory O2 Sat by Pulse Oximetry: 99 Respiratory Course/Dx - Course Course Of Treatment: 32 year old female with history of asthma presents with 4 day history of non-productive cough. Associated with nasal congestion, nasal discharge, sore throat, loss of voice, shortness of breath, and wheezing. She has been having to use her albuterol inhaler every 4-6 hours. Denies fever, chills, ear pain, chest pain, abdominal pain, nausea, or vomiting. Afebrile. VSS. Exam revealed mild nasal congestion, left TM erythema, mild pharyngeal erythema with cobblestoning, and decreased bilateral breath sounds with diffuse wheezing. She was given a DuoNeb treatment and prednisone 40 mg PO with good improvement in symptoms. Will treat for URI with left otitis media with amoxicillin 875 mg x 10 days, fluticasone nasal spray, as well as symptomatic treatment. She will continue prednisone 40 mg daily for next 4 days as well as albuterol inhaler q4-6 hours as needed for the asthma exacerbation. She is to follow up with her PCP in 3-5 days for recheck of symptoms. Warning symptoms were reviewed with patient and she agrees with POC. - Differential Dx/Diagnosis Differential Diagnosis/HQI/PQRI: Asthma, Bronchitis, Influenza, Laryngitis, Lower Resp Infection, Sinusitis Provider Diagnosis: Upper respiratory infection, Left otitis media, Asthma exacerbation Discharge - Sign-Out/Discharge Documenting (check all that apply): Patient Departure All imaging exams completed and their final reports reviewed: No Studies - Discharge Plan Condition: Stable Disposition: HOME Prescriptions: Amoxicillin PO (*) [Amoxicillin 875 MG (*)] 875 mg PO BID #20 tab Fluticasone NASAL SPRAY 50MCG* [Flonase NASAL SPRAY 50MCG*] 2 spray BOTH NARES DAILY #1 btl predniSONE TAB* [Deltasone 20 MG TAB*] 40 mg PO DAILY #8 tab Patient Education Materials: Asthma (ED), Ear Infection (ED), Upper Respiratory Infection (ED) Referrals: No Primary Care Phys,NOPCP [Primary Care Provider] - Additional Instructions: Your history and exam are consistent with and upper respiratory infection, left ear infection, and asthma exacerbation. With the ear infection we will start you on an antibiotic to treat the infection. Start amoxicillin 875 mg 1 tab twice a day for 10 days. Take with food to avoid upset stomach. Be sure to complete the entire course even if feeling better. Take prednisone 40 mg daily for 5 days to help with the airway inflammation and wheezing. We gave you the first dose in the clinic so you should start this tomorrow. Continue to use your albuterol inhaler 2 puffs every 4-6 hours as needed for shortness of breath or wheezing. Drink plenty of fluids. Use a saline rinse kit such as Neti Pot or NeilMed at least twice a day to help thin secretions and promote drainage of the sinuses. Use fluticasone (Flonase) nasal spray 2 sprays each nostril once daily. Use an over the counter decongestant such as Sudafed according to directions for the nasal congestion. Take over the counter acetaminophen (Tylenol) or ibuprofen (Advil, Motrin) according to directions as needed for pain or fever. Use salt water gargles several times a day if you have a sore throat. You may also use Chloraseptic spray or Cepacol lonzenges according to directions which contain a numbing medication and can provide some temporary relief from your sore throat. Follow up with your primary care provider in 3-5 days for recheck of symptoms. Seek immediate medical attention in the emergency room if you have fever greater than 100.5 F despite taking acetaminophen or ibuprofen, have chest pain , difficulty breathing, are unable to swallow, or have any worsening of symptoms. - Billing Disposition and Condition Condition: STABLE Disposition: Home
[2018-07-16] MEDS ORDERED: predniSONE TAB* 20 MG PO ONE (17:28)
[2018-07-16] MEDS ORDERED: Albuterol/Ipratropium NEB.SOL* Albuterol 2.5 MG/Ipratropium 0.5 MG 3 ML INH ONE (17:28)
== END 2018-07-16 18:14 | disposition home or self-care (01) ==
LOC: UCCORT 16:48
DX: J06.9 Acute upper respiratory infection, unspecified (principal); H66.92 Otitis media, unspecified, left ear; J45.901 Unspecified asthma with (acute) exacerbation; Z88.5 Allergy status to narcotic agent; F17.210 Nicotine dependence, cigarettes, uncomplicated
CPT/HCPCS: 99212; A9270-GY; G0463; J7512

== ENCOUNTER 2018-10-16 10:32 | Emergency (ER) | payer OTHER ==
[2018-10-16 11:35] VITALS: BP 142/66
[2018-10-16 11:55] LABS: Influenza A Molecular NEGATIVE (Negative); Influenza B Molecular NEGATIVE (Negative)
--- NOTE | 2018-10-16 11:59 | UC ---
UC General HPI - HPI Summary HPI Summary: headache, bodyaches, subjective fever, cough and sore throat. onset this am. daughter has the same and is currently being tx for the flu. - History of Current Complaint Chief Complaint: UCGeneralIllness Stated Complaint: CONGESTION,HEADACHE,SOER THROAT,BODY ACHES Time Seen by Provider: 10/16/18 11:37 Hx Obtained From: Patient Hx Last Menstrual Period: 10/02/18 Onset/Duration: Sudden Onset Timing: Constant Pain Intensity: 10 Associated Signs & Symptoms: Negative: Chest Pain, Diarrhea, SOB, Vomiting - Allergy/Home Medications Allergies/Adverse Reactions: Allergies Allergy/AdvReac Type Severity Reaction Status Date / Time codeine Allergy Rash Verified 10/16/18 11:32 Tattoo color Allergy Blisters Uncoded 10/16/18 11:32 PMH/Surg Hx/FS Hx/Imm Hx - Additional Past Medical History Additional PMH: recurrent OM with chronic hearing loss, strep throat-recurrent. Psychological History: Anxiety - Surgical History Surgical History: Yes Surgery Procedure, Year, and Place: C Sections,2005 2006 2012. COLPOSCOPY- CERVICAL Other Surgical History: C-sections. - Family History Known Family History: Positive: Unknown, Cardiac Disease - MATERNAL GRANDFATHER , Hypertension, Diabetes, Renal Disease - MOTHER KIDNEY STONES, Blood Disorder - MOTHER DVT Family History: Asthma - Social History Occupation: Employed Full-time Lives: With Family Alcohol Use: Rare Substance Use Type: None Smoking Status (MU): Light Every Day Tobacco Smoker Type: Cigarettes Amount Used/How Often: 4 CIGS/DAY Length of Time of Smoking/Using Tobacco: since 18 y/o Have You Smoked in the Last Year: Yes When Did the Patient Quit Smoking/Using Tobacco: 2 YRS AGO Household Exposure Type: Cigarettes - Immunization History Most Recent Influenza Vaccination: none Most Recent Tetanus Shot: UTD Vaccination Up to Date: Yes Review of Systems All Other Systems Reviewed And Are Negative: Yes Constitutional: Positive: Fever, Chills ENT: Positive: Sore Throat, Ear Ache Respiratory: Positive: Cough Musculoskeletal: Positive: Myalgia Neurological: Positive: Headache Physical Exam Triage Information Reviewed: Yes Appearance: Ill-Appearing - but non toxic Vital Signs: Initial Vital Signs Temp 98.7 F 10/16/18 11:32 Pulse 93 10/16/18 11:32 Resp 18 10/16/18 11:32 BP 142/66 10/16/18 11:32 Pulse Ox 100 10/16/18 11:32 Eyes: Positive: Conjunctiva Clear ENT: Positive: Pharyngeal erythema, TMs normal, Uvula midline. Negative: Nasal drainage, Trismus, Muffled voice, Hoarse voice Neck: Positive: Supple, Nontender, No Lymphadenopathy Respiratory: Positive: Lungs clear, Normal breath sounds, No respiratory distress Cardiovascular: Positive: RRR, No Murmur Abdomen Description: Positive: Nontender, No Organomegaly, Soft Bowel Sounds: Positive: Present Musculoskeletal: Positive: ROM Intact Neurological: Positive: Alert Psychological: Positive: Normal Response To Family, Age Appropriate Behavior Skin Exam: Normal Course/Dx - Course Course Of Treatment: rapid strep and flu =negative. s/s' c/w influenza in the community. RISKS/BENEFITS TAMIFLU D/W PT. PT WANTS TX. - Diagnoses Provider Diagnosis: Influenza-like illness Discharge - Sign-Out/Discharge Documenting (check all that apply): Patient Departure All imaging exams completed and their final reports reviewed: No Studies - Discharge Plan Condition: Stable Disposition: HOME Prescriptions: Oseltamivir CAP* [Tamiflu CAP*] 75 mg PO BID 5 Days #10 cap Patient Education Materials: Influenza (DC) Forms: *Work Release Referrals: Bethanie Locke PA [Primary Care Provider] - Additional Instructions: FOLLOW UP WITH PRIMARY CARE IF NOT BETTER IN 5 DAYS OR SOONER IF WORSE. - Billing Disposition and Condition Condition: STABLE Disposition: Home - Attestation Statements Provider Attestation: I was available for consult. This patient was seen by the BR[facility]GET[facility]. The patient was not presented to, seen by, or examined by me. -Leny
== END 2018-10-16 12:29 | disposition home or self-care (01) ==
LOC: UCCORT 10:32
DX: J11.1 Influenza due to unidentified influenza virus with other respiratory manifestations (principal); F17.210 Nicotine dependence, cigarettes, uncomplicated; Z88.5 Allergy status to narcotic agent; Z91.09 Other allergy status, other than to drugs and biological substances
CPT/HCPCS: 87651; 99212; G0463

== ENCOUNTER 2019-06-10 12:57 | Emergency (ER) | payer OTHER ==
[2019-06-10 14:24] VITALS: BP 108/61
--- NOTE | 2019-06-10 15:02 | UC ---
Throat Pain/Nasal Prasad HPI - HPI Summary HPI Summary: 33-year-old woman comes in with a chief complaint of one week of upper respiratory tract infection symptoms. She has bilateral ear pain reading rhinorrhea sinus pressure. She has bodyaches and chills.. Having chest congestion and wheezing. She has been using her albuterol inhaler which does help some with the symptoms. - History of Current Complaint Chief Complaint: UCRespiratory Stated Complaint: COUGH Time Seen by Provider: 06/10/19 14:27 Hx Last Menstrual Period: 06/09/19 Pain Intensity: 3 - Allergies/Home Medications Allergies/Adverse Reactions: Allergies Allergy/AdvReac Type Severity Reaction Status Date / Time codeine Allergy Rash Verified 06/10/19 14:20 Tattoo color Allergy Blisters Uncoded 06/10/19 14:20 Home Medications: Home Medications Bupropion XL* [Wellbutrin XL *] 300 mg PO DAILY 06/10/19 [History Confirmed 06/18] FLUoxetine CAP* [PROzac CAP*] 20 mg PO DAILY 06/10/19 [History Confirmed ] busPIRone TAB* [Buspar TAB *] 15 mg PO TID 06/10/19 [History Confirmed 06/10/19] hydrOXYzine HCL TAB* [Atarax TAB 50 MG *] 50 mg PO TID 06/10/19 [History Confirmed 06/10/19] PMH/Surg Hx/FS Hx/Imm Hx Previously Healthy: Yes Respiratory History: Asthma Psychological History: Anxiety - Surgical History Surgical History: Yes Surgery Procedure, Year, and Place: C Sections,2005 2006 2012. COLPOSCOPY- CERVICAL Other Surgical History: C-sections. - Family History Known Family History: Positive: Unknown, Cardiac Disease - MATERNAL GRANDFATHER , Hypertension, Diabetes, Renal Disease - MOTHER KIDNEY STONES, Blood Disorder - MOTHER DVT Family History: Asthma - Social History Alcohol Use: Occasionally Substance Use Type: None Smoking Status (MU): Heavy Every Day Tobacco Smoker Type: Cigarettes Amount Used/How Often: 1/2 PPD Length of Time of Smoking/Using Tobacco: On and Off Since Age 19 Have You Smoked in the Last Year: Yes When Did the Patient Quit Smoking/Using Tobacco: 2 YRS AGO Household Exposure Type: Cigarettes - Immunization History Most Recent Influenza Vaccination: none Most Recent Tetanus Shot: UTD Vaccination Up to Date: Yes Review of Systems All Other Systems Reviewed And Are Negative: Yes Constitutional: Positive: Other - SEE HPI Skin: Positive: Negative Eyes: Positive: Negative ENT: Positive: Ear Ache, Nasal Discharge, Sinus Congestion, Sinus Pain/ Tenderness Respiratory: Positive: Shortness Of Breath, Cough, Other - SEE HPI Cardiovascular: Positive: Negative Gastrointestinal: Positive: Negative Motor: Positive: Negative Neurovascular: Positive: Negative Musculoskeletal: Positive: Myalgia Neurological: Positive: Negative Psychological: Positive: Negative Is Patient Immunocompromised?: No Physical Exam Triage Information Reviewed: Yes Appearance: No Pain Distress, Well-Nourished, Ill-Appearing - MILD Vital Signs: Initial Vital Signs Temp 97.9 F 06/10/19 14:16 Pulse 80 06/10/19 14:16 Resp 18 06/10/19 14:16 BP 108/61 06/10/19 14:16 Pulse Ox 98 06/10/19 14:16 Vital Signs Reviewed: Yes Eye Exam: Normal Eyes: Positive: Conjunctiva Clear ENT: Positive: Pharyngeal erythema, Nasal congestion, Nasal drainage, TM bulging - B/L, TM red - B/L, Uvula midline. Negative: Muffled voice, Hoarse voice Neck: Positive: Supple Respiratory: Positive: Lungs clear, Normal breath sounds, No respiratory distress Cardiovascular: Positive: RRR Musculoskeletal: Positive: Strength Intact, ROM Intact Neurological: Positive: Alert Psychological: Positive: Age Appropriate Behavior Skin Exam: Normal Throat Pain/Nasal Course/Dx - Differential Dx/Diagnosis Provider Diagnosis: Otitis media, Bronchitis with bronchospasm Discharge ED - Sign-Out/Discharge Documenting (check all that apply): Patient Departure All imaging exams completed and their final reports reviewed: No Studies - Discharge Plan Condition: Stable Disposition: HOME Prescriptions: Albuterol HFA INHALER* [Ventolin HFA Inhaler*] 2 puff INH Q4H PRN #1 mdi PRN Reason: Wheezing Amoxicillin/Clavulanate TAB* [Augmentin TAB 875*] 875 mg PO BID #20 tab Benzonatate CAP* [Tessalon 100 MG CAP*] 100 mg PO TID PRN #20 cap PRN Reason: Cough methylPREDNISolone [Medrol Dosepak 4 MG*] 0 mg PO .SEE LAQUITA INSTRUCTION #1 laquita Patient Education Materials: Ear Infection (ED), Acute Bronchitis (ED), Bronchospasm (ED) Forms: *Work Release Referrals: Bethanie Locke PA [Primary Care Provider] - Additional Instructions: FOLLOW UP WITH YOUR DOCTOR IF NOT COMPLETELY IMPROVED. GET REEVALUATED IF NOT IMPROVING OR WORSE OR ANY QUESTIONS OR CONCERNS. - Billing Disposition and Condition Condition: STABLE Disposition: Home
== END 2019-06-10 15:17 | disposition home or self-care (01) ==
LOC: UCCORT 12:57
DX: H66.93 Otitis media, unspecified, bilateral (principal); J20.9 Acute bronchitis, unspecified; F41.9 Anxiety disorder, unspecified; Z88.5 Allergy status to narcotic agent; Z91.09 Other allergy status, other than to drugs and biological substances; Z87.891 Personal history of nicotine dependence
CPT/HCPCS: 99212; G0463

== ENCOUNTER 2019-08-14 14:32 | Emergency (ER) | payer OTHER ==
--- OUTSIDE RECORDS SUMMARY | 2019-08-14 15:13 | XMS REPORT ---
:1985 Demographics Address 15 08/01 [facility] [address] [place] [address] Email Address Preferred Language Botswanan Marital Status Not or Evangelical Affiliation Unknown Race White Ethnic Group Not or Author Organization [facility] Address [address] [place] [address] Support Name Relationship Address Phone Minerva Zaldivar Unavailable 15 08/[address] [facility] [address] none, none Unavailable Unavailable [phone] Care Team Providers Name Role Phone Victorina Pool Unavailable Unavailable PROBLEMS Type Condition ICD9-CM [id number] Onset Condition SNOMED Code Code Code Dates Status Problem 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 vulvovaginitis Problem Personal history Z86.73 Active 838799364 of transient ischemic attack (TIA), and cerebral infarction without residual deficits Problem Subacute and N76.1 Active 839663659 chronic vaginitis Problem Family history of Z80.0 Active 251503391 malignant neoplasm of digestive organs Problem Pelvic and R10.2 Active 106567775 perineal pain Problem Other specified N89.8 Active 51491751 noninflammatory disorders of vagina Problem Unspecified N83.202 Active [id number] ovarian cyst, left side Problem Irregular N92.6 Active 19528395 menstruation, unspecified Problem Deep dyspareunia N94.12 Active 262124379 Problem with O36.80X0 Active 597229951 inconclusive viability, not applicable or unspecified Problem 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 332583182 (venereal) warts Problem Unspecified N83.201 Active 65422123551448380 ovarian cyst, right side Problem Tobacco abuse Z71.6 Active 901956022 counseling Problem Encounter for Z33.2 Active 18730848 elective termination of Problem Candidiasis of B37.3 Active 12096645 vulva and vagina ALLERGIES No Information ENCOUNTERS Encounter Location Date Diagnosis [facility] 103 Jun, with inconclusive OBGYN [facility] viability, not [place], [place] [id number] applicable or unspecified O36.80X0 [facility] 103 Jun, with inconclusive OBGYN [facility] viability, not [place], [place] [id number] applicable or unspecified O36.80X0 [facility] 103 Jun, with inconclusive OBGYN [facility] viability, not [place] [id number] applicable or unspecified O36.80X0 [facility] 103 Jun, with inconclusive OBGYN [facility] viability, not [place], [place] [id number] applicable or unspecified O36.80X0 [facility] 103 Jun, Encounter for OBGYN [facility] test, result positive [place], [place] [id number] Z32.01 [facility] 103 Jun, OBGYN [place] [id number] [facility] 103 Jun, Encounter for OBGYN [facility] test, result positive [place], [place] [id number] Z32.01 [facility] 103 Jun, Encounter for OBGYN [facility] test, result positive [place], [place] [id number] Z32.01 [facility] 103 Jun, OBGYN [place], [place] [id number] [facility] 103 Jun, Encounter for OBGYN [facility] test, result positive [place], [place] [id number] Z32.01 [facility] 103 Apr, OBGYN [place], [place] [id number] [facility] 103 Apr, Pelvic and perineal pain OBGYN [facility] R10.2 ; Encounter for [place], [place] [id number] screening for infections with a predominantly sexual mode of transmission Z11.3 and Irregular menstruation, unspecified N92.6 [facility] 103 Feb, Encounter for gynecological OBGYN [facility] examination (general) [place], [place] [id number] (routine) without abnormal findings Z01.419 [facility] 103 Oct, OBGYN [place] [id number] [facility] 103 Oct, OBGYN [place] [id number] [facility] 103 Sep, Subacute and chronic OBGYN [facility] vaginitis N76.1 [place], [place] [id number] [facility] 103 Sep, Subacute and chronic OBGYN [facility] vaginitis N76.1 [place], [place] [id number] [facility] 103 Aug, OBGYN [place] [id number] [facility] 103 Aug, OBG[place] [id number] [facility] 103 Jul, Candidiasis of vulva and OBGYN [facility] vagina B37.3 [place], [place] [id number] [facility] 103 Jul, Encounter for elective OBGYN [facility] termination of [place], [place] [id number] Z33.2 and Subacute and chronic vaginitis N76.1 [facility] 103 Jul, Acute vaginitis N76.0 OBGYN [place] [id number] [facility] 103 Jul, OBG[place], [place] [id number] [facility] 103 May, OBGYN [place] [id number] [facility] 103 May, [facility] [place], [place] [id number] device Z30.432 [facility] 103 May, OBGYN [place], [place] [id number] [facility] 103 May, Subacute and chronic [facility] vaginitis N76.1 and [place], [place] [id number] Nicotine dependence, unspecified, uncomplicated F17.200 [facility] 103 Mar, OBG[place] [id number] [facility] 103 Mar, [place] [id number] [facility] 103 Feb, OBGYN [place], [place] [id number] [facility] 103 Feb, OBGYN [place], [place] [id number] [facility] 103 Feb, [facility] N76.1 ; Pelvic [place], [place] [id number] and perineal pain R10.2 ; Acute nasopharyngitis [common cold] J00 and Encounter for other general counseling and advice on contraception Z30.09 [facility] 103 Feb, [facility] checking of intrauterine [place], [place] [id number] contraceptive device Z30.431 and Pelvic and perineal pain R10.2 [facility] 103 Feb, [facility]inflammatory [facility] vagina, unspecified N89.9 [place], [place] [id number] and Candidiasis of vulva and vagina B37.3 [facility] 103 Feb, OBGYN [place] [id number] [facility] 103 Feb, [facility] examination (general) [place], [place] [id number] (routine) with abnormal findings Z01.411 ; Encounter for routine checking of intrauterine contraceptive device Z30.431 ; Encounter for screening for infections with a predominantly sexual mode of transmission Z11.3 ; Noninflammatory disorder of vagina, unspecified N89.9 and Tobacco abuse counseling Z71.6 [facility] Jan, [facility] [place] [id number] [facility] [address] Jan, Acute vaginitis N76.0 [facility] [address] [place], [place] [id number] [facility] 103 Jan, Unspecified ovarian cyst, OBGYN [facility] right side N83.201 [place], [place] [id number] [facility] Jan, Unspecified ovarian cyst, OBGYN [facility] right side N83.201 and [place], [place] [id number] Encounter for routine checking of intrauterine contraceptive device Z30.431 [facility] 103 Jan, Unspecified ovarian cyst, OBGYN [facility] right side N83.201 [place], [place] [id number] [facility] Jan, [place]BGYN [place] [id number] [facility] 103 November, Noninflammatory disorder of OBGYN [facility] vagina, unspecified N89.9 [place], [place] [id number] and Candidiasis of vulva and vagina B37.3 [facility] 103 November, Unspecified ovarian cyst, OBGYN [facility] left side N83.202 ; Other [place], [place] [id number] specified noninflammatory disorders of vagina N89.8 ; Unspecified ovarian cyst, right side N83.201 and Encounter for routine checking of intrauterine contraceptive device Z30.431 [facility] 103 November, Unspecified ovarian cyst, OBGYN [facility] left side N83.202 and [place], [place] [id number] Encounter for routine checking of intrauterine contraceptive device Z30.431 [facility] 103 20 Oct, 2017 OBGYN [place], [place] [id number] [facility] 103 Oct, OBGYN [place], [place] [id number] [facility] 103 Sep, OBGYN [place], [place] [id number] [facility] 103 Sep, OBGYN [place], [place] [id number] [facility] 103 Sep, Anogenital (venereal ) warts OBGYN [facility] A63.0 ; Subacute and [place], [place] [id number] chronic vaginitis N76.1 ; Tobacco use Z72.0 ; Encounter for routine checking of intrauterine contraceptive device Z30.431 ; Other ovarian cyst, left side N83.292 and Encounter for screening for infections with a predominantly sexual mode of transmission Z11.3 [facility] 103 16 Sep, 2017 OBGYN [place], [place] [id number] [facility] 103 15 Sep, 2017 OBGYN [place], [place] [id number] [facility] 103 15 Sep, 2017 Viral wart, unspecified OBGYN [facility] B07.9 [place], [place] [id number] [facility] 103 15 Sep, 2017 Pelvic and perineal pain OBN [facility] R10.2 ; Deep dyspareunia [place], [place] [id number] N94.12 and Encounter for routine checking of intrauterine contraceptive device Z30.431 [facility] 103 14 Sep, 2017 OBGYN [place] [id number] [facility] 103 14 Sep, 2017 Subacute and chronic OBN [facility] vaginitis N76.1 ; Pelvic [place], [place] [id number] and perineal pain R10.2 and Deep dyspareunia N94.12 [facility] [place] [facility] 103 Sep, OBGYN [place], [place] [id number] [facility] 103 Sep, OBGYN [place], [place] [id number] [facility] 103 Jan, OBGYN [place], [place] [id number] [facility] 103 Jan, OBGYN [place], [place] [id number] [facility] 103 Jan, Pelvic and perineal pain [facility] R10.2 ; Other specified [place], [place] [id number] noninflammatory disorders of vagina N89.8 and Anogenital (venereal) warts A63.0 [facility] [place] [facility] 103 Dec, En[facility] (general) [place], [place] [id number] (routine) without abnormal findings Z01.419 ; Encounter for screening for malignant neoplasm of cervix Z12.4 ; Encounter for screening for infections with a predominantly sexual mode of transmission Z11.3 ; Nicotine dependence, unspecified, uncomplicated F17.200 and Subacute and chronic vaginitis N76.1 [facility] [place] [facility] 103 Oct, [place] [id number] [facility] 103 Oct, Female pelvic inflammatory OBN [facility] disease, unspecified N73.9 [place], [place] [id number] ; Postcoital and contact bleeding N93.0 ; Pelvic and perineal pain R10.2 and Other specified noninflammatory disorders of vagina N89.8 [facility] [place] [facility] 103 Oct, OBGYN [place] [id number] [facility] 103 Oct, Female pelvic inflammatory OBN [facility] disease, unspecified N73.9 [place], [place] [id number] ; Postcoital and contact bleeding N93.0 and Pelvic and perineal pain R10.2 [facility] 103 Oct, OBGYN [place], [place] [id number] [facility] 103 Oct, Female pelvic inflammatory OBGYN [facility] disease, unspecified N73.9 [place], [place] [id number] ; Postcoital and contact bleeding N93.0 and Pelvic and perineal pain R10.2 [facility] 103 Oct, Unspecified dyspareunia OBGYN [facility] N94.10 [place], [place] [id number] [facility] Oct, Unspecified dyspareunia OBN [facility] N94.10 ; Female pelvic [place], [place] [id number] inflammatory disease, unspecified N73.9 ; 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 and Postcoital and contact bleeding N93.0 [facility] [place] [facility] 103 Sep, OBG[place], [place] [id number] [facility] 103 Aug, Other specified [facility] noninflammatory disorders [place] [id number] of vagina N89.8 [facility] 103 Aug, Other specified [facility] noninflammatory disorders [place], [place] [id number] of vagina N89.8 [facility] 103 May, Acute vaginitis N76.0 [place], [place] [id number] [facility] 103 Apr, Other specified [facility] noninflammatory disorders [place], [place] [id number] of vagina N89.8 and Encounter for screening for infections with a predominantly sexual mode of transmission Z11.3 [facility] 103 Mar, OBGYN [place], [place] [id number] [facility] 103 Mar, [facility] of lower genitourinary [place] [id number] tract A56.09 ; Inflammatory disease of uterus, unspecified N71.9 ; Irregular menstruation, unspecified N92.6 and Other specified noninflammatory disorders of vagina N89.8 [facility] 103 Feb, [place] [id number] [facility] [address] [place] [address] Feb, Other chlamydial infection [facility] [address] [place], of lower genitourinary [place] [id number] tract A56.09 and Inflammatory disease of uterus, unspecified N71.9 [place] [facility] 103 Feb, [place] [id number] [facility] 103 Feb, [place], [place] [id number] [facility] 103 Feb, Chlamydial infection of [facility] lower genitourinary tract, [place], [place] [id number] unspecified A56.00 [facility] 103 Feb, Other specified [facility] noninflammatory disorders [place], [place] [id number] of vagina N89.8 and Acute vaginitis N76.0 [facility] 103 Dec, Encounter for gynecological [facility] examination (general) [place], [place] [id number] (routine) without abnormal findings Z01.419 ; Excessive and frequent menstruation with irregular cycle N92.1 ; Personal history of transient ischemic attack (TIA), and cerebral infarction without residual deficits Z86.73 ; 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 and Family history of malignant neoplasm of digestive organs Z80.0 [facility] 103 November, [place], [place] [id number] [facility] 103 November, Other specified [facility] noninflammatory disorders [place], [place] [id number] of vagina N89.8 and Encounter for screening for infections with a predominantly sexual mode of transmission Z11.3 [facility] 103 Jul, Excessive and frequent [facility] menstruation with irregular [place], [place] [id number] cycle N92.1 ; Personal history of transient ischemic attack (TIA), and cerebral infarction without residual deficits Z86.73 and 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 [facility] 103 Jul, OBG[place], [place] [id number] [facility] 103 Jul, Excessive and frequent [facility] menstruation with irregular [place], [place] [id number] cycle N92.1 and Personal history of transient ischemic attack (TIA), and cerebral infarction without residual deficits Z86.73 [facility] 103 Apr, [place] [id number] [facility] 103 Apr, Excessive and frequent [facility] menstruation with irregular [place], [place] [id number] cycle N92.1 and Personal history of transient ischemic attack (TIA), and cerebral infarction without residual deficits Z86.73 [facility] 103 Mar, Menometrorrhagia 626.2 [place] [id number] [place] [address] 15 Mar, 2015 [facility] Center [place], [place] [id number] [facility] 103 Mar, Menometrorrhagia 626.2 OBGYN [place], [place] [id number] [facility] 103 Jan, VULVAR LESION 624.9 and [facility] Condyloma 078.10 [place], [place] [id number] [facility] 103 Jan, [place] [id number] [facility] 103 Dec, [place] [id number] [facility] 103 Dec, OBGYN [place], [place] [id number] [facility] 103 Dec, OBGYN [place], [place] [id number] [facility] 103 Dec, VULVAR LESION 624.9 ; OBN [facility] Condyloma 078.10 and [place], [place] [id number] CONTRACEPTIVE MANGMT NOS V25.9 [facility] 103 Dec, Vaginitis 616.10 OBGYN [place], [place] [id number] [facility] 103 Dec, [place] [id number] [facility] 103 November, Menometrorrhagia 626.2 ; [facility] Herpes simplex [place], [place] [id number] vulvovaginitis 054.11 and VULVAR LESION 624.9 [facility] 103 November, Vaginitis 616.10 OBN [place] [id number] [facility] 103 November, STD Screen V74.5 and [facility] VAGINAL DISCHARGE 623.5 [place], [place] [id number] [facility] 103 Oct, Menometrorrhagia 626.2 ; OBGYN [facility] Body Mass Index 40.0-44.9, [place], [place] [id number] adult V85.41 and Ovarian cyst NOS 620.2 [facility] 103 Oct, Ovarian cyst NOS 620.2 [place] [id number] [facility] 103 Oct, OBG[place], [place] [id number] [facility] 103 Sep, Herpes infection NOS 054.9 [place], [place] [id number] [facility] 103 Sep, OBG[place], [place] [id number] [facility] 103 Sep, [place] [id number] [facility] 103 Sep, OBG[place], [place] [id number] [facility] 103 Sep, Menometrorrhagia 626.2 and OBGYN [facility] Body Mass Index 40.0-44.9, [place], [place] [id number] adult V85.41 [facility] 103 Aug, Metrorrhagia 626.6 and OBGYN [facility] VULVAR LESION 624.9 [place], [place] [id number] [facility] 103 Aug, OBGYN [place], [place] [id number] [facility] 103 Aug, Metrorrhagia 626.6 and OBGYN [facility] Vaginitis 616.10 [place], [place] [id number] [facility] 103 Aug, Metrorrhagia 626.6 and OBGYN [facility] Ovarian cyst NOS 620.2 [place], [place] [id number] [facility] 103 Aug, [place]BG[place], [place] [id number] [facility] 103 Aug, OBGYN [place], [place] [id number] [facility] 103 Jul, OBGYN [place], [place] [id number] [facility] 103 Jul, Metrorrhagia 626.6 [place]BGYN [place], [place] [id number] [facility] 103 Jul, Metrorrhagia 626.6 [place], [place] [id number] [facility] 103 Jun, Acute vulvovaginitis 616.10 [place] [id number] [facility] 103 Jun, [place] [id number] [facility] 103 May, STD Screen V74.5 ; FAMILY OBGYN [facility] PLANNING V25.09 ; [place], [place] [id number] Metrorrhagia 626.6 and Ovarian cyst NOS 620.2 IMMUNIZATIONS No Known Immunizations SOCIAL HISTORY Never Assessed REASON FOR REFERRAL FUNCTIONAL STATUS PLAN OF CARE VITAL SIGNS MEDICATIONS Medication Instructions Dosage Frequency Start End Duration Status Date Date BuSpar oral 3 times a 1 tab 8h Active day hydroxyzine orally 3 times a 1 tab(s) 8h Active hydrochloride 50 day mg Flagyl 500 mg orally twice a 1 tab(s) 12h 25 Apr, day(s) Active day 2018 Wellbutrin XL 300 orally every 24 1 tab(s) 30 day(s) Active mg/24 hours hours lorazepam 0.5 mg orally 3 times a 1 tab(s) 8h Active day Prozac 10 mg orally once a 1 cap(s) 24h 30 day(s) Active day PROCEDURES No Known procedures RESULTS No Results REASON FOR VISIT BV Insurance Providers [facility] Health Member Patient Patient Patient Patient Patient Subscriber Subscriber Subscriber Group Insurance Plan Plan Plan Plan ID Relationship Address Phone Name Date of ID Name Date of No Type Insurance Insurance Insurance Coverage to Subscriber Address Phone Name Dates Drake [phone] Drake self [place] [id number] [address] [address] MEDICAL (GENERAL) HISTORY Type Description Date Medical History Possible stroke on BC- not verified Medical History Condyloma Medical History Female pelvic inflammatory disease, unspecified Medical History anxiety Medical History depression Surgical History 01/19/06 Surgical History 02/21/07 Surgical History 11/05/12 Surgical History ETOP 11/12/14 Surgical History hysteroscopy, D&C 04/14/15 Hospitalization History see above
--- OUTSIDE RECORDS SUMMARY | 2019-08-14 15:14 | XMS REPORT ---
:1985 Demographics Address 15 08[address] [facility] [address] [place] [address] Email Address Preferred Language Kosovan Marital Status Not or Church Affiliation Unknown Race White Ethnic Group Not or Author Name Paulzackary Ting Address [address] [place] [address] Support Name Relationship Address Phone Minerva Zaldivar Unavailable 15 08/[address] [facility] [place] [address] none, none Unavailable Unavailable [phone] Care Team Providers Name Role Phone Ting Oropeza Unavailable Unavailable PROBLEMS Type Condition ICD9-CM MPT11-LI Onset Condition SNOMED Code Code Code Dates Status Problem 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 97017525 vulvovaginitis Problem Personal history Z86.73 Active 884553128 of transient ischemic attack (TIA), and cerebral infarction without residual deficits Problem Subacute and N76.1 Active 246539946 chronic vaginitis Problem Family history of Z80.0 Active 752508109 malignant neoplasm of digestive organs Problem Pelvic and R10.2 Active 058524443 perineal pain Problem Other specified N89.8 Active 09913605 noninflammatory disorders of vagina Problem Unspecified N83.202 Active [id number] ovarian cyst, left side Problem Irregular N92.6 Active 72328778 menstruation, unspecified Problem Deep dyspareunia N94.12 Active 474808061 Problem with O36.80X0 Active 361648182 inconclusive viability, not applicable or unspecified Problem 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 582883761 (venereal) warts Problem Unspecified N83.201 Active [id number] ovarian cyst, right side Problem Tobacco abuse Z71.6 Active 311556354 counseling Problem Encounter for Z33.2 Active 81705177 elective termination of Problem Candidiasis of B37.3 Active 24580381 vulva and vagina ALLERGIES Substance Reaction Event Type Date Status codeine anaphylaxis Drug Allergy Apr, Active ENCOUNTERS Encounter Location Date Diagnosis [facility] Jun, with inconclusive OBGYN [facility] viability, not [place], [place] [id number] applicable or unspecified O36.80X0 [place] [facility] Jun, with inconclusive OBGYN [facility] viability, not [place], [place] [id number] applicable or unspecified O36.80X0 [facility] Jun, with inconclusive OBGYN [facility] viability, not [place] [id number] applicable or unspecified O36.80X0 [place] [facility] Jun, with inconclusive OBGYN [facility] viability, not [place], [place] [id number] applicable or unspecified O36.80X0 [facility] Jun, Encounter for OBGYN [facility] test, result positive [place], [place] [id number] Z32.01 [facility] Jun, OBGYN [place] [id number] [facility] Jun, Encounter for OBGYN [facility] test, result positive [place], [place] [id number] Z32.01 [place] [facility] Jun, Encounter for OBGYN [facility] test, result positive [place], [place] [id number] Z32.01 [place] [facility] Jun, [place]BG[place] [id number] [place] [facility] Jun, Encounter for OBGYN [facility] test, result positive [place], [place] [id number] Z32.01 [facility] Apr, OBGYN [place] [id number] [facility] Apr, Pelvic and perineal pain OBGYN [facility] R10.2 ; Encounter for [place], [place] [id number] screening for infections with a predominantly sexual mode of transmission Z11.3 and Irregular menstruation, unspecified N92.6 [facility] Feb, Encounter for gynecological OBGYN [facility] examination (general) [place], [place] [id number] (routine) without abnormal findings Z01.419 [facility] Oct, [place] [id number] [facility] Oct, [place]BG[place] [id number] [facility] Sep, [facility] N76.1 [place] [id number] [facility] Sep, [facility] vaginitis N76.1 [place] [id number] [facility] Aug, [place]BG[place] [id number] [facility] Aug, [place] [id number] [facility] Jul, Candidiasis of vulva and [facility] vagina B37.3 [place] [id number] [facility] Jul, Encounter for elective OBGYN [facility] termination of [place], [place] [id number] Z33.2 and Subacute and chronic vaginitis N76.1 [facility] Jul, Acute vaginitis N76.0 [place] [id number] [facility] Jul, [place] [id number] [facility] May, [place] [id number] [facility] May, Encounter for removal of OBGYN [facility] intrauterine contraceptive [place], [place] [id number] device Z30.432 [facility] May, OBGYN [place] [id number] [facility] May, [facility] N76.1 and [place], [place] [id number] Nicotine dependence, unspecified, uncomplicated F17.200 [place] [facility] Mar, [place]BG[place] [id number] [facility] Mar, [place] [id number] [facility] Feb, [place] [id number] [facility] Feb, [place]BG[place] [id number] [facility] Feb, [facility] N76.1 ; Pelvic [place], [place] [id number] and perineal pain R10.2 ; Acute nasopharyngitis [common cold] J00 and Encounter for other general counseling and advice on contraception Z30.09 [facility] Feb, Encounter for routine OBGYN [facility] checking of intrauterine [place], [place] [id number] contraceptive device Z30.431 and Pelvic and perineal pain R10.2 [facility] Feb, [facility] vagina, unspecified N89.9 [place] [id number] and Candidiasis of vulva and vagina B37.3 [facility] Feb, OBG[place] [id number] [facility] Feb, Encounter for gynecological OBGYN [facility] examination (general) [place], [place] [id number] (routine) with abnormal findings Z01.411 ; Encounter for routine checking of intrauterine contraceptive device Z30.431 ; Encounter for screening for infections with a predominantly sexual mode of transmission Z11.3 ; Noninflammatory disorder of vagina, unspecified N89.9 and Tobacco abuse counseling Z71.6 [facility] Jan, OBG[place] [id number] [address] Jan, Acute vaginitis N76.0 [facility] [address] [place], [place] [id number] [facility] Jan, Unspecified ovarian cyst, OBGYN [facility] right side N83.201 [place], [place] [id number] [facility] Jan, Unspecified ovarian cyst, OBGYN [facility] right side N83.201 and [place], [place] [id number] Encounter for routine checking of intrauterine contraceptive device Z30.431 [facility] Jan, Unspecified ovarian cyst, OBGYN [facility] right side N83.201 [place], [place] [id number] [facility] Jan, [place]BG[place] [id number] [facility] November, Noninflammatory disorder of OBGYN [facility] vagina, unspecified N89.9 [place], [place] [id number] and Candidiasis of vulva and vagina B37.3 [facility] November, Unspecified ovarian cyst, OBGYN [facility] left side N83.202 ; Other [place], [place] [id number] specified noninflammatory disorders of vagina N89.8 ; Unspecified ovarian cyst, right side N83.201 and Encounter for routine checking of intrauterine contraceptive device Z30.431 [facility] November, Unspecified ovarian cyst, OBGYN [facility] left side N83.202 and [place], [place] [id number] Encounter for routine checking of intrauterine contraceptive device Z30.431 [facility] 20 Oct, 2017 OBG[place] [id number] [facility] Oct, [place]BG[place], [place] [id number] [facility] Sep, [place]BG[place] [id number] [facility] Sep, [place] [id number] [facility] Sep, Anogenital (venereal ) warts [facility] A63.0 ; Subacute and [place] [id number] chronic vaginitis N76.1 ; Tobacco use Z72.0 ; Encounter for routine checking of intrauterine contraceptive device Z30.431 ; Other ovarian cyst, left side N83.292 and Encounter for screening for infections with a predominantly sexual mode of transmission Z11.3 [facility] 16 Sep, 2017 OBG[place] [id number] [facility] 15 Sep, 2017 OBG[place] [id number] [facility] 15 Sep, 2017 Viral wart, unspecified [facility] B07.9 [place] [id number] [facility] 15 Sep, 2017 Pelvic and perineal pain [facility] R10.2 ; Deep dyspareunia [place] [id number] N94.12 and Encounter for routine checking of intrauterine contraceptive device Z30.431 [facility] 14 Sep, 2017 OBG[place] [id number] [facility] 14 Sep, 2017 Subacute and chronic [facility] vaginitis N76.1 ; Pelvic [place], [place] [id number] and perineal pain R10.2 and Deep dyspareunia N94.12 [facility] Sep, [place] [id number] [facility] Sep, [place]BG[place], [place] [id number] [facility] Jan, [place] [id number] [facility] Jan, OBG[place] [id number] [facility] Jan, Pelvic and perineal pain [facility] R10.2 ; Other specified [place], [place] [id number] noninflammatory disorders of vagina N89.8 and Anogenital (venereal) warts A63.[address] [facility] Dec, Encounter [facility] examination (general) [place], [place] [id number] (routine) without abnormal findings Z01.419 ; Encounter for screening for malignant neoplasm of cervix Z12.4 ; Encounter for screening for infections with a predominantly sexual mode of transmission Z11.3 ; Nicotine dependence, unspecified, uncomplicated F17.200 and Subacute and chronic vaginitis N76.1 [facility] Oct, [place]BG[place] [id number] [facility] Oct, Female pelvic inflammatory OBN [facility] disease, unspecified N73.9 [place] [id number] ; Postcoital and contact bleeding N93.0 ; Pelvic and perineal pain R10.2 and Other specified noninflammatory disorders of vagina N89.8 [facility] Oct, [place] [id number] [facility] Oct, Female pelvic inflammatory [facility] disease, unspecified N73.9 [place] [id number] ; Postcoital and contact bleeding N93.0 and Pelvic and perineal pain R10.2 [facility] Oct, [place]BG[place] [id number] [facility] Oct, Female pelvic inflammatory OBGYN [facility] disease, unspecified N73.9 [place] [id number] ; Postcoital and contact bleeding N93.0 and Pelvic and perineal pain R10.2 [facility] Oct, Unspecified dyspareunia [facility] N94.10 [place] [id number] [facility] Oct, Unspecified dyspareunia [facility] N94.10 ; Female pelvic [place], [place] [id number] inflammatory disease, unspecified N73.9 ; 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 and Postcoital and contact bleeding N93.0 [facility] Sep, [place]BG[place] [id number] [facility] Aug, Other specified [facility] noninflammatory disorders [place], [place] [id number] of vagina N89.8 [facility] Aug, Other specified [facility] noninflammatory disorders [place] [id number] of vagina N89.8 [facility] May, Acute vaginitis N76.0 [place] [id number] [facility] Apr, Other specified [facility] noninflammatory disorders [place], [place] [id number] of vagina N89.8 and Encounter for screening for infections with a predominantly sexual mode of transmission Z11.3 [facility] Mar, [place]BG[place] [id number] [facility] Mar, Other chlamydial infection [facility] of lower genitourinary [place], [place] [id number] tract A56.09 ; Inflammatory disease of uterus, unspecified N71.9 ; Irregular menstruation, unspecified N92.6 and Other specified noninflammatory disorders of vagina N89.[address] [facility] Feb, [place], [place] [id number] [address] Feb, Other chlamydial infection [facility] [address] [place], of lower genitourinary [place] [id number] tract A56.09 and Inflammatory disease of uterus, unspecified N71.9 [facility] Feb, [place], [place] [id number] [facility] Feb, [place], [place] [id number] [facility] Feb, Chlamydial infection of [facility] lower genitourinary tract, [place], [place] [id number] unspecified A56.00 [facility] Feb, Other specified [facility] noninflammatory disorders [place], [place] [id number] of vagina N89.8 and Acute vaginitis N76.0 [facility] Dec, Encounter for gynecological [facility] examination (general) [place], [place] [id number] (routine) without abnormal findings Z01.419 ; Excessive and frequent menstruation with irregular cycle N92.1 ; Personal history of transient ischemic attack (TIA), and cerebral infarction without residual deficits Z86.73 ; 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 and Family history of malignant neoplasm of digestive organs Z80.0 [facility] November, [place], [place] [id number] [facility] November, Other specified [facility] noninflammatory disorders [place], [place] [id number] of vagina N89.8 and Encounter for screening for infections with a predominantly sexual mode of transmission Z11.3 [facility] Jul, [facility] menstruation with irregular [place], [place] [id number] cycle N92.1 ; Personal history of transient ischemic attack (TIA), and cerebral infarction without residual deficits Z86.73 and 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 [facility] 04 Jul, 2015 OBG[place] [id number] [facility] Jul, Excessive and frequent [facility] menstruation with irregular [place], [place] [id number] cycle N92.1 and Personal history of transient ischemic attack (TIA), and cerebral infarction without residual deficits Z86.73 [facility] Apr, [place] [id number] [facility] Apr, Excessive and frequent OBGYN [facility] menstruation with irregular [place], [place] [id number] cycle N92.1 and Personal history of transient ischemic attack (TIA), and cerebral infarction without residual deficits Z86.73 [facility] Mar, Menometrorrhagia 626.2 [place], [place] [id number] [place] [address] [place], [facility] [place] [id number] [facility] Mar, Menometrorrhagia 626.2 [place] [id number] [facility] Jan, VULVAR LESION 624.9 [facility] Condyloma 078.10 [place] [id number] [facility] Jan, [place] [id number] [facility] Dec, [place] [id number] [facility] Dec, [place] [id number] [facility] Dec, [place] [id number] [facility] Dec, VULVAR LESION 624.9 ; OBN [facility] Condyloma 078.10 and [place], [place] [id number] CONTRACEPTIVE MANGMT NOS V25.9 [facility] Dec, Vaginitis 616.10 [place]BG[place], [place] [id number] [facility] Dec, [place] [id number] [facility] November, Menometrorrhagia 626.2 ; [facility] Herpes simplex [place] [id number] vulvovaginitis 054.11 and VULVAR LESION 624.9 [facility] November, Vaginitis 616.10 [place] [id number] [facility] November, STD Screen V74.5 [facility] VAGINAL DISCHARGE 623.5 [place], [place] [id number] [facility] Oct, Menometrorrhagia 626.2 ; OBGYN [facility] Body Mass Index 40.0-44.9, [place], [place] [id number] adult V85.41 and Ovarian cyst NOS 620.2 [facility] Oct, Ovarian cyst NOS 620.2 [place], [place] [id number] [facility] Oct, [place] [id number] [facility] Sep, Herpes infection NOS 054.9 [place] [id number] [facility] Sep, [place] [id number] [facility] Sep, [place] [id number] [facility] Sep, [place], [place] [id number] [facility] Sep, Menometrorrhagia 626.[address] [facility] Body Mass Index 40.0-44.9, [place], [place] [id number] adult V85.41 [facility] Aug, Metrorrhagia 626.[address] [facility] VULVAR LESION 624.9 [place], [place] [id number] [facility] Aug, [place] [id number] [facility] Aug, Metrorrhagia 626.[address] [facility] Vaginitis 616.10 [place] [id number] [facility] Aug, Metrorrhagia 626.[address] [facility] Ovarian cyst NOS 620.2 [place] [id number] [facility] Aug, [place] [id number] [facility] Aug, [place], [place] [id number] [facility] Jul, [place] [id number] [facility] Jul, Metrorrhagia 626.6 [place]BG[place], [place] [id number] [facility] Jul, Metrorrhagia 626.6 [place], [place] [id number] [facility] 103 Jun, Acute vulvovaginitis 616.10 [place], [place] [id number] [facility] Jun, [place]BG[place], [place] [id number] [facility] 103 May, STD Screen V74.5 ; FAMILY OBGYN [facility] PLANNING V25.09 ; [place], [place] [id number] Metrorrhagia 626.6 and Ovarian cyst NOS 620.2 IMMUNIZATIONS No Known Immunizations SOCIAL HISTORY Never Assessed REASON FOR REFERRAL FUNCTIONAL STATUS PLAN OF CARE Activity Details Follow Up annual when due Reason: VITAL SIGNS Weight 200 lbs 2019-05-23 Blood pressure systolic 110 mm Hg 2019-05-23 Blood pressure diastolic 60 mm Hg 2019-05-23 MEDICATIONS Medication Instructions Dosage Frequency Start End Duration Status Date Date hydroxyzine orally 3 times a 1 tab(s) 8h Active hydrochloride 50 day mg Prozac 10 mg orally once a 1 cap(s) 24h 30 day(s) Active day lorazepam 0.5 mg orally 3 times a 1 tab(s) 8h Active day BuSpar oral 3 times a 1 tab 8h Active day Wellbutrin XL 300 orally every 24 1 tab(s) 30 day(s) Active mg/24 hours hours PROCEDURES Procedure Date Ordered Result Body Site URINE TEST May 23, 2019 RESULTS Name Result Date Reference Range URINE TEST AFFIRM VAGINITIS PANEL 2019-05-23 Trichomonas vaginalis Negative [Negative] Gardnerella vaginalis POSITIVE [Negative] Deepti species Negative [Negative] Chlamydia Trachomatis CT Neisseria 2019-05-23 Gonorrhoeae NG & Trichomonas vaginalis Swab STI Screening, Swab See Results CT/NG Normal Trichomonas Vaginalis Addon - Swab Normal HSV 1/2 2019-05-23 HSV Abnormal AFFIRM VAGINITIS PANEL 2019-05-23 Trichomonas vaginalis Negative [Negative] Gardnerella vaginalis POSITIVE [Negative] Deepti species Negative [Negative] REASON FOR VISIT Possible yeast infection, itching, & sore X one week, missed period Insurance Providers [facility] Health Member Patient Patient Patient Patient Patient Subscriber Subscriber Subscriber Group Insurance Plan Plan Plan Plan ID Relationship Address Phone Name Date of ID Name Date of No Type Insurance Insurance Insurance Coverage to Subscriber Address Phone Name Dates Drake CHEATHAM [phone] Drake [place] [id number] [place] [id number] [place] [id number] MEDICAL (GENERAL) HISTORY Type Description Date Medical History Possible stroke on BC- not verified Medical History Condyloma Medical History Female pelvic inflammatory disease, unspecified Medical History anxiety Medical History depression Surgical History 01/19/06 Surgical History 02/21/07 Surgical History 11/05/12 Surgical History ETOP 11/12/14 Surgical History hysteroscopy, D&C 04/14/15 Hospitalization History see above
[2019-08-14 15:17] VITALS: BP 117/52
--- NOTE | 2019-08-14 15:18 | UC ---
FLU HPI - HPI Summary HPI Summary: 33 year old hard of hearing female who wears bilateral hearing aids who has had cold symptoms over the past 2 weeks and the past 2 days has had bilateral earache. - History of Current Complaint Stated Complaint: COUGH, HEADACHE, BODY ACHES Time Seen by Provider: 08/14/19 15:17 Hx Obtained From: Patient Hx Last Menstrual Period: 06/09/19 ?: No Onset/Duration: Gradual Onset Severity Currently: Mild Severity Initially: Moderate Pain Intensity: 5 Associated Signs & Symptoms: Positive: Negative, Cough, Nasal Congestion Related Hx: Smoking - Allergy/Home Medications Allergies/Adverse Reactions: Allergies Allergy/AdvReac Type Severity Reaction Status Date / Time codeine Allergy Rash Verified 08/14/19 15:18 Tattoo color Allergy Blisters Uncoded 08/14/19 15:18 Home Medications: Home Medications Vitamin TAB* 1 tab PO DAILY 08/14/19 [History Confirmed 08/14/19] PMH/Surg Hx/FS Hx/Imm Hx Previously Healthy: Yes - Surgical History Surgical History: Yes Surgery Procedure, Year, and Place: C Sections,2005 2006 2012. COLPOSCOPY- CERVICAL Other Surgical History: C-sections. - Family History Known Family History: Positive: Unknown, Cardiac Disease - MATERNAL GRANDFATHER , Hypertension, Diabetes, Renal Disease - MOTHER KIDNEY STONES, Blood Disorder - MOTHER DVT Family History: Asthma - Social History Alcohol Use: None Substance Use Type: None Smoking Status (MU): Heavy Every Day Tobacco Smoker Type: Cigarettes Amount Used/How Often: 1/2 PPD Length of Time of Smoking/Using Tobacco: On and Off Since Age 19 Have You Smoked in the Last Year: Yes When Did the Patient Quit Smoking/Using Tobacco: 2 YRS AGO Household Exposure Type: Cigarettes - Immunization History Most Recent Influenza Vaccination: none Most Recent Tetanus Shot: UTD Vaccination Up to Date: Yes Review of Systems All Other Systems Reviewed And Are Negative: Yes ENT: Positive: Ear Ache - Bilateral earaches, Nasal Discharge, Sinus Congestion Respiratory: Positive: Cough - Occasional productive cough of yellowish sputum. Is Patient Immunocompromised?: No Physical Exam Triage Information Reviewed: Yes Appearance: Well-Appearing, No Pain Distress, Well-Nourished Vital Signs: Initial Vital Signs Temp 97.9 F 08/14/19 15:13 Pulse 83 08/14/19 15:13 Resp 18 08/14/19 15:13 BP 117/52 01/15/20 15:13 Pulse Ox 100 08/14/19 15:13 Vital Signs Reviewed: Yes Eyes: Positive: Conjunctiva Clear ENT: Positive: Pharynx normal, Nasal drainage, TM red - Tympanic membranes are erythematous bilaterally with poor landmarks and light reflex., Uvula midline Neck: Positive: Supple, Nontender, No Lymphadenopathy Respiratory: Positive: Lungs clear, Normal breath sounds, No respiratory distress, No accessory muscle use Cardiovascular: Positive: RRR, No Murmur, Pulses Normal, Brisk Capillary Refill Musculoskeletal Exam: Normal Neurological Exam: Normal Psychological Exam: Normal Skin Exam: Normal Flu Course/Dx - Course Course Of Treatment: Patient is comfortable here and nontoxic. - Differential Dx/Diagnosis Provider Diagnosis: Bilateral otitis media Discharge ED - Sign-Out/Discharge Documenting (check all that apply): Patient Departure All imaging exams completed and their final reports reviewed: No Studies - Discharge Plan Condition: Good Disposition: HOME Prescriptions: Amoxicillin PO (*) [Amoxicillin 875 MG (*)] 875 mg PO BID 10 Days #20 tab Patient Education Materials: Ear Infection (ED) Referrals: Bethanie Locke PA [Primary Care Provider] - Additional Instructions: Increase fluids, rest, Tylenol every 4 hours and Motrin every 8 hours for pain or fever. Follow-up with your primary care provider in 4- 5 days if no improvement. - Billing Disposition and Condition Condition: GOOD Disposition: Home - Attestation Statements Provider Attestation: I was available for consult. This patient was seen by the [facility]. The patient was not presented to, seen by, or examined by me. -Leny
== END 2019-08-14 15:40 | disposition home or self-care (01) ==
LOC: UCCORT 14:32
DX: H66.93 Otitis media, unspecified, bilateral (principal); R05 Cough; J34.89 Other specified disorders of nose and nasal sinuses; F17.210 Nicotine dependence, cigarettes, uncomplicated; Z88.5 Allergy status to narcotic agent; Z91.09 Other allergy status, other than to drugs and biological substances
CPT/HCPCS: 99212; G0463

== ENCOUNTER 2021-04-19 06:02 | Inpatient (IN) ==
[~2021-04-19 06:02] MED LIST: Buffered Lidocaine 1% SYRIN 1 ml INTRADERM ONE; Lactated Ringers 1000 ml BAG 1,000 ML IV SCH
[2021-04-19] MEDS ORDERED: ceFAZolin 2 GM in NS PREMIX 2 GM/100 ML BAG IVPB ONE (06:13)
[2021-04-19] MEDS ORDERED: Lidocaine 1% w EPI 1:200,000 SDV 30 ML VIAL ONE (07:09)
[2021-04-19] MEDS ORDERED: ceFAZolin VIAL VIAL ONE (07:09)
[2021-04-19] MEDS ORDERED: Remifentanil 2 MG VIAL ONE ×3 (07:20→10:51)
[2021-04-19] MEDS ORDERED: Midazolam 2 mg/2 ml VIAL 1 mg/ml 2 ml VIAL (2 mg) ONE (07:20)
[2021-04-19] MEDS ORDERED: fentaNYL 100 mcg/2 ml 50 MCG/ML VIAL ONE (07:21)
[2021-04-19] MEDS ORDERED: Rocuronium 50 mg VIAL 10 mg/ml 5 ml VIAL (50 mg) ONE (07:23)
[2021-04-19] MEDS ORDERED: Propofol 10 mg/ml 100 ML BTL 100 ML ONE (09:56)
[2021-04-19] MEDS ORDERED: Thrombin 5,000 UNITS 1 APPLIC KIT - topical use - TOPICAL ONE (10:57)
[2021-04-19] MEDS ORDERED: Gelfoam Sponge SIZE 100 SPONGE ONE (10:57)
[2021-04-19] MEDS ORDERED: Ondansetron 4 mg VIAL 2 MG/ML 2 ml VIAL IV PRN ×2 (11:48→12:15)
[2021-04-19] MEDS: HYDROmorphone 1 MG/1 ML SYRINGE IV PRN ×3 (11:55→12:39)
[2021-04-19] MEDS ORDERED: Polyethylene Glycol 3350 17 GM PACKET PO PRN (11:56)
[2021-04-19] MEDS ORDERED: Albuterol 2.5mg/3 ml (0.083%) NEB.SOLN INH PRN (11:56)
[2021-04-19] MEDS ORDERED: Benzocaine/Menthol LOZ PO PRN (11:56)
[2021-04-19] MEDS ORDERED: Albuterol HFA INHALER 8 gm MDI INH PRN (11:58)
[2021-04-19] MEDS ORDERED: diPHENhydraMINE 25 mg TAB PO PRN (11:58)
[2021-04-19] MEDS ORDERED: NS 0.9% 1000 ml BAG 1,000 ML IV SCH (12:00)
[2021-04-19] MEDS ORDERED: HYDROmorphone 1 MG/1 ML SYRINGE ONE ×2 (12:01→12:35)
[2021-04-19] MEDS ORDERED: Phenylephrine IV 10 MG/ML 1 ml VIAL ONE (12:04)
[2021-04-19] MEDS ORDERED: Dexamethasone IV 4 MG/ML VIAL 1 ml VIAL ONE (12:04)
[2021-04-19] MEDS ORDERED: EPHEDrine (Pressors) 50 MG/ML VIAL ONE (12:04)
[2021-04-19] MEDS ORDERED: Ondansetron 4 mg VIAL 2 MG/ML 2 ml VIAL ONE (12:04)
[2021-04-19] MEDS ORDERED: Propofol 10 MG/ML 20 ML BTL ONE (12:05)
[2021-04-19] MEDS ORDERED: Lidocaine 2% PF 5 ML VIAL ONE (12:05)
[2021-04-19] MEDS ORDERED: Succinylcholine 200 mg VIAL 20 mg/ml 10 ml VIAL (200 mg) ONE (12:07)
[2021-04-19] MEDS: Acetaminophen IV 1 GM/100ML 100 ML IV SCH ×2 (12:10→20:07)
[2021-04-19] MEDS ORDERED: Naloxone 0.4 mg VIAL 0.4 mg/ml 1 ml VIAL IV PRN (12:15)
[2021-04-19] MEDS ORDERED: Acetaminophen IV 1 GM/100ML 100 ML IV ONE (12:19)
[2021-04-19] MEDS: Dexamethasone IV 4 MG/ML VIAL 1 ml VIAL IV SLOW PU SCH ×2 (15:13→21:52)
[2021-04-19] MEDS: Morphine 2 MG/ML SYRINGE IV PRN ×2 (15:14→20:29)
[2021-04-19] MEDS: Nicotine PATCH 21 MG/24 HR PATCH TRANSDERM SCH (15:25)
[2021-04-19] MEDS: ceFAZolin 2 GM in NS PREMIX 2 GM/100 ML BAG IVPB SCH (17:21)
[2021-04-19] MEDS ORDERED: Mometasone 220 MCG MDI INH SCH (18:00)
[2021-04-19] MEDS: Magnesium Hydroxide LIQ 30 ML UDC PO SCH (20:09)
[2021-04-19] MEDS ORDERED: Fluticasone NASAL SPRAY 50MCG 16 gm SPRAY BTL INTRANASAL SCH (21:00)
[2021-04-20] MEDS: Morphine 2 MG/ML SYRINGE IV PRN ×2 (00:47→05:21)
[2021-04-20] MEDS: ceFAZolin 2 GM in NS PREMIX 2 GM/100 ML BAG IVPB SCH (01:20)
[2021-04-20] MEDS: Magnesium Hydroxide LIQ 30 ML UDC PO SCH (08:12)
[2021-04-20] MEDS: Nicotine PATCH 21 MG/24 HR PATCH TRANSDERM SCH (08:15)
[2021-04-20 08:18] VITALS: BP 120/59
== END 2021-04-20 10:02 | disposition home or self-care (01) | DRG 321 ==
LOC: AA 06:02 → SSU 11:48
PROVIDERS: ADMIT Neurological Surgery; ATTEND Neurological Surgery